=== PATIENT | female | born 1995 | race Caucasian/White ===

== ENCOUNTER 2018-04-02 18:15 | Outpatient (CLI) | payer OTHER, SELFPAY ==
[2018-04-02 18:47] VITALS: BMI 37.4
[2018-04-02 19:23] LABS: ROM Internal Control Test YES-OK TO RESULT pt. (Internal QC); ROM Patient Test Negative (Negative)
--- NOTE | 2018-04-03 07:49 | OB.TRI.NOTE ---
History of Present Illness Date of Service: 04/02/18 Was patient seen by the physician?: No Reason For Visit: R/O LABOR Date of Service: 04/02/18 Final CHAU: 05/18/18 Final CHAU Source: US <20 weeks Gestational age: 33 Weeks and 4 Days History of Present Illness: Patient presented to triage reporting possible SROM and decreased movement. Patient reports no vaginal bleeding or cramping/contractions. Allergies No Known Allergies Allergy (Verified 04/02/18 18:53) Laboratory Studies: Laboratory Tests 04/02/18 Range/Units 18:30 Vag Amniotic Fld Detect Negative (Negative) Review of Systems Unable to obtain accurate/complete ROS d/t: See nursing note for ROS Physical Exam Vitals: See nursing note for vitals and PE - patient was normotensive and afebrile NST - FHR Rate Baby A Baseline: 120 Variability:: Moderate Accelerations:: 15 x 15 Decelerations:: None NST Reactive:: Yes, Appropriate for gestational age FHR Category:: Category I Uterine Activity:: Uterine irritability noted on tocometer - no ctx noted
== END 2018-04-02 19:45 | disposition home or self-care (01) ==
LOC: WPOUT 18:45 → WP 18:46
PROVIDERS: Visit Provider Advanced Practice Midwife
DX: O36.8130 Decreased fetal movements, third trimester, not applicable or unspecified (principal); Z3A.33 33 weeks gestation of pregnancy
CPT/HCPCS: 59025; 59050; 84112; 99218; G0378

== ENCOUNTER 2018-05-13 07:10 | Inpatient (IN) | payer OTHER, SELFPAY ==
[2018-05-13 07:34] VITALS: BMI 38.3
[2018-05-13] MEDS: Lactated Ringers 1,000 ML 50 ML IV (07:45)
[2018-05-13] MEDS: Oxytocin 30 units/NS 500 ml 30 UNITS/500 ML IV.SOLN IV (08:47)
[2018-05-13 08:48] LABS: Hematocrit 38.3 % (37-47); Hemoglobin 13.1 g/dl (12.0-15.0); Mean Corp Hgb Conc 34.2 g/gl (32-36); Mean Corpuscular Hgb 30.1 pg (27.0-32.0); Mean Platelet Vol. 11.3 fl (6.2-12.0); Platelet Count 186 K/mm3 (150-450); RBC Distribution Width CV 13.2 % (11.6-14.6); RBC Distribution Width SD 40.8 fl (35.1-43.9); Red Blood Count 4.35 M/mm3 (4.2-5.4); White Blood Count 8.9 K/mm3 (4.4-11.0)
[2018-05-13 08:53] LABS: Scan Indicated on CBC? Y/N NO
[2018-05-13] MEDS: 0.9% Saline Lock 10 ML Syringe IV (12:11)
[2018-05-13] MEDS: Oxytocin 30 units/NS 500 ml 30 UNITS/500 ML IV.SOLN 334 UNITS IV (12:30)
--- NOTE | 2018-05-13 12:47 | PCM.HP.OB ---
History Date of Admission: 05/13/18 Final CHAU: 05/18/18 Final CHAU Source: US <20 weeks Gestational age: 39 Weeks and 2 Days History of this : This is a 22 year-old, 2 para 1 who presents at 39-2/7 weeks with EDC of 05/18/2018 by last menstrual period confirmed by first trimester ultrasound presents for induction of labor. She denies any vaginal bleeding or leaking of fluid. She has had a regular contractions. Her has been uncomplicated to date. Previous was one full-term spontaneous vaginal delivery of a 7 pound 9 ounce without complications.. Allergies PEANUTS Allergy (Uncoded 05/13/18 07:54) Anaphylaxis Home Medications: Home Medications Vits96/Iron Fum/Folic [ Tablet] 1 each PO DAILY 04/02/18 Cholecalciferol (VIT D3) [Vitamin D] 1,000 unit PO DAILY 05/13/18 Epinephrine [Epipen] 0.3 mg IM PRN PRN 05/13/18 Smoking Status: Former smoker Alcohol: None Number of Fetus(es): 1 Heart Tracing: Normal baseline, moderate variability spontaneous accelerations and no recurrent decelerations. Category 1 upon admission TOCO Analysis: No regular contractions History Past Pregnancies: Past Pregnancies Delivery Date Name GA/Weeks Outcome Route Weight Gender Labor Length Anesthesia Delivery Location Provider FOB Review of Systems Constitutional: Denies: Anorexia, Chills, Fever Cardiovascular: Denies: Chest Pain Respiratory: Denies: Cough Gastrointestinal: Denies: Abdominal Pain Physical Exam General: Alert, Cooperative, No apparent distress Cardiovascular: Regular rate Lungs: Normal air movement Abdomen: Soft, Non-Distended, Gravid, Appropriate for Gestational Age Extremities:: Other - 1+ edema [employer]: Normal external genitalia Estimated gestational size: Appropriate for gestational size Presentation: Cephalic Cervix Dilation (cm): 3 - AROM with return of moderate amount of clear fluid Station: -2 Effacement (%): 60 Assessment/Plan All Active Problems Decreased movement affecting management of in third trimester (Acute) False labor before 37 completed weeks of gestation (Acute) Vaginal discharge during in third trimester (Acute) 22-year-old 2 para 1 female at 39 2/7 weeks for elective induction of labor. Risk benefits and alternatives to elective induction been discussed with the patient, her questions were answered to her satisfaction she desires to proceed. We will proceed with Pitocin and artificial rupture membranes induction. Estimated weight is less than 4500 g clinically and pelvis is clinically adequate to expect vaginal delivery.
--- NOTE | 2018-05-13 12:50 | PCM.OB.VAG ---
Vaginal Delivery Maternal Presentation: Elective Induction Method of Induction: Pitocin, Amniotomy Amniotic Membrane Rupture Type: Artificial Amniotic Fluid Description: Clear Final CHAU: 05/18/18 Final CHAU Source: US <20 weeks Gestational age: 39 Weeks and 2 Days Date of Procedure: 05/13/18 Pre-Operative Diagnosis: labor Post-Operative Diagnosis: same Surgery/ Procedure Performed: Spontaneous Vaginal Delivery Type of Anesthesia: None Description of Procedure: A vigorous female was delivered SHANAE over an intact perineum. A tight nuchal cord x1 was reduced. The remainder the was delivered with maternal pushing and gentle traction only in less than 15 seconds. The Pitocin infusion was initiated for active management of the third stage. The cord was clamped and cut after approximately 30 seconds as the infant was not crying vigorously at that time. The infant was attended to by the waiting nursing staff. The placenta was delivered spontaneously and intact. The cervix and vagina were intact. Sponge and needle counts were correct. A vaginal sweep was completed by me. Presentation: SHANAE Placental Delivery Description: Spontaneous Placenta Disposition: [facility] Cord Vessel Description: 3 Vessels Nuchal Cord Compression: Without compression Cord Entanglement: Around neck x 1, tight Drain: - - none Estimated Blood Loss: 200 Infant A gender: Female (1 minute): 8 (5 minute): 8 Episiotomy Description: None Laceration: None Medications given after delivery: IV Pitocin Complications: None
[2018-05-13] MEDS: Acetaminophen 325 MG Tablet PO (12:59)
[2018-05-13] MEDS: Oxytocin 30 units/NS 500 ml 30 UNITS/500 ML IV.SOLN 167 UNITS IV (13:01)
[2018-05-13] MEDS: Naproxen 250 MG Tablet PO (16:16)
[2018-05-13 16:17] VITALS: BP 133/79; PULSE 76; RESP 16; TEMP 36.7; O2SAT 98
--- NOTE | 2018-05-13 18:22 | DCINST_ITS ---
Discharge Diet: No Restrictions Discharge Activity: Return to Normal Activity, May not drive while taking narcotic pain medications., May Shower May resume sexual activity in: 4-6 weeks Additional Activity Instructions:: Nothing in the vagina for 4-6 weeks. You may return to work/school in 6 weeks. Call your doctor if your incision/area has: Continuous Slow Oozing, Sudden Increased Bleeding, Increased Pain/ Swelling, Increased Redness, Foul Smelling Discharge Additional Instructions: If you experience any of the following, contact your healthcare provider. * Bleeding that soaks a pad every hour for 2 hours * Fever 100.4 or higher * Unrelieved incision or abdominal pain * Swelling, redness, discharge or bleeding from your incision or episiotomy site * Your incision begins to separate * Problems urinating (including inability to urinate or burning while urinating). * Visual changes * Severe headache * Flu-like symptoms * Pain or redness in one of both of your breasts * Pain, warmth, tenderness or swelling in your legs, especially the calf area * Frequent nausea and vomiting * Symptoms of depression or anxiety If you experience any of the following, call 911 or go to the nearest Emergency Room. * Chest pain * Problems breathing * Seizure activity * Partial or complete paralysis of a body part, slurred speech, weakness or drooping of the face, or a sudden inability to walk or hold your balance Allergies/Adverse Reactions: Allergies PEANUTS Allergy (Uncoded 05/13/18 07:54) Anaphylaxis Medications to take at Discharge Vits96/Iron Fum/Folic [ Tablet] 1 each PO DAILY 04/02/18 Cholecalciferol (VIT D3) [Vitamin D3] 1,000 unit PO DAILY 05/13/18 Epinephrine [Epipen] 0.3 mg IM PRN PRN 05/13/18 Ibuprofen [Motrin] 800 mg PO TID PRN PRN #60 tablet 05/13/18 The following prescriptions were given: Ibuprofen [Motrin] 800 mg PO TID PRN PRN #60 tablet PRN Reason: Pain Please Follow Up With: Mica Concepcion MD - [phone] When: Call to make an appointment with your providers office in 1-2 and 6 weeks or as needed. Primary Care Physician: Irvin Edwards MD [Primary Care Provider] - Test Results: Test results from this visit will be discussed in further detail at your follow- up appointment, if applicable.
[2018-05-13 21:05] VITALS: BP 124/79; PULSE 74; RESP 18; TEMP 36.4
[2018-05-14] VITALS: BP 120/58; PULSE 63; RESP 16; TEMP 37; O2SAT 97
[2018-05-14 04:00] VITALS: BP 112/68; PULSE 73; RESP 18; TEMP 37.1; O2SAT 96
[2018-05-14] MEDS: Naproxen 250 MG Tablet PO (07:38)
[2018-05-14] MEDS: Senna/Docusate Sodium 1 Tablet PO (07:41)
--- NOTE | 2018-05-14 07:45 | PCM.PN.OB ---
Subjective: pain well controlled, average lochia, no other c/o. is going well - Physical Exam General: Alert, Cooperative, No apparent distress Vital Signs Temp Pulse Resp BP Pulse Ox 98.8 F 73 18 112/68 96 05/14/18 04:00 05/14/18 04:00 05/14/18 04:00 05/14/18 04:00 05/14/18 04:00 Oxygen Flow Rate (L/min) 96 Oxygen Delivery Method Room Air Weight: 98.2 kg Body Mass Index (BMI) 38.3 Intake and Output for Last 24 Hours 05/12/18 05/13/18 05/14/18 23:59 23:59 23:59 Intake Total 1400.5 / 1400.5 Output Total 750 / 750 Balance 650.5 / 650.5 Laboratory Tests Past 24 Hrs 05/13/18 05/13/18 07:45 07:45 WBC 8.9 RBC 4.35 Hgb 13.1 Hct 38.3 MCV 88.0 MCH 30.1 MCHC 34.2 RDW 13.2 RDW Differential 40.8 Plt Count 186 MPV 11.3 Blood Type B POSITIVE Antibody Screen NEGATIVE Medical Necessity - Tobacco Use Smoking Status: Former smoker Assessment/Plan All Active Problems Decreased movement affecting management of in third trimester (Acute) False labor before 37 completed weeks of gestation (Acute) Vaginal discharge during in third trimester (Acute) PPD#1 doing well infant possible d/c home today
[2018-05-14 08:00] VITALS: BP 127/76; PULSE 73; RESP 16; TEMP 36.5
[2018-05-14 14:00] VITALS: BP 117/53; PULSE 79; RESP 20; TEMP 36.5
== END 2018-05-14 16:10 | disposition home or self-care (01) | DRG 807 ==
PROVIDERS: Admitting Provider Obstetrics & Gynecology; Family Provider Family Medicine; PCP Family Medicine; Referring Provider Obstetrics & Gynecology; Visit Provider Obstetrics & Gynecology
DX: O75.89 Other specified complications of labor and delivery (principal); Z37.0 Single live birth; O69.1XX0 Labor and delivery complicated by cord around neck, with compression, not applicable or unspecified; Z3A.39 39 weeks gestation of pregnancy; Z87.891 Personal history of nicotine dependence
CPT/HCPCS: 59025; 59050; 85027; 86850; 86900; 99218; J7120; A4216; G0378

== ENCOUNTER 2025-04-14 18:40 | Outpatient (CLI) | payer OTHER, SELFPAY ==
--- OUTSIDE RECORDS SUMMARY | 2025-04-14 18:47 | XMS RPT_ITS | CCD ---
Author Organization [facility] Care Team Providers Care Academic Hospitalist Name Role Phone Furness, Shazia T Unavailable Unavailable Furness, Shazia T Unavailable Unavailable Thomae, Horacio R Unavailable Unavailable Furness, Shazia T Unavailable Unavailable Furness, Shazia T Unavailable Unavailable Furness, Shazia T Unavailable Unavailable Thomae, Horacio R Unavailable Unavailable Furness, Shazia T Unavailable Unavailable Newbill, Nabil Harleyel Unavailable Unavailable Newbill, Nabil Fletcher Unavailable Unavailable Furness, Shazia T Unavailable Unavailable Newbill, Nabil Harleyel Unavailable Unavailable Furness, Shazia T Unavailable Unavailable Newbill, Nabil Harleyel Unavailable Unavailable Furness, Shazia T Unavailable Unavailable Furness, Shazia T Unavailable Unavailable Furness, Shazia T Unavailable Unavailable Furness, Shazia T Unavailable Unavailable Furness, Shazia T Primary Care Provider Unavail able Furness Shazia GIL Primary Care Provider Shazia Edwards MD Primary Care Provider Tianna Mota Referring Unavailable PlottsTianna Attending Unavailable PlottsTianna Admitting Unavailable Furness, Shazia Primary Care Unavailable FURNESS, SHAZIA T Primary Care Unavailable GIANA ALCALA Attending Unavailable PLOTTSTIANNA Referring Unavailable PLOTTSTIANNA Attending Unavailable FURNESS, SHAZIA T Primary Care Unavailable GIANA ALCALA Referring Unavailable FURNESS, SHAZIA T Primary Care Unavailable GIANA ALCALA Referring Unavailable FURNESS, SHAZIA T Primary Care Unavailable KATHLEEN PATEL Referring Unavail able FURNESS, SHAZIA T Primary Care Unavailable FURNESS, SHAZIA T Primary Care Unavailable PLOTTSTIANNA Referring Unavailable FURNESS, SHAZIA T Primary Care Unavailable PLOTTSTIANNA Attending Unavailable FURNESS, SHAZIA T Primary Care Unavailable TAWANDA LA Attending Unavailable FURNESS, SHAZIA T Primary Care Unavailable FURNESS, SHAZIA T Primary Care Unavailable PLOTTS, TIANNA Attending Unavailable FURNESS, SHAZIA T Primary Care Unavailable PLOTTS, TIANNA Referring Unavailable NEYHART CARO, KATHLEEN Referring Unavail able FURNESS, SHAZIA T Primary Care Unavailable NEYHART CARO, KATHLEEN Referring Unavail able FURNESS, SHAZIA T Primary Care Unavailable PLOTTS, TIANNA Attending Unavailable FURNESS, SHAZIA T Primary Care Unavailable PLOTTS, TIANNA Attending Unavailable FURNESS, SHAZIA T Primary Care Unavailable FURNESS, SHAZIA T Primary Care Unavailable PLOTTS, TIANNA Referring Unavailable FURNESS, SHAZIA T Primary Care Unavailable PLOTTS, TIANNA Referring Unavailable HAURY, KAILEE Attending Unavailable FURNESS, SHAZIA T Primary Care Unavailable FURNESS, SHAZIA T Primary Care Unavailable HAURY, KAILEE Referring Unavailable FURNESS, SHAZIA T Primary Care Unavailable PLOTTS, TIANNA Attending Unavailable FURNESS, SHAZIA T Primary Care Unavailable HAURY, KAILEE Referring Unavailable SUJATA, GIANA Attending Unavailable FURNESS, SHAZIA T Primary Care Unavailable HAURY, KAILEE Referring Unavailable SUJATA, GIANA Attending Unavailable FURNESS, SHAZIA T Primary Care Unavailable PLOTTS, TIANNA Referring Unavailable FURNESS, SHAZIA T Primary Care Unavailable HAURY, KAILEE Attending Unavailable FURNESS, SHAZIA T Primary Care Unavailable PLOTTS, TIANNA Referring Unavailable NEYHART RAZAIDRE Attending Unavail able FURNESS, SHAZIA T Primary Care Unavailable NEYHART CARO, KATHLEEN Referring Unavail able FURNESS, SHAZIA T Primary Care Unavailable Allergies Allergy Classification Reported Allergen(s) Allergy Type Date of Onset Reaction(s) Facility (20 sources) peanut; Translations: [Peanuts] Propensity to adverse reactions to food (disorder) 0 Anaphylaxis [facility] Repository (1 source) No Known Allergies; Translations: [No Known Allergies] Propensity to adverse reactions to drug (disorder) [facility] Repository (1 source) peanut allergenic extract Drug Allergy 2 [facility] Repository Medications Current Medications Medication Drug Class(es) Dates Sig (Normalized) Sig (Original) amoxicillin 500 mg oral capsule (4 sources) Penicillin-class Antibacterial Start: 12-02-2024 take 1 tablet by mouth three times daily amoxicillin (AMOXIL) 500 mg capsule take 1 tablet (500 mg total) by mouth 3 (three) times a day for 7 days 12/02/2024 Active aspirin 81 mg delayed release oral tablet (19 sources) Platelet Aggregation Inhibitor, Nonsteroidal Anti-inflammatory Drug Start: 09-23-2024 take 1 tablet by mouth once daily aspirin, enteric coated (ECOTRIN LOW STRENGTH) 81 mg EC tablet Indications: 9 weeks gestation of (HCC) Take 1 tablet by mouth once daily. 90 tablet 3 09/23/2024 Active Start: 04-22-2024 End: 07-01-2024 take 1 tablet by mouth once daily aspirin, enteric coated (ECOTRIN LOW STRENGTH) 81 mg EC tablet Indications: with uncertain dates in first trimester Take 1 tablet by mouth once daily. 90 tablet 3 04/22/2024 07/01/2024 Discontinued (Discontinued by Patient) doxycycline hyclate 100 mg oral tablet (1 source) Tetracycline-class Drug Start: 05-06-2024 End: 05-06-2024 take 2 tablets by mouth once doxycycline (VIBRA-TABS) 100 mg tablet Take 2 tablets by mouth one time only for 1 dose. 2 tablet 05/06/2024 05/06/2024 Active [id number] 0.3 ml EPINEPHrine 1 mg/ml auto-injector (20 sources) alpha-Adrenergic Agonist, beta-Adrenergic Agonist, Catecholamine Start: 05-13-2018 EPINEPHrine (EPIPEN) 0.3 mg/0.3 mL auto-injector NEEDED PRN For Allergies 05/13/2018 Active Comment on above: NEEDED PRN For Al lergies 273 day ethinyl estradiol 0.308035 mg/hr / segesterone acetate 0.93599 mg/hr vaginal system (5 sources) Estrogen Start: 05-27-2023 End: 04-22-2024 segesterone ac-ethin estradiol (ANNOVERA) 0.15-0.013 mg/[address] ring vaginally for 3 week then remove for 1 week and replace within 4-7 days. 1 Each 05/27/2023 04/22/2024 Discontinued Start: 06-18-2021 End: 06-09-2022 segesterone ac-ethin estradi ol (ANNOVERA) 0.15-0.013 mg/[address] ring vaginally for 3 week then remove for 1 week and replace within 4-7 days. 1 Each 0 06/09/2022 Active Comment on above: Place ring vaginally for 3 week then remove for 1 week and replace within 4-7 days. miSOPROStol 0.2 mg oral tablet (1 source) Prostaglandin E1 Analog Start: 04-29-20 End: 04-29-20 miSOPROStol (CYTOTEC) 200 mcg tablet Use 4 tablets vaginally one time only for 1 dose. 4 tablet 04/29/2024 04/29/2024 Active pantoprazole 20 mg delayed release oral tablet (1 source) Proton Pump Inhibitor Start: 01-07-20 take 1 tablet by mouth once daily pantoprazole DR (PROTONIX) 20 mg tablet Take 1 tablet by mouth once daily. 30 tablet 1 01/06/2025 Active 25-IRON [id number] ORAL (19 sources) 25-IRON [id number] ORAL Take by mouth. Active promethazine hydrochloride 12.5 mg rectal suppository (6 sources) Phenothiazine Start: 12-06-19 take 12.5 mg rectal route every six hours as needed promethazine (PHENERGAN) 12.5 mg suppository 1 suppository by RECTAL route every 6 hours as needed. 12 each 12/05/2024 Active Completed/Discontinued Medications Medication Drug Class(es) Dates Sig (Normalized) Sig (Original) famotidine 20 mg oral tablet (7 sources) Histamine-2 Receptor Antagonist End: 01-06-2025 take 1 tablet by mouth twice daily famotidine (PEPCID) 20 mg tablet Take 20 mg by mouth two times a day. 01/06/2025 Discontinued (Course of therapy completed) 2 ml ketorolac tromethamine 30 mg/ml injection (2 sources) Nonsteroidal Anti-inflammatory Drug, Cyclooxygenase Inhibitor Start: 05-06-2024 End: 05-06-2024 keTORolac 60 mg injection (Toradol) Start: 05-06-2024 End: 05-06-2024 60 mg, INTRAMUSCULAR, ONCE, 1 dose, On Thu05/06/24 at 1500, Ketorolac (Toradol) is indicated for the short-term (up to 5 days) management of moderately severe acute pain. Continuation of ketorolac (Toradol) beyond 5 days increases the risk of developing serious adverse events. Please verify the duration of therapy for ketorolac (Toradol). Problems Active Problems Problem Classification Problem Date Documented Da te Episodic/Chronic Contraceptive and procreative management (1 source) Contraception status; Translations: [Encounter for surveillance of vaginal ring hormonal contraceptive device] 06-29-2023 Episodic Diabetes mellitus without complication (1 source) Other abnormal glucose; Translations: [Elevated glucose] Onset: 02-06-2025 Episodic Hemorrhage during ; abruptio placenta; placenta previa (20 sources) Vaginal bleeding complicating early ; Translations: [Hemorrhage in early , unspecified] Onset: 04-22-2024 Resolved: 09-23-2024 04-22-2024 Episodic Immunizations and screening for infectious disease (3 sources) Patient encounter status; Translations: [Encounter for screening for human papillomavirus (HPV)] 07-01-2024 Episodic Other complications of (20 sources) Maternal obesity complicating , childbirth and the puerperium, antepartum; Translations: [Obesity complicating , first trimester] Onset: 08-11-2014 Resolved: 05-22-2016 04-22-2024 Chronic Other complications of (2 sources) Obesity complicating , second trimester; Translations: [Obesity affecting in second trimester, unspecified obesity type (HCC)] Onset: 10-17-2024 Chronic Other complications of (18 sources) High risk ; Translations: [Supervision of high risk , unspecified, first trimester] Onset: 04-22-2024 04-22-2024 Episodic Other complications of (1 source) Heartburn; Translations: [Other specified related conditions, second trimester] 01-06-2025 Episodic Other complications of (1 source) Supervision of high risk , unspecified, third trimester; Translations: [Supervision of high risk in third trimester (HCC)] Onset: 03-20-2025 Episodic Other complications of (1 source) Supervision of high risk , unspecified, second trimester; Translations: [Supervision of high risk in second trimester (HCC)] Onset: 03-03-2025 Episodic Other complications of (1 source) Other specified related conditions, second trimester; Translations: [Heartburn during in second trimester (HCC)] Onset: 01-06-2025 Episodic Other female genital disorders (1 source) Other specified noninflammatory disorders of vagina; Translations: [Vaginal discharge] Onset: 03-20-2025 Episodic Other gastrointestinal disorders (13 sources) Irritable bowel syndrome; Translations: [Mixed irritable bowel syndrome] 09-23-2024 Chronic Other gastrointestinal disorders (1 source) Heartburn; Translations: [Heartburn during in second trimester (HCC)] Onset: 01-06-2025 Episodic Other screening for suspected conditions (not mental disorders or infectious disease) (2 sources) Cancer cervix screening status; Translations: [Encounter for screening for malignant neoplasm of cervix] Onset: 02-03-2025 07-01-2024 Episodic Residual codes; unclassified (1 source) First trimester ; Translations: [Less than 8 weeks gestation of ] 04-22-2024 Episodic Residual codes; unclassified (4 sources) Gestation period, 9 weeks; Translations: [9 weeks gestation of ] 09-23-2024 Episodic Residual codes; unclassified (2 sources) Gestation period, 13 weeks; Translations: [13 weeks gestation of ] 10-17-2024 Episodic Residual codes; unclassified (1 source) Gestation period, 16 weeks; Translations: [16 weeks gestation of ] 11-11-2024 Episodic Residual codes; unclassified (1 source) Gestation period, 20 weeks; Translations: [20 weeks gestation of ] 12-09-2024 Episodic Residual codes; unclassified (3 sources) Gestation period, 24 weeks; Translations: [24 weeks gestation of ] 01-06-2025 Episodic Residual codes; unclassified (1 source) 35 weeks gestation of ; Translations: [35 weeks gestation of (HCC)] Onset: 03-20-2025 Episodic Residual codes; unclassified (1 source) 32 weeks gestation of ; Translations: [32 weeks gestation of (HCC)] Onset: 03-03-2025 Episodic Residual codes; unclassified (1 source) 30 weeks gestation of ; Translations: [30 weeks gestation of ([facility])] Onset: 02-17-2025 Episodic Residual codes; unclassified (1 source) 24 weeks gestation of ; Translations: [24 weeks gestation of ([facility])] Onset: 02-03-2025 Episodic Residual codes; unclassified (1 source) 28 weeks gestation of ; Translations: [28 weeks gestation of ([facility])] Onset: 02-03-2025 Episodic Unclassified (20 sources) [facility] - [facility]ON Onset: 04-23-2024 04-23-2024 Unclassified (11 sources) Education - [place] Onset: 09-23-2024 09-23-2024 Unclassified (1 source) Other obesity affecting in second trimester ([facility]); Translations: [Other obesity affecting in second trimester ([facility])] Onset: 10-17-2024 Past or Other Problems Problem Classification Problem Date Documented Da te Episodic/Chronic Calculus of urinary tract (19 sources) History of calculus of kidney; Translations: [Personal history of urinary calculi] Resolved: 06-23-2018 06-23-2018 Episodic Early or threatened labor (19 sources) False labor; Translations: [False labor, unspecified] Onset: 02-26-2015 Resolved: 05-22-2016 05-22-2016 Episodic Other complications of ; puerperium affecting management of mother (19 sources) Labor and delivery complication by meconium in amniotic fluid; Translations: [Labor and delivery complicated by meconium in amniotic fluid] Onset: 04-05-2015 Resolved: 05-22-2016 05-22-2016 Episodic Other complications of (20 sources) Diseases of the digestive system complicating , first trimester; Translations: [Other current conditions classifiable elsewhere of mother, antepartum condition or complication] Onset: 04-22-2024 Resolved: 01-06-2025 04-22-2024 Episodic Other complications of (19 sources) Reduced movement; Translations: [Decreased movements, unspecified trimester, not applicable or unspecified] Onset: 03-01-2015 Resolved: 05-22-2016 05-22-2016 Episodic Other complications of (1 source) Incomplete and partial hydatidiform mole; Translations: [Partial hydatidiform mole] Onset: 05-20-2024 Episodic Other and delivery including normal (20 sources) with uncertain dates; Translations: [Encounter for supervision of normal , unspecified, first trimester] Onset: 08-11-2014 Resolved: 01-06-2025 04-22-2024 Episodic Prolonged (20 sources) Post-term ; Translations: [Post-term ] Onset: 04-02-2015 Resolved: 05-22-2016 05-22-2016 Episodic Residual codes; unclassified (19 sources) Gestation period, 35 weeks; Translations: [35 weeks gestation of ] Onset: 02-26-2015 Resolved: 03-08-2015 03-08-2015 Episodic Residual codes; unclassified (19 sources) Gestation period, 40 weeks; Translations: [40 weeks gestation of ] Onset: 04-02-2015 Resolved: 05-22-2016 05-22-2016 Episodic Residual codes; unclassified (1 source) 9 weeks gestation of ; Translations: [9 weeks gestation of (HCC)] Onset: 12-09-2024 Episodic Residual codes; unclassified (1 source) 16 weeks gestation of ; Translations: [16 weeks gestation of (HCC)] Onset: 11-11-2024 Episodic Residual codes; unclassified (1 source) 13 weeks gestation of ; Translations: [13 weeks gestation of (HCC)] Onset: 10-17-2024 Episodic Spontaneous (4 sources) Miscarriage; Translations: [Complete or unspecified spontaneous without complication] Onset: 05-02-2024 04-29-2024 Episodic Unclassified (19 sources) NEGATIVE MEDICAL HISTORY Resolved: 11-14-2014 11-14-2014 Results Test Name Value Interpretation Reference Range Facil ity BACTERIAL VAGINOSIS NAATon 1 05-20-2024 Lactobacillus crispatus+gasseri+je nsenii + Gardnerella vaginalis + Atopobium vaginae rRNA ITZEL+probe Ql (Vag fld) Detected Abnormal Not detected [facility] Comment on above: Order Comment: Speci men Type: SWABOrdering Facility: [facility] Address: [address] [place] [address] Performed By: #### C VTV, BVAMP ####[facility] LABCLIA [id number] [place] [address] [place] MILADIS/TRICHOMONAS NAATon 1 05-20-2024 C. glabrata RNA ITZEL+probe Ql (Vag fld) Not detected Normal Not detected [facility] Comment on above: Order Comment: Speci men Type: SWABOrdering Facility: [facility] Address: [address] [place] [address] Performed By: #### C VTV, BVAMP ####[facility] LABCLIA [id number] [address] [place] Miladis sp DNA ITZEL+probe Ql (Vag fld) Not detected Normal Not detected [facility] Comment on above: Order Comment: Speci men Type: SWABOrdering Facility: [facility] Address: [address] [place] [address] Result Comment: The Miladis species group target includes C. albicans, C. tropicalis, C. parapsilosis, and C. dubliniensis. Performed By: #### C VTV, BVAMP ####[facility] LABCLIA [id number] [address] [place] T. vaginalis DNA ITZEL+probe Ql (Unsp spec) Not detected Normal Not detected [facility] Comment on above: Order Comment: Speci men Type: SWABOrdering Facility: [facility] Address: [address] [place] [address] Performed By: #### C VTV, BVAMP ####[facility] LABCLIA [id number] [address] [place] Ender 02-15-2025 CNPN Telephone (OBGYWM) DORY PRADHAN ([id number]) 1995 F Date Time Provider Department 02/15/25 TIANNA MOTA OBFABIOWHaylee During your visit today, we recorded the following information about you: Giana Alexandre RN 02/15/2025 11:48 AM Signed 30w2d Patient called with c/o bilateral calf and ankle swelling. She is not having pain in her calves, but she does have pain that goes up to her hips. She noticed red, splotchy, and in a cluster formation spots on her legs last night. They are not raised. States that are below the skin. Patient stated on phone that it was hard to describe. Denies s/s of DVT - no lumps, edema, warmth or redness. Does not think that it is contact dermatitis or an allergic reaction to anything. Denies any other abnormal symptoms. Does patient need seen here or would you prefer PCP or Urgent Care? She has an appointment in our office on Thursday. PRAVEEN Sharma Courtney, APRN.CNM 02/15/2025 12:02 PM Signed She can keep her already scheduled appointment with our office this week. If she develops and calf pain/tenderness, redness, warmth etc. She can be seen today at or ED. PHYLLIS Loyd Lindsey, RN 02/15/2025 12:08 PM Signed Patient notified and voiced understanding of information and instructions below. Rhina Connors RN Allergies As of Date: 02/15/2025 Noted Allergy Reaction PEANUTS 06/01/2019 10 - Anaphylaxis Date Reviewed: 02/03/2025 Reviewed by: Giana Alcala MD - Fully Assessed Prescriptions as of 02/15/2025 - pantoprazole DR (PROTONIX) 20 mg tablet Take 1 tablet by mouth once daily. - promethazine (PHENERGAN) 12.5 mg suppository 1 suppository by RECTAL route every 6 hours as needed. - aspirin, enteric coated (ECOTRIN LOW STRENGTH) 81 mg EC tablet Take 1 tablet by mouth once daily. - 25-IRON [id number] ORAL Take by mouth. - EPINEPHrine (EPIPEN) 0.3 mg/0.3 mL auto-injector NEEDED PRN For Allergies Problem List As Of Date 02/15/2025 Noted Resolved NEGATIVE MEDICAL HISTORY [V999.96] 11/14/2014 Routine gynecological examination [Z01.419] 07/26/2013 08/11/2014 Encounter for supervision of other normal pregn*08/11/2014 06/23/2018 History of kidney stones [Z87.442] 06/23/2018 Obesity complicating , childbirth, or *08/11/2014 05/22/2016 False labor [O47.9] 02/26/2015 05/22/2016 35 weeks gestation of [Z3A.35] 02/26/2015 03/08/2015 Decreased movement [O36.8190] 03/01/2015 05/22/2016 Post-dates [O48.0] 04/02/2015 05/22/2016 40 weeks gestation of [Z3A.40] 04/02/2015 05/22/2016 Vaginal delivery [O80] 04/05/2015 05/22/2016 Post term , 41 weeks [O48.0, Z3A.41] 04/05/2015 05/22/2016 Meconium stained amniotic fluid, delivered, cur*04/05/2015 05/22/2016 with uncertain dates in first trimest*04/22/2024 01/06/2025 Obesity affecting in second trimester*04/22/2024 Constipation during in first trimeste*04/22/2024 01/06/2025 Vaginal bleeding affecting early (HCC*04/22/2024 09/23/2024 Supervision of high risk in second tr*09/23/2024 IBS (irritable bowel syndrome) [K58.9] Low-lying placenta (HCC) [O44.40] 12/12/2024 02/06/2025 Elevated glucose [R73.09] 02/06/2025 Encounter Status:Closed by TIANNA MOTA on 02/15/25 Normal [facility] GLUCOSE GESTATIONAL, 1 HOURo n 02-10-2025 Glucose 1 Hr post Unsp challenge [Mass/Vol] 142 mg/dL Normal 74-179 [facility] Comment on above: Order Comment: Speci men Type: BLOOD SPECIMEN Ordering Facility: [facility] Address: [address] [place] [address] [place] [address] Result Comment: [facility] Congress of Obstetricians and Gynecologists (Koko/Brenda) guidelines state gestational diabetes mellitus is present when 2 or more of the plasma glucose concentrations meet or exceed the following levels: fastin mg/dl, 1 hr: 180 mg/dl, 2 hr: 155 mg/dl, and 3 hr: 140 mg/dl. Performed By: #### G TGST1 #### [facility] CLIA [id number] [address] [place] [address] [place] GLUCOSE GESTATIONAL, 2 HOURo n 02-10-2025 Glucose 2 Hr post Unsp challenge [Mass/Vol] 151 mg/dL Normal 74-154 [facility] Comment on above: Order Comment: Speci men Type: BLOOD SPECIMENOrdering Facility: [facility] Address: [address] [place] [address] Result Comment: [facility] Congress of Obstetricians and Gynecologists (Koko/Brenda) guidelines state gestational diabetes mellitus is present when 2 or more of the plasma glucose concentrations meet or exceed the following levels: fastin mg/dl, 1 hr: 180 mg/dl, 2 hr: 155 mg/dl, and 3 hr: 140 mg/dl. Performed By: #### G TGST2 ####[facility] [id number] [place] [address] [place] GLUCOSE GESTATIONAL, 3 HOURo n 02-10-2025 Glucose 3 Hr post Unsp challenge [Mass/Vol] 153 mg/dL High 74-139 [facility] Comment on above: Order Comment: Speci men Type: BLOOD SPECIMENOrdering Facility: [facility] Address: [address] [place] [address] Result Comment: [facility] Congress of Obstetricians and Gynecologists (Koko/Brenda) guidelines state gestational diabetes mellitus is present when 2 or more of the plasma glucose concentrations meet or exceed the following levels: fastin mg/dl, 1 hr: 180 mg/dl, 2 hr: 155 mg/dl, and 3 hr: 140 mg/dl. Performed By: #### G TGST3 ####[facility] [id number] [place] [address] [place] GLUCOSE GESTATIONAL, FASTING on 02-10-2025 Glucose post fast [Mass/Vol] 79 mg/dL Normal 74-94 [facility] Comment on above: Order Comment: Speci men Type: BLOOD SPECIMEN Ordering Facility: [facility] Address: [address] [place] [address] Result Comment: [facility] Congress of Obstetricians and Gynecologists (Koko/Brenda) guidelines state gestational diabetes mellitus is present when 2 or more of the plasma glucose concentrations meet or exceed the following levels: fastin mg/dl, 1 hr: 180 mg/dl, 2 hr: 155 mg/dl, and 3 hr: 140 mg/dl. Performed By: #### G TGSTF #### [facility] CLIA [id number] [address] [place] [address] [place] CBC W Auto Differential pane l (Bld)on 02-03-2025 Basophils (Bld) [#/Vol] 10*3/uL Normal <0.11 [facility] Comment on above: Order Comment: Speci men Type: BLOOD SPECIMEN Ordering Facility: [facility] Address: [address] [place] [address] Performed By: #### G TGST1 #### [id number] [address] [place] [address] [place] Basophils/100 WBC (Bld) 0.2 % Normal [facility] Comment on above: Order Comment: Speci men Type: BLOOD SPECIMEN Ordering Facility: [facility] Address: [address] [place] [address] Performed By: #### G TGST1 #### [facility] [id number] [address] [place] [address] [place] Differential cell count method Nom (Bld) Auto Normal [facility] Comment on above: Order Comment: Speci men Type: BLOOD SPECIMEN Ordering Facility: [facility] Address: [address] [place] [address] Performed By: #### G [email or web address] #### [id number] [address] [place] [address] [place] Eosinophils (Bld) [#/Vol] 0.04 10*3/uL Normal <0.46 [facility] Comment on above: Order Comment: Speci men Type: BLOOD SPECIMEN Ordering Facility: [facility] Address: [address] [place] [address] Performed By: #### G [email or web address] #### [facility] CLIA [id number] [address] [place] [address] [place] Eosinophils/100 WBC (Bld) 0.4 % Normal [facility] Comment on above: Order Comment: Speci men Type: BLOOD SPECIMEN Ordering Facility: [facility] Address: [address] [place] [address] Performed By: #### G [email or web address] #### [facility] CLIA [id number] [address] [place] [address] [place] Erythrocyte distribution width (RBC) [Ratio] 13.3 % Normal 11.5-15.0 [facility] Comment on above: Order Comment: Speci men Type: BLOOD SPECIMEN Ordering Facility: [facility] Address: [address] [place] [address] Performed By: #### G [email or web address] #### [facility] CLIA [id number] [address] [place] [address] [place] Hematocrit (Bld) [Volume fraction] 33.1 % Low 36.0-46.0 [facility] Comment on above: Order Comment: Speci men Type: BLOOD SPECIMEN Ordering Facility: [facility] Address: [address] [place] [address] Performed By: #### G [email or web address] #### [facility] [id number] [address] [place] [address] [place] Hemoglobin (Bld) [Mass/Vol] 11.2 g/dL Low 11.5-15.5 [facility] Comment on above: Order Comment: Speci men Type: BLOOD SPECIMEN Ordering Facility: [facility] Address: [address] [place] [address] Performed By: #### G [email or web address] #### [facility] CLIA [id number] [address] [place] [address] [place] Immature granulocytes (Bld) [#/Vol] 0.05 10*3/uL Normal <0.10 [facility] Comment on above: Order Comment: Speci men Type: BLOOD SPECIMEN Ordering Facility: [facility] Address: [address] [place] [address] Performed By: #### G [email or web address] #### [facility] CLIA [id number] [address] [place] [address] [place] Immature granulocytes/100 WBC (Bld) 0.5 % Normal [facility] Comment on above: Order Comment: Speci men Type: BLOOD SPECIMEN Ordering Facility: [facility] Address: [address] [place] [address] Performed By: #### G [email or web address] #### [facility] CLIA [id number] [address] [place] [address] [place] Lymphocytes (Bld) [#/Vol] 1.63 10*3/uL Normal 1.00-4.00 [facility] Comment on above: Order Comment: Speci men Type: BLOOD SPECIMEN Ordering Facility: [facility] Address: [address] [place] [address] Performed By: #### G [email or web address] #### [facility] CLIA [id number] [address] [place] [address] [place] Lymphocytes/100 WBC (Bld) 16.8 % Normal [facility] Comment on above: Order Comment: Speci men Type: BLOOD SPECIMEN Ordering Facility: [facility] Address: [address] [place] [address] Performed By: #### G [email or web address] #### [facility] CLIA [id number] [address] [place] [address] [place] MCH (RBC) [Entitic mass] 30.0 pg Normal 26.0-34.0 [facility] Comment on above: Order Comment: Speci men Type: BLOOD SPECIMEN Ordering Facility: [facility] Address: [address] [place] [address] Performed By: #### G [email or web address] #### [facility] CLIA [id number] [address] [place] [address] [place] MCHC (RBC) [Mass/Vol] 33.8 g/dL Normal 30.5-36.0 [facility] Comment on above: Order Comment: Speci men Type: BLOOD SPECIMEN Ordering Facility: [facility] Address: [address] [place] [address] Performed By: #### G [email or web address] #### [facility] CLIA [id number] [address] [place] [address] [place] MCV (RBC) [Entitic vol] 88.7 fL Normal 80.0-100.0 [facility] Comment on above: Order Comment: Speci men Type: BLOOD SPECIMEN Ordering Facility: [facility] Address: [address] [place] [address] Performed By: #### G [email or web address] #### [facility] CLIA [id number] [address] [place] [address] [place] Monocytes (Bld) [#/Vol] 0.42 10*3/uL Normal <0.87 [facility] Comment on above: Order Comment: Speci men Type: BLOOD SPECIMEN Ordering Facility: [facility] Address: [address] [place] [address] Performed By: #### G [email or web address] #### [facility] CLIA [id number] [address] [place] [address] [place] Monocytes/100 WBC (Bld) 4.3 % Normal [facility] Comment on above: Order Comment: Speci men Type: BLOOD SPECIMEN Ordering Facility: [facility] Address: [address] [place] [address] Performed By: #### G [email or web address] #### [facility] CLIA [id number] [address] [place] [address] [place] Neutrophils (Bld) [#/Vol] 7.57 10*3/uL High 1.45-7.50 [facility] Comment on above: Order Comment: Speci men Type: BLOOD SPECIMEN Ordering Facility: [facility] Address: [address] [place] [address] Performed By: #### G [email or web address] #### [facility] CLIA [id number] [address] [place] [address] [place] Neutrophils/100 WBC (Bld) 77.8 % Normal [facility] Comment on above: Order Comment: Speci men Type: BLOOD SPECIMEN Ordering Facility: [facility] Address: [address] [place] [address] Performed By: #### G [email or web address] #### [facility] CLIA [id number] [address] [place] [address] [place] Nucleated RBC (Bld) [#/Vol] 10*3/uL Normal <0.01 [facility] Comment on above: Order Comment: Speci men Type: BLOOD SPECIMEN Ordering Facility: [facility] Address: [address] [place] [address] Performed By: #### G [email or web address] #### [facility] CLIA [id number] [address] [place] [address] [place] Nucleated RBC/100 WBC (Bld) [Ratio] 0.0 /100 WBC Normal [facility] Comment on above: Order Comment: Speci men Type: BLOOD SPECIMEN Ordering Facility: [facility] Address: [address] [place] [address] Performed By: #### G [email or web address] #### [facility] CLIA [id number] [address] [place] [address] [place] Platelet mean volume (Bld) [Entitic vol] 9.3 fL Normal 9.0-12.7 [facility] Comment on above: Order Comment: Speci men Type: BLOOD SPECIMEN Ordering Facility: [facility] Address: [address] [place] [address] Performed By: #### G [email or web address] #### [facility] CLIA [id number] [address] [place] [address] [place] Platelets (Bld) [#/Vol] 229 10*3/uL Normal 150-400 [facility] Comment on above: Order Comment: Speci men Type: BLOOD SPECIMEN Ordering Facility: [facility] Address: [address] [place] [address] Performed By: #### G [email or web address] #### [facility] CLIA [id number] [address] [place] [address] [place] RBC (Bld) [#/Vol] 3.73 10*6/uL Low 3.90-5.20 [facility] Comment on above: Order Comment: Speci men Type: BLOOD SPECIMEN Ordering Facility: [facility] Address: [address] [place] [address] Performed By: #### G [email or web address] #### [facility] CLIA [id number] [address] [place] [address] [place] WBC (Bld) [#/Vol] 9.73 10*3/uL Normal 3.70-11.00 [facility] Comment on above: Order Comment: Speci men Type: BLOOD SPECIMEN Ordering Facility: [facility] Address: [address] [place] [address] Performed By: #### G [email or web address] #### [facility] CLIA [id number] [address] [place] [address] [place] GESTATIONAL GLUCOSE SCREEN, 1-HOUR, 50 GRAM, NON-FASTINGon 02-03-2025 Glucose [Mass/Vol] 171 mg/dL High 74-134 [facility] Comment on above: Order Comment: Speci men Type: BLOOD SPECIMENOrdering Facility: [facility] Address: [address] [place] [address] Result Comment: [facility] Congress of Obstetricians and Gynecologists (Koko/Brenda) guidelines state a gestational diabetes mellitus positive screen is made, in women not previously diagnosed with overt diabetes, when the 1 hr plasma glucose level is equal to or above 140 mg/dL. The [facility] [employer] [place] recommends a 135 mg/dL cutoff. Performed By: #### G LTGST ####[facility] [id number] [place] [address] [place] Reagin and Treponema pallidu m IgG and IgM [Interp]on 02-03-2025 T. pallidum IgG+IgM IA Ql (S) Non-Reactive Normal Nonreactive [facility] Comment on above: Order Comment: Klarissa marcus Type: BLOOD SPECIMEN Ordering Facility: [facility] Address: [address] [place] [address] Performed By: #### G [email or web address] #### [facility] CLIA [id number] [address] [place] [address] [place] Reagin+T pallidum IgG+IgM Se rPl-Impon 02-03-2025 Reagin and Treponema pallidum IgG and IgM [Interp] Cannot exclude recent Treponemal infection if specimen collected within 7-10 days after appearance of suspect lesions or 2-3 weeks after an exposure. Clinical correlation is required. Normal [facility] Comment on above: Order Comment: Klarissa marcus Type: BLOOD SPECIMEN Ordering Facility: [facility] Address: [address] [place] [address] Performed By: #### G [email or web address] #### [facility] CLIA [id number] [address] [place] [address] [place] CNPNon 12-19-2024 CNPN Telephone (OBGYW) DORY PRADHAN ([id number]) 1995 F Date Time Provider Department 12/19/24 RADHA LEVINE During your visit today, we recorded the following information about you: Giana Alexandre RN 12/19/2024 4:24 PM Signed 22w0d Patient states that she's been having cramping pain since this morning. Pain rate of 6/10. Pain is causing her to have nausea. Eating and drinking okay. Having regular BM. Denies vaginal bleeding or spotting. Low lying placenta. Advised to try taking Tylenol 1,000 MG and a warm bath. Recommended patient go to hospital for severe pain or if she develops bleeding. Next OB visit 01/06/25. PRAVEEN Sharma Jessica, APRN.CNM 12/19/2024 4:53 PM Signed Thank you. Would recommend [facility] due to gestational age if needing to go in. Thank you, PHYLLIS Franks Jennifer, RN 12/19/2024 5:00 PM Signed Patient notified. Giana Alexandre RN Allergies As of Date: 12/19/2024 Noted Allergy Reaction PEANUTS 06/01/2019 10 - Anaphylaxis Date Reviewed: 12/09/2024 Reviewed by: Kailee Rahman APRN.THERAPEUTIC RECREATION LEADER - Fully Assessed Prescriptions as of 12/19/2024 - amoxicillin (AMOXIL) 500 mg capsule take 1 tablet (500 mg total) by mouth 3 (three) times a day for 7 days - promethazine (PHENERGAN) 12.5 mg suppository 1 suppository by RECTAL route every 6 hours as needed. - famotidine (PEPCID) 20 mg tablet Take 20 mg by mouth two times a day. - aspirin, enteric coated (ECOTRIN LOW STRENGTH) 81 mg EC tablet Take 1 tablet by mouth once daily. - 25-IRON [id number] ORAL Take by mouth. - EPINEPHrine (EPIPEN) 0.3 mg/0.3 mL auto-injector NEEDED PRN For Allergies Problem List As Of Date 12/19/2024 Noted Resolved NEGATIVE MEDICAL HISTORY [V999.96] 11/14/2014 Routine gynecological examination [Z01.419] 07/26/2013 08/11/2014 Encounter for supervision of other normal pregn*08/11/2014 06/23/2018 History of kidney stones [Z87.442] 06/23/2018 Obesity complicating , childbirth, or *08/11/2014 05/22/2016 False labor [O47.9] 02/26/2015 05/22/2016 35 weeks gestation of [Z3A.35] 02/26/2015 03/08/2015 Decreased movement [O36.8190] 03/01/2015 05/22/2016 Post-dates [O48.0] 04/02/2015 05/22/2016 40 weeks gestation of [Z3A.40] 04/02/2015 05/22/2016 Vaginal delivery [O80] 04/05/2015 05/22/2016 Post term , 41 weeks [O48.0, Z3A.41] 04/05/2015 05/22/2016 Meconium stained amniotic fluid, delivered, cur*04/05/2015 05/22/2016 with uncertain dates in first trimest*04/22/2024 Obesity affecting in second trimester*04/22/2024 Constipation during in first trimeste*04/22/2024 Vaginal bleeding affecting early (HCC*04/22/2024 09/23/2024 Supervision of high risk in second tr*09/23/2024 IBS (irritable bowel syndrome) [K58.9] Low-lying placenta (HCC) [O44.40] 12/12/2024 Encounter Status:Closed by GIANA ALEXANDRE on 12/19/24 [facility] ([id number]) 1995 F Date Time Provider Department 12/12/24 TIANNA MOTA During your visit today, we recorded the following information about you: Tianna Mota APRN.CNM 12/12/2024 4:44 PM Signed Attempted to call patient to notify and high school guidance counselor on low lying placenta. No answer and unable to leave message. Will have engineer station mainline provider attempt tomorrow. PHYLLIS Loyd Jennifer, RN 12/12/2024 4:57 PM Signed Patient called back. Spoke with CP. She will call patient right back in a few minutes. PRAVEEN Sharma Courtney, APRN.CNM 12/12/2024 5:07 PM Signed Spoke with patient and counseled on low lying placenta. Recommended pelvic rest until follow up ultrasound at 28 weeks gestation. Questions answered.. Tianna Mota APRN.CNM Allergies As of Date: 12/12/2024 Noted Allergy Reaction PEANUTS 06/01/2019 10 - Anaphylaxis Date Reviewed: 12/09/2024 Reviewed by: Kailee Rahman APRN.THERAPEUTIC RECREATION LEADER - Fully Assessed Reason for Visit: Results [95] Prescriptions as of 12/12/2024 - amoxicillin (AMOXIL) 500 mg capsule take 1 tablet (500 mg total) by mouth 3 (three) times a day for 7 days - promethazine (PHENERGAN) 12.5 mg suppository 1 suppository by RECTAL route every 6 hours as needed. - famotidine (PEPCID) 20 mg tablet Take 20 mg by mouth two times a day. - aspirin, enteric coated (ECOTRIN LOW STRENGTH) 81 mg EC tablet Take 1 tablet by mouth once daily. - 25-IRON [id number] ORAL Take by mouth. - EPINEPHrine (EPIPEN) 0.3 mg/0.3 mL auto-injector NEEDED PRN For Allergies Problem List As Of Date 12/12/2024 Noted Resolved NEGATIVE MEDICAL HISTORY [V999.96] 11/14/2014 Routine gynecological examination [Z01.419] 07/26/2013 08/11/2014 Encounter for supervision of other normal pregn*08/11/2014 06/23/2018 History of kidney stones [Z87.442] 06/23/2018 Obesity complicating , childbirth, or *08/11/2014 05/22/2016 False labor [O47.9] 02/26/2015 05/22/2016 35 weeks gestation of [Z3A.35] 02/26/2015 03/08/2015 Decreased movement [O36.8190] 03/01/2015 05/22/2016 Post-dates [O48.0] 04/02/2015 05/22/2016 40 weeks gestation of [Z3A.40] 04/02/2015 05/22/2016 Vaginal delivery [O80] 04/05/2015 05/22/2016 Post term , 41 weeks [O48.0, Z3A.41] 04/05/2015 05/22/2016 Meconium stained amniotic fluid, delivered, cur*04/05/2015 05/22/2016 with uncertain dates in first trimest*04/22/2024 Obesity affecting in second trimester*04/22/2024 Constipation during in first trimeste*04/22/2024 Vaginal bleeding affecting early (HCC*04/22/2024 09/23/2024 Supervision of high risk in second tr*09/23/2024 IBS (irritable bowel syndrome) [K58.9] Low-lying placenta (HCC) [O44.40] 12/12/2024 Encounter Status:Closed by TIANNA MOTA on 12/12/24 [facility] Examination level ultrasound on 12-12-2024 Indication Detailed anatomic survey. Maternal obesity, BMI >30 Impression REMOTE READ The patient is referred for a detailed anatomic survey. - Single, live, intrauterine . - biometry is consistent with the established gestational age. - No malformations were visualized on a complete detailed anatomic survey. - The amniotic fluid volume is normal amount. - The placenta is posterior, low lying, 0.8 cm from the internal os. - The Transvaginal cervical length measures 40.6 mm with no evidence of funneling or other dynamic changes. - Not all structural malformations can be detected by ultrasound examination. Recommendations - A follow-up TVS exam at 28 weeks is recommended to rule out persistent low-lying placenta or vasa previa. Maternal Assessment Height 160 cm Height (ft) 5 ft Height (in) 3 in Physical Exam Initial weight (lb) 185 lb Initial BMI 32.78 kg/m Method Transabdominal and transvaginal ultrasound examination. View: Adequate visualization Mcgill . Number of fetuses: 1 Dating LMP on: 07/18/2024 GA by LMP 20 w + 4 d CHAU by LMP: 04/24/2025 GA by prior assessment 20 w + 4 d CHAU by prior assessment: 04/24/2025 Ultrasound examination on: 12/09/2024 GA by U/S based upon: AC, BPD, Femur, HC GA by U/S 20 w + 5 d CHAU by U/S: 04/23/2025 Assigned: based on stated CHAU, selected on 10/17/2024 Assigned GA 20 w + 4 d Assigned CHAU: 04/24/2025 General Evaluation Cardiac activity present. FHR 162 bpm. movements: present. Presentation: cephalic Placenta: Placental site: posterior, low lying. Placental rpwi-vf-samncujq os distance 8 mm Umbilical cord: Cord vessels: 3 vessel cord. Insertion site: normal insertion Amniotic fluid: Amount of AF: normal amount. MVP 5.1 cm Growth Overview Exam date GA BPD (mm) HC (mm) AC (mm) FL (mm) HL (mm) EFW (g) 12/09/2024 20w 4d 50.2 74% 179.1 43% 153.2 42% 33.6 63% 33.1 72% 356 39% Biometry Standard BPD 50.2 mm 21w 1d 74% Hadlock OFD 62.0 mm 20w 0d 41% Nicolaides HC 179.1 mm 20w 2d 43% Sara Cerebellum tr 21.2 mm 20w 1d 52% Hill Nuchal fold 5.1 mm AC 153.2 mm 20w 4d 42% Hadlock Femur 33.6 mm 20w 5d 63% Sara Humerus 33.1 mm 21w 1d 72% Sara EFW 356 g 20w 3d 39% Hadlock EFW (lb) 0 lb EFW (oz) 13 oz EFW by: Hadlock (HC-AC-FL) Extended Technician'S Helper 5.9 mm CM 4.7 mm 36% Nicolaides Nasal bone 4.5 mm Extremities / Bony Struc FL / HC 0.19 52% Hadlock Other Structures FHR 162 bpm Anatomy Cranium: normal Lateral ventricles: normal Choroid plexus: normal Midline falx: normal Cavum septi pellucidi: normal Cerebellum: normal Cisterna magna: normal Head / Neck Vermis: normal Neck: normal Nuchal fold: normal Lips: normal Profile: normal Nose: normal Face Maxilla: normal Mandible: normal Orbits: normal Lens: normal 4-chamber view: normal RVOT view: normal LVOT view: normal 3-vessel view: normal 7-xxkgbz-egfklij view: normal Heart / Thorax Situs: situs solitus (normal) Aortic arch view: normal SVC: normal IVC: normal Cardiac axis: normal Rt lung: normal Lt lung: normal Diaphragm: normal Cord insertion: normal Stomach: normal Kidneys: normal Bladder: normal Genitals: normal Abdomen Abdom. wall: normal Cervical spine: normal Thoracic spine: normal Lumbar spine: normal Sacral spine: normal Arms: normal Legs: normal Rt upper arm: normal Rt forearm: normal Rt hand: normal Rt fingers: normal Lt upper arm: normal Lt forearm: normal Lt hand: normal Lt fingers: normal Rt upper leg: normal Rt lower leg: normal Rt foot: normal Lt upper leg: normal Lt lower leg: normal Lt foot: normal Gender: Unspecified sex: normal Wants to know sex: no Maternal Structures Uterus / Cervix Uterus: Visualized Cervix: Visualized Cervix details: normal Approach: Transvaginal Cervical length 40.6 mm Funneling: Funneling absent Ovaries / Tubes / Adnexa Rt ovary: Visualized Lt ovary: Visualized Performed By: Rachel Miranda RDMS Read By: Cristina Alegre M.D. MATERNAL MEDICINE [facility] Examination level ultrasound on 12-09-2024 Radiology Study observation (narrative) [facility] 12-05-2024 [facility] Telephone (OBGYWM) DORY PRADHAN ([id number]) 1995 F Date Time Provider Department 12/05/24 TIANNA MOTA During your visit today, we recorded the following information about you: Giana Alexandre RN 12/05/2024 9:19 AM Signed 20w0d Patient has been taking Amoxicillin 500 mg for upper respiratory infection and sinus infections for the last 3 days. Since starting the antibiotic she has been vomiting 3-5 times a day and having diarrhea. Asking if she can have antiemetic prescribed and sent to [facility] in [place]. Encouraged to push fluids and include electrolytes. Aware to contact office if not able to keep any fluids down in 24 hours. At the end of call patient mentioned that she has had decreased FM. She has felt the baby move 3-4 times within the last several days. States she's unsure if it's because she has been ill with vomiting and diarrhea. Has not felt any movement yet today, but just woke up. Advised that consistent movement begins at 28 weeks. Patient will let us know about today's movement when we call back. PRAVEEN Sharma Courtney, APRN.CNM 12/05/2024 12:34 PM Signed Rx for Phenergan suppositories sent. Yes, agree with movement not being regular at this early gestational age. If concerned, can come in for FHT. Tianna Mota APRN.Rhina Sheikh RN 12/05/2024 12:41 PM Signed Patient notified and voiced understanding. Rhina Connors RN Allergies As of Date: 12/05/2024 Noted Allergy Reaction PEANUTS 06/01/2019 10 - Anaphylaxis Date Reviewed: 11/11/2024 Reviewed by: Rao Hernández MA - Fully Assessed Reason for Visit: OB Vomiting [Other] Order(s):promethazine (PHENERGAN) 12.5 mg suppository1 suppository by RECTAL route every 6 hours as needed.Disp: 12 eachRfl: 0 Prescriptions as of 12/05/2024 - promethazine (PHENERGAN) 12.5 mg suppository 1 suppository by RECTAL route every 6 hours as needed. - famotidine (PEPCID) 20 mg tablet Take 20 mg by mouth two times a day. - aspirin, enteric coated (ECOTRIN LOW STRENGTH) 81 mg EC tablet Take 1 tablet by mouth once daily. - 25-IRON [id number] ORAL Take by mouth. - EPINEPHrine (EPIPEN) 0.3 mg/0.3 mL auto-injector NEEDED PRN For Allergies Problem List As Of Date 12/05/2024 Noted Resolved NEGATIVE MEDICAL HISTORY [V999.96] 11/14/2014 Routine gynecological examination [Z01.419] 07/26/2013 08/11/2014 Encounter for supervision of other normal pregn*08/11/2014 06/23/2018 History of kidney stones [Z87.442] 06/23/2018 Obesity complicating , childbirth, or *08/11/2014 05/22/2016 False labor [O47.9] 02/26/2015 05/22/2016 35 weeks gestation of [Z3A.35] 02/26/2015 03/08/2015 Decreased movement [O36.8190] 03/01/2015 05/22/2016 Post-dates [O48.0] 04/02/2015 05/22/2016 40 weeks gestation of [Z3A.40] 04/02/2015 05/22/2016 Vaginal delivery [O80] 04/05/2015 05/22/2016 Post term , 41 weeks [O48.0, Z3A.41] 04/05/2015 05/22/2016 Meconium stained amniotic fluid, delivered, cur*04/05/2015 05/22/2016 with uncertain dates in first trimest*04/22/2024 Obesity affecting in first trimester *04/22/2024 Constipation during in first trimeste*04/22/2024 Vaginal bleeding affecting early (HCC*04/22/2024 09/23/2024 Encounter for supervision of low-risk *09/23/2024 IBS (irritable bowel syndrome) [K58.9] Prescriptions ordered this encounter Disp Refills Start End PROMETHAZINE 12.5 MG RECTAL SUPPOSIT* 12 e* 0 12/05/2024 Route: [place] Si suppository by RECTAL route every 6 hours as needed. Encounter Status:Closed by TIANNA MOTA on 12/05/24 [facility] Examination level ultrasound on 10-17-2024 Indication First trimester anatomic survey Maternal obesity, BMI >30 Impression The patient is referred for a first trimester anatomy scan including nuchal translucency measurement as clinically indicated. - Single, live, intrauterine . - [place] rump length measurement is consistent with the established gestational age. - A qualitative screen of the nuchal translucency and other anatomic structures was unremarkable on first trimester anatomic assessment. - Not all structural malformations can be detected by ultrasound examination. Maternal Structures: Right Ovary: Size 28 mm x 23 mm x 14 mm Recommendations - A standard anatomic survey at 16 weeks can be offered and a detailed exam at 20 weeks is recommended for increased risk. Maternal Assessment Height 160 cm Height (ft) 5 ft Height (in) 3 in Physical Exam Initial weight (lb) 185 lb Initial BMI 32.78 kg/m Maternal assessment other: 4 Para 2 REMOTE READ Method Transabdominal ultrasound examination Mcgill . Number of fetuses: 1 Dating LMP on: 07/18/2024 GA by LMP 13 w + 0 d CHAU by LMP: 04/24/2025 GA by prior assessment 13 w + 0 d CHAU by prior assessment: 04/24/2025 Ultrasound examination on: 10/17/2024 GA by U/S based upon: CRL GA by U/S 12 w + 6 d CHAU by U/S: 04/25/2025 Assigned: based on stated CHAU, selected on 10/17/2024 Assigned GA 13 w + 0 d Assigned CHAU: 04/24/2025 General Evaluation Cardiac activity present Placenta: posterior Cord vessels: 3 vessel cord Amniotic fluid: normal amount Biometry Standard FHR 161 bpm CRL 65.8 mm 12w 6d 36% Hadlock NT 1.60 mm First Trimester Anatomy Calvarium: normal Falx cerebri: normal Choroid plexus: normal Profile: normal Nasal bone: normal Retronasal triangle: normal Maxilla: normal Mandible: normal Nuchal translucency: Unremarkable Situs: normal Cardiac position: normal Cardiac axis: normal 4-chamber view: visualized 4-chamber view with color: visualized 0-cboius-zdlxtac view: visualized Abdominal cord insertion: normal Stomach: normal Kidneys: normal Bladder: normal Color doppler of perivesical umbilical arteries: normal Vertebral alignment: normal Arms: normal Hands: normal Legs: normal Feet: normal Maternal Structures Uterus / Cervix Uterus: Visualized Uterus length 145 mm Uterus width 99 mm Uterus height 66 mm Uterus Vol 496.7 cm Ovaries / Tubes / Adnexa Rt ovary: Visualized Rt ovary D1 28 mm Rt ovary D2 23 mm Rt ovary D3 14 mm Rt ovary Vol 4.9 cm Lt ovary: Not visualized Performed By: Rhina Andrea, RAIN, RVT Read By: Bella Mak M.D. MATERNAL MEDICINE [facility] Radiology Study observation (narrative) [facility] Bacteria Ur Culton Bacteria identified Cx Nom (U) ORGANISM ID: 1 10,000 -<50,000 CFU/ml Normal urogenital daniel Normal [facility] Comment on above: Performed By: #### 6 30-4 ####[facility] LABCLIA [id number] [place] [address] [place] C. trachomatis+N. gonorrhoea e DNA ITZEL+probe Ql (Unsp spec)on 09-23-2024 C. trachomatis rRNA ITZEL+probe Ql (Unsp spec) Not detected Normal Not detected [facility] Comment on above: Order Comment: Speci men Type: SWABOrdering Facility: [facility] Address: [address] [place] [address] Performed By: #### T RVAMP, 28674-5 ####[facility] LABCLIA [id number] [address] [place] N. gonorrhoeae rRNA ITZEL+probe Ql (Unsp spec) Not detected Normal Not detected [facility] Comment on above: Order Comment: Speci men Type: SWABOrdering Facility: [facility] Address: [address] [place] [address] Performed By: #### T RVAMP, 64400-4 ####[facility] LABCLIA [id number] [place] [address] [place] CBC W Auto Differential pane l (Bld)on 09-23-2024 Basophils (Bld) [#/Vol] 0.03 10*3/uL Normal <0.11 [facility] Comment on above: Order Comment: Speci men Type: BLOOD SPECIMENOrdering Facility: [facility] Address: [address] [place] [address] Performed By: #### 5 7021-8 ####[facility] [id number] [place] [address] [place] Basophils/100 WBC (Bld) 0.3 % Normal [facility] Comment on above: Order Comment: Speci men Type: BLOOD SPECIMENOrdering Facility: [facility] Address: [address] [place] [address] Performed By: #### 5 7021-8 ####[facility] HARLANSEAN [id number] [place] [address] [place] Differential cell count method Nom (Bld) Auto Normal [facility] Comment on above: Order Comment: Speci men Type: BLOOD SPECIMENOrdering Facility: [facility] Address: [address] [place] [address] Performed By: #### 5 7021-8 ####[facility] [id number] [place] [address] [place] Eosinophils (Bld) [#/Vol] 0.05 10*3/uL Normal <0.46 [facility] Comment on above: Order Comment: Speci men Type: BLOOD SPECIMENOrdering Facility: [facility] Address: [address] [place] [address] Performed By: #### 5 7021-8 ####[facility] [id number] [place] [address] [place] Eosinophils/100 WBC (Bld) 0.5 % Normal [facility] Comment on above: Order Comment: Speci men Type: BLOOD SPECIMENOrdering Facility: [facility] Address: [address] [place] [address] Performed By: #### 5 7021-8 ####[facility] [id number] [place] [address] [place] Erythrocyte distribution width (RBC) [Ratio] 12.7 % Normal 11.5-15.0 [facility] Comment on above: Order Comment: Speci men Type: BLOOD SPECIMENOrdering Facility: [facility] Address: [address] [place] [address] Performed By: #### 5 7021-8 ####[facility]ITALWNCLIA [id number] [place] [address] [place] Hematocrit (Bld) [Volume fraction] 37.7 % Normal 36.0-46.0 [facility] Comment on above: Order Comment: Speci men Type: BLOOD SPECIMENOrdering Facility: [facility] Address: [address] [place] [address] Performed By: #### 5 7021-8 ####[facility]IT[facility] [id number] [place] [address] [place] Hemoglobin (Bld) [Mass/Vol] 12.9 g/dL Normal 11.5-15.5 [facility] Comment on above: Order Comment: Speci men Type: BLOOD SPECIMENOrdering Facility: [facility] Address: [address] [place] [address] Performed By: #### 5 7021-8 ####[facility] [id number] [place] [address] [place] Immature granulocytes (Bld) [#/Vol] 0.03 10*3/uL Normal <0.10 [facility] Comment on above: Order Comment: Speci men Type: BLOOD SPECIMENOrdering Facility: [facility] Address: [address] [place] [address] Performed By: #### 5 7021-8 ####[facility] [id number] [place] [address] [place] Immature granulocytes/100 WBC (Bld) 0.3 % Normal [facility] Comment on above: Order Comment: Speci men Type: BLOOD SPECIMENOrdering Facility: [facility] Address: [address] [place] [address] Performed By: #### 5 7021-8 ####[facility] [id number] [place] [address] [place] Lymphocytes (Bld) [#/Vol] 2.13 10*3/uL Normal 1.00-4.00 [facility] Comment on above: Order Comment: Speci men Type: BLOOD SPECIMENOrdering Facility: [facility] Address: [address] [place] [address] Performed By: #### 5 7021-8 ####[facility] [id number] [place] [address] [place] Lymphocytes/100 WBC (Bld) 22.0 % Normal [facility] Comment on above: Order Comment: Speci men Type: BLOOD SPECIMENOrdering Facility: [facility] Address: [address] [place] [address] Performed By: #### 5 7021-8 ####[facility] [id number] [place] [address] [place] MCH (RBC) [Entitic mass] 30.9 pg Normal 26.0-34.0 [facility] Comment on above: Order Comment: Speci men Type: BLOOD SPECIMENOrdering Facility: [facility] Address: [address] [place] [address] Performed By: #### 5 7021-8 ####[facility] [id number] [place] [address] [place] MCHC (RBC) [Mass/Vol] 34.2 g/dL Normal 30.5-36.0 [facility] Comment on above: Order Comment: Speci men Type: BLOOD SPECIMENOrdering Facility: [facility] Address: [address] [place] [address] Performed By: #### 5 7021-8 ####[facility] [id number] [place] [address] [place] MCV (RBC) [Entitic vol] 90.4 fL Normal 80.0-100.0 [facility] Comment on above: Order Comment: Speci men Type: BLOOD SPECIMENOrdering Facility: [facility] Address: [address] [place] [address] Performed By: #### 5 7021-8 ####[facility] HARLANMARILYNA [id number] [place] [address] [place] Monocytes (Bld) [#/Vol] 0.47 10*3/uL Normal <0.87 [facility] Comment on above: Order Comment: Speci men Type: BLOOD SPECIMENOrdering Facility: [facility] Address: [address] [place] [address] Performed By: #### 5 7021-8 ####[facility] [id number] [place] [address] [place] Monocytes/100 WBC (Bld) 4.9 % Normal [facility] Comment on above: Order Comment: Speci men Type: BLOOD SPECIMENOrdering Facility: [facility] Address: [address] [place] [address] Performed By: #### 5 7021-8 ####[facility]ITALNCA [id number] [place] [address] [place] Neutrophils (Bld) [#/Vol] 6.95 10*3/uL Normal 1.45-7.50 [facility] Comment on above: Order Comment: Speci men Type: BLOOD SPECIMENOrdering Facility: [facility] Address: [address] [place] [address] Performed By: #### 5 7021-8 ####[facility]ALL[facility] [id number] [place] [address] [place] Neutrophils/100 WBC (Bld) 72.0 % Normal [facility] Comment on above: Order Comment: Speci men Type: BLOOD SPECIMENOrdering Facility: [facility] Address: [address] [place] [address] Performed By: #### 5 7021-8 ####[facility] HARLANWMARALLIA [id number] [place] [address] [place] Nucleated RBC (Bld) [#/Vol] 10*3/uL Normal <0.01 [facility] Comment on above: Order Comment: Speci men Type: BLOOD SPECIMENOrdering Facility: [facility] Address: [address] [place] [address] Performed By: #### 5 7021-8 ####[facility]ALL[facility] [id number] [place] [address] [place] Nucleated RBC/100 WBC (Bld) [Ratio] 0.0 /100 WBC Normal [facility] Comment on above: Order Comment: Speci men Type: BLOOD SPECIMENOrdering Facility: [facility] Address: [address] [place] [address] Performed By: #### 5 7021-8 ####[facility] [id number] [place] [address] [place] Platelet mean volume (Bld) [Entitic vol] 9.3 fL Normal 9.0-12.7 [facility] Comment on above: Order Comment: Speci men Type: BLOOD SPECIMENOrdering Facility: [facility] Address: [address] [place] [address] Performed By: #### 5 7021-8 ####[facility] [id number] [place] [address] [place] Platelets (Bld) [#/Vol] 281 10*3/uL Normal 150-400 [facility] Comment on above: Order Comment: Speci men Type: BLOOD SPECIMENOrdering Facility: [facility] Address: [address] [place] [address] Performed By: #### 5 7021-8 ####[facility]NCLI [id number] [place] [address] [place] RBC (Bld) [#/Vol] 4.17 10*6/uL Normal 3.90-5.20 [facility] Comment on above: Order Comment: Speci men Type: BLOOD SPECIMENOrdering Facility: [facility] Address: [address] [place] [address] Performed By: #### 5 7021-8 ####[facility] [id number] [place] [address] [place] WBC (Bld) [#/Vol] 9.66 10*3/uL Normal 3.70-11.00 [facility] Comment on above: Order Comment: Speci men Type: BLOOD SPECIMENOrdering Facility: [facility] Address: [address] [place] [address] Performed By: #### 5 7021-8 ####[facility] [id number] [place] [address] [place] HBV surface Ag Ser Qlon 05-0 HBV surface Ag Ql (S) Negative Normal Negative [facility] Comment on above: Order Comment: Speci men Type: BLOOD SPECIMEN Ordering Facility: [facility] Address: [address] [place] [address] Performed By: #### G TGST1 #### [facility] CLIA [id number] [address] [place] [address] [place] HCV Ab Ser Qlon 09-23-2024 HCV Ab Ql (S) Negative Normal Negative [facility] Comment on above: Order Comment: Speci men Type: BLOOD SPECIMENOrdering Facility: [facility] Address: [address] [place] [address] Result Comment: The result suggests no evidence of infection with Hepatitis C virus. Should recent infection be suspected, repeat testing may be considered 4-6 weeks after this draw. Performed By: #### 1 6128-1 ####[facility] LABCLIA [id number] [address] OF [facility] HIV 1+2 Ab IA Qlon HIV 1 and 2 Ab IA.rapid Nom (S/P/Bld) Normal [facility] Comment on above: Order Comment: Speci men Type: BLOOD SPECIMEN Ordering Facility: [facility] Address: [address] [place] [address] Result Comment: Test not indicated. Performed By: #### G TGST1 #### [facility] CLIA [id number] [address] [place] [address] [place] HIV 1+2 Ab+HIV1 p24 Ag IA Ql Non-Reactive Normal Nonreactive [facility] Comment on above: Order Comment: Speci men Type: BLOOD SPECIMEN Ordering Facility: [facility] Address: [address] [place] [address] Performed By: #### G TGST1 #### [facility]ITALIA [id number] [address] [place] [address] [place] [facility] HIV immunoassay testing algorithm interpretation (S/P/Bld) [Interp] Normal [facility] Comment on above: Order Comment: Speci men Type: BLOOD SPECIMEN Ordering Facility: [facility] Address: [address] [place] [address] Result Comment: No e vidence of HIV-1 or HIV-2 infection. Should recent infection be suspected, repeat testing may be considered 2-3 weeks after this draw. [place] Rev. Code 3701.243(E): This information has been disclosed to you from confidential records protected from disclosure by state law. You shall make no further disclosure of this information without the specific, written, and informed release of the individual to whom it pertains or as otherwise permitted by state law. A general authorization for the release of medical or other information is not sufficient for the purpose of the release of HIV test results or diagnoses. Performed By: #### G TGST1 #### [facility] CLIA [id number] [address] [place] [address] [place] HbA1c (Bld)on 09-23-2024 Average glucose Estimated from glycated hemoglobin (Bld) [Mass/Vol] 85 mg/dL Normal [facility] Comment on above: Order Comment: Speci men Type: BLOOD SPECIMENOrdering Facility: [facility] Address: [address] [place] [address] Result Comment: eAG: (Estimated average glucose) is a calculated value from HgbA1c and is motor vehicle representative of the average blood glucose level in the last 2-3 month period. Performed By: #### 5 5454-3 ####[facility] LABCLIA [id number] [address] STATES OF [facility] HbA1c (Bld) [Mass fraction] 4.6 % Normal 4.3-5.6 [facility] Comment on above: Order Comment: Specnathalie marcus Type: BLOOD SPECIMENOrdering Facility: [facility] Address: [address] [place] [address] Result Comment: [place] Diabetes Association guidelines indicate that patients with HgbA1c in the range 5.7-6.4% are at increased risk for development of diabetes, and intervention by lifestyle modification may be beneficial. HgbA1c greater or equal to 6.5% is considered diagnostic of diabetes. Performed By: #### 5 5454-3 ####[facility] LABCLIA [id number] [address] [place] POC [employer] PROFESSOR ULTRASOUNDon 09-24-19 25 Indication Viability; confirm cardiac activity, Uncertain dates Impression Single intrauterine gestational sac, cardiac activity is visualized Recommendations Follow up for 1st Trimester Anatomy with Nuchal Translucency as clinically indicated if desired. Method Transvaginal ultrasound examination Mcgill . Number of embryos: 1 Dating LMP on: 07/18/2024 GA by LMP 9 w + 4 d CHAU by LMP: 04/24/2025 GA by prior assessment 29 w + 6 d CHAU by prior assessment: 12/03/2024 Ultrasound examination on: 09/23/2024 GA by U/S based upon: CRL GA by U/S 9 w + 0 d CHAU by U/S: 04/28/2025 Assigned: based on the LMP, selected on 09/23/2024 Assigned GA 9 w + 4 d Assigned CHAU: 04/24/2025 Biometry Standard CRL 23.7 mm 9w 0d 7% Hadlock Assessment Gestational sac: visualized Location: intrauterine Yolk sac: visualized Embryo: visualized CRL 23.7 mm 9w 0d 7% Hadlock Performed By: Tianna Mota CNM Read By: Tianna Mota CNM MATERNAL MEDICINE [facility] Radiology Study observation (narrative) [facility] RUBELLA IGG ANTIBODYon 09-23 RUBELLA IGG AB, QUAL Positive Normal Positive [facility] Comment on above: Order Comment: Speci men Type: BLOOD SPECIMENOrdering Facility: [facility] Address: [address] [place] [address] Result Comment: The result suggests recent or past exposure to Rubella virus or history of Rubella vaccination. Positive result may also be seen due to presence of passively-transferred antibodies. Please correlate with patient's history. Performed By: #### R UBIGG ####[facility] LABCLIA [id number] [place] [address] [place] Reagin and Treponema pallidu m IgG and IgM [Interp]on 09-23-2024 T. pallidum IgG+IgM IA Ql (S) Non-Reactive Normal Nonreactive [facility] Comment on above: Order Comment: Klarissa marcus Type: BLOOD SPECIMEN Ordering Facility: [facility] Address: [address] [place] [address] Performed By: #### G TGST1 #### [facility] CLIA [id number] [address] [place] [address] [place] Reagin+T pallidum IgG+IgM Se rPl-Impon 09-23-2024 Reagin and Treponema pallidum IgG and IgM [Interp] Cannot exclude recent Treponemal infection if specimen collected within 7-10 days after appearance of suspect lesions or 2-3 weeks after an exposure. Clinical correlation is required. Normal [facility] Comment on above: Order Comment: Speci men Type: BLOOD SPECIMEN Ordering Facility: [facility] Address: [address] [place] [address] Performed By: #### G TGST1 #### [facility] CLIA [id number] [address] [place] [address] [place] TRICHOMONAS VAGINALIS NAATon 09-23-2024 T. vaginalis DNA ITZEL+probe Ql (Unsp spec) Not detected Normal Not detected [facility] Comment on above: Order Comment: Speci men Type: SWABOrdering Facility: [facility] Address: [address] [place] [address] Performed By: #### T RVAMP, 79757-4 ####[facility] LABCLIA [id number] [address] OF [facility] TYPE + SCREEN PRENATALon ABO B Normal [facility] Comment on above: Order Comment: Speci men Type: BLOOD SPECIMENOrdering Facility: [facility] Address: [address] [place] [address] Performed By: #### T SPN ####[facility] B[facility] BANKIA [id number] [place] [address] [place] Rh Nom (Bld) Positive Normal [facility] Comment on above: Order Comment: Speci men Type: BLOOD SPECIMENOrdering Facility: [facility] Address: [address] [place] [address] Performed By: #### T SPN ####[facility] BLOOD BANKCLIA [id number] [place] [address] [place] TYPE AND SCREEN EXPIRATION 09/26/2024 23:59 Normal [facility] Comment on above: Order Comment: Speci men Type: BLOOD SPECIMENOrdering Facility: [facility] Address: [address] [place] [address] Performed By: #### T SPN ####[facility] BLOOD BANKCLIA [id number] [place] [address] [place] CNOVon 07-01-2024 CNOV Office Visit (OBGYWM ) DORY PRADHAN ([id number]) 1995 F Date Time Provider Department 07/01/24 10:45 AM TIANNA MOTA OBGYWHaylee During your visit today, we recorded the following information about you: Blood pressure Weight Height Last Period 126/72 85.7 kg 1.6 m 06/13/24 Tianna Mota APRN.CNM 07/01/2024 11:27 AM Signed Dory is a 28 year old who presents for an annual gynecologic exam without complaints. Miscarriage with IPAS 04/2024 Still get period: Yes has only had one since miscarriage Bleeding amount bothersome: No Bleeding between periods: No Period symptoms: Breast tenderness; Cramps Time with current partner: 17 years Number of lifetime partners: 1 control frequency: Sometimes HPV vaccine: Unsure; HPV:N/A Last pap smear: 06/18/2021 Normal History of abnormal pap: No, all prior PAP smears have been normal Bothersome pelvic pain: No Last mammogram: never OB History Gravida3 Para2 Term2 Preterm0 AB1 Living2 SAB1 IAB0 Ectopic0 Multiple0 Live Births2 Comment: G3 IPAS in office for 8 week size SAB Vascular Tech History LMP: 06/13/2024 (Exact Date), Having periods Age at Menarche: 10 Age at First : Age at Menopause: Vascular Tech History Comments: Sexual Activity: Yes; Male Contraception: None Menstrual Tracking History Flowsheet Row Office Visit from 07/01/2024 in OB/Gynecology Period Cycle (Days) 28 Period Duration (Days) 4 Menstrual Flow Moderate PAST MEDICAL HISTORY Diagnosis Date History of kidney stones IBS (irritable bowel syndrome) PAST SURGICAL HISTORY Procedure Laterality Date PAST SURGICAL HISTORY OF [place] teeth FAMILY HISTORY Problem Relation Age of Onset Diabetes Mother Lipids Father Cancer Father 59 small cell carcinoma No Known Problems Sister No Known Problems Sister Liver Disease Sister benign liver tumor (OCP related) Systemic Lupus Erythematosus Maternal Grandmother other (adrenal cancer) Maternal Grandfather Blood Clots Paternal Grandmother Heart Paternal Grandmother Stroke Paternal Grandfather Gout Paternal Grandfather No Known Problems Daughter No Known Problems Son No Family History No Family History female/colon/prostate CA SOCIAL HISTORY Social History Tobacco Use Smoking status: Every Day Current packs/day: 0.00 Types: Cigarettes Start date: 08/16/2016 Last attempt to quit: 09/19/2017 Years since quittin.7 Smokeless tobacco: Never Vaping Use Vaping status: Former Quit date: 02/15/2024 Substances: Nicotine Devices: Disposable Substance Use Topics Alcohol use: Yes Comment: socially Drug use: No REVIEW OF SYSTEMS Abdomen: No abdominal pain, nausea, vomiting, diarrhea, or constipation. No bloating, early satiety, indigestion, or increased flatulence. Bladder: No dysuria, gross hematuria, urinary frequency, urinary urgency, or incontinence. Breast: No breast lumps, nipple d/c, overlying skin changes, redness or skin retraction. Allergies and current medication updated:Yes SENSITIVE EXAM: The sensitive examination was discussed with the Patient or Patient's Authorized Revenue Analyst. As applicable, any other physician, advance practice provider, medical student, or other health professional student that will be observing or involved in the sensitive examination for educational or training purposes was discussed with the Patient or Authorized Revenue Analyst. The Patient or Authorized Revenue Analyst has agreed to proceed with the sensitive examination. (Sensitive examination includes inspection and/or palpation of the breasts, pelvis, prostate and anorectal regions). EXAM: BP 126/72 Ht 5' 3 (1.60m) Wt 189 lb (85.7kg) LMP 06/13/2024 BMI 33.49 kg/(m2). GENERAL: pleasant, female in no apparent distress HEENT: Normocephalic and atraumatic NECK: Supple and full range of motion DERMATOLOGY: Normal and without lesions BREAST: soft, non-tender, symmetric, no dominant mass, normal nipple-areolar complex, no lymphadenopathy, and no nipple discharge CHEST: Normal inspiratory effort ABDOMEN: soft, non-tender, and no masses PELVIC: external genitalia normal, normal Bartholin's glands, urethra, Whittemore's glands, no vulvar lesions, no cervical lesions, good vaginal support, physiologic discharge present, normal appearing perineal body and perianal region BIMANUAL: uterus normal size, shape and consistency, no adnexal masses, non-tender, and no cervical motion tenderness RECTOVAGINAL: deferred. NEURO: alert and oriented x3,exam grossly non-focal EXTREMITIES: normal ASSESSMENT/PLAN: 1) Health maintenance: Pap done with HPV. Nutrition, exercise and routine health maintenance exams reviewed. 2) Contraception: none. 3) STD screening: Declined STD check. 4) Desires - tracking cycles, recommended starting vitamin daily Follow (more content not included)... [facility] HIGH RISK HUMAN PAPILLOMA CROW (HPV), PCR FOR DETECTION AND GENOTYPINGon 07-01-2024 HPV 16 Ag Ql (Unsp spec) Not detected Normal Not detected [facility] Comment on above: Order Comment: Speci men Type: FLUID SPECIMENOrdering Facility: [facility] Address: [address] [place] [address] Performed By: #### H PVHRT ####[facility] LABCLIA [id number] [address] [place] HPV 18 Ag Ql (Unsp spec) Not detected Normal Not detected [facility] Comment on above: Order Comment: Speci men Type: FLUID SPECIMENOrdering Facility: [facility] Address: [address] [place] [address] Performed By: #### H PVHRT ####[facility] LABCLIA [id number] [address] [place] HPV 31+33+35+39+45+51+52 +56+58+59+66+68 DNA ITZEL+probe Ql (Cvx) Not detected Normal Not detected [facility] Comment on above: Order Comment: Speci men Type: FLUID SPECIMENOrdering Facility: [facility] Address: [address] [place] [address] Result Comment: High Risk HPV Other Type includes HPV types 31, 33, 35, 39, 45, 51, 52, 56, 58, 59, 66 and 68. Performed By: #### H PVHRT ####[facility] LABCLIA [id number] [place] [address] [place] PAP TESTon 07-01-2024 ADEQUACY [facility] Comment on above: Order Comment: Speci men Type: FLUID SPECIMENOrdering Facility: [facility] Address: [address] [place] [address] Result Comment: Sati sfactory for interpretation. Transformation zone present Performed By: #### L [id number] ####[facility] LABCLIA [id number] [place] [address] [place] CASE REPORT [facility] Comment on above: Order Comment: Speci men Type: FLUID SPECIMENOrdering Facility: [facility] Address: [address] [place] [address] Result Comment: Gyne cologic Cytology Report Case: [id number] Authorizing Provider: Tianna Mota APRN.CNHaylee Collected: 07/01/2024 11:06 AM Ordering Location: OB/Gynecology Received: 07/01/2024 12:02 PM First Screen: Gmitro, Scooby, CT, ASCP Specimen: Pap Test, ThinPrep, Cervix Performed By: #### L [id number] ####[facility] LABCLIA [id number] [place] [address] [place] CLINICAL HISTORY, CYTOLOGY, SALES INTERN Routine Exam [facility] Comment on above: Order Comment: Speci men Type: FLUID SPECIMENOrdering Facility: [facility] Address: [address] [place] [address] Performed By: #### L [id number] ####[facility] LABCLIA [id number] [place] [address] [place] FINAL PERFORMING LAB Normal [facility] Comment on above: Order Comment: Speci men Type: FLUID SPECIMENOrdering Facility: [facility] Address: [address] [place] [address] Result Comment: Tech nical component, videogame tester screening performed at [facility], [address] [place] [address] CLIA# [id number] Diagnostic interpretation performed at [facility], [address] [place] [address] CLIA# [id number] Globe Changer: Chris Bell M.D. Performed By: #### L [id number] ####[facility] LABCLIA [id number] [place] [address] [place] INTERPRETATION, CYTOLOGY, SALES INTERN [facility] Comment on above: Order Comment: Speci men Type: FLUID SPECIMENOrdering Facility: [facility] Address: [address] [place] [address] Result Comment: Nega tive for intraepithelial lesion or malignancy. at 0711 EST Performed By: #### L [id number] ####[facility] LABCLIA [id number] [place] [address] [place] LMP 06/13/2024 [facility] Comment on above: Order Comment: Speci men Type: FLUID SPECIMENOrdering Facility: [facility] Address: [address] [place] [address] Performed By: #### L [id number] ####[facility] LABCLIA [id number] [place] [address] [place] PAP DISCLAIMER COMMENT The Pap Smear is a screening test for cervical cancer. False negative results occur with all screening tests, emphasizing the need for rescreening at recommended intervals, and clinical correlation. [facility] Comment on above: Order Comment: Speci men Type: FLUID SPECIMENOrdering Facility: [facility] Address: [address] [place] [address] Performed By: #### L [id number] ####[facility] LABCLIA [id number] [place] [address] [place] PAP POSITION CLERK COMMENT This specimen has be en analyzed by the ThinPrep Imaging System, an automated imaging and review system, which assists the laboratory in evaluating cells on ThinPrep Pap tests. Following automated imaging, selected allen from every slide are reviewed by a videogame tester. [facility] Comment on above: Order Comment: Speci men Type: FLUID SPECIMENOrdering Facility: [facility] Address: [address] [place] [address] Performed By: #### L [id number] ####[facility] LABCLIA [id number] [facility] [id number] [id number] [place] B-HCG SerPl-aCncon 5 HCG.beta subunit Qn 19.1 m[IU]/mL High <5.0 [facility] Comment on above: Order Comment: Speci men Type: BLOOD SPECIMEN Ordering Facility: [facility] Address: [address] [place] [address] Result Comment: DANE TITATIVE HCG NORMAL RANGES Weeks of Gestation (Weeks Since LMP) 3 Weeks (5.8-71.2 mIU/mL) 4 Weeks (9.5-750 mIU/mL) 5 Weeks (217-7138 mIU/mL) 6 Weeks (158-10011 mIU/mL) 7 Weeks (3697-879153 mIU/mL) 8 Weeks (94864-441290 mIU/mL) 9 Weeks (84709-239704 mIU/mL) 10 Weeks (82684-470500 mIU/mL) 12 Weeks (56377-996934 mIU/mL) Referenced to 4th IS of [facility] Performed By: #### G [id number] #### [facility] [id number] [address] [place] [address] [place] B-HCG SerPl-aCncon 5 HCG.beta subunit Qn 52.9 m[IU]/mL High <5.0 [facility] Comment on above: Order Comment: Speci men Type: BLOOD SPECIMEN Ordering Facility: [facility] Address: [address] [place] [address] Result Comment: DANE TITATIVE HCG NORMAL RANGES Weeks of Gestation (Weeks Since LMP) 3 Weeks (5.8-71.2 mIU/mL) 4 Weeks (9.5-750 mIU/mL) 5 Weeks (217-7138 mIU/mL) 6 Weeks (158-29752 mIU/mL) 7 Weeks (3697-264123 mIU/mL) 8 Weeks (67312-735132 mIU/mL) 9 Weeks (45230-917086 mIU/mL) 10 Weeks (44628-647666 mIU/mL) 12 Weeks (56733-723815 mIU/mL) Referenced to 4th IS of [facility] Performed By: #### G [id number] #### [facility] [id number] [address] [place], [place] [id number] [place] B-HCG SerPl-aCncon 5 HCG.beta subunit Qn 142.6 m[IU]/mL High <5.0 [facility] Comment on above: Order Comment: Speci men Type: BLOOD SPECIMENOrdering Facility: [facility] Address: [address] [place] [address] Result Comment: DANE TITATIVE HCG NORMAL RANGES Weeks of Gestation (Weeks Since LMP) 3 Weeks (5.8-71.2 mIU/mL) 4 Weeks (9.5-750 mIU/mL) 5 Weeks (217-7138 mIU/mL) 6 Weeks (158-13257 mIU/mL) 7 Weeks (3697-559448 mIU/mL) 8 Weeks (54516-785157 mIU/mL) 9 Weeks (04330-147024 mIU/mL) 10 Weeks (53072-249538 mIU/mL) 12 Weeks (13908-430303 mIU/mL) Referenced to 4th IS of [facility] Performed By: #### 2 1198-7 ####[facility] LABCLIA [id number] [facility] [id number] [address] [place] B-HCG SerPl-aCncon 4 HCG.beta subunit Qn 606.3 m[IU]/mL High <5.0 [facility] Comment on above: Order Comment: Speci men Type: BLOOD SPECIMENOrdering Facility: [facility] Address: [address] [place] [address] Result Comment: DANE TITATIVE HCG NORMAL RANGES Weeks of Gestation (Weeks Since LMP) 3 Weeks (5.8-71.2 mIU/mL) 4 Weeks (9.5-750 mIU/mL) 5 Weeks (217-7138 mIU/mL) 6 Weeks (158-37694 mIU/mL) 7 Weeks (3697-374145 mIU/mL) 8 Weeks (06819-701995 mIU/mL) 9 Weeks (57376-819864 mIU/mL) 10 Weeks (19829-056808 mIU/mL) 12 Weeks (86599-484133 mIU/mL) Referenced to 4th IS of [facility] Performed By: #### 2 1198-7 ####[facility] LABIA [id number] [address] CNPAlison 05-13-2024 CNPN Telephone (OBGYWM) DORY PRADHAN ([id number]) 1995 F Date Time Provider Department 05/13/24 KATHLEEN PATEL During your visit today, we recorded the following information about you: Rhina Connors RN 05/13/2024 10:37 AM Signed ----- Message from Kathleen Caro MD sent at 05/13/2024 10:21 AM EST ----- Please see how patient is feeling s/p IPAS procedure. 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 Due to this we will need to closely follow her HCG levels down to zero. We will be checking her HCG levels weekly. I would recommend drawing them the same time every week (maybe a Thursday). Once they are zero then we will recheck level again one month. It is crucial she does not get during this time. Would recommend BC if desired. If she has further questions she can schedule with myself or another physician to discuss- virtual or in office would be fine. Lab orders placed. Rhina Connors RN 05/13/2024 10:40 AM Signed Patient notified and voiced understanding of below results and instructions. Patient states she is feeling good, denies any pain. Bleeding is currently that of a light period. Patient states she does not work Fridays so she will get HCG level draw today and then weekly on Fridays until down to zero. Patient states she has Annovera ring and will just insert it for control. Declines wanting appointment at this time to discuss. Rhina Connors RN Allergies As of Date: 05/13/2024 Noted Allergy Reaction PEANUTS 06/01/2019 10 - Anaphylaxis Date Reviewed: 05/06/2024 Reviewed by: Domenica Mata MA - Fully Assessed Reason for Visit: Results [95] Prescriptions as of 05/13/2024 - aspirin, enteric coated (ECOTRIN LOW STRENGTH) 81 mg EC tablet Take 1 tablet by mouth once daily. - 25-IRON [id number] ORAL Take by mouth. - EPINEPHrine (EPIPEN) 0.3 mg/0.3 mL auto-injector NEEDED PRN For Allergies Problem List As Of Date 05/13/2024 Noted Resolved NEGATIVE MEDICAL HISTORY [V999.96] 11/14/2014 Routine gynecological examination [Z01.419] 07/26/2013 08/11/2014 Encounter for supervision of other normal pregn*08/11/2014 06/23/2018 History of kidney stones [Z87.442] 06/23/2018 Obesity complicating , childbirth, or *08/11/2014 05/22/2016 False labor [O47.9] 02/26/2015 05/22/2016 35 weeks gestation of [Z3A.35] 02/26/2015 03/08/2015 Decreased movement [O36.8190] 03/01/2015 05/22/2016 Post-dates [O48.0] 04/02/2015 05/22/2016 40 weeks gestation of [Z3A.40] 04/02/2015 05/22/2016 Vaginal delivery [O80] 04/05/2015 05/22/2016 Post term , 41 weeks [O48.0, Z3A.41] 04/05/2015 05/22/2016 Meconium stained amniotic fluid, delivered, cur*04/05/2015 05/22/2016 with uncertain dates in first trimest*04/22/2024 Encounter for supervision of high risk pregnanc*04/22/2024 Obesity affecting in first trimester *04/22/2024 Constipation during in first trimeste*04/22/2024 Vaginal bleeding affecting early [O20*04/22/2024 Encounter Status:Closed by RHINA CONNORS on 05/13/24 [facility] CNOVon 05-06-2024 CNOV Office Visit (OBGYWM ) DORY PRADHAN ([id number]) 1995 F Date Time Provider Department 05/06/24 2:20 PM KATHLEEN PATEL OBGYWM During your visit today, we recorded the following information about you: Pulse Respiration Blood pressure Weight 96/minute 18/minute 136/88 87.5 kg Kathleen Patel MD 05/06/2024 4:25 PM Signed Director Clinical Data offered: Patient declines. Dory Pradhan is a 28 year old female who presents for follow up miscarriage. Pt reports used cytotec 1 week ago. Pt reports still bleeding - very light at this point. Pt reports no fevers and no pain. Pt reports changing pads 2x day. Pt offers no other concerns. Pt reports thinks she passed tissue but bleeding persisted after tissue passed. OB History T2 L2 SAB0 IAB0 Ectopic0 Multiple0 Live Births2 Vascular Tech History LMP: 02/15/2024 (Approximate), Age at Menarche: Age at First : Age at Menopause: Vascular Tech History Comments: Sexual Activity: Yes; Male; ring Contraception: No contraception data on record PAST MEDICAL HISTORY Diagnosis Date History of kidney stones IBS (irritable bowel syndrome) PAST SURGICAL HISTORY Procedure Laterality Date PAST SURGICAL HISTORY OF [place] teeth FAMILY HISTORY Problem Relation Age of Onset Diabetes Mother Lipids Father Cancer Father 59 small cell carcinoma No Known Problems Sister No Known Problems Sister Liver Disease Sister benign liver tumor (OCP related) Systemic Lupus Erythematosus Maternal Grandmother other (adrenal cancer) Maternal Grandfather Blood Clots Paternal Grandmother Heart Paternal Grandmother Stroke Paternal Grandfather Gout Paternal Grandfather No Known Problems Daughter No Known Problems Son No Family History No Family History female/colon/prostate CA Social History Tobacco Use Smoking status: Former Current packs/day: 0.00 Types: Cigarettes Start date: 08/16/2016 Quit date: 09/19/2017 Years since quittin.6 Smokeless tobacco: Never Vaping Use Vaping status: Former Quit date: 02/15/2024 Substances: Nicotine Devices: Disposable Substance Use Topics Alcohol use: Not Currently Comment: socially Drug use: No Current Outpatient Medications Medication Sig aspirin, enteric coated (ECOTRIN LOW STRENGTH) 81 mg EC tablet Take 1 tablet by mouth once daily. (Patient not taking: Reported on 05/06/2024) 25-IRON [id number] ORAL Take by mouth. EPINEPHrine (EPIPEN) 0.3 mg/0.3 mL auto-injector NEEDED PRN For Allergies No current facility-administered medications for this visit. Allergies As of Date: 05/06/2024 Allergen Noted Reaction PEANUTS 06/01/2019 Anaphylaxis Fully Assessed 05/06/2024 REVIEW OF SYSTEMS Abdomen: no pain Expanded ROS: GENERAL: Negative for fever Allergies and current medication updated:Yes SENSITIVE EXAM: The sensitive examination was discussed with the Patient or Patient's Authorized Revenue Analyst. As applicable, any other physician, advance practice provider, medical student, or other health professional student that will be observing or involved in the sensitive examination for educational or training purposes was discussed with the Patient or Authorized Revenue Analyst. The Patient or Authorized Revenue Analyst has agreed to proceed with the sensitive examination. (Sensitive examination includes inspection and/or palpation of the breasts, pelvis, prostate and anorectal regions). EXAM: BP 130/80 Wt 193 lb (87.5kg) LMP 02/15/2024 GENERAL: pleasant, female in no apparent distress HEENT: Normocephalic, atraumatic, mucus membranes moist, and no lesions NECK: Supple, full range of motion, and no adenopathy DERMATOLOGY: Normal, without lesions, non-icteric, and non-hirsute PELVIC: external genitalia normal, normal Bartholin's glands, urethra, Whittemore's glands, no vulvar lesions, no cervical lesions, physiologic discharge present, normal appearing perineal body and perianal region, small amt dark red blood in vault. No tissue NEURO: alert and oriented x3,exam grossly non-focal EXTREMITIES: normal Limited TVUS: EM- Thickened 2.58cm with likely Retained POC. 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 Pt willing to do today IPAS in office. Pt declining repeat cytotec. Medical Decision Making: Problems: Low: Acute, uncomplicated illness or injury Risk: Moderate: Decision on minor surgery w/ risk factors Medical Decision Making Level: 3 - Low MD Jeff Mckeon Tara, RN 05/06/2024 4:25 PM Signed Pre Procedure Assessment: Dory Pradhan is a 28 year old here for an RAMBO proc (more content not included)... [facility] SURGICAL PATHOLOGYon 024 CASE REPORT [facility] Comment on above: Order Comment: Speci men Type: TISSUE SPECIMENOrdering Facility: [facility] Address: [address] [place] [address] Result Comment: Surg ica Pathology Report Case: [id number] Authorizing Provider: Kathleen Patel, Collected: 05/06/2024 03:34 PM Ordering Location: OB/Gynecology Received: 05/06/2024 04:42 PM Pathologist: Susan Nielsen MD Specimen: Products of Conception Performed By: #### S ####[facility] LABCLIA [id number] [place] [address] [place] CLINICAL HISTORY missed ab Normal [facility] Comment on above: Order Comment: Speci men Type: TISSUE SPECIMENOrdering Facility: [facility] Address: [address] [place] [address] Performed By: #### S ####[facility] LABCLIA [id number] [place] [address] [place] DIAGNOSIS COMMENT Drs. Alcala and Yasmeen Caro are informed of this result by epic email on 05/12/2024 [facility] Comment on above: Order Comment: Speci men Type: TISSUE SPECIMENOrdering Facility: [facility] Address: [address] [place] [address] Performed By: #### S ####[facility] LABCLIA [id number] [place] [address] [place] FINAL DIAGNOSIS [facility] Comment on above: Order Comment: Speci men Type: TISSUE SPECIMENOrdering Facility: [facility] Address: [address] [place] [address] Result Comment: Orestes scott contents, vacuum aspiration: - Partial hydatidiform mole [facility] 05/12/2024 Performed By: #### S ####[facility] LABCLIA [id number] [address] [place] FINAL PERFORMING LAB Normal [facility] Comment on above: Order Comment: Speci men Type: TISSUE SPECIMENOrdering Facility: [facility] Address: [address] [place] [address] Result Comment: Diag nostic interpretation performed at [facility], [address] [place] [address] CLIA# [id number] Globe Changer: Chris Bell M.D. Performed By: #### S ####[facility] LABCLIA [id number] [place] [address] [place] GROSS DESCRIPTION Normal [facility] Comment on above: Order Comment: Speci men Type: TISSUE SPECIMENOrdering Facility: [facility] Address: [address] [place] [address] Result Comment: A. P roducts of Conception Received in formalin, labeled products of conception are multiple fragments of soft, balderas-pink tissue and hemorrhagic material aggregating to 9.0 x 4.5 x 0.7 cm. Chorionic villi are identified. fragments and vesicles are not present. Revenue Analyst sections are submitted in cassettes A1-A3. AKA May 09, 2024 12:52 PM Gross examination performed at [facility], [address] [place] [address] Performed By: #### S ####[facility] [id number] [address] [place] MICROSCOPIC DESCRIPTION [facility] Comment on above: Order Comment: Speci men Type: TISSUE SPECIMENOrdering Facility: [facility] Address: [address] [place] [address] Result Comment: Gest ational age: 11 weeks and 4 days by LMP Chorionic plate: Present 1. Large cisterns: Present 2. Large syncytiotrophoblast inclusions: Present 3. Multipolar complex syncytiotrophoblast proliferation: Present 4. Enlarged villi: Present 5. Lace-like extravillous trophoblast proliferation: Present 6. Irregular contours: Present 7. Multiple small ST inclusions: Present 8. Dimorphic population: Absent 9. NRBC>80% after 10weeks: Present 10. Angiomatoid vessels: Absent 1-3 Major criteria; 4-10 minor criteria. Favor PHM if 2 major and 2 or more minor, or 1 major and 3 or more minor. Performed By: #### S ####[facility] [id number] [place] [address] [place] B-HCG [facility] 4 [place] [address].0 m[IU]/mL High <5.0 [facility] Comment on above: Order Comment: Speci men Type: BLOOD SPECIMENOrdering Facility: [facility] Address: [address] [place] [address] Result Comment: DANE TITATIVE HCG NORMAL RANGES Weeks of Gestation (Weeks Since LMP) 3 Weeks (5.8-71.2 mIU/mL) 4 Weeks (9.5-750 mIU/mL) 5 Weeks (217-7138 mIU/mL) 6 Weeks (158-87899 mIU/mL) 7 Weeks (3697-541472 mIU/mL) 8 Weeks (54830-630954 mIU/mL) 9 Weeks (08588-562242 mIU/mL) 10 Weeks (55041-280688 mIU/mL) 12 Weeks (95690-533057 mIU/mL) Referenced to 4th IS of [facility] Performed By: #### 2 1198-7 ####[facility] LABIA [id number] [place] [address] [place] B-HCG SerPl-aCncon 4 [place] [address].0 m[IU]/mL High <5.0 [facility] Comment on above: Order Comment: Speci men Type: BLOOD SPECIMENOrdering Facility: [facility] Address: [address] [place] [address] Result Comment: DANE TITATIVE HCG NORMAL RANGES Weeks of Gestation (Weeks Since LMP) 3 Weeks (5.8-71.2 mIU/mL) 4 Weeks (9.5-750 mIU/mL) 5 Weeks (217-7138 mIU/mL) 6 Weeks (158-80275 mIU/mL) 7 Weeks (3697-537802 mIU/mL) 8 Weeks (40265-920671 mIU/mL) 9 Weeks (12012-457375 mIU/mL) 10 Weeks (18105-828281 mIU/mL) 12 Weeks (83206-913325 mIU/mL) Referenced to 4th IS of [facility] Performed By: #### 2 1198-7 ####[facility] [id number] [place] [address] [place] Ender 04-29-2024 KAYKAYN Telephone (OBGYWM) DORY PRADHAN ([id number]) 1995 F Date Time Provider Department 04/29/24 GIANA ALCALA During your visit today, we recorded the following information about you: Giana Alexandre RN 04/29/2024 12:10 PM Signed Patient called with her decision. She would like J to send in Cytotec to [facility] in [facility]. PRAVEEN Sharma Jennifer, MD 04/29/2024 12:19 PM Signed Ok prescription sent Giana Alexandre RN 04/29/2024 12:36 PM Signed Thank you. Is patient to f/u in the office or have HCG levels? PRAVEEN Sharma Jennifer, MD 04/29/2024 12:46 PM Signed Yes. I reviewed that with her. I'll add the order Giana Alexandre RN 04/29/2024 12:59 PM Signed Thank you. PRAVEEN Sharma Jennifer, RN 04/29/2024 3:01 PM Signed Spoke with patient. She had questions about the Cytotec. All questions answered. Aware JG placed order to check HCG level. Patient to have drawn on Mon, Wed, Fri next week. Encouraged to call with questions or concerns. Aware of heavy bleeding precautions. Giana Alexandre RN Allergies As of Date: 04/29/2024 Noted Allergy Reaction PEANUTS 06/01/2019 10 - Anaphylaxis Date Reviewed: 04/29/2024 Reviewed by: Giana Alcala MD - Fully Assessed Reason for Visit: Patient Update [1234] Primary Visit Diagnosis:SAB (spontaneous ) [O03.9] Order(s):miSOPROStol (CYTOTEC) 200 mcg tabletUse 4 tablets vaginally one time only for 1 dose.Disp: 4 tabletRfl: 0 HCG QUANTITATIVE [SQHCGQT] Order #: [id number] STANDING Prescriptions as of 04/29/2024 - miSOPROStol (CYTOTEC) 200 mcg tablet Use 4 tablets vaginally one time only for 1 dose. - aspirin, enteric coated (ECOTRIN LOW STRENGTH) 81 mg EC tablet Take 1 tablet by mouth once daily. - 25-IRON UNA-ZHDJK-EME ORAL Take by mouth. - EPINEPHrine (EPIPEN) 0.3 mg/0.3 mL auto-injector NEEDED PRN For Allergies Problem List As Of Date 04/29/2024 Noted Resolved NEGATIVE MEDICAL HISTORY [V999.96] 11/14/2014 Routine gynecological examination [Z01.419] 07/26/2013 08/11/2014 Encounter for supervision of other normal pregn*08/11/2014 06/23/2018 History of kidney stones [Z87.442] 06/23/2018 Obesity complicating , childbirth, or *08/11/2014 05/22/2016 False labor [O47.9] 02/26/2015 05/22/2016 35 weeks gestation of [Z3A.35] 02/26/2015 03/08/2015 Decreased movement [O36.8190] 03/01/2015 05/22/2016 Post-dates [O48.0] 04/02/2015 05/22/2016 40 weeks gestation of [Z3A.40] 04/02/2015 05/22/2016 Vaginal delivery [O80] 04/05/2015 05/22/2016 Post term , 41 weeks [O48.0, Z3A.41] 04/05/2015 05/22/2016 Meconium stained amniotic fluid, delivered, cur*04/05/2015 05/22/2016 with uncertain dates in first trimest*04/22/2024 Encounter for supervision of high risk pregnanc*04/22/2024 Obesity affecting in first trimester *04/22/2024 Constipation during in first trimeste*04/22/2024 Vaginal bleeding affecting early [O20*04/22/2024 Prescriptions ordered this encounter Disp Refills Start End MISOPROSTOL 200 MCG TABLET 4 ta* 0 04/29/2024 04/29/2024 Route: VAGINAL Sig: Use 4 tablets vaginally one time only for 1 dose. Encounter Status:Closed by GIANA ALCALA on 04/29/24 Normal [facility] Examination level ultrasound on 04-29-2024 Indication Vaginal bleeding affecting early Impression Normal appearing anteverted uterus measuring 98 mm x 65 mm x 57 mm. The central endometrial complex contains a gestational sac with a yolk sac and pole measuring 15.1 mm. No cardiac activity is identified. Normal appearing left ovary. Right ovary contains a 23 x 21 x 15 mm corpus luteum cyst. No adnexal masses identified. There is no free fluid visualized in the peritoneal cavity. Recommendations Findings are consistent with missed . Follow up as clinically indicated. Method Transabdominal and transvaginal ultrasound examination. View: Adequate visualization Mcgill . Number of embryos: 1 Dating LMP on: 02/15/2024 GA by LMP 10 w + 4 d CHAU by LMP: 11/21/2024 GA by prior assessment 8 w + 6 d CHAU by prior assessment: 12/03/2024 Ultrasound examination on: 04/29/2024 GA by U/S based upon: CRL GA by U/S 7 w + 6 d CHAU by U/S: 12/10/2024 Assigned: based on stated CHAU, selected on 04/29/2024 Assigned GA 8 w + 6 d Assigned CHAU: 12/03/2024 Assessment Gestational sac: visualized Location: intrauterine Yolk sac: visualized YS 2.6 mm <1% Grisolia Embryo: visualized CRL 15.1 mm 7w 6d <1% Hadlock Cardiac activity: absent Uterus Uterus: Visualized Uterus position: anteverted Description of uterine malformations: none Myometrium: normal Cervix details: normal Uterus length 98 mm Uterus width 65 mm Uterus height 57 mm Uterus Vol 192.4 cm Cul de Sac Visualized. no free fluid visualized Right Ovary Rt ovary: Visualized Rt ovary D1 26 mm Rt ovary D2 25 mm Rt ovary D3 31 mm Rt ovary Vol 10.3 cm Rt ovarian corpus luteum: hemorrhagic Rt ovarian corpus luteum D1 22.7 mm Rt ovarian corpus luteum D2 20.8 mm Rt ovarian corpus luteum D3 15.0 mm Left Ovary Lt ovary: Visualized Lt ovary morphology: premenopausal normal follicular Lt ovary D1 30 mm Lt ovary D2 18 mm Lt ovary D3 15 mm Lt ovary Vol 4.1 cm Performed By: Dory Epstein RDMS Read By: Maliha Chin M.D. MATERNAL MEDICINE [facility] Radiology Study observation (narrative) [facility] Bacteria Ur Culton 4 Bacteria identified Cx Nom (U) ORGANISM ID: 1 10,000 -<50,000 CFU/ml Normal urogenital daniel Normal [facility] Comment on above: Performed By: #### 6 30-4 ####[facility] LABIA [id number] [place] [address] [place] C. trachomatis+N. gonorrhoea e DNA ITZEL+probe Ql (Unsp spec)on 04-22-2024 C. trachomatis rRNA ITZEL+probe Ql (Unsp spec) Not detected Normal Not detected [facility] Comment on above: Order Comment: Speci men Type: SWABOrdering Facility: [facility] Address: [address] [place] [address] Performed By: #### 3 6902-5 ####[facility] [id number] [place] [address] [place] N. gonorrhoeae rRNA ITZEL+probe Ql (Unsp spec) Not detected Normal Not detected [facility] Comment on above: Order Comment: Speci men Type: SWABOrdering Facility: [facility] Address: [address] [place] [address] Performed By: #### 3 6902-5 ####[facility] [id number] [place] [address] [place] CBC W Auto Differential pane l (Bld)on 04-22-2024 Basophils (Bld) [#/Vol] 0.03 10*3/uL Normal <0.11 [facility] Comment on above: Order Comment: Speci men Type: BLOOD SPECIMEN Ordering Facility: [facility] Address: [address] [place] [address] Performed By: #### G TGST1 #### [facility] [id number] [address] [place] [address] [place] Basophils/100 WBC (Bld) 0.3 % Normal [facility] Comment on above: Order Comment: Speci men Type: BLOOD SPECIMEN Ordering Facility: [facility] Address: [address] [place] [address] Performed By: #### G TGST1 #### [facility] CLIA [id number] [address] [place] [address] [place] Differential cell count method Nom (Bld) Auto Normal [facility] Comment on above: Order Comment: Speci men Type: BLOOD SPECIMEN Ordering Facility: [facility] Address: [address] [place] [address] Performed By: #### G TGST1 #### [facility] CLIA [id number] [address] [place] [address] [place] Eosinophils (Bld) [#/Vol] 0.04 10*3/uL Normal <0.46 [facility] Comment on above: Order Comment: Speci men Type: BLOOD SPECIMEN Ordering Facility: [facility] Address: [address] [place] [address] Performed By: #### G TGST1 #### [facility] CLIA [id number] [address] [place] [address] [place] Eosinophils/100 WBC (Bld) 0.4 % Normal [facility] Comment on above: Order Comment: Speci men Type: BLOOD SPECIMEN Ordering Facility: [facility] Address: [address] [place] [address] Performed By: #### G [id number] #### [facility] CLIA [id number] [address] [place] [address] [place] Erythrocyte distribution width (RBC) [Ratio] 13.2 % Normal 11.5-15.0 [facility] Comment on above: Order Comment: Speci men Type: BLOOD SPECIMEN Ordering Facility: [facility] Address: [address] [place] [address] Performed By: #### G [id number] #### [facility] CLIA [id number] [address] [place] [address] [place] Hematocrit (Bld) [Volume fraction] 39.9 % Normal 36.0-46.0 [facility] Comment on above: Order Comment: Speci men Type: BLOOD SPECIMEN Ordering Facility: [facility] Address: [address] [place] [address] Performed By: #### G [id number] #### [facility] CLIA [id number] [address] [place] [address] [place] Hemoglobin (Bld) [Mass/Vol] 13.6 g/dL Normal 11.5-15.5 [facility] Comment on above: Order Comment: Speci men Type: BLOOD SPECIMEN Ordering Facility: [facility] Address: [address] [place] [address] Performed By: #### G TGST1 #### [facility] [id number] [address] [place] [address] [place] Immature granulocytes (Bld) [#/Vol] 0.03 10*3/uL Normal <0.10 [facility] Comment on above: Order Comment: Speci men Type: BLOOD SPECIMEN Ordering Facility: [facility] Address: [address] [place] [address] Performed By: #### G [email or web address] #### [facility] [id number] [address] [place] [address] [place] Immature granulocytes/100 WBC (Bld) 0.3 % Normal [facility] Comment on above: Order Comment: Speci men Type: BLOOD SPECIMEN Ordering Facility: [facility] Address: [address] [place] [address] Performed By: #### G [id number] #### [facility] CLIA [id number] [address] [place] [address] [place] Lymphocytes (Bld) [#/Vol] 2.15 10*3/uL Normal 1.00-4.00 [facility] Comment on above: Order Comment: Speci men Type: BLOOD SPECIMEN Ordering Facility: [facility] Address: [address] [place] [address] Performed By: #### G [id number] #### [facility] CLIA [id number] [address] [place] [address] [place] Lymphocytes/100 WBC (Bld) 23.1 % Normal [facility] Comment on above: Order Comment: Speci men Type: BLOOD SPECIMEN Ordering Facility: [facility] Address: [address] [place] [address] Performed By: #### G [id number] #### [facility] CLIA [id number] [address] [place] [address] [place] MCH (RBC) [Entitic mass] 30.8 pg Normal 26.0-34.0 [facility] Comment on above: Order Comment: Speci men Type: BLOOD SPECIMEN Ordering Facility: [facility] Address: [address] [place] [address] Performed By: #### G [email or web address] #### [facility] [id number] [address] [place] [address] [place] MCHC (RBC) [Mass/Vol] 34.1 g/dL Normal 30.5-36.0 [facility] Comment on above: Order Comment: Speci men Type: BLOOD SPECIMEN Ordering Facility: [facility] Address: [address] [place] [address] Performed By: #### G [email or web address] #### [facility] [id number] [address] [place] [address] [place] MCV (RBC) [Entitic vol] 90.5 fL Normal 80.0-100.0 [facility] Comment on above: Order Comment: Speci men Type: BLOOD SPECIMEN Ordering Facility: [facility] Address: [address] [place] [address] Performed By: #### G [email or web address] #### [facility] CLIA [id number] [address] [place] [address] [place] Monocytes (Bld) [#/Vol] 0.42 10*3/uL Normal <0.87 [facility] Comment on above: Order Comment: Speci men Type: BLOOD SPECIMEN Ordering Facility: [facility] Address: [address] [place] [address] Performed By: #### G TGST1 #### [facility] CLIA [id number] [address] [place] [address] [place] Monocytes/100 WBC (Bld) 4.5 % Normal [facility] Comment on above: Order Comment: Speci men Type: BLOOD SPECIMEN Ordering Facility: [facility] Address: [address] [place] [address] Performed By: #### G TGST1 #### [facility] CLIA [id number] [address] [place] [address] [place] Neutrophils (Bld) [#/Vol] 6.63 10*3/uL Normal 1.45-7.50 [facility] Comment on above: Order Comment: Speci men Type: BLOOD SPECIMEN Ordering Facility: [facility] Address: [address] [place] [address] Performed By: #### G [email or web address] #### [facility] CLIA [id number] [address] [place] [address] [place] Neutrophils/100 WBC (Bld) 71.4 % Normal [facility] Comment on above: Order Comment: Speci men Type: BLOOD SPECIMEN Ordering Facility: [facility] Address: [address] [place] [address] Performed By: #### G [email or web address] #### [facility] CLIA [id number] [address] [place] [address] [place] Nucleated RBC (Bld) [#/Vol] 10*3/uL Normal <0.01 [facility] Comment on above: Order Comment: Speci men Type: BLOOD SPECIMEN Ordering Facility: [facility] Address: [address] [place] [address] Performed By: #### G TGST1 #### [facility] CLIA [id number] [address] [place] [address] [place] Nucleated RBC/100 WBC (Bld) [Ratio] 0.0 /100 WBC Normal [facility] Comment on above: Order Comment: Speci men Type: BLOOD SPECIMEN Ordering Facility: [facility] Address: [address] [place] [address] Performed By: #### G [email or web address] #### [facility] CLIA [id number] [address] [place] [address] [place] Platelet mean volume (Bld) [Entitic vol] 9.3 fL Normal 9.0-12.7 [facility] Comment on above: Order Comment: Speci men Type: BLOOD SPECIMEN Ordering Facility: [facility] Address: [address] [place] [address] Performed By: #### G [email or web address] #### [facility] CLIA [id number] [address] [place] [address] [place] Platelets (Bld) [#/Vol] 298 10*3/uL Normal 150-400 [facility] Comment on above: Order Comment: Speci men Type: BLOOD SPECIMEN Ordering Facility: [facility] Address: [address] [place] [address] Performed By: #### G [email or web address] #### [facility] CLIA [id number] [address] [place] [address] [place] RBC (Bld) [#/Vol] 4.41 10*6/uL Normal 3.90-5.20 [facility] Comment on above: Order Comment: Speci men Type: BLOOD SPECIMEN Ordering Facility: [facility] Address: [address] [place] [address] Performed By: #### G [email or web address] #### [facility] CLIA [id number] [address] [place] [address] [place] WBC (Bld) [#/Vol] 9.30 10*3/uL Normal 3.70-11.00 [facility] Comment on above: Order Comment: Speci men Type: BLOOD SPECIMEN Ordering Facility: [facility] Address: [address] [place] [address] Performed By: #### G TGST1 #### [facility] CLIA [id number] [address] [place] [address] [place] HBV surface Ag Ser Qlon 12 HBV surface Ag Ql (S) Negative Normal Negative [facility] Comment on above: Order Comment: Speci men Type: BLOOD SPECIMENOrdering Facility: [facility] Address: [address] [place] [address] Performed By: #### 7 3752-8, 5195-3, 44345-7 ####[facility] LABCLIA [id number] [place] [address] [place] HCV Ab Ser Qlon 04-22-2024 HCV Ab Ql (S) Negative Normal Negative [facility] Comment on above: Order Comment: Speci men Type: BLOOD SPECIMENOrdering Facility: [facility] Address: [address] [place] [address] Result Comment: The result suggests no evidence of active infection with Hepatitis C virus. Should recent infection be suspected, repeat testing may be considered 4-6 weeks after this draw. Performed By: #### 1 6128-1 ####[facility] LABCLIA [id number] [place] [address] [place] HIV 1+2 Ab IA Qlon 4 HIV 1 and 2 Ab IA.rapid Nom (S/P/Bld) Normal [facility] Comment on above: Order Comment: Speci men Type: BLOOD SPECIMENOrdering Facility: [facility] Address: [address] [place] [address] Result Comment: Test not indicated. Performed By: #### 7 3752-8, 5195-3, 80930-2 ####[facility] LABCLIA [id number] [place] [address] [place] HIV 1+2 Ab+HIV1 p24 Ag IA Ql Non-Reactive Normal Nonreactive [facility] Comment on above: Order Comment: Speci men Type: BLOOD SPECIMENOrdering Facility: [facility] Address: [address] [place] [address] Performed By: #### 7 3752-8, 5195-3, 44108-1 ####[facility] LABCLIA [id number] [place] [address] [place] HIV immunoassay testing algorithm interpretation (S/P/Bld) [Interp] Normal [facility] Comment on above: Order Comment: Speci men Type: BLOOD SPECIMENOrdering Facility: [facility] Address: [address] [place] [address] Result Comment: No e vidence of HIV-1 or HIV-2 infection. Should recent infection be suspected, repeat testing may be considered 2-3 weeks after this draw. [place] Rev. Code 3701.243(E): This information has been disclosed to you from confidential records protected from disclosure by state law. ???You shall make no further disclosure of this information without the specific, written, and informed release of the individual to whom it pertains or as otherwise permitted by state law. A general authorization for the release of medical or other information is not sufficient for the purpose of the release of HIV test results or diagnoses. Performed By: #### 7 3752-8, 5195-3, 40162-6 ####[facility] LABCLIA [id number] [place] [id number] [place] HbA1c (Bld)on 04-22-2024 Average glucose Estimated from glycated hemoglobin (Bld) [Mass/Vol] 88 mg/dL Normal [facility] Comment on above: Order Comment: Speci men Type: BLOOD SPECIMENOrdering Facility: [facility] Address: [address] [place] [address] Result Comment: eAG: (Estimated average glucose) is a calculated value from HgbA1c and is motor vehicle representative of the average blood glucose level in the last 2-3 month period. Performed By: #### 5 5454-3 ####[facility] LABCLIA [id number] [place] [address] [place] HbA1c (Bld) [Mass fraction] 4.7 % Normal 4.3-5.6 [facility] Comment on above: Order Comment: Speci men Type: BLOOD SPECIMENOrdering Facility: [facility] Address: [address] [place] [address] Result Comment: [place] Diabetes Association guidelines indicate that patients with HgbA1c in the range 5.7-6.4% are at increased risk for development of diabetes, and intervention by lifestyle modification may be beneficial. HgbA1c greater or equal to 6.5% is considered diagnostic of diabetes. Performed By: #### 5 5454-3 ####[facility] LABCLIA [id number] [place] [address] [place] [employer] PROF[employer]OR ULTRASOUNDon 04-22-20 24 Indication Viability; confirm cardiac activity Impression Single intrauterine gestational sac, CRL indicates discrepancy from clinical dates, CHAU 12/03/24 based on today's ultrasound, cardiac activity is visualized Recommendations Follow up for NT scan if desired Method Transabdominal ultrasound examination, Transvaginal ultrasound examination. View: Adequate visualization Mcgill . Number of embryos: 1 Dating LMP on: 02/15/2024 GA by LMP 9 w + 4 d CHAU by LMP: 11/21/2024 Ultrasound examination on: 04/22/2024 GA by U/S based upon: CRL GA by U/S 7 w + 6 d CHAU by U/S: 12/03/2024 Assigned: based on the LMP, selected on 04/22/2024 Assigned GA 9 w + 4 d Assigned CHAU: 11/21/2024 Biometry Standard FHR 151 bpm CRL 14.7 mm 7w 6d <1% Hadlock Assessment Gestational sac: visualized Location: intrauterine Yolk sac: visualized Embryo: visualized CRL 14.7 mm 7w 6d <1% Hadlock Cardiac activity: present FHR 151 bpm General Evaluation Cardiac activity present. FHR 151 bpm Performed By: Kailee Rahman NP Read By: Kailee Rahman NP MATERNAL MEDICINE [facility] Radiology Study observation (narrative) [facility] RUBELLA IGG ANTIBODYon 04-22 RUBELLA IGG AB, QUAL Positive Normal Positive [facility] Comment on above: Order Comment: Klarissa marcus Type: BLOOD SPECIMENOrdering Facility: [facility] Address: [address] [place] [address] Result Comment: The result suggests recent or past exposure to Rubella virus or history of Rubella vaccination. Positive result may also be seen due to presence of passively-transferred antibodies. Please correlate with patient's history. Performed By: #### R UBIGG ####[facility] LABCLIA [id number] [place] [address] [place] Reagin and Treponema pallidu m IgG and IgM [Interp]on 04-22-2024 T. pallidum IgG+IgM IA Ql (S) Non-Reactive Normal Nonreactive [facility] Comment on above: Order Comment: Klarissa marcus Type: BLOOD SPECIMENOrdering Facility: [facility] Address: [address] [place] [address] Performed By: #### 7 3752-8, 5195-3, 06598-8 ####[facility] LABCLIA [id number] [place] [address] [place] Reagin+T pallidum IgG+IgM Se rPl-Impon 04-22-2024 Reagin and Treponema pallidum IgG and IgM [Interp] Cannot exclude recent Treponemal infection if specimen collected within 7-10 days after appearance of suspect lesions or 2-3 weeks after an exposure. Clinical correlation is required. Normal [facility] Comment on above: Order Comment: Ranjithi angeline Type: BLOOD SPECIMENOrdering Facility: [facility] Address: [address] [place] [address] Performed By: #### 7 3752-8, 5195-3, 69581-0 ####[facility] LABCLIA [id number] [place] [address] [place] TYPE + SCREEN PRENATALon ABO B Normal [facility] Comment on above: Order Comment: Speci men Type: BLOOD SPECIMENOrdering Facility: [facility] Address: [address] [place] [address] Performed By: #### T SPN ####[facility]CL[facility] [id number] [address] [place] Rh Nom (Bld) Positive Normal [facility] Comment on above: Order Comment: Speci men Type: BLOOD SPECIMENOrdering Facility: [facility] Address: [address] [place] [address] Performed By: #### T SPN ####[facility]CL[facility] [id number] [address] [place] TYPE AND SCREEN EXPIRATION 04/25/2024 23:59 Normal [facility] Comment on above: Order Comment: Speci men Type: BLOOD SPECIMENOrdering Facility: [facility] Address: [address] [place] [address] Performed By: #### T SPN ####[facility]ANKCLIA [id number] [place] [address] [place] Consenton 01-15-2022 Consent [id number] [id number]#1.00 CD:127 Normal [facility] Registrationon 01-15-2022 Registration [id number] [id number]#1.00 CD:127 Normal [facility] C Urineon 01-10-2017 C Urine Final Report: >100,0 00 cfu/ml Escherichia coliORGANISM: ECSUSCEPTIBILITY RESULTSAntibiotic KALIE Dilutn KALIE InterpORGANISM: ECAmox/Cla : <=8/4 SAmp : <=8 SAmp/Sul : <=8/4 SCefaz : <=8 SCefo : <=2 SCipro : <=1 SGent : <=4 SLevo : <=2 SMero : <=1 SNitro : <=32 SPip/Blair : <=16 STetra : <=4 STobra : <=4 SSXT : <=2/38 S Normal [facility] Comment on above: Performed By: #### 2 [id number] ####[facility] [id number] [place] [address] Auto Diffon 11-26-2016 Basophils Auto #/vol (Bld) 0.0 E3/mcL Normal 0.0-0.2 [facility] Comment on above: Order Comment: Order Added by Discern Expert. Performed By: #### 2 [id number] ####[facility]ELO [address] [place] [address] Basophils/100 WBC Auto (Bld) 0.3 % Normal 0.0-2.0 [facility] Comment on above: Order Comment: Order Added by Discern Expert. Performed By: #### 2 [id number] ####CANELO Castro[address] [place] [address] Eos Absolute 0.1 E3/mcL Normal 0.0-0.7 [facility] Comment on above: Order Comment: Order Added by Discern Expert. Performed By: #### 2 [id number] ####CANELO [address] [place] [address] Eosinophils/100 leukocytes 0.8 % Normal 0.0-11.0 [facility] Comment on above: Order Comment: Order Added by Discern Expert. Performed By: #### 2 [id number] ####CANELO [address] [place] [address] Lymphocytes 2.7 E3/mcL Normal 1.2-3.4 [facility] Comment on above: Order Comment: Order Added by Discern Expert. Performed By: #### 2 [id number] ####CANELO [address] [place] [address] Lymphocytes/100 leukocytes 31.9 % Normal 20.0-55.0 [facility] Comment on above: Order Comment: Order Added by Discern Expert. Performed By: #### 2 [id number] ####CANELO CastroFhtQhbg3622 [place] [address] Boundary Absolute 0.4 E3/mcL Normal 0.0-0.7 [facility] Comment on above: Order Comment: Order Added by Discern Expert. Performed By: #### 2 [id number] ####CANELO CastroGrlLwoe9637 [place] [address] Monocytes/100 leukocytes 4.7 % Normal 0.0-10.0 [facility] Comment on above: Order Comment: Order Added by Discern Expert. Performed By: #### 2 [id number] ####CANELO CastroGozGxse5878 [place] [address] Neutro Absolute 5.3 E3/mcL Normal 1.4-6.5 [facility] Comment on above: Order Comment: Order Added by Discern Expert. Performed By: #### 2 [id number] ####CANELO CastroWnwQtun9096 [place] [address] Neutro Auto 62.3 % Normal 37.0-75.0 [facility] Comment on above: Order Comment: Order Added by Discern Expert. Performed By: #### 2 [id number] ####CANELO Peopleso1025 [place] [address] CBC w/ Auto Diffon 7 Erythrocyte distribution width Auto Ratio (RBC) 12.6 % Normal 11.5-14.5 [facility] Comment on above: Performed By: #### 2 [id number] ####CANELO CastroRnzSzfb9788 [place] [address] Erythrocytes (RBC) 4.68 E6/mcL Normal 3.90-5.40 [facility] Comment on above: Performed By: #### 2 [id number] ####CANELO YwwRoon4027 [place] [address] Hematocrit (HCT) 41.4 % Normal 36.0-48.0 [facility] Comment on above: Performed By: #### 2 [id number] ####CANELO CastroRmlZfrl9945 [place] [address] Hemoglobin mass conc (Bld) 13.9 g/dL Normal 12.0-16.0 [facility] Comment on above: Performed By: #### 2 [id number] ####CANELO CastroVsuWswm1418 [place] [address] MCH 29.6 pg Normal 27.0-31.0 [facility] Comment on above: Performed By: #### 2 [id number] ####CANELO CastroRqsLkxx1698 [place] [address] MCHC mass conc (RBC) 33.5 g/dL Normal 33.0-37.0 [facility] Comment on above: Performed By: #### 2 [id number] ####CANELO Peopleso1025 [place] [address] MCV 88.5 fL Normal 78.0-100.0 [facility] Comment on above: Performed By: #### 2 [id number] ####CANELO Peopleso1025 [place] [address] Platelet mean volume (PMV) 8.6 fL Normal 7.4-11.0 [facility] Comment on above: Performed By: #### 2 [id number] ####CANELO Peopleso[address]25 [place] [address] Platelets 299 E3/mcL Normal 130-400 [facility] Comment on above: Performed By: #### 2 [id number] ####CANELO Peopleso1025 [place] [address] WBC (Leukocytes) 8.5 E3/mcL Normal 3.6-11.0 [facility] Comment on above: Performed By: #### 2 [id number] ####CANELO [address]opleso[address]25 [place] [address] CMPon 11-26-2016 Alanine aminotransferase (ALT) 15 Int._Unit/L Normal 10-40 [facility] Comment on above: Performed By: #### 2 [id number] ####CANELO CastroFtyNjfx8247 [place] [address] Albumin 3.9 g/dL Normal 3.2-5.0 [facility] Comment on above: Performed By: #### 2 [id number] ####CANELO CastroJmzQtcg8626 [place] [address] Albumin/Globulin Ratio 1.0 {ratio} Low 1.1-1.9 [facility] Comment on above: Performed By: #### 2 [id number] ####CANELO CastroQnbWwrm2912 [place] [address] Alk Phos 87 Int._Unit/L Normal 42-121 [facility] Comment on above: Performed By: #### 2 [id number] ####CANELO CeyCypv8559 [place] [address] Aspartate aminotransferase (AST) 16 Int._Unit/L Normal 10-42 [facility] Comment on above: Performed By: #### 2 [id number] ####CANELO FpoZrxv2065 [place] [address] Bili Total 0.5 mg/dL Normal 0.2-1.0 [facility] Comment on above: Performed By: #### 2 [id number] ####CANELO YbeUyxa9744 [place] [address] BUN/Creatinine Ratio 10.0 ratio Normal 5.4-30.0 [facility] Comment on above: Performed By: #### 2 [id number] ####CANELO NtkRcwf9616 [place] [address] Creatinine 0.8 mg/dL Normal 0.6-1.3 [facility] Comment on above: Performed By: #### 2 [id number] ####CANELO NydEefz4009 [place] [address] Globulin 3.9 g/dL Normal 2.0-4.0 [facility] Comment on above: Performed By: #### 2 [id number] ####CANELO SwpSlvy6041 [place] [address] Protein 7.8 g/dL Normal 6.4-8.3 [facility] Comment on above: Performed By: #### 2 [id number] ####CANELO PiqHsni3689 [place] [address] Urea nitrogen 8 mg/dL Normal 7-18 [facility] Comment on above: Performed By: #### 2 193494 ####CANELO GiyTics2205 [place] [address] Calcium 9.7 mg/dL Normal 8.4-10.2 [facility] Comment on above: Performed By: #### 2 [id number] ####CANELO RgvQzkz5353 [place] [address] Chloride 106 mmol/L Normal 98-107 [facility] Comment on above: Performed By: #### 2 607495 ####CANELO CastroAmnWkcc0661 [place] [address] CO2 24.5 mmol/L Normal 24.0-30.0 [facility] Comment on above: Performed By: #### 2 [id number] ####CANELO Orta1025 [place] [address] Glucose mass conc 85 mg/dL Normal 70-99 [facility] Comment on above: Performed By: #### 2 518100 ####CANELO Orta[address] [place] [address] Potassium molar conc 4.2 mmol/L Normal 3.5-5.1 [facility] Comment on above: Performed By: #### 2 [id number] ####CANELO Orta[address] [place] [address] Sodium 138 mmol/L Normal 136-145 [facility] Comment on above: Performed By: #### 2 [id number] ####CANELO Orta[address] [place] [address] Lipase Levelon 11-26-2016 Lipase Lvl 22 U/L Normal 8-57 [facility] Comment on above: Performed By: #### 2 [id number] ####CANELO CastroKruZerw1526 [place] [address] TSHon 11-26-2016 Thyroid stimulating hormone (TSH) 0.99 mIU/m Normal 0.30-5.60 [facility] Comment on above: Performed By: #### 2 [id number] ####CANELO CastroSdaFtrv3729 [place] [address] eGFRon 11-26-2016 eGFR (non-black) mL/min/{1.73_m2} Normal [facility] Comment on above: Order Comment: Order added by Discern Expert. Performed By: #### 1 [id number] ####CANELO CastroNoyCjve2684 [place] [address] Vital Signs Date Time Vital Sign Value Performing Clinician Facility 01-06-2025 10:06-0400 Body mass index (BMI) [Ratio] 36.18 kg/m2 Tianna Mota APRN.CNM Work Phone: [facility] 01-06-2025 10:06-0400 Body weight 91.17 kg Tianna Plotts CLINICAL SERVICES SPECIALIST.CNM Work Phone: [facility] 01-06-2025 10:06-0400 Diastolic blood pressure 72 mm[Hg] Tianna Plotts CLINICAL SERVICES SPECIALIST.CNM Work Phone: [facility] 01-06-2025 10:06-0400 Systolic blood pressure 118 mm[Hg] Tianna Plotts CLINICAL SERVICES SPECIALIST.CNM Work Phone: [facility] 12-09-2024 15:30-0400 Body mass index (BMI) [Ratio] 35.64 kg/m2 Kailee Haury CLINICAL SERVICES SPECIALIST.THERAPEUTIC RECREATION LEADER Work Phone: [facility] 12-09-2024 15:30-0400 Body weight 89.81 kg Kailee Haury CLINICAL SERVICES SPECIALIST.THERAPEUTIC RECREATION LEADER Work Phone: [facility] 12-09-2024 15:30-0400 Diastolic blood pressure 66 mm[Hg] Kailee Haury CLINICAL SERVICES SPECIALIST.THERAPEUTIC RECREATION LEADER Work Phone: [facility] 12-09-2024 15:30-0400 Systolic blood pressure 120 mm[Hg] Kailee Haury CLINICAL SERVICES SPECIALIST.THERAPEUTIC RECREATION LEADER Work Phone: [facility] 11-11-2024 11:07-0400 Body mass index (BMI) [Ratio] 35.28 kg/m2 Tianna Plotts CLINICAL SERVICES SPECIALIST.CNM Work Phone: [facility] 11-11-2024 11:07-0400 Body weight 88.91 kg Tianna Plotts CLINICAL SERVICES SPECIALIST.CNM Work Phone: [facility] 11-11-2024 11:07-0400 Diastolic blood pressure 78 mm[Hg] Tianna Plotts CLINICAL SERVICES SPECIALIST.CNM Work Phone: [facility] 11-11-2024 11:07-0400 Systolic blood pressure 110 mm[Hg] Tianna Plotts CLINICAL SERVICES SPECIALIST.CNM Work Phone: [facility] 10-17-2024 16:07-0400 Body mass index (BMI) [Ratio] 35.64 kg/m2 Giana Alcala MD Work Phone: [facility] 10-17-2024 16:07-0400 Body weight 89.81 kg Giana Alcala MD Work Phone: [facility] 10-17-2024 16:07-0400 Diastolic blood pressure 60 mm[Hg] Giana Alcala MD Work Phone: [facility] 10-17-2024 16:07-0400 Systolic blood pressure 104 mm[Hg] Giana Alcala MD Work Phone: [facility] 09-23-2024 13:07-0400 Body height 158.8 cm Tianna Plotts CLINICAL SERVICES SPECIALIST.CNM Work Phone: [facility] 09-23-2024 13:07-0400 Body mass index (BMI) [Ratio] 35.46 kg/m2 Tianna Plotts CLINICAL SERVICES SPECIALIST.CNM Work Phone: [facility] 09-23-2024 13:07-0400 Body weight 89.36 kg Tianna Plotts CLINICAL SERVICES SPECIALIST.CNM Work Phone: [facility] 09-23-2024 13:07-0400 Diastolic blood pressure 74 mm[Hg] Tianna Plotts CLINICAL SERVICES SPECIALIST.CNM Work Phone: [facility] 09-23-2024 13:07-0400 Systolic blood pressure 122 mm[Hg] Tianna Plotts CLINICAL SERVICES SPECIALIST.CNM Work Phone: [facility] 07-01-2024 10:35-0500 Body height 160 cm Tianna Plotts CLINICAL SERVICES SPECIALIST.CNM Work Phone: [facility] 07-01-2024 10:35-0500 Body mass index (BMI) [Ratio] 33.48 kg/m2 Tianna Plotts CLINICAL SERVICES SPECIALIST.CNM Work Phone: [facility] 07-01-2024 10:35-0500 Body weight 85.73 kg Tianna Plotts CLINICAL SERVICES SPECIALIST.CNM Work Phone: [facility] 07-01-2024 10:35-0500 Diastolic blood pressure 72 mm[Hg] Tianna Plotts CLINICAL SERVICES SPECIALIST.CNM Work Phone: [facility] 07-01-2024 10:35-0500 Systolic blood pressure 126 mm[Hg] Tianna Mota CLINICAL SERVICES SPECIALIST.CNM Work Phone: [facility] 05-06-2024 14:56-0500 Diastolic blood pressure 88 mm[Hg] Kathleen Caro MD Work Phone: [facility] Comment on above: prior to IPAS 05-06-2024 14:56-0500 Heart rate 96 /min Kathleen Caro MD Work Phone: [facility] 05-06-2024 14:56-0500 Respiratory rate 18 /min Kathleen Caro MD Work Phone: [facility] 05-06-2024 14:56-0500 SaO2% (BldA) [Mass fraction] 100 % Kathleen Caro MD Work Phone: [facility] 05-06-2024 14:56-0500 Systolic blood pressure 136 mm[Hg] Kathleen Adam Caro MD Work Phone: [facility] Comment on above: prior to IPAS 05-06-2024 14:13-0500 Body mass index (BMI) [Ratio] 34.19 kg/m2 Kathleen Caro MD Work Phone: [facility] 05-06-2024 14:13-0500 Body weight 87.54 kg Kathleen Caro MD Work Phone: [facility] 04-29-2024 10:52-0500 Body mass index (BMI) [Ratio] 35.07 kg/m2 Giana Alcala MD Work Phone: [facility] 04-29-2024 10:52-0500 Body weight 89.81 kg Giana Alcala MD Work Phone: [facility] 04-29-2024 10:52-0500 Diastolic blood pressure 62 mm[Hg] Giana Alcala MD Work Phone: [facility] 04-29-2024 10:52-0500 Systolic blood pressure 110 mm[Hg] Giana Alcala MD Work Phone: [facility] 04-22-2024 09:21-0500 Body height 160 cm Kailee Haury CLINICAL SERVICES SPECIALIST.THERAPEUTIC RECREATION LEADER Work Phone: [facility] 04-22-2024 09:21-0500 Body mass index (BMI) [Ratio] 35.07 kg/m2 Kailee Haury CLINICAL SERVICES SPECIALIST.THERAPEUTIC RECREATION LEADER Work Phone: [facility] 04-22-2024 09:21-0500 Body weight 89.81 kg Kailee Haury CLINICAL SERVICES SPECIALIST.THERAPEUTIC RECREATION LEADER Work Phone: [facility] 04-22-2024 09:21-0500 Diastolic blood pressure 68 mm[Hg] Kailee Haury CLINICAL SERVICES SPECIALIST.THERAPEUTIC RECREATION LEADER Work Phone: [facility] 04-22-2024 09:21-0500 Systolic blood pressure 120 mm[Hg] Kailee Haury CLINICAL SERVICES SPECIALIST.THERAPEUTIC RECREATION LEADER Work Phone: [facility] 06-29-2023 08:05-0500 Body height 160 cm Tianna Plotts CLINICAL SERVICES SPECIALIST.CNM Work Phone: [facility] 06-29-2023 08:05-0500 Body weight 90.63 kg Tianna Plotts CLINICAL SERVICES SPECIALIST.CNM Work Phone: [facility] 06-29-2023 08:05-0500 Diastolic blood pressure 70 mm[Hg] Tianna Plotts CLINICAL SERVICES SPECIALIST.CNM Work Phone: [facility] 06-29-2023 08:05-0500 Systolic blood pressure 116 mm[Hg] Tianna Plotts CLINICAL SERVICES SPECIALIST.CNM Work Phone: [facility] 06-23-2022 08:18-0500 Body height 160 cm Tianna Plotts CLINICAL SERVICES SPECIALIST.CNM Work Phone: [facility] 06-23-2022 08:18-0500 Body weight 92.08 kg Tianna Plotts CLINICAL SERVICES SPECIALIST.CNM Work Phone: [facility] 06-23-2022 08:18-0500 Diastolic blood pressure 76 mm[Hg] Tianna Mota CLINICAL SERVICES SPECIALIST.CNM Work Phone: [facility] 06-23-2022 08:18-0500 Systolic blood pressure 114 mm[Hg] Tianna Mota CLINICAL SERVICES SPECIALIST.CNM Work Phone: [facility] Encounters Encounter Date Encounter Type Care Provider Facility Start: 04-24-2025 ambulatory Tianna Mota Facilit y:[facility] Start: 03-20-2025 End: 03-20-2025 ambulatory TIANNA MOTA Facility:[facility] Start: 03-03-2025 End: 03-03-2025 ambulatory TAWANDA LA Facility:[facility] Start: 02-17-2025 End: 02-17-2025 ambulatory TIANNA MOTA Facility:[facility] Start: 02-10-2025 End: 02-10-2025 ambulatory TIANNA MTOA Facility:[facility] Start: 02-03-2025 End: 02-03-2025 ambulatory SHAZIA EDWARDS Facility:[facility] Start: 01-06-2025 End: 01-06-2025 Patient encounter procedure Tianna Mota APRN.CNHaylee Work Phone: OB/Gynecology Comment on above: Supervision of high risk in second trimester (HCC) (Primary Dx); 24 weeks gestation of (HCC); Obesity affecting in second trimester, unspecified obesity type (HCC); Low-lying placenta (HCC); Screening for diabetes mellitus; Heartburn during in second trimester (HCC) Start: 01-06-2025 End: 01-06-2025 ambulatory SHAZIA T FURNESS Facility:[facility] Start: 12-19-2024 End: 12-19-2024 Telephone encounter Radha Levine APRN.CNM Work Phone: OB/Gynecology Start: 12-12-2024 End: 12-12-2024 Telephone encounter Tianna Mota APRN.CNHaylee Work Phone: OB/Gynecology Comment on above: Results Start: 12-09-2024 End: 12-09-2024 ambulatory KAILEERICK RAJANDARWIN Facility:[facility] Start: 12-09-2024 End: 12-09-2024 Patient encounter procedure Kailee Rajandarwin CLINICAL SERVICES SPECIALIST.THERAPEUTIC RECREATION LEADER Work Phone: OB/Gynecology Comment on above: Supervision of high risk in second trimester (HCC) (Primary Dx); 20 weeks gestation of (HCC); Obesity affecting in second trimester, unspecified obesity type (HCC); Irritable bowel syndrome with both constipation and diarrhea Obesity affecting pr egnancy in second trimester, unspecified obesity type (HCC) (Primary Dx); 9 weeks gestation of ([facility]); Supervision of high risk in second trimester ([facility]) Start: 12-09-2024 End: 12-09-2024 ambulatory [facility] Facility:[facility] Start: 12-05-2024 End: 12-05-2024 Telephone encounter Tianna Mota APRN.CNM Work Phone: OB/Gynecology Comment on above: OB Vomiting Start: 11-11-2024 End: 11-11-2024 Patient encounter procedure Tianna Mota APRN.CNM Work Phone: OB/Gynecology Comment on above: Encounter for superv ision of low-risk in second trimester (HCC) (Primary Dx); 16 weeks gestation of (HCC); Other obesity affecting in second trimester (HCC) Start: 11-11-2024 End: 11-11-2024 [facility] Facility:[facility] Start: 10-18-2024 End: 12-18-2024 Follow-up encounter Mica Concepcion MD Work Phone: OB/Gynecology Start: 10-17-2024 End: 10-17-2024 Patient encounter procedure Whi Tech 1 Senior Client Advisor [facility] Comment on above: Encounter for antena jed screening for malformation using ultrasound (HCC) (Primary Dx); 13 weeks gestation of (HCC) Encounter for superv ision of low-risk in second trimester (HCC) (Primary Dx); Other obesity affecting in second trimester (HCC); 13 weeks gestation of (HCC) Start: 10-17-2024 End: 10-17-2024 ambulatory SHAZIA REYESDENG Facility:[facility] Start: 09-23-2024 End: 09-23-2024 Patient encounter procedure Tianna Mota APRN.CNM Work Phone: OB/Gynecology Comment on above: 9 weeks gestation of (HCC) (Primary Dx); with uncertain dates in first trimester (HCC); Obesity affecting in first trimester, unspecified obesity type (HCC); Encounter for supervision of low-risk in first trimester (HCC); Irritable bowel syndrome with both constipation and diarrhea Start: 09-23-2024 End: 09-23-2024 ambulatory SHAZIA REYESDENG Facility:[facility] Start: 07-01-2024 End: 07-01-2024 ambulatory TIANNA MOTA Facility:[facility] Start: 07-01-2024 End: 07-01-2024 Patient encounter procedure Tianna Mota APRN.CNM Work Phone: OB/Gynecology Comment on above: Encounter for gyneco logical examination (general) (routine) without abnormal findings (Primary Dx); Screening for cervical cancer; Encounter for screening for human papillomavirus (HPV) Start: 07-01-2024 End: 07-01-2024 Patient encounter status Tianna Mota APRN.CNM Work Phone: [facility] Start: 06-03-2024 End: 06-03-2024 ambulatory KATHLEEN CARO Facility:[facility] Start: 05-27-2024 End: 05-27-2024 ambulatory KATHLEEN CARO Facility:[facility] Start: 05-20-2024 End: 05-20-2024 ambulatory KATHLEENBRENDA CARO Facility:[facility] Start: 05-13-2024 End: 05-13-2024 Telephone encounter Kathleen Caro MD Work Phone: OB/Gynecology Comment on above: Results Start: 05-13-2024 End: 05-13-2024 ambulatory KATHLEENBRENDA CARO Facility:[facility] Start: 05-06-2024 End: 05-06-2024 ambulatory KATHLEEN CARO Facility:[facility] Start: 05-06-2024 End: 05-06-2024 Patient encounter procedure Kathleen Caro MD Work Phone: OB/Gynecology Comment on above: Incomplete spontaneo us without complication (Primary Dx) Start: 05-04-2024 End: 05-04-2024 [facility] Start: 05-02-2024 End: 05-02-2024 ambulatory GIANA SUJATA Facility:[facility] Start: 04-29-2024 End: 04-29-2024 Telephone encounter Giana Alcala MD Work Phone: OB/Gynecology Comment on above: Patient Update Start: 04-29-2024 End: 04-29-2024 Office outpatient visit 25 minutes Giana Alcala MD Work Phone: OB/Gynecology Comment on above: SAB (spontaneous abo rtion) (Primary Dx) Start: 04-29-2024 End: 04-29-2024 ambulatory GIANA SUJATA Facility:[facility] Start: 04-29-2024 End: 04-29-2024 Patient encounter procedure Us Tech 1 Wstr Mob OB/Gynecology Comment on above: Vaginal bleeding aff ecting early Start: 04-26-2024 End: 04-27-2024 ambulatory Kailee Rahman APRN.THERAPEUTIC RECREATION LEADER Work Phone: OB/Gynecology Comment on above: Vaginal bleeding Start: 04-22-2024 End: 04-22-2024 ambulatory SHAZIA EDWARDS Facility:[facility] Start: 04-22-2024 End: 04-22-2024 Patient encounter procedure Kailee Rahman APRN.THERAPEUTIC RECREATION LEADER Work Phone: OB/Gynecology Comment on above: Encounter for superv ision of high risk in first trimester, antepartum (Primary Dx); Less than 8 weeks gestation of ; with uncertain dates in first trimester; Obesity affecting in first trimester, unspecified obesity type; Constipation during in first trimester; Vaginal bleeding affecting early Start: 06-29-2023 End: 06-29-2023 Patient encounter procedure Tianna Mota APRN.CNM Work Phone: OB/Gynecology Comment on above: Encounter for gyneco logical examination (general) (routine) without abnormal findings (Primary Dx); Encounter for surveillance of vaginal ring hormonal contraceptive device Start: 06-29-2023 End: 06-29-2023 Patient encounter status Tianna Ryanjacqui AMAYAN.CNM Work Phone: [facility] Start: 06-23-2022 End: 06-23-2022 Patient encounter procedure Tianna Mota APRN.CNM Work Phone: OB/Gynecology Comment on above: Encounter for gyneco logical examination (general) (routine) without abnormal findings (Primary Dx) Start: 06-23-2022 End: 06-23-2022 Patient encounter status Tianna Mota APRN.CNM Work Phone: OB/Gynecology Start: 06-09-2022 Refill Mica trejo MD Work Phone: OB/Gynecology Comment on above: Refill Request Start: 09-23-2017 End: 09-24-2017 Ambulatory Shazia T Grace Facility:[facility] Start: 02-19-2017 End: 02-20-2017 [facility] Start: 01-29-2017 End: 01-29-2017 Ambulatory Horacio Diaz Facility:Horacio Diaz DO Start: 01-08-2017 End: 01-09-2017 [facility] Start: 01-08-2017 End: 01-09-2017 Ambulatory Nabil Pal Facility:[facility] Start: 11-26-2016 End: 11-27-2016 [facility] Start: 11-26-2016 End: 11-27-2016 [facility] Start: 07-26-2013 End: 08-11-2014 Patient encounter status Kailee Josiah SANFORDTHERAPEUTIC RECREATION LEADER Work Phone: [facility] Procedures Date Procedure Procedure Detail Performing Clinician Start: 12-09-2024 Us preg uterus after 1st trimest 05/18 gestation Tianna Mota APRN.CNM Work Phone: Start: 10-17-2024 Us preg uterus after 1st trimest / gestation Tianna Mota APRN.CNM Work Phone: Start: 09-23-2024 Antibody screen SHAZIA EDWARDS Comment on above: Order Comment: Speci men Type: BLOOD SPECIMENOrdering Facility: [facility] Address: [address] [place] [address] Performed By: #### T SPN ####CC MAIN BLOOD BANKCLIA [id number] [address] [place] Start: 09-23-2024 Us uterus l imited 1/> fetuses Tianna Mota APRN.CNHaylee Work Phone: Start: 04-29-2024 Us preg uterus after 1st trimest / gestation Kailee Rahman APRN.THERAPEUTIC RECREATION LEADER Work Phone: Start: 04-22-2024 Antibody screen SHAZIA EDWARDS Comment on above: Order Comment: Speci men Type: BLOOD SPECIMENOrdering Facility: [facility] Address: [address] [place] [address] Performed By: #### T SPN ####CC MAIN BLOOD BANKCLIA [id number] [place] [address] [place] Start: 04-22-2024 Us uterus l imited 1/> fetuses Kailee Rahman APRN.THERAPEUTIC RECREATION LEADER Work Phone: Start: 04-22-2024 Adult depression scr eening assessment Us Mob Plan of Treatment Date Care Activity Detail Author Start: 07-01-2029 Screening for malign ant neoplasm of cervix Cervical Cancer Screening [facility] Start: 07-07-2025 End: 07-07-2025 Patient encounter procedure 07/07/2025 10:45 AM EST Office Visit OB/Gynecology [address] [place] [address] Tianna Mota APRN.CNM [address] [place] [address] Annual OB/Gynecology Comment on above: Annual Start: 04-22-2025 Anxiety Screening Anxiety Screening [facility] Start: 04-22-2025 Depression Screening Depression Scre ening [facility] Start: 02-27-2025 RSV Vaccine (1 - Ris k 1-dose series) RSV Vaccine (1 - Risk 1-dose series) [facility] Start: 02-03-2025 End: 02-03-2025 Patient encounter procedure OB/Gynecology Comment on above: Growth/OB/Glucose Te st Start: 02-03-2025 End: 02-03-2025 ambulatory 02/03/2025 10:15 AM EDT Results Only [facility] [address] [place] [address] Glucose Test [facility] Comment on above: Glucose Test Start: 01-16-2025 Influenza vaccination C [facility] Start: 01-06-2025 End: 04-07-2025 ANEMIA REFLEX PANEL ANEMIA REFLEX PANEL Lab Routine 24 weeks gestation of (HCC) Supervision of high risk in second trimester (HCC) Obesity affecting in second trimester, unspecified obesity type (HCC) Low-lying placenta (HCC) Screening for diabetes mellitus Expected: 01/06/2025, Expires: 04/07/2025 [facility] Comment on above: Expected: 01/06/2025 , Expires: 04/07/2025 Start: 01-06-2025 End: 01-06-2026 GESTATIONAL GLUCOSE SCREEN, 1-HOUR, 50 GRAM, NON-FASTING GESTATIONAL GLUCOSE SCREEN, 1-HOUR, 50 GRAM, NON-FASTING Lab Routine 24 weeks gestation of (HCC) Supervision of high risk in second trimester (HCC) Obesity affecting in second trimester, unspecified obesity type (HCC) Low-lying placenta (HCC) Screening for diabetes mellitus Expected: 01/06/2025, Expires: 01/06/2026 [facility] Work Phone: Comment on above: Expected: 01/06/2025 , Expires: 01/06/2026 Start: 01-06-2025 End: 01-06-2026 OBSTETRIC ULTRASOUND WHI [facility] Comment on above: Expected: 01/06/2025 , Expires: 01/06/2026 Start: 01-06-2025 End: 01-06-2026 SYPHILIS TREPONEMAL W/REFLEX SYPHILIS TREPONEMAL W/REFLEX Lab Routine 24 weeks gestation of ([facility]) Supervision of high risk in second trimester ([facility]) Obesity affecting in second trimester, unspecified obesity type ([facility]) Low-lying placenta ([facility]) Screening for diabetes mellitus Expected: 01/06/2025, Expires: 01/06/2026 [facility] Comment on above: Expected: 01/06/2025 , Expires: 01/06/2026 Start: 01-06-2025 End: 01-06-2025 Patient encounter procedure 01/06/2025 10:15 AM EDT Routine Office Visit OB/Gynecology [address] [place] [address] Tianna Mota APRN.CNM [address] [place] [address] OB OB/Gynecology Comment on above: OB Start: 12-09-2024 End: 12-09-2024 Patient encounter procedure [facility] Comment on above: Anatomy Anatomy/OB Start: 11-11-2024 End: 11-11-2024 Patient encounter procedure 11/11/2024 11:15 AM EDT Routine Office Visit OB/Gynecology [address] [place] [address] Tianna Mota APRN.CNM [address] [place] [address] OB OB/Gynecology Comment on above: OB Start: 10-21-2024 End: 10-21-2024 Patient encounter procedure 10/21/2024 2:30 PM EDT Routine Office Visit OB/Gynecology [address] [place] [address] Tianna Mota APRN.CNM [address] [place] [address] 2 missed periods and + at home test OB/Gynecology Comment on above: 2 missed periods and + at home test Start: 10-17-2024 End: 10-17-2024 Patient encounter procedure [facility]aternal [facility] Comment on above: 12 weeks gestation o f ([facility]) [Z3A.09] Start: 09-23-2024 End: 12-23-2024 ANEMIA REFLEX PANEL [facility] Work Phone: Comment on above: Expected: 09/23/2024 , Expires: 12/23/2024 Start: 09-23-2024 End: 12-23-2024 Hemoglobin A1c in Blood [facility] Comment on above: Expected: 09/23/2024 , Expires: 12/23/2024 Start: 09-23-2024 End: 12-23-2024 Hepatitis B virus surface Ag [Presence] in Serum [facility] Comment on above: Expected: 09/23/2024 , Expires: 12/23/2024 Start: 09-23-2024 End: 12-23-2024 Hepatitis C virus Ab [Presence] in Serum [facility] Comment on above: Expected: 09/23/2024 , Expires: 12/23/2024 Start: 09-23-2024 End: 12-23-2024 HIV 1+2 Ab [Presence] in Serum or Plasma by Immunoassay [facility] Comment on above: Expected: 09/23/2024 , Expires: 12/23/2024 Start: 09-23-2024 End: 09-23-2025 OBSTETRIC ULTRASOUND WHI OBSTETRIC ULTRASOUND WHI Anc Imaging Routine 9 weeks gestation of ([facility]) Expected: 09/23/2024, Expires: 09/23/2025 [facility] Comment on above: Expected: 09/23/2024 , Expires: 09/23/2025 Start: 09-23-2024 End: 12-23-2024 RUBELLA IGG ANTIBODY [facility] Comment on above: Expected: 09/23/2024 , Expires: 12/23/2024 Start: 09-23-2024 End: 12-23-2024 SYPHILIS TREPONEMAL W/REFLEX [facility] Comment on above: Expected: 09/23/2024 , Expires: 12/23/2024 Start: 07-22-2024 End: 07-22-2024 Patient encounter procedure 07/22/2024 9:40 AM EST Routine Office Visit OB/Gynecology [address] [place] [address] Kathleen Patel MD [address] [place] [address] OB Routine OB/Gynecology Comment on above: OB Routine Start: 07-22-2024 End: 07-22-2024 Patient encounter procedure 07/22/2024 8:30 AM EST Routine Office Visit Maternal Medicine [address] [place] [address] Anatomy Scan [facility] Comment on above: Anatomy Scan Start: 07-01-2024 End: 07-01-2024 Patient encounter procedure 07/01/2024 10:45 AM EST Office Visit OB/Gynecology [address] [place] [address] Tianna Mota APRN.CN [address] [place] [address] ANNUAL OB/Gynecology Comment on above: ANNUAL Start: 06-18-2024 PAP TESTING PAP TESTING [facility] Start: 06-18-2024 Screening for malign ant neoplasm of cervix [facility] Start: 05-27-2024 End: 05-27-2024 Patient encounter procedure [facility] Comment on above: Nuchal OB Routine Start: 04-29-2024 End: 04-29-2024 Patient encounter procedure 04/29/2024 10:00 AM EST Routine Office Visit OB/Gynecology [address] [place] [address] Early OB bleeding OB/Gynecology Comment on above: Early OB bleeding Start: 04-27-2024 End: 04-27-2025 OBSTETRIC ULTRASOUND WHI OBSTETRIC ULTRASOUND [facility] Anc Imaging Routine Vaginal bleeding affecting early Expected: 04/27/2024, Expires: 04/27/2025 [facility] Work Phone: Comment on above: Expected: 04/27/2024 , Expires: 04/27/2025 Start: 04-22-2024 End: 07-22-2024 ANEMIA REFLEX PANEL [facility] Work Phone: Comment on above: Expected: 04/22/2024 , Expires: 07/22/2024 Start: 04-22-2024 End: 07-22-2024 Hemoglobin A1c in Blood [facility] Comment on above: Expected: 04/22/2024 , Expires: 07/22/2024 Start: 04-22-2024 End: 07-22-2024 Hepatitis B virus surface Ag [Presence] in Serum [facility] Comment on above: Expected: 04/22/2024 , Expires: 07/22/2024 Start: 04-22-2024 End: 07-22-2024 Hepatitis C virus Ab [Presence] in Serum [facility] Comment on above: Expected: 04/22/2024 , Expires: 07/22/2024 Start: 04-22-2024 End: 07-22-2024 HIV 1+2 Ab [Presence] in Serum or Plasma by Immunoassay [facility] Comment on above: Expected: 04/22/2024 , Expires: 07/22/2024 Start: 04-22-2024 End: 04-22-2025 NUCHAL TRANSLUCENCY WHI [facility] Comment on above: Expected: 04/22/2024 , Expires: 04/22/2025 Start: 04-22-2024 End: 04-22-2025 OBSTETRIC ULTRASOUND [facility] OBSTETRIC ULTRASOUND [facility] Anc Imaging Routine with uncertain dates in first trimester Expected: 04/22/2024, Expires: 04/22/2025 [facility] Comment on above: Expected: 04/22/2024 , Expires: 04/22/2025 Start: 04-22-2024 End: 07-22-2024 RUBELLA IGG ANTIBODY [facility] Comment on above: Expected: 04/22/2024 , Expires: 07/22/2024 Start: 04-22-2024 End: 07-22-2024 SYPHILIS TREPONEMAL W/REFLEX [facility] Comment on above: Expected: 04/22/2024 , Expires: 07/22/2024 Start: 04-22-2024 End: 07-22-2024 TYPE + SCREEN [facility] Comment on above: Expected: 04/22/2024 , Expires: 07/22/2024 Start: 01-17-2024 Covid-19 Vaccine ( season) Covid-19 Vaccine ( season) [facility] Start: 01-17-2024 Influenza vaccination Influenza Vacc ine (#1) [facility] Start: 05-18-2023 Depression Assessment Depression Ass essment [facility] Start: 01-16-2023 Influenza vaccination Influenza Vacc ine (#1) [facility] Start: 05-18-2022 DEPRESSION ASSESSMENT DEPRESSION ASS ESSMENT [facility] Start: 01-16-2022 Influenza vaccination INFLUENZA (#1) [facility] Start: 2020 HPV Vaccine (1 - 3-d ose SCDM series) HPV Vaccine (1 - 3-dose SCDM series) [facility] Start: 2012 Hepatitis B Vaccine (1 of 3 - 19+ 3-dose series) Hepatitis B Vaccine (1 of 3 - 19+ 3-dose series) [facility] Start: 2012 Pneumococcal vaccination Pneumococcal Vaccine (1 of 2 - PCV) [facility] Start: 2012 Urine microalbumin profile [facility] Start: 09-08-2011 Anxiety Screening Anxiety Screening [facility] Start: 09-08-2011 Depression Screening Depression Scre ening [facility] Start: 03-09-1994 COVID-19 VACCINE (#1) COVID-19 VACCI NE (#1) [facility] Start: 1993 HEPATITIS B (1 of 3 - 3-dose series) HEPATITIS B (1 of 3 - 3-dose series) [facility] Start: 1993 Hepatitis B Vaccine (1 of 3 - 3-dose series) Hepatitis B Vaccine (1 of 3 - 3-dose series) [facility] Bacteria identified in Urine by Culture URINE CULTURE Microbiology Routine with uncertain dates in first trimester 04/22/2024 10:27 AM EST [facility] Bacteria identified in Urine by Culture BACTERIAL CULTURE, URINE Microbiology Routine 9 weeks gestation of (HCC) 09/23/2024 1:45 PM EDT [facility] Chlamydia trachomatis+Neisseria gonorrhoeae DNA [Presence] in Unspecified specimen by ITZEL with probe detection GONORRHEA/CHLAMYDIA NAAT Lab Routine with uncertain dates in first trimester 04/22/2024 10:27 AM [facility] Chlamydia trachomatis+Neisseria gonorrhoeae DNA [Presence] in Unspecified specimen by ITZEL with probe detection GONORRHEA/CHLAMYDIA NAAT Lab Routine 9 weeks gestation of ([facility]) 09/23/2024 1:45 PM EDT [facility] End: 04-29-2025 Choriogonadotropin.beta subunit [Units/volume] in Serum or Plasma HCG QUANTITATIVE Lab Routine SAB (spontaneous ) 3x per week for 10 Occurrences starting 04/29/2024 until 04/29/2025 [facility] Work Phone: Comment on above: 3x per week for 10 O ccurrences starting 04/29/2024 until 04/29/2025 PAP TEST PAP TEST Lab Blanka velazquez Encounter for gynecological examination (general) (routine) without abnormal findings Screening for cervical cancer Encounter for screening for human papillomavirus (HPV) 07/01/2024 11:06 AM [facility] Work Phone: SURGICAL PATHOLOGY SURGICAL PATH OLOGY Lab Routine Incomplete spontaneous without complication 05/06/2024 3:34 PM EST [facility] TRICHOMONAS VAGINALI S NAAT TRICHOMONAS VAGINALIS NAAT Lab Routine 9 weeks gestation of ([facility]) 09/23/2024 1:45 PM EDT [facility] TYPE + SCREEN TYPE + SC REEN Blood Bank Routine 9 weeks gestation of ([facility]) 09/23/2024 2:09 PM EDT [facility] WHI (OFFICE IPAS) WHI (OFFICE IP ) Procedures Routine Incomplete spontaneous without complication Ordered: 05/06/2024 [facility] Work Phone: Comment on above: Ordered: 05/06/2024 [facility] Immunizations Immunization Date Immunization Notes Care Provider Grover reddy 04-07-2015 measles, mumps and rubella virus vaccine Mica Concepcion MD Work Phone: [facility] Payers Date Payer Category Payer Self-pay 2023 Private Health Insurance M[employer] PPO [id number] 2023 Unknown [id number] 2016 Unknown Unknown [id number] Social History Date Type Detail Facility Start: 11-02-2017 End: 09-22-2024 Tobacco smoking status NHIS Ex-smoker [facility] Work Phone: Start: 08-16-2016 End: 09-19-2017 History of tobacco use Current smoker [facility] Work Phone: Start: 08-16-2016 End: 09-19-2017 History of tobacco use Cigarette Smoker [facility] Work Phone: Start: 11-02-2017 End: 09-22-2024 Tobacco use and exposure Smokeless tobacco non-user [facility] Work Phone: Start: 06-18-2021 End: 07-01-2024 Alcohol intake Current drinker of alcohol (finding) [facility] Start: 06-05-2020 History SDOH Social Connections Phone 5 [facility] Start: 06-05-2020 History SDOH Social Connections [facility] Start: 06-05-2020 History SDOH Social Connections Membership 2 [facility] Start: 06-05-2020 History SDOH Social Connections Living 3 [facility] Start: 06-05-2020 History SDOH Physical Activity MPS 12 [facility] Start: 06-05-2020 Education 13 [facility] Start: 06-01-2019 Alcohol Comment socially [facility] Start: 1995 Sex Assigned At Not on file [facility] Start: 1995 Sex Assigned At Female [facility] Start: 06-05-2020 End: 06-29-2023 History of Social function [facility] Start: 06-05-2020 End: 06-29-2023 Social connection and isolation panel [facility] Do you belong to any clubs or organizations such as roman catholic groups, unions, fraternal or athletic groups, or school groups? No [facility] Are you now , , , , never or living with a partner? [facility] Do you feel stress - tense, restless, nervous, or anxious, or unable to sleep at night because your mind is troubled all the time - these days [OSQ] To some extent [facility] Start: 04-18-2012 National Score (1-100), lower number is lower risk 64 [facility] Start: 06-23-2022 Gender identity Identifies as female gender (finding) [facility] Start: 06-23-2022 Sexual orientation Heterosexual (finding) [facility] Start: 04-22-2024 End: 12-09-2024 Alcoholic beverage intake Ex-drinker (finding) [facility] Start: 03-12-2024 [facility] Start: 08-16-2016 Tobacco smoking status NCIS Smokes tobacco daily [facility] Goals Date Patient Goal Desired Activity /State Personal health goal Personal health goal Functional Status Date Assessment Result Facility 04-07-2015 Are you deaf, or do you have serious difficulty hearing No 04/07/2015 2:19 PM Margaret CrowleyRn)(Hist), RN No [facility] 04-07-2015 Are you blind, or do you have serious difficulty seeing, even when wearing glasses No 04/07/2015 2:19 PM aMrgaret CrowleyRn)(Hist), RN [facility] 04-07-2015 Do you have serious difficulty walking or climbing stairs No 04/07/2015 2:19 PM Margaret CrowleyRn)(Hist), RN No [facility] 04-07-2015 Do you have difficul ty dressing or bathing No 04/07/2015 2:19 PM Margaret CrowleyRn)(Hist), RN No [facility] 04-07-2015 Because of a physica l, mental, or emotional condition, do you have difficulty doing errands alone such as visiting a physician's office or shopping No 04/07/2015 2:19 PM Margaret Crowley (Rn)(Hist), RN No [facility] Mental Status Date Assessment Result Facility 04-07-2015 Because of a physica l, mental, or emotional condition, do you have serious difficulty concentrating, remembering, or making decisions No 04/07/2015 2:19 PM Margaret Crowley (Rn)(Hist), RN No [facility] Clinical Notes 04-05-2015 to 01-06-2025 Quick Notes - Tianna Mota APRN.CNM - 01/06/2025 10:39 AM EDTPrenatal Quick Notes - Tianna Mota APRN.CNM - 01/06/2025 10:39 AM EDTPatient InstructionsPatient Instructions Note Date & Type Note Facility 01-06-2025 Progress note Formatting of t his note might be different from the original. S: Dory Pradhan is a 29 year old female who presents at 24 weeks gestation for a routine visit. Positive [id number]/8/2025, by Last Menstrual Period for a routine visit. Denies headache, visual changes, chest pain, shortness of breath, vaginal bleeding, leakage of fluid, or dysuria. Feeling well, no complaints. O: See flow sheet Gen: No apparent distress Abd: Gravid, nontender ASSESSMENT/PLAN: 1. Supervision of high risk in second trimester 2. 24 weeks gestation of (HCC) - ICD9: V22.2, ICD10: Z3A.24 3. Obesity affecting in second trimester, unspecified obesity type 4. Low-lying placenta 5. Screening for diabetes mellitus 6. Heartburn during in second trimester - Continues to have acid reflux- D/C Pepcid PO - Rx Protonix 20 mg Po daily sent - Continue vitamin and ASA - Repeat OB US to check placental position - RTO 4 weeks for SARAI with GCT screening Tianna Mota APRN.CNM [facility] 01-06-2025 Miscellaneous Notes Formattin g of this note might be different from the original. S: Dory Pradhan is a 29 year old female who presents at 24 weeks gestation for a routine visit. Positive [id number]/8/2025, by Last Menstrual Period for a routine visit. Denies headache, visual changes, chest pain, shortness of breath, vaginal bleeding, leakage of fluid, or dysuria. Feeling well, no complaints. O: See flow sheet Gen: No apparent distress Abd: Gravid, nontender ASSESSMENT/PLAN: 1. Supervision of high risk in second trimester 2. 24 weeks gestation of (HCC) - ICD9: V22.2, ICD10: Z3A.24 3. Obesity affecting in second trimester, unspecified obesity type 4. Low-lying placenta 5. Screening for diabetes mellitus 6. Heartburn during in second trimester - Continues to have acid reflux- D/C Pepcid PO - Rx Protonix 20 mg Po daily sent - Continue vitamin and ASA - Repeat OB US to check placental position - RTO 4 weeks for SARAI with GCT screening Tianna Mota APRN.CNM documented in this encounter [facility] 01-06-2025 Instructions Poppy Man MA - 01/06/2025 10:03 AM EDT SEQUENTIAL SCREENINGS The [facility] offers sequential screenings for women who are interested in screenings for chromosomal abnormalities and certain defects during a . The sequential screen combines ultrasound and blood tests to determine the risk of chromosomal abnormalities, including Down's Syndrome (Trisomy 21) and Trisomy 18, as well as open neural tube defects including spina bifida. Ultrasound examination is performed between 11 weeks and 13 weeks gestational age. Blood tests are drawn after the ultrasound and again later in the between 15 and 21 weeks gestational age. Please let your physician know if you are interested in this testing. It will require an appointment with our critical systems technician. This is not an ultrasound performed by a physician in our office during a routine visit. SIGNS AND SYMPTOMS OF LABOR 1. Contractions every 10 minutes or more often 2. Clear, pink, or brownish fluid (water) leaking from vagina 3. Feeling that baby is pushing down, pressure 4. Low, dull backache 5. Cramps that feel like a period 6. Cramps with or without diarrhea If you notice any of the above symptoms, contact our office at [phone] and ask to speak with a nurse. After hours, you can call doctors registry at [phone] OR call [facility] at [phone] and ask to have the doctor engineer station mainline paged. If you consider this an emergency, dial or go to your nearest emergency department. NEED HELP? Are you dealing with a violent or abusive relationship? Are you a victim of rape or sexual assult? Call [facility] ([place]) 24 hour Crisis Hotline: 372.810.7415 or 859-596-8189. MANUAL Your Guide to a Healthy manual is now on-line. Visit [email or web address] [email or web address] to download your free copy documented in this encounter [facility] 12-19-2024 Telephone encount er Note Patient notified. Giana Alexandre RN [facility] 12-19-2024 Miscellaneous Notes Formattin g of this note might be different from the original. Patient notified. Giana Alexandre RN Thank you. Would recommend [facility] due to gestational age if needing to go in. Thank you, Radha Levine APRN.CNM 22w0d Patient states that she's been having cramping pain since this morning. Pain rate of 6/10. Pain is causing her to have nausea. Eating and drinking okay. Having regular BM. Denies vaginal bleeding or spotting. Low lying placenta. Advised to try taking Tylenol 1,000 MG and a warm bath. Recommended patient go to hospital for severe pain or if she develops bleeding. Next OB visit 01/06/25. Giana Alexandre RN documented in this encounter [facility] 12-19-2024 Telephone encount er Note Thank you. Would recommend [facility] due to gestational age if needing to go in. Thank you, Radha Levine APRN.CNM [facility] Work Phone: 12-19-2024 Telephone encount er Note 22w0d Patient states that she's been having cramping pain since this morning. Pain rate of 6/10. Pain is causing her to have nausea. Eating and drinking okay. Having regular BM. Denies vaginal bleeding or spotting. Low lying placenta. Advised to try taking Tylenol 1,000 MG and a warm bath. Recommended patient go to hospital for severe pain or if she develops bleeding. Next OB visit 01/06/25. Giana Alexandre RN [facility] 12-12-2024 Telephone encount er Note Spoke with patient and counseled on low lying placenta. Recommended pelvic rest until follow up ultrasound at 28 weeks gestation. Questions answered.. Tianna Mota APRN.CNM [facility] 12-12-2024 Miscellaneous Notes Formattin g of this note might be different from the original. Spoke with patient and counseled on low lying placenta. Recommended pelvic rest until follow up ultrasound at 28 weeks gestation. Questions answered.. Tianna Mota APRN.CNM Patient called back. Spoke with CP. She will call patient right back in a few minutes. Giana Alexandre RN Attempted to call patient to notify and high school guidance counselor on low lying placenta. No answer and unable to leave message. Will have engineer station mainline provider attempt tomorrow. Tianna Mota APRN.CNM documented in this encounter [facility] 12-12-2024 Telephone encount er Note Patient called back. Spoke with CP. She will call patient right back in a few minutes. Giana Alexandre RN [facility] 12-12-2024 Telephone encount er Note Attempted to call patient to notify and high school guidance counselor on low lying placenta. No answer and unable to leave message. Will have engineer station mainline provider attempt tomorrow. Tianna Mota APRN.CNM [facility] 12-09-2024 Progress note Formatting of t his note might be different from the original. EH - S: Dory is a 29 year old female who presents at 20w4d for a routine visit. Feeling movement. Denies headache, visual changes, chest pain, shortness of breath, vaginal bleeding, leakage of fluid, or dysuria. Getting over upper respiratory infection/sinus infection. O: See flow sheet Gen: No apparent distress Abd: Gravid, nontender ASSESSMENT/PLAN: 1. Supervision of high risk in second trimester ([facility]) - ICD9: V23.9, ICD10: O09.92 (primary diagnosis) - Continue PNV and LDA - Recent URI/sinusitis symptoms improving. Nausea controlled. Continue good hydration. 2. 20 weeks gestation of ([facility]) - ICD9: V22.2, ICD10: Z3A.20 - Anatomy today, report pending 3. Obesity affecting in second trimester, unspecified obesity type ([facility]) - ICD9: 649.13, ICD10: O99.212 -Pre BMI 33 4. Irritable bowel syndrome with both constipation and diarrhea - ICD9: 564.1, ICD10: K58.2 - Controlled PTL precautions reviewed. RTO in 4 weeks or sooner as needed. Kailee Rahman APRN.THERAPEUTIC RECREATION LEADER [facility] 12-09-2024 Miscellaneous Notes Formattin g of this note might be different from the original. EH - S: Dory is a 29 year old female who presents at 20w4d for a routine visit. Feeling movement. Denies headache, visual changes, chest pain, shortness of breath, vaginal bleeding, leakage of fluid, or dysuria. Getting over upper respiratory infection/sinus infection. O: See flow sheet Gen: No apparent distress Abd: Gravid, nontender ASSESSMENT/PLAN: 1. Supervision of high risk in second trimester ([facility]) - ICD9: V23.9, ICD10: O09.92 (primary diagnosis) - Continue PNV and LDA - Recent URI/sinusitis symptoms improving. Nausea controlled. Continue good hydration. 2. 20 weeks gestation of ([facility]) - ICD9: V22.2, ICD10: Z3A.20 - Anatomy today, report pending 3. Obesity affecting in second trimester, unspecified obesity type ([facility]) - ICD9: 649.13, ICD10: O99.212 -Pre BMI 33 4. Irritable bowel syndrome with both constipation and diarrhea - ICD9: 564.1, ICD10: K58.2 - Controlled PTL precautions reviewed. RTO in 4 weeks or sooner as needed. Kailee Rahman APRN.THERAPEUTIC RECREATION LEADER documented in this encounter [facility] 12-09-2024 Instructions Dia Bejarano MA - 12/09/2024 3:28 PM EDT SEQUENTIAL SCREENINGS The [facility] offers sequential screenings for women who are interested in screenings for chromosomal abnormalities and certain defects during a . The sequential screen combines ultrasound and blood tests to determine the risk of chromosomal abnormalities, including Down's Syndrome (Trisomy 21) and Trisomy 18, as well as open neural tube defects including spina bifida. Ultrasound examination is performed between 11 weeks and 13 weeks gestational age. Blood tests are drawn after the ultrasound and again later in the between 15 and 21 weeks gestational age. Please let your physician know if you are interested in this testing. It will require an appointment with our critical systems technician. This is not an ultrasound performed by a physician in our office during a routine visit. SIGNS AND SYMPTOMS OF LABOR 1. Contractions every 10 minutes or more often 2. Clear, pink, or brownish fluid (water) leaking from vagina 3. Feeling that baby is pushing down, pressure 4. Low, dull backache 5. Cramps that feel like a period 6. Cramps with or without diarrhea If you notice any of the above symptoms, contact our office at [phone] and ask to speak with a nurse. After hours, you can call doctors registry at [phone] OR call [facility] at [phone] and ask to have the doctor engineer station mainline paged. If you consider this an emergency, dial 5-0-6 or go to your nearest emergency department. NEED HELP? Are you dealing with a violent or abusive relationship? Are you a victim of rape or sexual assult? Call [facility] ([place]) 24 hour Crisis Hotline: 436.763.6277 or 947-885-3828. MANUAL Your Guide to a Healthy manual is now on-line. Visit [email or web address] to download your free copy documented in this encounter [facility] 12-05-2024 Telephone encount er Note Patient notified and voiced understanding. Rhina Connors RN [facility] 07-21-2025 Miscellaneous Notes Formattin g of this note might be different from the original. Patient notified and voiced understanding. Rhina Connors RN Rx for Phenergan suppositories sent. Yes, agree with movement not being regular at this early gestational age. If concerned, can come in for FHT. Tianna Mota APRN.CNM 20w0d Patient has been taking Amoxicillin 500 mg for upper respiratory infection and sinus infections for the last 3 days. Since starting the antibiotic she has been vomiting 3-5 times a day and having diarrhea. Asking if she can have antiemetic prescribed and sent to [facility] in [place]. Encouraged to push fluids and include electrolytes. Aware to contact office if not able to keep any fluids down in 24 hours. At the end of call patient mentioned that she has had decreased FM. She has felt the baby move 3-4 times within the last several days. States she's unsure if it's because she has been ill with vomiting and diarrhea. Has not felt any movement yet today, but just woke up. Advised that consistent movement begins at 28 weeks. Patient will let us know about today's movement when we call back. Giana Alexandre, PRAVEEN documented in this encounter [facility] 12-05-2024 Telephone encount er Note Rx for Phenergan suppositories sent. Yes, agree with movement not being regular at this early gestational age. If concerned, can come in for FHT. Tianna Mota APRN.CNM [facility] 12-05-2024 Telephone encount er Note 20w0d Patient has been taking Amoxicillin 500 mg for upper respiratory infection and sinus infections for the last 3 days. Since starting the antibiotic she has been vomiting 3-5 times a day and having diarrhea. Asking if she can have antiemetic prescribed and sent to [facility] in [place]. Encouraged to push fluids and include electrolytes. Aware to contact office if not able to keep any fluids down in 24 hours. At the end of call patient mentioned that she has had decreased FM. She has felt the baby move 3-4 times within the last several days. States she's unsure if it's because she has been ill with vomiting and diarrhea. Has not felt any movement yet today, but just woke up. Advised that consistent movement begins at 28 weeks. Patient will let us know about today's movement when we call back. Giana Alexandre RN [facility] 11-11-2024 Progress note Formatting of t his note might be different from the original. S: Dory Pradhan is a 29 year old female who presents at 16 weeks gestation for a routine visit. Positive movements. Denies headache, visual changes, chest pain, shortness of breath, vaginal bleeding, leakage of fluid, or dysuria. Feeling well, no complaints. O: See flow sheet Gen: No apparent distress Abd: Gravid, nontender ASSESSMENT/PLAN: 1. Encounter for supervision of low-risk in [facility] 2. 16 weeks gestation of 3. Other obesity affecting in second trimester - Continue vitamin daily - Continue ASA at bedtime - RTO 4 weeks for anatomy US and SARAI - Gender is a surprise! Tianna Mota APRN.CNM [facility] 11-11-2024 Miscellaneous Notes Formattin g of this note might be different from the original. S: Dory Pradhan is a 29 year old female who presents at 16 weeks gestation for a routine visit. Positive movements. Denies headache, visual changes, chest pain, shortness of breath, vaginal bleeding, leakage of fluid, or dysuria. Feeling well, no complaints. O: See flow sheet Gen: No apparent distress Abd: Gravid, nontender ASSESSMENT/PLAN: 1. Encounter for supervision of low-risk in [facility] 2. 16 weeks gestation of 3. Other obesity affecting in second trimester - Continue vitamin daily - Continue ASA at bedtime - RTO 4 weeks for anatomy US and SARAI - Gender is a surprise! Tianna Mota APRN.CNM documented in this encounter [facility] 11-11-2024 Instructions Rao Hernández MA - 11/11/2024 11:05 AM EDT SEQUENTIAL SCREENINGS The [facility] offers sequential screenings for women who are interested in screenings for chromosomal abnormalities and certain defects during a . The sequential screen combines ultrasound and blood tests to determine the risk of chromosomal abnormalities, including Down's Syndrome (Trisomy 21) and Trisomy 18, as well as open neural tube defects including spina bifida. Ultrasound examination is performed between 11 weeks and 13 weeks gestational age. Blood tests are drawn after the ultrasound and again later in the between 15 and 21 weeks gestational age. Please let your physician know if you are interested in this testing. It will require an appointment with our critical systems technician. This is not an ultrasound performed by a physician in our office during a routine visit. SIGNS AND SYMPTOMS OF LABOR 1. Contractions every 10 minutes or more often 2. Clear, pink, or brownish fluid (water) leaking from vagina 3. Feeling that baby is pushing down, pressure 4. Low, dull backache 5. Cramps that feel like a period 6. Cramps with or without diarrhea If you notice any of the above symptoms, contact our office at [phone] and ask to speak with a nurse. After hours, you can call doctors registry at [phone] OR call [facility] at [phone] and ask to have the doctor engineer station mainline paged. If you consider this an emergency, dial 3--9 or go to your nearest emergency department. NEED HELP? Are you dealing with a violent or abusive relationship? Are you a victim of rape or sexual assult? Call [facility] ([place]) 24 hour Crisis Hotline: 178.737.1667 or 165-588-8776. MANUAL Your Guide to a Healthy manual is now on-line. Visit [email or web address] to download your free copy documented in this encounter [facility] 10-18-2024 Progress note Formatting of t his note might be different from the original. Anatomy ultrasound reviewed. No abnormalities identified. Follow up as clinically indicated. Schedule [address] copy in ob chart. Mica Concepcion MD [facility] 10-18-2024 Miscellaneous Notes Formattin g of this note might be different from the original. Anatomy ultrasound reviewed. No abnormalities identified. Follow up as clinically indicated. Schedule [address] copy in ob chart. Mica Concepcion MD documented in this encounter [facility] 10-17-2024 Progress note Formatting of t his note might be different from the original. S: Dory Pradhan is a 29 year old female who presents at 04/24/2025, by Last Menstrual Period for a routine visit. Denies headache, visual changes, chest pain, shortness of breath, vaginal bleeding, leakage of fluid, or dysuria. Feeling well, no complaints. O: See flow sheet Gen: No apparent distress Heartburn present. Has been taking only Tums. Encouraged to start pepcid at night. NT today Declined NIPT ASSESSMENT/PLAN: 1. Encounter for supervision of low-risk in second trimester ([facility]) - ICD9: V22.1, ICD10: Z34.92 (primary diagnosis) 2. Other obesity affecting in second trimester ([facility]) - ICD9: 649.13, 278.00, ICD10: O99.212, E66.89 Pre BMI 33 3. 13 weeks gestation of ([facility]) - ICD9: V22.2, ICD10: Z3A.13 NT completed today declined NIPT Giana Alcala MD [facility] Work Phone: 10-17-2024 Miscellaneous Notes Formattin g of this note might be different from the original. S: Dory Pradhan is a 29 year old female who presents at 04/24/2025, by Last Menstrual Period for a routine visit. Denies headache, visual changes, chest pain, shortness of breath, vaginal bleeding, leakage of fluid, or dysuria. Feeling well, no complaints. O: See flow sheet Gen: No apparent distress Heartburn present. Has been taking only Tums. Encouraged to start pepcid at night. NT today Declined NIPT ASSESSMENT/PLAN: 1. Encounter for supervision of low-risk in second trimester ([facility]) - ICD9: V22.1, ICD10: Z34.92 (primary diagnosis) 2. Other obesity affecting in second trimester ([facility]) - ICD9: 649.13, 278.00, ICD10: O99.212, E66.89 Pre BMI 33 3. 13 weeks gestation of ([facility]) - ICD9: V22.2, ICD10: Z3A.13 NT completed today declined NIPT Giana Alcala MD documented in this encounter [facility] 10-17-2024 Instructions Domenica Mata MA - 10/17/2024 3:20 PM EDT SEQUENTIAL SCREENINGS The [facility] offers sequential screenings for women who are interested in screenings for chromosomal abnormalities and certain defects during a . The sequential screen combines ultrasound and blood tests to determine the risk of chromosomal abnormalities, including Down's Syndrome (Trisomy 21) and Trisomy 18, as well as open neural tube defects including spina bifida. Ultrasound examination is performed between 11 weeks and 13 weeks gestational age. Blood tests are drawn after the ultrasound and again later in the between 15 and 21 weeks gestational age. Please let your physician know if you are interested in this testing. It will require an appointment with our critical systems technician. This is not an ultrasound performed by a physician in our office during a routine visit. SIGNS AND SYMPTOMS OF LABOR 1. Contractions every 10 minutes or more often 2. Clear, pink, or brownish fluid (water) leaking from vagina 3. Feeling that baby is pushing down, pressure 4. Low, dull backache 5. Cramps that feel like a period 6. Cramps with or without diarrhea If you notice any of the above symptoms, contact our office at [phone] and ask to speak with a nurse. After hours, you can call doctors registry at [phone] OR call [facility] at [phone] and ask to have the doctor engineer station mainline paged. If you consider this an emergency, dial or go to your nearest emergency department. NEED HELP? Are you dealing with a violent or abusive relationship? Are you a victim of rape or sexual assult? Call [facility] ([place]) 24 hour Crisis Hotline: 559.589.9444 or 953-872-0032. MANUAL Your Guide to a Healthy manual is now on-line. Visit [email or web address] to download your free copy documented in this encounter [facility] 09-23-2024 Progress note Formatting of t his note might be different from the original. here for NOB. See progress note. Tianna Mota APRN.CNM [facility] 09-23-2024 Miscellaneous Notes Formattin g of this note might be different from the original. here for NOB. See progress note. Tianna Mota APRN.CNM documented in this encounter [facility] 09-23-2024 Note HNO ID: [id number] Author: DOMENICA MATA MA Service: ? Author Type: Banquet Set Up Person Type: Progress Notes Filed: 09/23/2024 17:30 Note Text: OB point of care ultrasound was performed. See imaging tab for details. Domenica Mata MA [facility] 09-23-2024 History of Presen t illness Narrative OB point of care ultrasound was performed. See imaging tab for details. Domenica Mata MA INITIAL OB ASSESSMENT HPI: Dory is a 29 year old White Female here to establish Obstetrical Care. Patient's last menstrual period was 07/18/2024. from OB Dating Form. was planned Complaints: No OB History Gravida4 Para2 Term2 Preterm0 AB1 Living2 SAB1 IAB0 Ectopic0 Multiple0 Live Births2 Comment: G3 IPAS in office for 8 week size SAB Previous history: Prior : No History of 4th degree laceration: History question Answer Diagnosis Date Comment Perineal Laceration, 3rd or 4th degree No History of perineal laceration 04/22/2024 History of shoulder dystocia: Shoulder Dystocia No History of Hypertensive disorders including pre-eclampsia or gestational hypertension: Gestational Hypertension No Preeclampsia No History of gestational diabetes: Diabetes in No Patient's Risk Screening for delivery: Have you had a prior mcgill between 20w and 36w6d? No How many pregnancies have you had before? 2 Did you have a previous baby with a GBS Infection? No Please select all that apply for any prior : N/A MEDICAL/PSYCHOSOCIAL HISTORY: History question Answer Diagnosis Date Comment Severe bleeding with delivery No History of hemorrhage 04/22/2024 History question Answer Diagnosis Date Comment Thyroid Disease No Thyroid disease 11/02/2017 Gestational Hypertension No Preeclampsia No Diabetes in No ABO/RH(D) Date Value Ref Range Status 11/02/2017 B POSITIVE Final BMI 35.46 kg/(m^2) Last Pap: 07/12/2024 History of abnormal pap: Abnormal Pap No Prior treatment for cervical dysplasia: none. Last HPV: 07/12/2024 History of STDs: N/A Partner History of STDs: None Did you have a partner with Herpes? No Tobacco use: Yes E-Cigarette/Vaping Use: No Caffeine use: Yes Drug use: No Alcohol use: No Multivitamin with Folic acid: Yes Would refuse blood transfusion if medically necessary: No Social Needs: How often does this describe you? I don't have enough money to pay my bills: Never Within the past 12 months, have you worried that your food would run out before you had money to buy more? Never In the past 12 months, has lack of reliable transportation kept you from going to medical appointments or work, or from getting things needed for daily living? Never In the past 12 months, have you had any concerns about having a place to live, or about the condition or quality of your housing? 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 No Do you have a history of abuse or trauma that may impact your experience? No Are you currently employed? Yes Depression/Anxiety Screening: denies symptoms of depression. OB Depression and Anxiety Screening- This Encounter Over the past 2 weeks have you felt down, depressed, or hopeless? Negative Over the past two weeks, have you felt little interest or pleasure in doing things? Negative Feeling nervous, anxious or on edge 0-Not at all Not being able to stop or control worrying 0-Not al all Anxiety Pre-Screening Total (If >/= 3 additional questions will be reviewed) 0 Genetic Screening: Partner present: No Patient verbalized knowledge of partner family health history: Yes Do you or your partner have any personal or family history of defects not previously discussed: No Do you have history of a complicated by anomaly, genetic condition, or demise: No Preeclampsia Risk Screening: Screening for prevention of preeclampsia: High risk factors: None Moderate risk ractors: Obesity (body mass index greater than 30) OB Risk Screening: Completed, no positive findings documented. 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 EPINEPHrine (EPIPEN) 0.3 mg/0.3 mL auto-injector NEEDED PRN For Allergies No current facility-administered medications for this visit. Allergies As of Date: 09/23/2024 Allergen Noted Reaction PEANUTS 06/01/2019 Anaphylaxis Fully Assessed 09/22/2024 Does patient have penicillin allergy: No REVIEW OF SYSTEMS: GENERAL: Negative for: Fever or Chills and Positive for: Fatigue HEENT: Negative for: Headache, Impaired Vision, Ringing in Ears, Nosebleeds NECK: Negative for: Swelling, Pain, Stiffness RESPIRATORY: Negative for: Cough, Shortness of breath, Wheezing GASTROINTESTINAL: Negative for: Heartburn, Constipation, Diarrhea, Blood in stool, Vomiting MUSCULOSKELETAL: Negative for: Muscle or joint pain, stiffness, Joint swelling NEUROLOGIC/PSYCHIATRIC: Negative for: Weakness, Paralysis, Numbness, Tingling, Tremor, Anxiety, Depression, Memory loss SKIN: Negative for: Rash, Itching GENITOURINARY: Negative for: vaginal itching, vaginal discharge, hematuria or dysuria SENSITIVE EXAM: The sensitive examination was discussed with the Patient or Patient's Authorized Revenue Analyst. As applicable, any other physician, advance practice provider, medical student, or other health professional student that will be observing or involved in the sensitive examination for educational or training purposes was discussed with the Patient or Authorized Revenue Analyst. The Patient or Authorized Revenue Analyst has agreed to proceed with the sensitive examination. (Sensitive examination includes inspection and/or palpation of the breasts, pelvis, prostate and anorectal regions). PHYSICAL EXAM: BP 122/74 Ht 5' 2.5 (1.59m) Wt 197 lb (89.4kg) LMP 07/18/2024 BMI 35.44 kg/(m^2). GENERAL: pleasant in no apparent distress DERMATOLOGY: Normal, without lesions, non-icteric, and non-hirsute NECK: Supple, full range of motion, no adenopathy, and thyroid normal CHEST: Normal inspiratory effort BREAST: soft, non-tender, symmetric, no dominant mass, normal nipple-areolar complex, no lymphadenopathy, and no nipple discharge ABDOMEN: soft, non-tender, and no masses NEURO: alert and oriented x3,exam grossly non-focal PELVIS: External genitalia normal without lesions. Perineal body intact. No vaginal or cervical lesions. Clinical Pelvimetry: Pelvimetry clinically assessed as adequate Limited OB ultrasound exam: single intrauterine , positive cardiac activity, and crown-rump length 9.2 weeks SBIRT Dory Martinman was given the 4P's screening tool. Dory answered No to all the questions, the result is determined to be negative. ASSESSMENT: 29 year old at 9w4d wks gestational age PLAN: 1) Patient oriented to practice. Patient given new OB orientation folder. Discussed gestational weight gain guidelines. Discussed routine OB labs including STD/HIV. Discussed how to access Your guide to a health and the [employer]. Reviewed midwifery and classroom aide services that are available. 2) Screening: Hemoglobin A1C: ordered Baby Aspirin: The patient has been counseled about the potential benefits of low dose aspirin in and our recommendation that this be offered to all patients, regardless of whether they meet the high risk criteria specified above. She Accepts Aneuploidy Screening: Discussed aneuploidy screening, nuchal translucency/first trimester early anatomy ultrasound and NIPT. The risks/benefits and limitations of NIPT/aneuploidy screening were reviewed including the potential for false negative and false positive results. The availability of genetic counseling was reviewed. Information on aneuploidy screening was provided. The patient declines screening Myriad Carrier Screening: Discussed myriad carrier screening. We discussed the availability of professional-society guided carrier screening and reviewed the conditions screened and limitations of screening. The availability of genetic counseling was reviewed. Information on carrier screening was provided. The patient Declines 3) Patient offered option of Virtual Visits. Patient prefers in person visits. Follow up in 4 weeks or sooner prn. Tianna Mota APRN.CNM documented in this encounter [facility] 09-22-2024 Note HNO ID: [id number] Author: TIANNA MOTA APRN.CNM Service: ? 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 Patient's last menstrual period was 07/18/2024. from OB Dating Form. was planned Complaints: No OB History Gravida4 Para2 Term2 Preterm0 AB1 Living2 SAB1 IAB0 Ectopic0 Multiple0 Live Births2 Comment: G3 IPAS in office for 8 week size SAB Previous history: Prior : No History of 4th degree laceration: History question Answer Diagnosis Date Comment Perineal Laceration, 3rd or 4th degree No History of perineal laceration 04/22/2024 History of shoulder dystocia: Shoulder Dystocia No History of Hypertensive disorders including pre-eclampsia or gestational hypertension: Gestational Hypertension No Preeclampsia No History of gestational diabetes: Diabetes in No Patient's Risk Screening for delivery: Have you had a prior mcgill between 20w and 36w6d? No How many pregnancies have you had before? 2 Did you have a previous baby with a GBS Infection? No Please select all that apply for any prior : N/A MEDICAL/PSYCHOSOCIAL HISTORY: History question Answer Diagnosis Date Comment Severe bleeding with delivery No History of hemorrhage 04/22/2024 History question Answer Diagnosis Date Comment Thyroid Disease No Thyroid disease 11/02/2017 Gestational Hypertension No Preeclampsia No Diabetes in No ABO/RH(D) Date Value Ref Range Status 11/02/2017 B POSITIVE Final BMI 35.46 kg/(m2) Last Pap: 07/12/2024 History of abnormal pap: Abnormal Pap No Prior treatment for cervical dysplasia: none. Last HPV: 07/12/2024 History of STDs: N/A Partner History of STDs: None Did you have a partner with Herpes? No Tobacco use: Yes E-Cigarette/Vaping Use: No Caffeine use: Yes Drug use: No Alcohol use: No Multivitamin with Folic acid: Yes Would refuse blood transfusion if medically necessary: No Social Needs: How often does this describe you? I don't have enough money to pay my bills: Never Within the past 12 months, have you worried that your food would run out before you had money to buy more? Never In the past 12 months, has lack of reliable transportation kept you from going to medical appointments or work, or from getting things needed for daily living? Never In the past 12 months, have you had any concerns about having a place to live, or about the condition or quality of your housing? 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 No Do you have a history of abuse or trauma that may impact your experience? No Are you currently employed? Yes Depression/Anxiety Screening: denies symptoms of depression. OB Depression and Anxiety Screening- This Encounter Over the past 2 weeks have you felt down, depressed, or hopeless? Negative Over the past two weeks, have you felt little interest or pleasure in doing things?? Negative Feeling nervous, anxious or on edge 0-Not at all Not being able to stop or control worrying 0-Not al all Anxiety Pre-Screening Total (If >/= 3 additional questions will be reviewed) 0 Genetic Screening: Partner present: No Patient verbalized knowledge of partner family health history: Yes Do you or your partner have any personal or family history of defects not previously discussed: No Do you have history of a complicated by anomaly, genetic condition, or demise: No Preeclampsia Risk Screening: Screening for prevention of preeclampsia: High risk factors: None Moderate risk ractors: Obesity (body mass index greater than 30) OB Risk Screening: Completed, no positive findings documented. 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 EPINEPHrine (EPIPEN) 0.3 mg/0.3 mL auto-injector NEEDED PRN For Allergies No current facility-administered medications for this visit. Allergies As of Date: 09/23/2024 Allergen Noted Reaction PEANUTS 06/01/2019 Anaphylaxis Fully Assessed 09/22/2024 Does patient have penicillin allergy: No REVIEW OF SYSTEMS: GENERAL: Negative for: Fever or Chills and Positive for: Fatigue HEENT: Negative for: Headache, Impaired Vision, Ringing in Ears, Nosebleeds NECK: Negative for: Swelling, Pain, Stiffne (more content not included)... [facility] 09-22-2024 Instructions Domenica Mata MA - 09/22/2024 9:28 AM EDT Please select the following link to access the [facility] Your Guide to a Healthy . [email or web address] Please select the following link to access the [facility] Your Guide to a Healthy . [email or web address] documented in this encounter [facility] 07-01-2024 Note HNO ID: [id number] Author: TIANNA MOTA APRN.CNM Service: ? 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 Miscarriage with IPAS 04/2024 Still get period: Yes has only had one since miscarriage Bleeding amount bothersome: No Bleeding between periods: No Period symptoms: Breast tenderness; Cramps Time with current partner: 17 years Number of lifetime partners: 1 control frequency: Sometimes HPV vaccine: Unsure; HPV:N/A Last pap smear: 06/18/2021 Normal History of abnormal pap: No, all prior PAP smears have been normal Bothersome pelvic pain: No Last mammogram: never OB History Gravida3 Para2 Term2 Preterm0 AB1 Living2 SAB1 IAB0 Ectopic0 Multiple0 Live Births2 Comment: G3 IPAS in office for 8 week size SAB Vascular Tech History LMP: 06/13/2024 (Exact Date), Having periods Age at Menarche: 10 Age at First : Age at Menopause: Vascular Tech History Comments: Sexual Activity: Yes; Male Contraception: None Menstrual Tracking History Flowsheet Row Office Visit from 07/01/2024 in OB/Gynecology Period Cycle (Days) 28 Period Duration (Days) 4 Menstrual Flow Moderate PAST MEDICAL HISTORY Diagnosis Date History of kidney stones IBS (irritable bowel syndrome) PAST SURGICAL HISTORY Procedure Laterality Date PAST SURGICAL HISTORY OF [place] teeth FAMILY HISTORY Problem Relation Age of Onset Diabetes Mother Lipids Father Cancer Father 59 small cell carcinoma No Known Problems Sister No Known Problems Sister Liver Disease Sister benign liver tumor (OCP related) Systemic Lupus Erythematosus Maternal Grandmother other (adrenal cancer) Maternal Grandfather Blood Clots Paternal Grandmother Heart Paternal Grandmother Stroke Paternal Grandfather Gout Paternal Grandfather No Known Problems Daughter No Known Problems Son No Family History No Family History female/colon/prostate CA SOCIAL HISTORY Social History Tobacco Use Smoking status: Every Day Current packs/day: 0.00 Types: Cigarettes Start date: 08/16/2016 Last attempt to quit: 09/19/2017 Years since quittin.7 Smokeless tobacco: Never Vaping Use Vaping status: Former Quit date: 02/15/2024 Substances: Nicotine Devices: Disposable Substance Use Topics Alcohol use: Yes Comment: socially Drug use: No REVIEW OF SYSTEMS Abdomen: No abdominal pain, nausea, vomiting, diarrhea, or constipation. No bloating, early satiety, indigestion, or increased flatulence. Bladder: No dysuria, gross hematuria, urinary frequency, urinary urgency, or incontinence. Breast: No breast lumps, nipple d/c, overlying skin changes, redness or skin retraction. Allergies and current medication updated:Yes SENSITIVE EXAM: The sensitive examination was discussed with the Patient or Patient's Authorized Revenue Analyst. As applicable, any other physician, advance practice provider, medical student, or other health professional student that will be observing or involved in the sensitive examination for educational or training purposes was discussed with the Patient or Authorized Revenue Analyst. The Patient or Authorized Revenue Analyst has agreed to proceed with the sensitive examination. (Sensitive examination includes inspection and/or palpation of the breasts, pelvis, prostate and anorectal regions). EXAM: BP 126/72 Ht 5' 3 (1.60m) Wt 189 lb (85.7kg) LMP 06/13/2024 BMI 33.49 kg/(m2). GENERAL: pleasant, female in no apparent distress HEENT: Normocephalic and atraumatic NECK: Supple and full range of motion DERMATOLOGY: Normal and without lesions BREAST: soft, non-tender, symmetric, no dominant mass, normal nipple-areolar complex, no lymphadenopathy, and no nipple discharge CHEST: Normal inspiratory effort ABDOMEN: soft, non-tender, and no masses PELVIC: external genitalia normal, normal Bartholin's glands, urethra, Whittemore's glands, no vulvar lesions, no cervical lesions, good vaginal support, physiologic discharge present, normal appearing perineal body and perianal region BIMANUAL: uterus normal size, shape and consistency, no adnexal masses, non-tender, and no cervical motion tenderness RECTOVAGINAL: deferred. NEURO: alert and oriented x3,exam grossly non-focal EXTREMITIES: normal ASSESSMENT/PLAN: 1) Health maintenance: Pap done with HPV. Nutrition, exercise and routine health maintenance exams reviewed. 2) Contraception: none. 3) STD screening: Declined STD check. 4) Desires - tracking cycles, recommended starting vitamin daily Follow up as needed Tianna Mota APRN.[facility] 07-01-2024 History of Presen t illness Narrative Dory is a 28 year old who presents for an annual gynecologic exam without complaints. Miscarriage with IPAS 04/2024 Still get period: Yes has only had one since miscarriage Bleeding amount bothersome: No Bleeding between periods: No Period symptoms: Breast tenderness; Cramps Time with current partner: 17 years Number of lifetime partners: 1 control frequency: Sometimes HPV vaccine: Unsure; HPV:N/A Last pap smear: 06/18/2021 Normal History of abnormal pap: No, all prior PAP smears have been normal Bothersome pelvic pain: No Last mammogram: never OB History Gravida3 Para2 Term2 Preterm0 AB1 Living2 SAB1 IAB0 Ectopic0 Multiple0 Live Births2 Comment: Annette IPAS in office for 8 week size SAB Vascular Tech History LMP: 06/13/2024 (Exact Date), Having periods Age at Menarche: 10 Age at First : Age at Menopause: Vascular Tech History Comments: Sexual Activity: Yes; Male Contraception: None Menstrual Tracking History Flowsheet Row Office Visit from 07/01/2024 in OB/Gynecology Period Cycle (Days) 28 Period Duration (Days) 4 Menstrual Flow Moderate PAST MEDICAL HISTORY Diagnosis Date History of kidney stones IBS (irritable bowel syndrome) PAST SURGICAL HISTORY Procedure Laterality Date PAST SURGICAL HISTORY OF [place] teeth FAMILY HISTORY Problem Relation Age of Onset Diabetes Mother Lipids Father Cancer Father 59 small cell carcinoma No Known Problems Sister No Known Problems Sister Liver Disease Sister benign liver tumor (OCP related) Systemic Lupus Erythematosus Maternal Grandmother other (adrenal cancer) Maternal Grandfather Blood Clots Paternal Grandmother Heart Paternal Grandmother Stroke Paternal Grandfather Gout Paternal Grandfather No Known Problems Daughter No Known Problems Son No Family History No Family History female/colon/prostate CA SOCIAL HISTORY Social History Tobacco Use Smoking status: Every Day Current packs/day: 0.00 Types: Cigarettes Start date: 08/16/2016 Last attempt to quit: 09/19/2017 Years since quittin.7 Smokeless tobacco: Never Vaping Use Vaping status: Former Quit date: 02/15/2024 Substances: Nicotine Devices: Disposable Substance Use Topics Alcohol use: Yes Comment: socially Drug use: No REVIEW OF SYSTEMS Abdomen: No abdominal pain, nausea, vomiting, diarrhea, or constipation. No bloating, early satiety, indigestion, or increased flatulence. Bladder: No dysuria, gross hematuria, urinary frequency, urinary urgency, or incontinence. Breast: No breast lumps, nipple d/c, overlying skin changes, redness or skin retraction. Allergies and current medication updated:Yes SENSITIVE EXAM: The sensitive examination was discussed with the Patient or Patient's Authorized Revenue Analyst. As applicable, any other physician, advance practice provider, medical student, or other health professional student that will be observing or involved in the sensitive examination for educational or training purposes was discussed with the Patient or Authorized Revenue Analyst. The Patient or Authorized Revenue Analyst has agreed to proceed with the sensitive examination. (Sensitive examination includes inspection and/or palpation of the breasts, pelvis, prostate and anorectal regions). EXAM: BP 126/72 Ht 5' 3 (1.60m) Wt 189 lb (85.7kg) LMP 06/13/2024 BMI 33.49 kg/(m^2). GENERAL: pleasant, female in no apparent distress HEENT: Normocephalic and atraumatic NECK: Supple and full range of motion DERMATOLOGY: Normal and without lesions BREAST: soft, non-tender, symmetric, no dominant mass, normal nipple-areolar complex, no lymphadenopathy, and no nipple discharge CHEST: Normal inspiratory effort ABDOMEN: soft, non-tender, and no masses PELVIC: external genitalia normal, normal Bartholin's glands, urethra, Whittemore's glands, no vulvar lesions, no cervical lesions, good vaginal support, physiologic discharge present, normal appearing perineal body and perianal region BIMANUAL: uterus normal size, shape and consistency, no adnexal masses, non-tender, and no cervical motion tenderness RECTOVAGINAL: deferred. NEURO: alert and oriented x3,exam grossly non-focal EXTREMITIES: normal ASSESSMENT/PLAN: 1) Health maintenance: Pap done with HPV. Nutrition, exercise and routine health maintenance exams reviewed. 2) Contraception: none. 3) STD screening: Declined STD check. 4) Desires - tracking cycles, recommended starting vitamin daily Follow up as needed Tianna Mota APRN.CNM documented in this encounter [facility] 05-13-2024 Telephone encount er Note Patient notified and voiced understanding of below results and instructions. Patient states she is feeling good, denies any pain. Bleeding is currently that of a light period. Patient states she does not work Fridays so she will get HCG level draw today and then weekly on Fridays until down to zero. Patient states she has Annovera ring and will just insert it for control. Declines wanting appointment at this time to discuss. Rhina Connors RN [facility] 05-13-2024 Telephone encount er Note ----- Message from Kathleen Caro MD sent at 05/13/2024 10:21 AM EST ----- Please see how patient is feeling s/p IPAS procedure. 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 Due to this we will need to closely follow her HCG levels down to zero. We will be checking her HCG levels weekly. I would recommend drawing them the same time every week (maybe a Thursday). Once they are zero then we will recheck level again one month. It is crucial she does not get during this time. Would recommend BC if desired. If she has further questions she can schedule with myself or another physician to discuss- virtual or in office would be fine. Lab orders placed. [facility] 05-13-2024 Miscellaneous Notes Formattin g of this note might be different from the original. Patient notified and voiced understanding of below results and instructions. Patient states she is feeling good, denies any pain. Bleeding is currently that of a light period. Patient states she does not work Fridays so she will get HCG level draw today and then weekly on Fridays until down to zero. Patient states she has Annovera ring and will just insert it for control. Declines wanting appointment at this time to discuss. Rhina Connors RN ----- Message from Kathleenevert Caro MD sent at 05/13/2024 10:21 AM EST ----- Please see how patient is feeling s/p IPAS procedure. 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 Due to this we will need to closely follow her HCG levels down to zero. We will be checking her HCG levels weekly. I would recommend drawing them the same time every week (maybe a Thursday). Once they are zero then we will recheck level again one month. It is crucial she does not get during this time. Would recommend BC if desired. If she has further questions she can schedule with myself or another physician to discuss- virtual or in office would be fine. Lab orders placed. documented in this encounter [facility] 05-06-2024 Note HNO ID: [id number] Author: KATHLEEN PATEL MD Service: ? Author Type: Physician Type: Progress Notes Filed: 05/06/2024 16:25 Note Text: UNIVERSAL PROTOCOL / SAFETY CHECKLIST PRE OP DX: Incomplete Procedure to be Performed: ipas- manual evacuation of uterus Sign In: A Moment of CARE was completed. Personnel directly involved with the procedure wore the appropriate PPE (Personal Protective Equipment). Patient/Surrogate Stated/Verified: PATIENT VERIFIED(optional for EMERGENT procedures): Patient name, Date of , Relevant allergies, and The intended procedure Time Out Communication: Intended patient and procedure match the source documents. Consent documented and matches the intended procedure. Sign Out: SIGN OUT (optional for EMERGENT procedures): All specimen containers correctly labeled. Kathleen Ken MD Procedure note: Speculum was placed in the vagina. After prepping the cervix with betadine paracervical block was performed using 10cc of 1% lidocaine with 1:100,000 epi. Using sterile technique, the Manual Vacuum Aspiration device with size 7 cannula was inserted into the uterus and contents were evacuated. Post-procedure vital signs were obtained and stable Patient tolerated procedure well. PLAN: Patient was advised to observe for signs and symptoms of infection including but not limited to fever, malodorous vaginal discharge and/or pain. Bleeding expectations were reviewed. Follow up: prn- will call with pathology results Kathleen Ken MD [facility] 05-06-2024 History of Presen t illness Narrative UNIVERSAL PROTOCOL / SAFETY CHECKLIST PRE OP DX: Incomplete Procedure to be Performed: ipas- manual evacuation of uterus Sign In: A Moment of CARE was completed. Personnel directly involved with the procedure wore the appropriate PPE (Personal Protective Equipment). Patient/Surrogate Stated/Verified: PATIENT VERIFIED(optional for EMERGENT procedures): Patient name, Date of , Relevant allergies, and The intended procedure Time Out Communication: Intended patient and procedure match the source documents. Consent documented and matches the intended procedure. Sign Out: SIGN OUT (optional for EMERGENT procedures): All specimen containers correctly labeled. Kathleen Ken MD Procedure note: Speculum was placed in the vagina. After prepping the cervix with betadine paracervical block was performed using 10cc of 1% lidocaine with 1:100,000 epi. Using sterile technique, the Manual Vacuum Aspiration device with size 7 cannula was inserted into the uterus and contents were evacuated. Post-procedure vital signs were obtained and stable Patient tolerated procedure well. PLAN: Patient was advised to observe for signs and symptoms of infection including but not limited to fever, malodorous vaginal discharge and/or pain. Bleeding expectations were reviewed. Follow up: prn- will call with pathology results Kathleen Ken MD Pre Procedure Assessment: Dory Pradhan is a 28 year old here for an RAMBO procedure. Patient's last menstrual period was Patient's last menstrual period was 02/15/2024 (approximate). (approximate). Reason for procedure: Incomplete /Retained products Anxiolytic Checklist Has ride home? Yes Current use of prescribed or non-prescribed opioids or benzos: No Medications: Patient self-administered and Provided by office:Toradol 60 mg IM Blood Type: B Hemoglobin: Hemoglobin Date Value Ref Range Status 04/22/2024 13.6 11.5 - 15.5 g/dL Final Rhophylac Administered:No Procedure start time: 3:02pm Procedure end time: 3:09pm Post Procedure Assessment: Time of first post-procedure assessment: 3:10 Vitals: BP 134/82 HR 91 SpO2 98 RR 18 Bleeding:Light Pain ratin/10 Time of second post-procedure assessment: 3:30 Vitals: BP 118/80 HR 87 SpO2 99 RR 18 Bleeding:Light Pain Ratin Franchesca Metzger RN Director Clinical Data offered: Patient declines. Dory Pradhan is a 28 year old female who presents for follow up miscarriage. Pt reports used cytotec 1 week ago. Pt reports still bleeding - very light at this point. Pt reports no fevers and no pain. Pt reports changing pads 2x day. Pt offers no other concerns. Pt reports thinks she passed tissue but bleeding persisted after tissue passed. OB History T2 L2 SAB0 IAB0 Ectopic0 Multiple0 Live Births2 Vascular Tech History LMP: 02/15/2024 (Approximate), Age at Menarche: Age at First : Age at Menopause: Vascular Tech History Comments: Sexual Activity: Yes; Male; ring Contraception: No contraception data on record PAST MEDICAL HISTORY Diagnosis Date History of kidney stones IBS (irritable bowel syndrome) PAST SURGICAL HISTORY Procedure Laterality Date PAST SURGICAL HISTORY OF [place] teeth FAMILY HISTORY Problem Relation Age of Onset Diabetes Mother Lipids Father Cancer Father 59 small cell carcinoma No Known Problems Sister No Known Problems Sister Liver Disease Sister benign liver tumor (OCP related) Systemic Lupus Erythematosus Maternal Grandmother other (adrenal cancer) Maternal Grandfather Blood Clots Paternal Grandmother Heart Paternal Grandmother Stroke Paternal Grandfather Gout Paternal Grandfather No Known Problems Daughter No Known Problems Son No Family History No Family History female/colon/prostate CA Social History Tobacco Use Smoking status: Former Current packs/day: 0.00 Types: Cigarettes Start date: 08/16/2016 Quit date: 09/19/2017 Years since quittin.6 Smokeless tobacco: Never Vaping Use Vaping status: Former Quit date: 02/15/2024 Substances: Nicotine Devices: Disposable Substance Use Topics Alcohol use: Not Currently Comment: socially Drug use: No Current Outpatient Medications Medication Sig aspirin, enteric coated (ECOTRIN LOW STRENGTH) 81 mg EC tablet Take 1 tablet by mouth once daily. (Patient not taking: Reported on 05/06/2024) 25-IRON [id number] ORAL Take by mouth. EPINEPHrine (EPIPEN) 0.3 mg/0.3 mL auto-injector NEEDED PRN For Allergies No current facility-administered medications for this visit. Allergies As of Date: 05/06/2024 Allergen Noted Reaction PEANUTS 06/01/2019 Anaphylaxis Fully Assessed 05/06/2024 REVIEW OF SYSTEMS Abdomen: no pain Expanded ROS: GENERAL: Negative for fever Allergies and current medication updated:Yes SENSITIVE EXAM: The sensitive examination was discussed with the Patient or Patient's Authorized Revenue Analyst. As applicable, any other physician, advance practice provider, medical student, or other health professional student that will be observing or involved in the sensitive examination for educational or training purposes was discussed with the Patient or Authorized Revenue Analyst. The Patient or Authorized Revenue Analyst has agreed to proceed with the sensitive examination. (Sensitive examination includes inspection and/or palpation of the breasts, pelvis, prostate and anorectal regions). EXAM: BP 130/80 Wt 193 lb (87.5kg) LMP 02/15/2024 GENERAL: pleasant, female in no apparent distress HEENT: Normocephalic, atraumatic, mucus membranes moist, and no lesions NECK: Supple, full range of motion, and no adenopathy DERMATOLOGY: Normal, without lesions, non-icteric, and non-hirsute PELVIC: external genitalia normal, normal Bartholin's glands, urethra, Whittemore's glands, no vulvar lesions, no cervical lesions, physiologic discharge present, normal appearing perineal body and perianal region, small amt dark red blood in vault. No tissue NEURO: alert and oriented x3,exam grossly non-focal EXTREMITIES: normal Limited TVUS: EM- Thickened 2.58cm with likely Retained POC. ASSESSMENT AND PLAN: Assessment & Plan Incomplete spontaneous without complication Orders: keTORolac 60 mg injection (Toradol) SURGICAL PATHOLOGY [facility] (OFFICE IPAS) Discussed options with patient- expectant vs repeat cytotec vs ipas vs Suction d&c in OR. Pt willing to do today IPAS in office. Pt declining repeat cytotec. Medical Decision Making: Problems: Low: Acute, uncomplicated illness or injury Risk: Moderate: Decision on minor surgery w/ risk factors Medical Decision Making Level: 3 - Low Kathleen Ken MD documented in this encounter [facility] 05-06-2024 Note HNO ID: [id number] Author: FRANCHESCA METZGER RN Service: ? Author Type: Registered Nurse Type: Progress Notes Filed: 05/06/2024 16:25 Note Text: Pre Procedure Assessment: Dory Pradhan is a 28 year old here for an RAMBO procedure. Patient's last menstrual period was Patient's last menstrual period was 02/15/2024 (approximate). (approximate). Reason for procedure: Incomplete /Retained products Anxiolytic Checklist Has ride home? Yes Current use of prescribed or non-prescribed opioids or benzos: No Medications: Patient self-administered and Provided by office:Toradol 60 mg IM Blood Type: B Hemoglobin: Hemoglobin Date Value Ref Range Status 04/22/2024 13.6 11.5 - 15.5 g/dL Final Rhophylac Administered:No Procedure start time: 3:02pm Procedure end time: 3:09pm Post Procedure Assessment: Time of first post-procedure assessment: 3:10 Vitals: BP 134/82 HR 91 SpO2 98 RR 18 Bleeding:Light Pain ratin/10 Time of second post-procedure assessment: 3:30 Vitals: BP 118/80 HR 87 SpO2 99 RR 18 Bleeding:Light Pain Ratin/10 Franchesca Metzger RN [facility] 05-06-2024 Instructions Gladis Platt RN - 05/06/2024 2:41 PM EST Information and Instructions: After a Manual Uterine Aspiration (IPAS) Procedure Bleeding Most people have some bleeding after an aspiration procedure. The amount differs for each everyone, ranging from no bleeding to moderate period-like bleeding and lasting for a few days to 2-6 weeks. It is normal to have blood clots when you stand up or use the bathroom during the first few days. It is ok to be as active as you feel ready to be. You may notice more bleeding and cramping during activity. Please call if you are completely soaking through a pad every hour for 2 hours, or passing multiple large clots or larger and larger clots. Cramping Most women have some cramping after the procedure. The amount of discomfort varies, as everyone experiences pain in a different way. Some women find that a heating pad or hot water bottle on the stomach or back helps. If you don t have a heating pad, put some rice into a sock and heat it in the microwave, but beware, it s hot! You may also take ibuprofen (Motrin/ Advil) or naproxen (Aleve). If you can t take either of those medications you may use acetaminophen (Tylenol). Please call if you have severe pain or cramps that are not relieved by the pain medication. Fever Please call if your temperature is 100.4 degrees or higher for more than 2 hours. Fever can be a sign of infection, so call your doctor if you are feeling sick. You may have received a medication called misoprostol, which can cause a fever on the day of your procedure that goes away on it's own and is not concerning. symptoms You may have symptoms such as nausea, breast tenderness, or fatigue that last for a few days after the procedure. You may also notice some nipple discharge or breast swelling. If this occurs, wear a supportive bra and avoid stimulation. You may also use a cold compress. Your test may remain positive for up to 4 weeks. Please call if you have symptoms that last longer than 7 - 10 days. control For most people, it is physically possible (though unlikely) to become in the next 2 - 4 weeks, so it is important to start a control method if you are not planning a right away. Please discuss this with your provider if you have not already chosen a method. If you would like to become soon after this procedure, please discuss this with your doctor. Follow up Most women do not need a follow up appointment. Your doctor may recommend one, or you may choose to schedule one if you have any concerns, problems, or questions. Please do not put anything in your vagina for 1 week (no vaginal intercourse, toys, tampons, or douching). Do not swim or use hot tubs for 1 week. Baths by yourself (do not share water for 2 weeks) and showers are OK. Important Phone Numbers: [facility] Appointments in Pyrotechnician ( Early Assessment Clinics) Martina Sinclair [facility] at [phone] [facility] at [phone] [facility] at [phone] After 4:30 PM or on weekends, you may reach the on-call Pyrotechnician by calling the clinic where you were seen. This will automatically transfer you to a contracted answering service, who will then page the appropriate provider. Most calls are returned within 15-20 minutes depending on other direct patient care. When to call the doctor: If your temperature is 100.4 degrees or higher for more than 2 hours. If you have heavy bleeding and soak through more than 2 pads in an hour for 2 hours in a row. If you have severe pain or cramps that are not relieved by the pain medication. LOSS RESOURCES Physical recovery from loss from a spontaneous miscarriage, ectopic , D&C, or a D&E may take several weeks. However, emotional recovery can take longer, and is individualized to each person. Many people have different feelings and experiences with loss or termination. Grief is a normal part of the healing process. Taking time to heal both physically and emotionally after a loss is important. Above all, don t blame yourself. Counseling is available to help you cope with your loss. A loss support group might also be a valuable resource to you and your partner. ONLINE RESOURCES Unspoken Grief: an online miscarriage support resource for miscarriage, stillbirth and loss unspokengrief.org A Heartbreaking Choice: support for diagnosis or termination for medical reasons. http://www.[address]/ [facility]: ending a for a abnormality http://www.healthtalkonline.or g/Pregnancy_children/Ending_a_ pregnancy_for_fetal_abnormalit y Ending a Wanted : support for patients and families ending a after or maternal medical diagnosis https://endingawantedpregnancy .SeeJay Patrick Trevizo: one person's story about loss and collected resources. http://www.iJoule.SeeJay Julianna's Gift: headquarters in [place] but with online support group https://www.NewsummitbioyoliIntelliFlo.org/in syuh-wxfe-ujiamgr-groups.html LOCAL RESOURCES Love Lives On, [employer] https://my.[facility].org /locations/[facility]/ guest-services/support HaydeeNegra(Families Experiencing Early Loss) [facility] https://consultqd.[facility].org/vnksiyjzc-wbtunqmvb-ki vxdihdssj-uzjfubj-vigwgwvw-gri eving-families/ [facility] - counseling services [phone] or toll free at [phone] [facility] Support Groups (not specific to loss) https://my.[facility].org /patients/information/bereavem ent/support-groups [facility] Bereavement Sylvester Counselors with experience with families facing the loss of a baby before . This service may be covered by your insurance. If not, [facility] will not turn anyone away because of inability to pay. or [phone] Jacob Fleming, local counselor, not associated with [facility] [phone] Some of our families have recommended Jacob Fleming as he specializes in helping families who have had or are facing a loss. This may be covered by your insurance, if not, a sliding scale payment plan is available. BOOKS Our Heartbreaking Choices: Forty-Six Women Share Their Stories of Interrupting a Much-Wanted , By Yary Martinez Sorrow: Loss-Guidance and Support for You and Your Family, By Rachel Jesus and Theresa Sullivan Unspeakable Losses: Healing from Miscarriage, , and other Loss, By Dedra Corley Empty Cradle, Broken Heart: Surviving the of your Baby, By Trini Miranda Empty Arms: Coping with Miscarriage, Stillbirth, and , By Alba Matamoros I Love You Still: A Memorial Baby Book, By Cher Weiner Understanding Your Grief: Ten Essential Touchstones for Finding Hope and Healing Your Heart, By Cuate Bright BOOKS FOR CHILDREN We Were Gonna Have a Baby, But We had an David Instead, By Nehal Thompson My Sibling Still, By Jennifer Ferreira The Goodzenaidae Book, By Jose Enrique Josue Something Happened, By Monse Charles No New Baby, By Mary Nunn The Invisible String, By Berlin Murdock Our Baby , by Maura Blas (two books, one for surgical termination and one for induction of labor) documented in this encounter [facility] 05-06-2024 Note HNO ID: [id number] Author: KATHLEEN PATEL MD Service: ? Author Type: Physician Type: Progress Notes Filed: 05/06/2024 16:25 Note Text: Director Clinical Data offered: Patient declines. Dory Pradhan is a 28 year old female who presents for follow up miscarriage. Pt reports used cytotec 1 week ago. Pt reports still bleeding - very light at this point. Pt reports no fevers and no pain. Pt reports changing pads 2x day. Pt offers no other concerns. Pt reports thinks she passed tissue but bleeding persisted after tissue passed. OB History T2 L2 SAB0 IAB0 Ectopic0 Multiple0 Live Births2 Vascular Tech History LMP: 02/15/2024 (Approximate), Age at Menarche: Age at First : Age at Menopause: Vascular Tech History Comments: Sexual Activity: Yes; Male; ring Contraception: No contraception data on record PAST MEDICAL HISTORY Diagnosis Date History of kidney stones IBS (irritable bowel syndrome) PAST SURGICAL HISTORY Procedure Laterality Date PAST SURGICAL HISTORY OF [place] teeth FAMILY HISTORY Problem Relation Age of Onset Diabetes Mother Lipids Father Cancer Father 59 small cell carcinoma No Known Problems Sister No Known Problems Sister Liver Disease Sister benign liver tumor (OCP related) Systemic Lupus Erythematosus Maternal Grandmother other (adrenal cancer) Maternal Grandfather Blood Clots Paternal Grandmother Heart Paternal Grandmother Stroke Paternal Grandfather Gout Paternal Grandfather No Known Problems Daughter No Known Problems Son No Family History No Family History female/colon/prostate CA Social History Tobacco Use Smoking status: Former Current packs/day: 0.00 Types: Cigarettes Start date: 08/16/2016 Quit date: 09/19/2017 Years since quittin.6 Smokeless tobacco: Never Vaping Use Vaping status: Former Quit date: 02/15/2024 Substances: Nicotine Devices: Disposable Substance Use Topics Alcohol use: Not Currently Comment: socially Drug use: No Current Outpatient Medications Medication Sig aspirin, enteric coated (ECOTRIN LOW STRENGTH) 81 mg EC tablet Take 1 tablet by mouth once daily. (Patient not taking: Reported on 05/06/2024) 25-IRON [id number] ORAL Take by mouth. EPINEPHrine (EPIPEN) 0.3 mg/0.3 mL auto-injector NEEDED PRN For Allergies No current facility-administered medications for this visit. Allergies As of Date: 05/06/2024 Allergen Noted Reaction PEANUTS 06/01/2019 Anaphylaxis Fully Assessed 05/06/2024 REVIEW OF SYSTEMS Abdomen: no pain Expanded ROS: GENERAL: Negative for fever Allergies and current medication updated:Yes SENSITIVE EXAM: The sensitive examination was discussed with the Patient or Patient's Authorized Revenue Analyst. As applicable, any other physician, advance practice provider, medical student, or other health professional student that will be observing or involved in the sensitive examination for educational or training purposes was discussed with the Patient or Authorized Revenue Analyst. The Patient or Authorized Revenue Analyst has agreed to proceed with the sensitive examination. (Sensitive examination includes inspection and/or palpation of the breasts, pelvis, prostate and anorectal regions). EXAM: BP 130/80 Wt 193 lb (87.5kg) LMP 02/15/2024 GENERAL: pleasant, female in no apparent distress HEENT: Normocephalic, atraumatic, mucus membranes moist, and no lesions NECK: Supple, full range of motion, and no adenopathy DERMATOLOGY: Normal, without lesions, non-icteric, and non-hirsute PELVIC: external genitalia normal, normal Bartholin's glands, urethra, Whittemore's glands, no vulvar lesions, no cervical lesions, physiologic discharge present, normal appearing perineal body and perianal region, small amt dark red blood in vault. No tissue NEURO: alert and oriented x3,exam grossly non-focal EXTREMITIES: normal Limited TVUS: EM- Thickened 2.58cm with likely Retained POC. 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 Pt willing to do today IPAS in office. Pt declining repeat cytotec. Medical Decision Making: Problems: Low: Acute, uncomplicated illness or injury Risk: Moderate: Decision on minor surgery w/ risk factors Medical Decision Making Level: 3 - Low Kathleen Ken MD [facility] 04-29-2024 Telephone encount er Note Spoke with patient. She had questions about the Cytotec. All questions answered. Aware JG placed order to check HCG level. Patient to have drawn on Mon, Wed, Fri next week. Encouraged to call with questions or concerns. Aware of heavy bleeding precautions. Giana Alexandre RN [facility] 04-29-2024 Miscellaneous Notes Formattin g of this note might be different from the original. Spoke with patient. She had questions about the Cytotec. All questions answered. Aware JG placed order to check HCG level. Patient to have drawn on Mon, Wed, Fri next week. Encouraged to call with questions or concerns. Aware of heavy bleeding precautions. Giana Alexandre RN Thank you. Giana Alexandre RN Yes. I reviewed that with her. I'll add the order Thank you. Is patient to f/u in the office or have HCG levels? Giana Alexandre RN Ok prescription sent Patient called with her decision. She would like JG to send in Cytotec to [facility] in [facility]. Giana Alexandre RN documented in this encounter [facility] 04-29-2024 Telephone encount er Note Thank you. Giana Alexandre RN [facility] 04-29-2024 Telephone encount er Note Yes. I reviewed that with her. I'll add the order [facility] 04-29-2024 Telephone encount er Note Thank you. Is patient to f/u in the office or have HCG levels? Giana Alexandre RN [facility] 04-29-2024 Telephone encount er Note Ok prescription sent [facility] 04-29-2024 Telephone encount er Note Patient called with her decision. She would like J to send in Cytotec to [facility] in [facility]. Giana Alexandre RN [facility] 04-29-2024 Note HNO ID: [id number] Author: GIANA ALCALA MD Service: ? Author Type: Physician Type: Progress Notes Filed: 04/29/2024 11:59 Note Text: Dory Pradhan is a 28 year old female who presents for problem visit SAB for 1 day . HPI: F/u US today with no FHR. Collapsing sac 8+5 on US expected to be 8+6. Has been bleeding most of this . 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 Options reviewed with patient and mom. Await spontaneous passage of POC, Cytotec, I-pass or DANDC. Does not have to decide at this moment. Reviewed bleeding precautions and when to go the ED OB History T2 L2 SAB0 IAB0 Ectopic0 Multiple0 Live Births2 Vascular Tech History LMP: 02/15/2024 (Approximate), Age at Menarche: Age at First : Age at Menopause: Vascular Tech History Comments: Sexual Activity: Yes; Male; ring Contraception: No contraception data on record PAST MEDICAL HISTORY Diagnosis Date History of kidney stones IBS (irritable bowel syndrome) PAST SURGICAL HISTORY Procedure Laterality Date PAST SURGICAL HISTORY OF [place] teeth FAMILY HISTORY Problem Relation Age of Onset Diabetes Mother Lipids Father Cancer Father 59 small cell carcinoma No Known Problems Sister No Known Problems Sister Liver Disease Sister benign liver tumor (OCP related) Systemic Lupus Erythematosus Maternal Grandmother other (adrenal cancer) Maternal Grandfather Blood Clots Paternal Grandmother Heart Paternal Grandmother Stroke Paternal Grandfather Gout Paternal Grandfather No Known Problems Daughter No Known Problems Son No Family History No Family History female/colon/prostate CA Social History Tobacco Use Smoking status: Former Current packs/day: 0.00 Types: Cigarettes Start date: 08/16/2016 Quit date: 09/19/2017 Years since quittin.6 Smokeless tobacco: Never Vaping Use Vaping status: Former Quit date: 02/15/2024 Substances: Nicotine Devices: Disposable Substance Use Topics Alcohol use: Not Currently Comment: socially Drug use: No Current Outpatient Medications Medication Sig 25-IRON [id number] ORAL Take by mouth. aspirin, enteric coated (ECOTRIN LOW STRENGTH) 81 mg EC tablet Take 1 tablet by mouth once daily. EPINEPHrine (EPIPEN) 0.3 mg/0.3 mL auto-injector NEEDED PRN For Allergies No current facility-administered medications for this visit. Allergies As of Date: 04/29/2024 Allergen Noted Reaction PEANUTS 06/01/2019 Anaphylaxis Fully Assessed 04/29/2024 REVIEW OF SYSTEMS Abdomen: No bloating, early satiety, indigestion, or increased flatulence. No abdominal pain, nausea, vomiting, diarrhea, or constipation. Bladder: No dysuria, gross hematuria, urinary frequency, urinary urgency, or incontinence. Breast: No breast lumps, nipple d/c, overlying skin changes, redness or skin retraction. Expanded ROS: N/A Allergies and current medication updated:Yes SENSITIVE EXAM: Sensitive exam not performed. EXAM: BP 110/62 Wt 198 lb (89.8kg) LMP 02/15/2024 GENERAL: upset, female in no apparent distress HEENT: Normocephalic, atraumatic, mucus membranes moist, and no lesions NECK: full range of motion DERMATOLOGY: Normal, without lesions, non-icteric, and non-hirsute BREAST: deferred CHEST: Normal inspiratory effort ABDOMEN: Deferred PELVIC: deferred BIMANUAL: deferred NEURO: alert and oriented x3,exam grossly non-focal EXTREMITIES: normal ASSESSMENT AND PLAN: Assessment AND Plan SAB (spontaneous ) Options reviewed. Patient has not decided. Discussed HCGs if spontaneous passage. Reviewed bleeding precautions Giana Alcala MD [facility] 04-29-2024 History of Presen t illness Narrative Dory Pradhan is a 28 year old female who presents for problem visit SAB for 1 day . HPI: F/u US today with no FHR. Collapsing sac 8+5 on US expected to be 8+6. Has been bleeding most of this . 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 Options reviewed with patient and mom. Await spontaneous passage of POC, Cytotec, I-pass or D&C. Does not have to decide at this moment. Reviewed bleeding precautions and when to go the ED OB History T2 L2 SAB0 IAB0 Ectopic0 Multiple0 Live Births2 Vascular Tech History LMP: 02/15/2024 (Approximate), Age at Menarche: Age at First : Age at Menopause: Vascular Tech History Comments: Sexual Activity: Yes; Male; ring Contraception: No contraception data on record PAST MEDICAL HISTORY Diagnosis Date History of kidney stones IBS (irritable bowel syndrome) PAST SURGICAL HISTORY Procedure Laterality Date PAST SURGICAL HISTORY OF [place] teeth FAMILY HISTORY Problem Relation Age of Onset Diabetes Mother Lipids Father Cancer Father 59 small cell carcinoma No Known Problems Sister No Known Problems Sister Liver Disease Sister benign liver tumor (OCP related) Systemic Lupus Erythematosus Maternal Grandmother other (adrenal cancer) Maternal Grandfather Blood Clots Paternal Grandmother Heart Paternal Grandmother Stroke Paternal Grandfather Gout Paternal Grandfather No Known Problems Daughter No Known Problems Son No Family History No Family History female/colon/prostate CA Social History Tobacco Use Smoking status: Former Current packs/day: 0.00 Types: Cigarettes Start date: 08/16/2016 Quit date: 09/19/2017 Years since quittin.6 Smokeless tobacco: Never Vaping Use Vaping status: Former Quit date: 02/15/2024 Substances: Nicotine Devices: Disposable Substance Use Topics Alcohol use: Not Currently Comment: socially Drug use: No Current Outpatient Medications Medication Sig 25-IRON [id number] ORAL Take by mouth. aspirin, enteric coated (ECOTRIN LOW STRENGTH) 81 mg EC tablet Take 1 tablet by mouth once daily. EPINEPHrine (EPIPEN) 0.3 mg/0.3 mL auto-injector NEEDED PRN For Allergies No current facility-administered medications for this visit. Allergies As of Date: 04/29/2024 Allergen Noted Reaction PEANUTS 06/01/2019 Anaphylaxis Fully Assessed 04/29/2024 REVIEW OF SYSTEMS Abdomen: No bloating, early satiety, indigestion, or increased flatulence. No abdominal pain, nausea, vomiting, diarrhea, or constipation. Bladder: No dysuria, gross hematuria, urinary frequency, urinary urgency, or incontinence. Breast: No breast lumps, nipple d/c, overlying skin changes, redness or skin retraction. Expanded ROS: N/A Allergies and current medication updated:Yes SENSITIVE EXAM: Sensitive exam not performed. EXAM: BP 110/62 Wt 198 lb (89.8kg) LMP 02/15/2024 GENERAL: upset, female in no apparent distress HEENT: Normocephalic, atraumatic, mucus membranes moist, and no lesions NECK: full range of motion DERMATOLOGY: Normal, without lesions, non-icteric, and non-hirsute BREAST: deferred CHEST: Normal inspiratory effort ABDOMEN: Deferred PELVIC: deferred BIMANUAL: deferred NEURO: alert and oriented x3,exam grossly non-focal EXTREMITIES: normal ASSESSMENT AND PLAN: Assessment & Plan SAB (spontaneous ) Options reviewed. Patient has not decided. Discussed HCGs if spontaneous passage. Reviewed bleeding precautions Giana Alcala MD documented in this encounter [facility] 04-29-2024 Note HNO ID: [id number] Author: MALIHA CHIN MD Service: ? Author Type: Physician Type: Progress Notes Filed: 04/29/2024 11:10 Note Text: Dory Pradhan is a 28 year old female who presented for deburrer ultrasound today. Encounter Diagnosis ICD-10-CM 1. Vaginal bleeding affecting early O20.9 Please see report under imaging tab. Maliha Chin MD April 29, 2024 11:05 AM [facility] 04-29-2024 History of Presen t illness Narrative Dory Pradhan is a 28 year old female who presented for deburrer ultrasound today. Encounter Diagnosis ICD-10-CM 1. Vaginal bleeding affecting early O20.9 Please see report under imaging tab. Maliha Chin MD April 29, 2024 11:05 AM documented in this encounter [facility] 04-27-2024 Miscellaneous Notes Formattin g of this note might be different from the original. Patient called, notified of below and voiced understanding. Ultrasound scheduled for Thursday. Rhina Connors RN Addended by: KAILEE RAHMAN on: 04/27/2024 12:11 PM Modules accepted: Orders Recommend pelvic rest at this time. Order signed. Kailee Rahman APRN.CNP Addended by: RHINA CONNORS on: 04/27/2024 12:04 PM Modules accepted: Orders We have openings downstairs, tomorrow and Roberto. Please place order. Rhina Connors RN Do we have any ultrasound availability this week to see if she has a subchorionic hematoma? Kailee Rahman APRN.CNP Patient 8w4d, seen in office on 04/22 for New OB. Rhina Connors RN documented in this encounter [facility] 04-27-2024 Telephone encount er Note Patient called, notified of below and voiced understanding. Ultrasound scheduled for Thursday. Rhina Connors RN [facility] 04-27-2024 Note Addended by: KAILEE RAHMAN on: 04/27/2024 12:11 PM Modules accepted: Orders [facility] 04-27-2024 Telephone encount er Note Recommend pelvic rest at this time. Order signed. Kailee Rahman APRN.CNP [facility] 04-27-2024 Note Addended by: RHINA CONNORS on: 04/27/2024 12:04 PM Modules accepted: Orders [facility] 04-27-2024 Telephone encount er Note We have openings downstairs, tomorrow and Thursday. Please place order. Rhina Connors RN [facility] 04-27-2024 Telephone encount er Note Do we have any ultrasound availability this week to see if she has a subchorionic hematoma? Kailee Rahman APRN.CNP [facility] 04-27-2024 Telephone encount er Note Patient 8w4d, seen in office on 04/22 for New OB. Rhina Connors RN [facility] 04-22-2024 Instructions Dia Bejarano MA - 04/22/2024 9:15 AM EST Please select the following link to access the [facility] Your Guide to a Healthy . [email or web address] documented in this encounter [facility] 04-07-2024 Note HNO ID: [id number] Author: KAILEE RAHMAN APRN.THERAPEUTIC RECREATION LEADER Service: ? Author Type: Nurse Practitioner Type: Progress Notes Filed: 04/22/2024 09:53 Note Text: Director Clinical Data offered: Patient declines. INITIAL OB ASSESSMENT HPI: Dory is a 28 year old White Female here to establish Obstetrical Care. Patient's last menstrual period was 02/15/2024 (approximate). from OB Dating Form. was unplanned but accepted # 1 - Date: 04/05/15, Sex: Male, Weight: 3.398 kg (7 lb 7.9 oz), GA: 41w1d, Type: Vaginal, Spontaneous, Apgar1: 6, Apgar5: 9, Living: Living, Comments: None # 2 - Date: 05/13/18, Sex: Female, Weight: 3.317 kg (7 lb 5 oz), GA: 39w2d, Type: Vaginal, Spontaneous, Apgar1: 8, Apgar5: 8, Living: Living, Comments: pitocin induction, AROM, EBL 200cc # 3 - Date: None, Sex: None, Weight: None, GA: None, Type: None, Apgar1: None, Apgar5: None, Living: None, Comments: None Complaints: No OB History T2 L2 SAB0 IAB0 Ectopic0 Multiple0 Live Births2 Previous history: Prior : never History of 4th degree laceration: No History of shoulder dystocia: No History of Hypertensive disorders including pre-eclampsia or gestational hypertension: No History of gestational diabetes: No Patient's Risk Screening for delivery: Have you had a prior mcgill between 20w and 36w6d? No How many pregnancies have you had before? 2 Did you have a previous baby with a GBS Infection? No Please select all that apply for any prior : N/A MEDICAL/PSYCHOSOCIAL HISTORY: History of hemorrhage or bleeding concerns: No Thyroid Disease: No History of chronic hypertension: No History of pre-existing diabetes: No ABO/RH(D) Date Value Ref Range Status 11/02/2017 B POSITIVE Final No weight on file for this encounter. Last Pap: 06/25/2021 History of abnormal pap: No Prior treatment for cervical dysplasia: none. Last HPV: History of STDs: None Partner History of STDs: None Did you have a partner with Herpes? No Tobacco use: No E-Cigarette/Vaping Use: No Caffeine use: Yes Drinks 2-3cups of coffee a day Drug use: No Alcohol use: No Multivitamin with Folic acid: Yes Would refuse blood transfusion if medically necessary: No Social Needs: How often does this describe you? I don't have enough money to pay my bills: Sometimes -Discussed possible qualification for Medicaid as secondary insurance Within the past 12 months, have you worried that your food would run out before you had money to buy more? Never In the past 12 months, has lack of reliable transportation kept you from going to medical appointments or work, or from getting things needed for daily living? Never In the past 12 months, have you had any concerns about having a place to live, or about the condition or quality of your housing? 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 Not interested Social History: Do you have any history of depression, anxiety, PTSD, or other mood problems? No Do you have a history of abuse or trauma that may impact your experience? No Are you currently employed? Yes Depression/Anxiety Screening: denies symptoms of depression. OB Depression and Anxiety Screening- This Encounter (since 04/06/2024) Over the past 2 weeks have you felt down, depressed, or hopeless? Negative Over the past two weeks, have you felt little interest or pleasure in doing things?? Negative Feeling nervous, anxious or on edge 0-Not at all Not being able to stop or control worrying 0-Not al all Anxiety Pre-Screening Total (If >/= 3 additional questions will be reviewed) 0 Genetic Screening: Partner present: No Patient verbalized knowledge of partner family health history: Yes Do you or your partner have any personal or family history of defects not previously discussed: No Do you have history of a complicated by anomaly, genetic condition, or demise: No Preeclampsia Risk Screening: Screening for prevention of preeclampsia: High risk factors: None Moderate risk ractors: Obesity (body mass index greater than 30) OB Risk Screening: Completed, no positive findings documented. 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 EPINEPHrine (EPIPEN) 0.3 mg/0.3 mL auto-injector NEEDED PRN For Allergies No current facility-administered medications for this visit. Allergies As of Date: 04/22/2024 Allergen Noted Reaction PEANUTS 06/01/2019 Anaphylaxis Fully Assess (more content not included)... [facility] 04[facility]07[facility] History of Presen t illness Narrative Director Clinical Data offered: Patient declines. INITIAL OB ASSESSMENT HPI: Dory is a 28 year old White Female here to establish Obstetrical Care. Patient's last menstrual period was 02/15/2024 (approximate). from OB Dating Form. was unplanned but accepted # 1 - Date: 04/05/15, Sex: Male, Weight: 3.398 kg (7 lb 7.9 oz), GA: 41w1d, Type: Vaginal, Spontaneous, Apgar1: 6, Apgar5: 9, Living: Living, Comments: None # 2 - Date: 05/13/18, Sex: Female, Weight: 3.317 kg (7 lb 5 oz), GA: 39w2d, Type: Vaginal, Spontaneous, Apgar1: 8, Apgar5: 8, Living: Living, Comments: pitocin induction, AROM, EBL 200cc # 3 - Date: None, Sex: None, Weight: None, GA: None, Type: None, Apgar1: None, Apgar5: None, Living: None, Comments: None Complaints: No OB History T2 L2 SAB0 IAB0 Ectopic0 Multiple0 Live Births2 Previous history: Prior : never History of 4th degree laceration: No History of shoulder dystocia: No History of Hypertensive disorders including pre-eclampsia or gestational hypertension: No History of gestational diabetes: No Patient's Risk Screening for delivery: Have you had a prior mcgill between 20w and 36w6d? No How many pregnancies have you had before? 2 Did you have a previous baby with a GBS Infection? No Please select all that apply for any prior : N/A MEDICAL/PSYCHOSOCIAL HISTORY: History of hemorrhage or bleeding concerns: No Thyroid Disease: No History of chronic hypertension: No History of pre-existing diabetes: No ABO/RH(D) Date Value Ref Range Status 11/02/2017 B POSITIVE Final No weight on file for this encounter. Last Pap: 06/25/2021 History of abnormal pap: No Prior treatment for cervical dysplasia: none. Last HPV: History of STDs: None Partner History of STDs: None Did you have a partner with Herpes? No Tobacco use: No E-Cigarette/Vaping Use: No Caffeine use: Yes Drinks 2-3cups of coffee a day Drug use: No Alcohol use: No Multivitamin with Folic acid: Yes Would refuse blood transfusion if medically necessary: No Social Needs: How often does this describe you? I don't have enough money to pay my bills: Sometimes -Discussed possible qualification for Medicaid as secondary insurance Within the past 12 months, have you worried that your food would run out before you had money to buy more? Never In the past 12 months, has lack of reliable transportation kept you from going to medical appointments or work, or from getting things needed for daily living? Never In the past 12 months, have you had any concerns about having a place to live, or about the condition or quality of your housing? 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 Not interested Social History: Do you have any history of depression, anxiety, PTSD, or other mood problems? No Do you have a history of abuse or trauma that may impact your experience? No Are you currently employed? Yes Depression/Anxiety Screening: denies symptoms of depression. OB Depression and Anxiety Screening- This Encounter (since 04/06/2024) Over the past 2 weeks have you felt down, depressed, or hopeless? Negative Over the past two weeks, have you felt little interest or pleasure in doing things? Negative Feeling nervous, anxious or on edge 0-Not at all Not being able to stop or control worrying 0-Not al all Anxiety Pre-Screening Total (If >/= 3 additional questions will be reviewed) 0 Genetic Screening: Partner present: No Patient verbalized knowledge of partner family health history: Yes Do you or your partner have any personal or family history of defects not previously discussed: No Do you have history of a complicated by anomaly, genetic condition, or demise: No Preeclampsia Risk Screening: Screening for prevention of preeclampsia: High risk factors: None Moderate risk ractors: Obesity (body mass index greater than 30) OB Risk Screening: Completed, no positive findings documented. 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 EPINEPHrine (EPIPEN) 0.3 mg/0.3 mL auto-injector NEEDED PRN For Allergies No current facility-administered medications for this visit. Allergies As of Date: 04/22/2024 Allergen Noted Reaction PEANUTS 06/01/2019 Anaphylaxis Fully Assessed 06/29/2023 Does patient have penicillin allergy: No REVIEW OF SYSTEMS: GENERAL: Negative for: Fever or Chills HEENT: Negative for: Headache, Impaired Vision, Ringing in Ears, Nosebleeds NECK: Negative for: Swelling, Pain, Stiffness RESPIRATORY: Negative for: Cough, Shortness of breath, Wheezing GASTROINTESTINAL: Negative for: Heartburn, Diarrhea, Blood in stool, Vomiting + constipation MUSCULOSKELETAL: Negative for: Muscle or joint pain, stiffness, Joint swelling NEUROLOGIC/PSYCHIATRIC: Negative for: Weakness, Paralysis, Numbness, Tingling, Tremor, Anxiety, Depression, Memory loss SKIN: Negative for: Rash, Itching GENITOURINARY: Negative for: vaginal itching, vaginal discharge, hematuria or dysuria SENSITIVE EXAM: The sensitive examination was discussed with the Patient or Patient's Authorized Revenue Analyst. As applicable, any other physician, advance practice provider, medical student, or other health professional student that will be observing or involved in the sensitive examination for educational or training purposes was discussed with the Patient or Authorized Revenue Analyst. The Patient or Authorized Revenue Analyst has agreed to proceed with the sensitive examination. (Sensitive examination includes inspection and/or palpation of the breasts, pelvis, prostate and anorectal regions). PHYSICAL EXAM: BP 120/68 Ht 5' 3 (1.60m) Wt 198 lb (89.8kg) LMP 02/15/2024 BMI 35.08 kg/(m^2). GENERAL: pleasant in no apparent distress DERMATOLOGY: Normal, without lesions, non-icteric, and non-hirsute NECK: Supple, full range of motion, no adenopathy, and thyroid normal CHEST: Normal inspiratory effort BREAST: soft, non-tender, symmetric, no dominant mass, normal nipple-areolar complex, no lymphadenopathy, and no nipple discharge ABDOMEN: soft, non-tender, and no masses NEURO: alert and oriented x3,exam grossly non-focal PELVIS: External genitalia normal without lesions. Perineal body intact. No vaginal or cervical lesions. Cervix closed. Uterus <8 week size. No adnexal masses or tenderness. Clinical Pelvimetry: Pelvimetry clinically assessed as adequate Limited OB ultrasound exam: single intrauterine and positive cardiac activity ASSESSMENT: 28 year old at 7w3d wks gestational age PLAN: 1) Patient oriented to practice. Patient given new OB orientation folder. Discussed nutrition, folic acid supplementation, dietary guidelines, exercise, smoking, alcohol, caffeine, and drug use. Discussed gestational weight gain guidelines. Discussed routine OB labs including STD/HIV. Discussed how to access Your guide to a health and the [employer]. Discussed hemoglobin electrophoresis. Patient: Declines Reviewed midwifery and classroom aide services that are available. 2) Screening: Hemoglobin A1C: ordered Baby Aspirin: The patient has been counseled about the potential benefits of low dose aspirin in and our recommendation that this be offered to all patients, regardless of whether they meet the high risk criteria specified above. She Accepts Aneuploidy Screening: Discussed aneuploidy screening, nuchal translucency/first trimester early anatomy ultrasound and NIPT. The risks/benefits and limitations of NIPT/aneuploidy screening were reviewed including the potential for false negative and false positive results. The availability of genetic counseling was reviewed. Information on aneuploidy screening was provided. The patient chooses to proceed with First trimester early anatomy ultrasound (12-13w6d) [facility] Carrier Screening: Discussed myriad carrier screening. We discussed the availability of professional-society guided carrier screening and reviewed the conditions screened and limitations of screening. The availability of genetic counseling was reviewed. Information on carrier screening was provided. The patient Declines 3) Patient offered option of Virtual Visits. Patient unsure. May consider in future. ACTIVE PROBLEM LIST Encounter for Supervision of High Risk in First Trimester, Antepartum - 04/22/2024 Comment: Care Checklist Vaccines: [] Flu vaccine [] declined [] RSV vaccine 32 0/7 - 36 6/ (Jan - Jun) [] declined [] COVID vaccine [] declined [] TDaP 27-36 [] declined First trimester: [x] Dating US [] 1st tri labs [x] Pap smear UTD [] Carrier screening [x] declined [] NIPT screening [x] declined [x] First trimester anatomy scan [] declined [x] universal ASA ordered (start 12w-16w) [] declined [] M Power Consult [] not indicated [] declined Second trimester: [] Anatomy scan [] Mode of Delivery - [] Feeding - [] Pump ordered [] Diabetes screen [] CBC, RPR [] Behavioral Health Screening Third trimester (28-30 weeks): [] Consent [] Contraception [] Metal Furniture Gl[place]ier [] TeamBirth handout Third trimester (36-40 weeks): [] GBS [] Presentation - [] Scheduled [] yes - Hibiclens, pre-op instructions, CBC, T&S ordered [] no [] H&P [] Preferences worksheet [] Scanned in With Uncertain Dates in First Trimester - 04/22/2024 Comment: April 22, 2024 POCUS not consistent with LMP. Confirm dating with NT. Kailee Rahman, CLINICAL SERVICES SPECIALIST.THERAPEUTIC RECREATION LEADER Obesity Affecting in First Trimester - 04/22/2024 Comment: April 22, 2024 Pre BMI 35. - Plan for 32 week growth q 4 weeks. - Weekly NSTs at 36 weeks. Constipation During in First Trimester - 04/22/2024 Comment: April 22, 2024 Discussed increased hydration, Colace, and other safe medications to take for constipation during . Kailee Rahman APRN.CNP Vaginal Bleeding Affecting Early - 04/22/2024 Comment: April 22, 2024 Had light bleeding about 4 days ago that resolved. Bleeding precautions reviewed. Kailee Rahman APRN.CNP Follow up in 4 weeks or sooner prn. Plan for NT scan between 12w0d and 13w6d gestation. Kaiele Rahman APRN.THERAPEUTIC RECREATION LEADER documented in this encounter [facility] 06-29-2023 History of Presen t illness Narrative Dory is a 27 year old who presents for an annual gynecologic exam without complaints. Menses: None, drug induced Contraception: Annovera HPV vaccine: No Last Pap: 06/25/2021 normal HPV: N/A History of abnormal pap: No Last mammogram: never Sexually active: Yes History of STDS: None Pain with intercourse: No Postcoital bleeding: No Hot flashes: No Night sweats: No Vaginal dryness: No OB History T2 L2 SAB0 IAB0 Ectopic0 Multiple0 Live Births2 Vascular Tech History LMP: 05/12/2020, Drug Induced Amenorrhea Age at Menarche: Age at First : Age at Menopause: Vascular Tech History Comments: Sexual Activity: Yes; Male; ring Contraception: Inserts PAST MEDICAL HISTORY Diagnosis Date History of kidney stones IBS (irritable bowel syndrome) PAST SURGICAL HISTORY Procedure Laterality Date NONE FAMILY HISTORY Problem Relation Age of Onset Diabetes Mother Lipids Father Cancer Father 59 No Known Problems Sister No Known Problems Sister GI Sister benign liver tumor (OCP related) No Known Problems Son No Family History No Family History female/colon/prostate CA SOCIAL HISTORY Social History Tobacco Use Smoking status: Former Types: Cigarettes Start date: 08/2016 Quit date: 09/19/2017 Years since quittin.7 Smokeless tobacco: Never Vaping Use Vaping Use: current everyday user Substances: Nicotine Devices: Disposable Substance Use Topics Alcohol use: Yes Comment: socially Drug use: No REVIEW OF SYSTEMS Abdomen: No abdominal pain, nausea, vomiting, diarrhea, or constipation. No bloating, early satiety, indigestion, or increased flatulence. Bladder: No dysuria, gross hematuria, urinary frequency, urinary urgency, or incontinence. Breast: No breast lumps, nipple d/c, overlying skin changes, redness or skin retraction. Allergies and current medication updated:Yes EXAM: BP 116/70 Ht 5' 3 (1.60m) Wt 199 lb 12.8 oz (90.6kg) LMP 05/12/2020 BMI 35.40 kg/(m^2). GENERAL: pleasant, female in no apparent distress HEENT: Normocephalic and atraumatic NECK: Supple and full range of motion DERMATOLOGY: Normal and without lesions BREAST: soft, non-tender, symmetric, no dominant mass, normal nipple-areolar complex, no lymphadenopathy, and no nipple discharge CHEST: Normal inspiratory effort ABDOMEN: soft, non-tender, and no masses PELVIC: external genitalia normal, normal Bartholin's glands, urethra, Whittemore's glands, no vulvar lesions, no cervical lesions, good vaginal support, physiologic discharge present, normal appearing perineal body and perianal region BIMANUAL: uterus normal size, shape and consistency, no adnexal masses, and non-tender RECTOVAGINAL: deferred. NEURO: alert and oriented x3,exam grossly non-focal EXTREMITIES: normal ASSESSMENT/PLAN: 1) Health maintenance: Pap/HPV up to date. Nutrition, exercise and routine health maintenance exams reviewed. 2) Contraception: Annovera. Contraceptive options reviewed and information provided. 3) STD screening: Declined STD check. 4) Follow up one year or sooner as needed Tianna Mota APRN.CNM documented in this encounter [facility] 06-23-2022 History of Presen t illness Narrative Director Clinical Data offered: Patient declinesPilar Connors is a 26 year old who presents for an annual gynecologic exam without complaints. Menses: Annovera- occasional break through bleeding Contraception: Annovera HPV vaccine: No Last Pap: 06/25/2021 normal HPV: negative History of abnormal pap: No Last mammogram: never Sexually active: Yes- hx of only 1 partner- History of STDS: None History of fibroids: No History of ovarian cyst: No History of endometriosis: No Pain with intercourse: No Postcoital bleeding: No OB History T2 L2 SAB0 IAB0 Ectopic0 Multiple0 Live Births2 Vascular Tech History LMP: 05/12/2020, Drug Induced Amenorrhea Age at Menarche: Age at First : Age at Menopause: Vascular Tech History Comments: Sexual Activity: Yes; Male; ring Contraception: Inserts PAST MEDICAL HISTORY Diagnosis Date History of kidney stones IBS (irritable bowel syndrome) PAST SURGICAL HISTORY Procedure Laterality Date NONE FAMILY HISTORY Problem Relation Age of Onset Diabetes Mother Lipids Father Cancer Father 59 No Known Problems Sister No Known Problems Sister GI Sister benign liver tumor (OCP related) No Known Problems Son No Family History No Family History female/colon/prostate CA SOCIAL HISTORY Social History Tobacco Use Smoking status: Former Types: Cigarettes Start date: 08/2016 Quit date: 09/19/2017 Years since quittin.7 Smokeless tobacco: Never Vaping Use Vaping Use: Never used Substance Use Topics Alcohol use: Yes Comment: socially Drug use: No REVIEW OF SYSTEMS Abdomen: No abdominal pain, nausea, vomiting, diarrhea, or constipation. No bloating, early satiety, indigestion, or increased flatulence. Bladder: No dysuria, gross hematuria, urinary frequency, urinary urgency, or incontinence. Breast: No breast lumps, nipple d/c, overlying skin changes, redness or skin retraction. Allergies and current medication updated:Yes EXAM: BP 114/76 Ht 5' 3 (1.60m) Wt 203 lb (92.1kg) LMP 05/12/2020 BMI 35.97 kg/(m^2). GENERAL: pleasant, female in no apparent distress HEENT: Normocephalic and atraumatic NECK: Supple and full range of motion DERMATOLOGY: Normal and without lesions BREAST: soft, non-tender, symmetric, no dominant mass, normal nipple-areolar complex, no lymphadenopathy, and no nipple discharge CHEST: Normal inspiratory effort ABDOMEN: soft, non-tender, and no masses PELVIC: external genitalia normal, normal Bartholin's glands, urethra, Whittemore's glands, no vulvar lesions, no cervical lesions, good vaginal support, physiologic discharge present, normal appearing perineal body and perianal region BIMANUAL: uterus normal size, shape and consistency, no adnexal masses, non-tender, and no cervical motion tenderness RECTOVAGINAL: deferred. NEURO: alert and oriented x3,exam grossly non-focal EXTREMITIES: normal ASSESSMENT/PLAN: 1) Health maintenance: Pap/HPV up to date. Nutrition, exercise and routine health maintenance exams reviewed. HPV vaccine: discussed, not interested 2) Contraception: Annovera. Contraceptive options reviewed and information provided. 3) STD screening: Declined STD check. 4) Follow up one year or sooner as needed Tianna Mota APRN.CNM documented in this encounter [facility] 06-09-2022 Miscellaneous Notes Formattin g of this note is different from the original. Patient scheduled for annual on 06/23/22, but needs refill prior to then. Requested Prescriptions Pending Prescriptions Disp Refills segesterone ac-ethin estradiol (ANNOVERA) 0.15-0.013 mg/24 hour vaginal ring 1 Each 0 Sig: Place ring vaginally for 3 week then remove for 1 week and replace within 4-7 days. RX INSTRUCTIONS: Patient aware RX will be sent to pharmacy. No need to notify patient. Gladis Platt RN documented in this encounter [facility] 04-05-2015 History of Past i llness Narrative Problem Noted Date Resolved Date Vaginal delivery 04/05/2015 05/22/2016 Post term , 41 weeks 04/05/2015 Meconium stained amniotic fl uid, delivered, current hospitalization 04/05/2015 05/22/2016 Post-dates 04/02/2015 05/22/2016 40 weeks gestation of 04/02/2015 05/22/2016 Decreased movement 03/01/2015 017 False labor 02/26/2015 05/22/2016 35 weeks gestation of 02/26/2015 03/08/2015 Encounter for supervision of other normal , first trimester 08/11/2014 06/23/2018 Overview: November 02, 2017 First , 7lg 9 oz, first degree lac, no complications. Delivery record reviewed. Mica Concepcion MD Obesity complicating pregnan cy, childbirth, or puerperium, antepartum 08/11/2014 05/22/2016 Routine gynecological examination 07/26/2013 08/11/2014 NEGATIVE MEDICAL HISTORY 015 History of kidney stones 019 documented as of this encounter (statuses as of 06/09/2022) [facility] History of Past illness Narrative* Problem Noted Date Resolved Date Vaginal delivery 04/05/2015 05/22/2016 Post term , 41 weeks 04/05/2015 Meconium stained amniotic fl uid, delivered, current hospitalization 04/05/2015 05/22/2016 Post-dates 04/02/2015 05/22/2016 40 weeks gestation of 04/02/2015 05/22/2016 Decreased movement 03/01/2015 017 False labor 02/26/2015 05/22/2016 35 weeks gestation of 02/26/2015 03/08/2015 Encounter for supervision of other normal , first trimester 08/11/2014 06/23/2018 Overview: November 02, 2017 First , 7lg 9 oz, first degree lac, no complications. Delivery record reviewed. Mica Concepcion MD Obesity complicating pregnan cy, childbirth, or puerperium, antepartum 08/11/2014 05/22/2016 Routine gynecological examination 07/26/2013 08/11/2014 NEGATIVE MEDICAL HISTORY 015 History of kidney stones 019 documented as of this encounter (statuses as of 06/23/2022) [facility] History of Past illness Narrative* Problem Noted Date Diagnosed Date Resolved Date Vaginal delivery 04/05/2015 05/22/2016 Post term , 41 weeks 04/05/2015 05/22/2016 Meconium stained amniotic fl uid, delivered, current hospitalization 04/05/2015 05/22/2016 Post-dates 04/02/2015 017 40 weeks gestation of 04/02/2015 05/22/2016 Decreased movement 03/01/201509/2016 False labor 02/26/2015 05/22/2016 35 weeks gestation of 02/26/2015 03/08/2015 Encounter for supervision of other normal , first trimester 08/11/2014 06/23/2018 Overview: November 02, 2017 First , 7lg 9 oz, first degree lac, no complications. Delivery record reviewed. Mica Concepcion MD Obesity complicating pregnan cy, childbirth, or puerperium, antepartum 08/11/2014 05/22/2016 Routine gynecological examination 07/26/2013 08/11/2014 NEGATIVE MEDICAL HISTORY History of kidney stones 10/2018 documented as of this encounter (statuses as of 06/29/2023) [facility] Diagnosis Encounter for gynecological examination (general) (routine) without abnormal findings- Primary [facility] Diagnosis Encounter for gynecological examination (general) (routine) without abnormal findings- Primary Encounter for surveillance of vaginal ring hormonal contraceptive device [facility] Diagnosis Encounter for supervision of high risk in first trimester, antepartum- Primary Less than 8 weeks gestation of state, incidental with uncertain dates in first trimester Obesity affecting in first trimester, unspecified obesity type Constipation during in first trimester Vaginal bleeding affecting early [facility] Diagnosis Vaginal bleeding affecting early - Primary [facility] Diagnosis Vaginal bleeding affecting early [facility] Diagnosis SAB (spontaneous )- Primary Unspecified spontaneous without mention of complication documented [place] this encounter [place] ClinicEvaluation note* Diagnosis SAB (spontaneous )- Primary Unspecified spontaneous without mention of complication [facility] Diagnosis Incomplete spontaneous without complication- Primary Incomplete spontaneous without mention of complication [facility] Diagnosis Encounter for gynecological examination (general) (routine) without abnormal findings- Primary Screening for cervical cancer Screening for malignant neoplasm of the cervix Encounter for screening for human papillomavirus (HPV) Special screening examination for human papillomavirus (HPV) [facility]* Diagnosis 9 weeks gestation of (HCC)- Primary state, incidental with uncertain dates in first trimester (HCC) Obesity affecting in first trimester, unspecified obesity type (HCC) Encounter for supervision of low-risk in first trimester (HCC) Irritable bowel syndrome with both constipation and diarrhea [facility] Diagnosis Encounter for screening for malformation using ultrasound (HCC)- Primary 13 weeks gestation of (HCC) state, incidental documented in this encounter [facility] note* Diagnosis Encounter for supervision of low-risk in second trimester (HCC)- Primary Other obesity affecting in second trimester (HCC) 13 weeks gestation of (HCC) state, incidental documented in this encounter [facility] note* Diagnosis Encounter for supervision of low-risk in second trimester (HCC)- Primary 16 weeks gestation of (HCC) state, incidental Other obesity affecting in second trimester (HCC) documented in this encounter [facility] note* Diagnosis Supervision of high risk in second trimester (HCC)- Primary Unspecified high-risk 20 weeks gestation of (HCC) state, incidental Obesity affecting in second trimester, unspecified obesity type (HCC) Irritable bowel syndrome with both constipation and diarrhea documented in this encounter [facility] note* Diagnosis Obesity affecting in second trimester, unspecified obesity type (HCC)- Primary 9 weeks gestation of (HCC) state, incidental Supervision of high risk in second trimester (HCC) Unspecified high-risk documented in this encounter [facility] note* Diagnosis Low-lying placenta (HCC)- Primary Hemorrhage from placenta previa, unspecified as to episode of care documented in this encounter [facility] note* Diagnosis Supervision of high risk in second trimester (HCC)- Primary Unspecified high-risk 24 weeks gestation of ([facility]) state, incidental Obesity affecting in second trimester, unspecified obesity type (HCC) Low-lying placenta (HCC) Hemorrhage from placenta previa, unspecified as to episode of care Screening for diabetes mellitus Heartburn during in second trimester ([facility]) documented in this encounter [facility] for referral (narrative)* Diagnostic Procedure Only (Routine) - Authorized Specialty Diagnoses / Procedures Referred By Brianna delgado Referred To Contact [facility] Diagnoses Encounter for supervision of high risk in first trimester, antepartum Less than 8 weeks gestation of with uncertain dates in first trimester Procedures NUCHAL TRANSLUCENCY WHI US NUCHAL TRANSLUCENCY 1ST GESTATION Kailee Rahman APRN.THERAPEUTIC RECREATION LEADER [address] [place] [address] [address] Referral ID Status Reason Start Date Expiration Date Visits Requested Visits Authorized [id number] Authorized Auto-Generat ed Referral 04/22/2024 04/22/2025 1 1 * Diagnostic Procedure Only (Routine) - Authorized Specialty Diagnoses / Procedures Referred By Contac t Referred To Contact [facility] Diagnoses with uncertain dates in first trimester Procedures NUCHAL TRANSLUCENCY WHI US NUCHAL TRANSLUCENCY 1ST GESTATION Kailee Rahman APRN.CNP [address] [place] [address] [address] Referral ID Status Reason Start Date Expiration Date Visits Requested Visits Authorized [id number] Authorized Auto-Generat ed Referral 04/22/2024 04/22/2025 1 1 * Diagnostic Procedure Only (Routine) - Authorized Specialty Diagnoses / Procedures Referred By Contac t Referred To Contact [facility] Diagnoses with uncertain dates in first trimester Procedures OBSTETRIC ULTRASOUND WHI US PREG UTERUS AFTER 1ST TRIMEST GESTATION Kailee Rahman APRN.CNP [address] [place] [address] [address] Referral ID Status Reason Start Date Expiration Date Visits Requested Visits Authorized [id number] Authorized Auto-Generat ed Referral 04/22/2024 04/22/2025 1 1 [facility] for referral (narrative)* Diagnostic Procedure Only (Routine) - Authorized Specialty Diagnoses / Procedures Referred By Contac t Referred To Contact [facility] Diagnoses Vaginal bleeding affecting early Procedures OBSTETRIC ULTRASOUND WHI US PREG UTERUS AFTER 1ST TRIMEST GESTATION Kailee Rahman APRN.CNP [address] [place] [address] [address] [place] [address] Referral ID Status Reason Start Date Expiration Date Visits Requested Visits Authorized [id number] Authorized Auto-Generat ed Referral 04/27/2025 1 1 [facility] for visit Narrative* Diagnostic Procedure Only (Routine) - Closed Specialty Diagnoses / Procedures Referred By Contchristiane t Referred To Contact [facility] Diagnoses Vaginal bleeding affecting early Procedures OBSTETRIC ULTRASOUND WHI US PREG UTERUS AFTER 1ST TRIMEST GESTATION Kailee Rahman APRN.CNP [address] [place] [address] [address] Referral ID Status Reason Start Date Expiration Date V isits Requested Visits Authorized [id number] Closed Auto-Generate d Referral 04/27/2024 04/27/2025 1 1 [facility] Summary Purpose Family History No Family History Records FoundNo Family History Records FoundNo Family History Records FoundNo Family History Records Found Advance Directives No Advanced Directives Records FoundNo Advanced Directives Records FoundNo Advanced Directives Records FoundNo Advanced Directives Records Found Additional Source Comments INFORMATION SOURCE (unrecogn ized section and content) DATE CREATED AUTHOR 11/04/2017 [facility] DATE CREATED AUTHOR AUTHOR'S ORGANIZ ATION 01/16/2022 [facility] DATE CREATED AUTHOR AUTHOR'S ORGANIZ ATION 03/19/2025 [facility] DATE CREATED AUTHOR AUTHOR'S ORGANIZ ATION 03/25/2025 [facility] Source Comments (unrecognize d section and content) In the event this informatio n is protected by the Federal Confidentiality of Alcohol and Drug Abuse Patient Records regulations: The Federal rules restrict any use of the information to criminally investigate or prosecute any alcohol or drug abuse patient.[facility] the event this information is protected by the Federal Confidentiality of Alcohol and Drug Abuse Patient Records regulations: The Federal rules restrict any use of the information to criminally investigate or prosecute any alcohol or drug abuse patient.[facility] the event this information is protected by the Federal Confidentiality of Alcohol and Drug Abuse Patient Records regulations: The Federal rules restrict any use of the information to criminally investigate or prosecute any alcohol or drug abuse patient.[facility] the event this information is protected by the Federal Confidentiality of Alcohol and Drug Abuse Patient Records regulations: The Federal rules restrict any use of the information to criminally investigate or prosecute any alcohol or drug abuse patient.[facility] the event this information is protected by the Federal Confidentiality of Alcohol and Drug Abuse Patient Records regulations: The Federal rules restrict any use of the information to criminally investigate or prosecute any alcohol or drug abuse patient.[facility] the event this information is protected by the Federal Confidentiality of Alcohol and Drug Abuse Patient Records regulations: The Federal rules restrict any use of the information to criminally investigate or prosecute any alcohol or drug abuse patient.[facility] the event this information is protected by the Federal Confidentiality of Alcohol and Drug Abuse Patient Records regulations: The Federal rules restrict any use of the information to criminally investigate or prosecute any alcohol or drug abuse patient.[facility] the event this information is protected by the Federal Confidentiality of Alcohol and Drug Abuse Patient Records regulations: The Federal rules restrict any use of the information to criminally investigate or prosecute any alcohol or drug abuse patient.[facility] the event this information is protected by the Federal Confidentiality of Alcohol and Drug Abuse Patient Records regulations: The Federal rules restrict any use of the information to criminally investigate or prosecute any alcohol or drug abuse patient.[facility] the event this information is protected by the Federal Confidentiality of Alcohol and Drug Abuse Patient Records regulations: The Federal rules restrict any use of the information to criminally investigate or prosecute any alcohol or drug abuse patient.[facility] the event this information is protected by the Federal Confidentiality of Alcohol and Drug Abuse Patient Records regulations: The Federal rules restrict any use of the information to criminally investigate or prosecute any alcohol or drug abuse patient.[facility] the event this information is protected by the Federal Confidentiality of Alcohol and Drug Abuse Patient Records regulations: The Federal rules restrict any use of the information to criminally investigate or prosecute any alcohol or drug abuse patient.[facility] the event this information is protected by the Federal Confidentiality of Alcohol and Drug Abuse Patient Records regulations: The Federal rules restrict any use of the information to criminally investigate or prosecute any alcohol or drug abuse patient.[facility] the event this information is protected by the Federal Confidentiality of Alcohol and Drug Abuse Patient Records regulations: The Federal rules restrict any use of the information to criminally investigate or prosecute any alcohol or drug abuse patient.[facility] the event this information is protected by the Federal Confidentiality of Alcohol and Drug Abuse Patient Records regulations: The Federal rules restrict any use of the information to criminally investigate or prosecute any alcohol or drug abuse patient.[facility] the event this information is protected by the Federal Confidentiality of Alcohol and Drug Abuse Patient Records regulations: The Federal rules restrict any use of the information to criminally investigate or prosecute any alcohol or drug abuse patient.[facility] the event this information is protected by the Federal Confidentiality of Alcohol and Drug Abuse Patient Records regulations: The Federal rules restrict any use of the information to criminally investigate or prosecute any alcohol or drug abuse patient.[facility] the event this information is protected by the Federal Confidentiality of Alcohol and Drug Abuse Patient Records regulations: The Federal rules restrict any use of the information to criminally investigate or prosecute any alcohol or drug abuse patient.[facility] the event this information is protected by the Federal Confidentiality of Alcohol and Drug Abuse Patient Records regulations: The Federal rules restrict any use of the information to criminally investigate or prosecute any alcohol or drug abuse patient.[facility] the event this information is protected by the Federal Confidentiality of Alcohol and Drug Abuse Patient Records regulations: The Federal rules restrict any use of the information to criminally investigate or prosecute any alcohol or drug abuse patient.[facility] the event this information is protected by the Federal Confidentiality of Alcohol and Drug Abuse Patient Records regulations: The Federal rules restrict any use of the information to criminally investigate or prosecute any alcohol or drug abuse patient.[facility] the event this information is protected by the Federal Confidentiality of Alcohol and Drug Abuse Patient Records regulations: The Federal rules restrict any use of the information to criminally investigate or prosecute any alcohol or drug abuse patient.[facility] Reason for Visit (unrecogniz ed section and content) Reason Onset Date Comments Refill Request 06/09/2022 Reason Comments Yearly Exam Reason Comments Initial OB Visit Reason Comments Patient Update Reason Comments Follow Up Reason Comments Results Reason Comments Initial OB Visit Reason Comments US Specialty Diagnoses / Procedures Referred By Contchristiane t Referred To Contact [facility] Diagnoses 9 weeks gestation of (HCC) Procedures OBSTETRIC ULTRASOUND WHI US PREG UTERUS AFTER 1ST TRIMEST GESTATION Tianna Mota APRN.[address] [address] Phone: tel: fax: [facility] [address] [place] [address] Referral ID Status Reason Start Date Expiration Date V isits Requested Visits Authorized [id number] Closed Auto-Generate d Referral 09/23/2024 09/23/2025 1 1 Reason Onset Date Comments Care 10/17/2024 Reason Onset Date Comments Care 11/11/2024 Reason Comments OB Vomiting Reason Onset Date Comments Care 12/09/2024 Referral ID Status Reason Start Date Expiration Date V isits Requested Visits Authorized [id number] Closed Auto-Generate d Referral 09/23/2024 09/23/2025 1 1 Reason Onset Date Comments Care 01/06/2025 Care Teams (unrecognized sec tion and content) Academic Hospitalist Relationship Specialty Start Date End Date Shazia Edwards PCP - General Family Medicine 07/22/12 Academic Hospitalist Relationship Specialty Start Date End Date Shazia Edwards MD PCP - General Family Medicine 07/22/12 Academic Hospitalist Relationship Specialty Start Date End Date Shazia Edwards MD PCP - General Family Medicine 07/22/12 Academic Hospitalist Relationship Specialty Start Date End Date Shazia Edwards MD PCP - General Family Medicine 07/22/12 Academic Hospitalist Relationship Specialty Start Date End Date Shazia Edwards MD PCP - General Family Medicine 07/22/12 Academic Hospitalist Relationship Specialty Start Date End Date Shazia Edwards MD PCP - General Family Medicine 07/22/12 Academic Hospitalist Relationship Specialty Start Date End Date Shazia Edwards MD PCP - General Family Medicine 07/22/12 Academic Hospitalist Relationship Specialty Start Date End Date Shazia Edwards MD PCP - General Family Medicine 07/22/12 Academic Hospitalist Relationship Specialty Start Date End Date Shazia Edwards MD PCP - General Family Medicine 07/22/12 Academic Hospitalist Relationship Specialty Start Date End Date Shazia Edwards MD PCP - General Family Medicine 07/22/12 Academic Hospitalist Relationship Specialty Start Date End Date Shazia Edwards MD PCP - General Family Medicine 07/22/12 Academic Hospitalist Relationship Specialty Start Date End Date Shazia Edwards MD PCP - General Family Medicine 07/22/12 Academic Hospitalist Relationship Specialty Start Date End Date Shazia Edwards MD PCP - General Family Medicine 07/22/12 Academic Hospitalist Relationship Specialty Start Date End Date Shazia Edwards MD PCP - General Family Medicine 07/22/12 Academic Hospitalist Relationship Specialty Start Date End Date Shazia Edwards MD PCP - General Family Medicine 07/22/12 Academic Hospitalist Relationship Specialty Start Date End Date Shazia Edwards MD PCP - General Family Medicine 07/22/12 Academic Hospitalist Relationship Specialty Start Date End Date Shazia Edwards MD PCP - General Family Medicine 07/22/12 Academic Hospitalist Relationship Specialty Start Date End Date Shazia Edwards MD PCP - General Family Medicine 07/22/12 FOR RECORDS PERTAINING TO PATIENTS WHO ARE OR HAVE BEEN ENROLLED IN A CHEMICAL DEPENDENCY/SUBSTANCEABUSE PROGRAM, SOME INFORMATION MAY BE OMITTED. This clinical summary was aggregated from multiple sources. Caution should be exercised in using it in the provision of clinical care. This summary normalizes information from multiple sources, and as a consequence, information in this document may materially change the coding, format and clinical context of patient data. In addition, data may be omitted in some cases. CLINICAL DECISIONS SHOULD BE BASED ON THE PRIMARY CLINICAL RECORDS. [facility] [employer] [facility]. provides no warranty or guarantee of the accuracy or completeness of information in this document.
[2025-04-14 18:57] VITALS: BMI 38.1
[2025-04-14 19:10] VITALS: BP 119/83; PULSE 95; RESP 16; TEMP 36.8
--- NOTE | 2025-04-17 07:11 | OB.TRI.HP_ITS ---
HPI - General General Date of Admission: 04/14/25 Date of Service: 04/14/25 Chief Complaint: contractions HPI Narrative DORY MARTELL, is a 29 F who presents contractions and loss of mucous plg. No cervical change from office. Cat I tracing. Induction scheduled. Maternal Data Information Final CHAU: 04/24/25 Gestational age: 38+5 PFSH PFSH Home Medications ?Medication ?Instructions ?Recorded ?Last Taken ?Type vits 96-ferrous fumarate 1 ea PO DAILY PREGNA NCY 04/02/18 04/13/25 History 27 mg iron-folic acid 800 mcg tablet epinephrine 0.3 mg/0.3 mL 0.3 mg IM PRN PRN Allergies 05/13/18 Unknown History injection, auto-injector (EpiPen) aspirin 81 mg tablet,delayed 81 mg PO DAILY 04/14/25 1 06/13/24 History release (Adult Low Dose Aspirin) pantoprazole 20 mg tablet,delayed 20 mg PO DAILY 04/1404/13/25 History release (Protonix) Allergy/AdvReac Type Severity Reaction Status Date / Time peanut (peanuts) Allergy Anaphylaxis Verified 04/14/25 19:18 Social History Smoking Status: Former smoker History Elective abortions Hx Para 1 Spontaneous abortions Hx # Term Pregnancies Ectopic pregnancies Hx # Pregnancies Multiple births # of living children NST FHR Rate Baby A Baseline: 130 Variability:: Moderate Accelerations:: 15 x 15 Decelerations:: None NST Reactive:: Yes FHR Category:: Category I Assessment & Plan (1) False labor after 37 completed weeks of gestation: (2) 38 weeks gestation of : PLAN: Plan Labor precautions
== END 2025-04-14 21:25 | disposition home or self-care (01) ==
LOC: WPOUT 18:44 → WP 18:45
PROVIDERS: PCP Family Medicine; Referring Provider Obstetrics & Gynecology; Visit Provider Obstetrics & Gynecology
DX: O47.1 False labor at or after 37 completed weeks of gestation (principal); Z87.891 Personal history of nicotine dependence; Z3A.38 38 weeks gestation of pregnancy
CPT/HCPCS: 59025; 59050; 99221; G0378

== ENCOUNTER 2025-04-18 16:55 | Outpatient (CLI) | payer OTHER, SELFPAY ==
[2025-04-18 17:05] VITALS: BMI 38.6
[2025-04-18 17:11] VITALS: RESP 18; TEMP 36.4
[2025-04-18 17:14] VITALS: BP 125/83; PULSE 81
[2025-04-18 17:42] LABS: ROM Internal Control Test YES-OK TO RESULT pt. (Internal QC); ROM Patient Test Negative (Negative)
[2025-04-18 17:43] LABS: Record Kit Lot#, ROM+ K3607
--- NOTE | 2025-04-29 12:45 | OB.TRI.HP_ITS ---
HPI - General General Date of Service: 04/18/25 HPI Narrative DORY MARTELL, is a 29 F who presents at 39w1d for decreased movement, irregular contractions and SROM ] Maternal Data Information CHAU Calculator Estimated Delivery Date Method Current WG Current Estimate 04/24/25 Manual 40w 5d PFSH PFSH Medical History (Updated 04/29/25 @ 12:48 by Radha Levine CNM) Care and examination of lactating mother (spontaneous vaginal delivery) Multiparity Obesity affecting Kidney stone IBS (irritable bowel syndrome) Family history of hearing loss at age younger than 7 years Home Medications ?Medication ?Instructions ?Recorded ?Last Taken ?Type vits 96-ferrous fumarate 1 ea PO DAILY PREGNA NCY 04/02/18 04/17/25 20:00 History 27 mg iron-folic acid 800 mcg 1 ea tablet epinephrine 0.3 mg/0.3 mL 0.3 mg IM PRN PRN Allergies 05/13/18 Unknown History injection, auto-injector (EpiPen) pantoprazole 20 mg tablet,delayed 20 mg PO DAILY reflu x 04/14/25 04/17/25 20:00 History release (Protonix) 20 mg naproxen 500 mg tablet 500 mg PO Q8H PRN PRN Pain S core 04/20/25 Unknown Rx 1-10 #0 tabs Allergy/AdvReac Type Severity Reaction Status Date / Time peanut (peanuts) Allergy Anaphylaxis Verified 04/19/25 07:32 Surgical History (Updated 04/19/25 @ 07:40 by Therese Chandler) History of gynecologic surgery Social History Smoking Status: Former smoker History Elective abortions Hx Para 2 Spontaneous abortions Hx # Term Pregnancies Ectopic pregnancies Hx # Pregnancies Multiple births # of living children NST FHR Rate Baby A Baseline: 145 Variability:: Moderate Accelerations:: 15 x 15 Decelerations:: None NST Reactive:: Yes Uterine Activity:: Irregular Assessment & Plan (1) 39 weeks gestation of : (2) Decreased movement: PLAN: Plan 1) Reactive NST 2) D/C home
== END 2025-04-18 18:50 | disposition home or self-care (01) ==
LOC: WPOUT 17:01 → WP 17:02
PROVIDERS: PCP Family Medicine; Referring Provider Advanced Practice Midwife; Visit Provider Advanced Practice Midwife
DX: O36.8130 Decreased fetal movements, third trimester, not applicable or unspecified (principal); Z3A.39 39 weeks gestation of pregnancy; Z87.891 Personal history of nicotine dependence
CPT/HCPCS: 59025; 59050; 84112

== ENCOUNTER 2025-04-19 07:16 | Inpatient (IN) | payer OTHER, SELFPAY ==
[2025-04-19] VITALS (33 sets, daily range): BP systolic 119–136; BP diastolic 62–90; PULSE 53–80; RESP 14–22; TEMP 36.3–37.1; O2SAT 97–100; BMI 38.6
--- OUTSIDE RECORDS SUMMARY | 2025-04-19 07:17 | XMS RPT_ITS | CCD ---
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 2 tablet 05/06/2024 05/06/2024 Active [id number] 0.3 ml EPINEPHrine 1 mg/ml auto-injector (20 sources) alpha-Adrenergic Agonist, beta-Adrenergic Agonist, Catecholamine Start: 05-13-2018 EPINEPHrine (EPIPEN) 0.3 mg/0.3 mL auto-injector NEEDED PRN For Allergies 05/13/2018 Active Comment on above: NEEDED PRN For Al lergies 273 day ethinyl estradiol 0.574956 mg/hr / segesterone acetate 0.77740 mg/hr vaginal system (5 sources) Estrogen Start: [...] daily. 30 tablet 1 01/06/2025 Active 25-IRON BQV-[id number]-VLF ORAL (19 sources) 25-IRON IPL-BHAOR-RUO ORAL Take by mouth. Active promethazine hydrochloride [...] of ; Translations: [30 weeks gestation of ([facility])] Onset: 02-17-2025 Episodic Residual codes; unclassified (1 source) 24 weeks gestation of ; Translations: [24 weeks gestation of ([facility])] Onset: 02-03-2025 Episodic Residual codes; unclassified (1 source) 28 weeks gestation of ; Translations: [28 weeks gestation of ([facility])] Onset: 02-03-2025 Episodic Unclassified (20 sources) [facility] Education - COMMON Onset: 04-23-2024 04-23-2024 Unclassified (11 sources) Education - [place] Onset: 09-23-2024 09-23-2024 Unclassified (1 source) Other obesity affecting in second trimester ([facility]); Translations: [Other obesity affecting in second trimester ([facility])] Onset: 10-17-2024 Past or Other Problems Problem [...] + Gardnerella vaginalis + Atopobium vaginae rRNA ITEZL+probe Ql (Vag fld) Detected Abnormal Not detected [facility] Comment on above: Order Comment: Speci men Type: SWABOrdering Facility: [facility] Address: [address] [place] [address] Performed By: #### C VTV, BVAMP ####[facility] LABCLIA [id number] [place] [address] [place] MILADIS/TRICHOMONAS NAATon 1 05-20-2024 C. glabrata RNA ITZEL+probe Ql (Vag fld) Not detected Normal Not detected [facility] Comment on above: Order Comment: Speci men Type: SWABOrdering Facility: [facility] Address: [address] [place] [address] Performed By: #### C VTV, BVAMP ####[facility] LABCLIA [id number] [address] [place] Miladis sp DNA ITZEL+probe Ql (Vag fld) Not detected Normal Not detected [facility] Comment on above: Order Comment: Speci men Type: SWABOrdering Facility: [facility] Address: [address] [place] [address] Result Comment: The Miladis species group target includes C. albicans, C. tropicalis, C. parapsilosis, and C. dubliniensis. Performed By: #### C VTV, BVAMP ####[facility] LABCLIA [id number] [address] [place] T. vaginalis DNA ITZEL+probe Ql (Unsp spec) Not detected Normal Not detected [facility] Comment on above: Order Comment: Speci men Type: SWABOrdering Facility: [facility] Address: [address] [place] [address] Performed By: #### C VTV, BVAMP ####[facility] LABCLIA [id number] [address] [place] Ender 02-15-2025 CNPN Telephone (OBGYWM) DORY PRADHAN ([id number]) 1995 F Date Time Provider Department 02/15/25 [...] tablet by mouth once daily. - 25-IRON [id number]-[id number]-KOY ORAL Take by mouth. - EPINEPHrine (EPIPEN) [...] Status:Closed by TIANNA MOTA on 02/15/25 Normal [facility] GLUCOSE GESTATIONAL, 1 HOURo n 02-10-2025 Glucose 1 Hr post Unsp challenge [Mass/Vol] 142 mg/dL Normal 74-179 [facility] Comment on above: Order Comment: Speci men Type: BLOOD SPECIMEN [facility] Address: [address] [place] [address] [place] [address] Result Comment: [facility] Congress of Obstetricians and Gynecologists (Koko/Brenda) guidelines state gestational diabetes mellitus is present when 2 or more of the plasma glucose concentrations meet or exceed the following levels: fastin mg/dl, 1 hr: 180 mg/dl, 2 hr: 155 mg/dl, and 3 hr: 140 mg/dl. Performed By: #### G TGST1 #### [facility] CLIA [id number] [address] [place] [address] [place] GLUCOSE GESTATIONAL, 2 HOURo n 02-10-2025 Glucose 2 Hr post Unsp challenge [Mass/Vol] 151 mg/dL Normal 74-154 [facility] Comment on above: Order Comment: Speci men Type: BLOOD SPECIMENOrdering Facility: [facility] Address: [address] [place] [address] Result Comment: [facility] Congress of Obstetricians and Gynecologists (Koko/Brenda) guidelines state gestational diabetes mellitus is present when 2 or more of the plasma glucose concentrations meet or exceed the following levels: fastin mg/dl, 1 hr: 180 mg/dl, 2 hr: 155 mg/dl, and 3 hr: 140 mg/dl. Performed By: #### G TGST2 ####[facility] [id number] [place] [address] [place] GLUCOSE GESTATIONAL, 3 HOURo n 02-10-2025 Glucose 3 Hr post Unsp challenge [Mass/Vol] 153 mg/dL High 74-139 [facility] Comment on above: Order Comment: Speci men Type: BLOOD SPECIMENOrdering Facility: [facility] Address: [address] [place] [address] Result Comment: [facility] Congress of Obstetricians and Gynecologists (Koko/Brenda) guidelines state gestational diabetes mellitus is present when 2 or more of the plasma glucose concentrations meet or exceed the following levels: fastin mg/dl, 1 hr: 180 mg/dl, 2 hr: 155 mg/dl, and 3 hr: 140 mg/dl. Performed By: #### G TGST3 ####[facility] [id number] [place] [address] [place] GLUCOSE GESTATIONAL, FASTING on 02-10-2025 Glucose post fast [Mass/Vol] 79 mg/dL Normal 74-94 [facility] Comment on above: Order Comment: Speci men Type: BLOOD SPECIMEN [facility] Address: [address] [place] [address] Result Comment: [facility] Congress of Obstetricians and Gynecologists (Koko/Brenda) guidelines state gestational diabetes mellitus is present when 2 or more of the plasma glucose concentrations meet or exceed the following levels: fastin mg/dl, 1 hr: 180 mg/dl, 2 hr: 155 mg/dl, and 3 hr: 140 mg/dl. Performed By: #### G TGSTF #### [facility] CLIA [id number] [address] [place] [address] [place] CBC W Auto Differential pane l (Bld)on 02-03-2025 Basophils (Bld) [#/Vol] 10*3/uL Normal <0.11 [facility] Comment on above: Order Comment: Speci men Type: BLOOD SPECIMEN [facility] Address: [address] [place] [address] Performed By: #### G TGST1 #### [facility] [id number] [address] [place] [address] [place] Basophils/100 WBC (Bld) 0.2 % Normal [facility] Comment on above: Order Comment: Speci men Type: BLOOD SPECIMEN [facility] Address: [address] [place] [address] Performed By: #### G TGST1 #### [facility] [id number] [address] [place] [address] [place] Differential cell count method Nom (Bld) Auto Normal [facility] Comment on above: Order Comment: Speci men Type: BLOOD SPECIMEN [facility] Address: [address] [place] [address] Performed By: #### G TGST1 #### [facility] [id number] [address] [place] [address] [place] Eosinophils (Bld) [#/Vol] 0.04 10*3/uL Normal <0.46 [facility] Comment on above: Order Comment: Speci men Type: BLOOD SPECIMEN [facility] Address: [address] [place] [address] Performed By: #### G TGST1 #### [facility] CLIA [id number] [address] [place] [address] [place] Eosinophils/100 WBC (Bld) 0.4 % Normal [facility] Comment on above: Order Comment: Speci men Type: BLOOD SPECIMEN [facility] Address: [address] [place] [address] Performed By: #### G TGST1 #### [facility] CLIA [id number] [address] [place] [address] [place] Erythrocyte distribution width (RBC) [Ratio] 13.3 % Normal 11.5-15.0 [facility] Comment on above: Order Comment: Speci men Type: BLOOD SPECIMEN [facility] Address: [address] [place] [address] Performed By: #### G TGST1 #### [facility] CLIA [id number] [address] [place] [address] [place] Hematocrit (Bld) [Volume fraction] 33.1 % Low 36.0-46.0 [facility] Comment on above: Order Comment: Speci men Type: BLOOD SPECIMEN [facility] Address: [address] [place] [address] Performed By: #### G TGST1 #### [facility] [id number] [address] [place] [address] [place] Hemoglobin (Bld) [Mass/Vol] 11.2 g/dL Low 11.5-15.5 [facility] Comment on above: Order Comment: Speci men Type: BLOOD SPECIMEN [facility] Address: [address] [place] [address] Performed By: #### G TGST1 #### [facility] CLIA [id number] [address] [place] [address] [place] Immature granulocytes (Bld) [#/Vol] 0.05 10*3/uL Normal <0.10 [facility] Comment on above: Order Comment: Speci men Type: BLOOD SPECIMEN [facility] Address: [address] [place] [address] Performed By: #### G TGST1 #### [facility] CLIA [id number] [address] [place] [address] [place] Immature granulocytes/100 WBC (Bld) 0.5 % Normal [facility] Comment on above: Order Comment: Speci men Type: BLOOD SPECIMEN [facility] Address: [address] [place] [address] Performed By: #### G TGST1 #### [facility] CLIA [id number] [address] [place] [address] [place] Lymphocytes (Bld) [#/Vol] 1.63 10*3/uL Normal 1.00-4.00 [facility] Comment on above: Order Comment: Speci men Type: BLOOD SPECIMEN [facility] Address: [address] [place] [address] Performed By: #### G TGST1 #### [facility] CLIA [id number] [address] [place] [address] [place] Lymphocytes/100 WBC (Bld) 16.8 % Normal [facility] Comment on above: Order Comment: Speci men Type: BLOOD SPECIMEN [facility] Address: [address] [place] [address] Performed By: #### G TGST1 #### [facility] CLIA [id number] [address] [place] [address] [place] MCH (RBC) [Entitic mass] 30.0 pg Normal 26.0-34.0 [facility] Comment on above: Order Comment: Speci men Type: BLOOD SPECIMEN [facility] Address: [address] [place] [address] Performed By: #### G TGST1 #### [facility] CLIA [id number] [address] [place] [address] [place] MCHC (RBC) [Mass/Vol] 33.8 g/dL Normal 30.5-36.0 [facility] Comment on above: Order Comment: Speci men Type: BLOOD SPECIMEN [facility] Address: [address] [place] [address] Performed By: #### G TGST1 #### [facility] CLIA [id number] [address] [place] [address] [place] MCV (RBC) [Entitic vol] 88.7 fL Normal 80.0-100.0 [facility] Comment on above: Order Comment: Speci men Type: BLOOD SPECIMEN [facility] Address: [address] [place] [address] Performed By: #### G TGST1 #### [facility] CLIA [id number] [address] [place] [address] [place] Monocytes (Bld) [#/Vol] 0.42 10*3/uL Normal <0.87 [facility] Comment on above: Order Comment: Speci men Type: BLOOD SPECIMEN [facility] Address: [address] [place] [address] Performed By: #### G TGST1 #### [facility] CLIA [id number] [address] [place] [address] [place] Monocytes/100 WBC (Bld) 4.3 % Normal [facility] Comment on above: Order Comment: Speci men Type: BLOOD SPECIMEN [facility] Address: [address] [place] [address] Performed By: #### G TGST1 #### [facility] CLIA [id number] [address] [place] [address] [place] Neutrophils (Bld) [#/Vol] 7.57 10*3/uL High 1.45-7.50 [facility] Comment on above: Order Comment: Speci men Type: BLOOD SPECIMEN [facility] Address: [address] [place] [address] Performed By: #### G TGST1 #### [facility] CLIA [id number] [address] [place] [address] [place] Neutrophils/100 WBC (Bld) 77.8 % Normal [facility] Comment on above: Order Comment: Speci men Type: BLOOD SPECIMEN [facility] Address: [address] [place] [address] Performed By: #### G TGST1 #### [facility] CLIA [id number] [address] [place] [address] [place] Nucleated RBC (Bld) [#/Vol] 10*3/uL Normal <0.01 [facility] Comment on above: Order Comment: Speci men Type: BLOOD SPECIMEN [facility] Address: [address] [place] [address] Performed By: #### G TGST1 #### [facility] CLIA [id number] [address] [place] [address] [place] Nucleated RBC/100 WBC (Bld) [Ratio] 0.0 /100 WBC Normal [facility] Comment on above: Order Comment: Speci men Type: BLOOD SPECIMEN [facility] Address: [address] [place] [address] Performed By: #### G TGST1 #### [facility] CLIA [id number] [address] [place] [address] [place] Platelet mean volume (Bld) [Entitic vol] 9.3 fL Normal 9.0-12.7 [facility] Comment on above: Order Comment: Speci men Type: BLOOD SPECIMEN [facility] Address: [address] [place] [address] Performed By: #### G TGST1 #### [facility] CLIA [id number] [address] [place] [address] [place] Platelets (Bld) [#/Vol] 229 10*3/uL Normal 150-400 [facility] Comment on above: Order Comment: Speci men Type: BLOOD SPECIMEN [facility] Address: [address] [place] [address] Performed By: #### G TGST1 #### [facility] CLIA [id number] [address] [place] [address] [place] RBC (Bld) [#/Vol] 3.73 10*6/uL Low 3.90-5.20 [facility] Comment on above: Order Comment: Speci men Type: BLOOD SPECIMEN [facility] Address: [address] [place] [address] Performed By: #### G TGST1 #### [facility] CLIA [id number] [address] [place] [address] [place] WBC (Bld) [#/Vol] 9.73 10*3/uL Normal 3.70-11.00 [facility] Comment on above: Order Comment: Speci men Type: BLOOD SPECIMEN [facility] Address: [address] [place] [address] Performed By: #### G TGST1 #### [facility] CLIA [id number] [address] [place] [address] [place] GESTATIONAL GLUCOSE SCREEN, 1-HOUR, 50 GRAM, NON-FASTINGon 02-03-2025 Glucose [Mass/Vol] 171 mg/dL High 74-134 [facility] Comment on above: Order Comment: Speci men Type: BLOOD SPECIMENOrdering Facility: [facility] Address: [address] [place] [address] Result Comment: [facility] Congress of Obstetricians and Gynecologists (Koko/Brenda) guidelines state a gestational diabetes mellitus positive screen is made, in women not previously diagnosed with overt diabetes, when the 1 hr plasma glucose level is equal to or above 140 mg/dL. [facility] Administrative Resources Associate and [facility] recommends a 135 mg/dL cutoff. Performed By: #### G LTGST ####[facility] [id number] [place] [address] [place] Reagin and Treponema pallidu m IgG and IgM [Interp]on 02-03-2025 T. pallidum IgG+IgM IA Ql (S) Non-Reactive Normal Nonreactive [facility] Comment on above: Order Comment: Klarissa marcus Type: BLOOD SPECIMEN [facility] Address: [address] [place] [address] Performed By: #### G TGST1 #### [facility] CLIA [id number] [address] [place] [address] [place] Reagin+T pallidum IgG+IgM Se rPl-Impon 02-03-2025 Reagin and Treponema pallidum IgG and IgM [Interp] Cannot exclude recent Treponemal infection if specimen collected within 7-10 days after appearance of suspect lesions or 2-3 weeks after an exposure. Clinical correlation is required. Normal [facility] Comment on above: Order Comment: Klarissa marcus Type: BLOOD SPECIMEN [facility] Address: [address] [place] [address] Performed By: #### G TGST1 #### [facility] CLIA [id number] [address] [place] [address] [place] CNPNon 12-19-2024 CNPN Telephone (OBGYW) DORY PRADHAN ([id number]) 1995 F Date Time Provider Department 12/19/24 [...] 4:53 PM Signed Thank you. Would recommend [facility] due to gestational age if needing to go in. Thank you, PHYLLIS Franks Jennifer, RN 12/19/2024 5:00 PM Signed Patient notified. Giana Alexandre RN Allergies As of Date: 12/19/2024 Noted Allergy Reaction PEANUTS 06/01/2019 10 - Anaphylaxis Date Reviewed: 12/09/2024 Reviewed by: Kailee Rahman APRN.SALES SUPPORT ADMINISTRATOR - Fully Assessed Prescriptions as of 12/19/2024 [...] tablet by mouth once daily. - 25-IRON THS-FSFIQ-CUF ORAL Take by mouth. - EPINEPHrine (EPIPEN) [...] Encounter Status:Closed by GIANA ALEXANDRE on 12/19/24 [facility] ([id number]) 1995 F Date Time Provider Department 12/12/24 TIANNA MOTA During your visit today, we recorded the following information about you: Tianna Mota APRN.CNM 12/12/2024 4:44 PM Signed Attempted to call patient to notify and personal counselor on low lying placenta. No answer and unable to leave message. Will have supervisor education provider attempt tomorrow. PHYLLIS Loyd Jennifer, RN [...] Date Reviewed: 12/09/2024 Reviewed by: Kailee Rahman APRN.SALES SUPPORT ADMINISTRATOR - Fully Assessed Reason for Visit: Results [...] tablet by mouth once daily. - 25-IRON ZZZ-IZKHX-ACF ORAL Take by mouth. - EPINEPHrine (EPIPEN) [...] Status:Closed by TIANNA MOTA on 12/12/24 Normal [facility] Examination level ultrasound on 12-12-2024 Indication [...] Placenta: Placental site: posterior, low lying. Placental rfar-ah-kfywtmlk os distance 8 mm Umbilical cord: Cord [...] 13 oz EFW by: [place] (HC-AC-FL) Extended Underwater Hunter 5.9 mm CM 4.7 mm 36% Nicolaides [...] normal LVOT view: normal 3-vessel view: normal 1-zlhiec-jlnxlfg view: normal Heart / Thorax Situs: situs [...] Read By: Cristina Alegre M.D. MATERNAL MEDICINE [facility] Examination level ultrasound on 12-09-2024 Radiology Study observation (narrative) [facility] 12-05-2024 [facility] Telephone (OBGYWM) DORY PRADHAN ([id number]) 1995 F Date Time Provider Department 12/05/24 [...] can have antiemetic prescribed and sent to [facility] in [place]. Encouraged to push fluids and include electrolytes. [...] tablet by mouth once daily. - 25-IRON [id number]-HFD ORAL Take by mouth. - EPINEPHrine (EPIPEN) [...] RECTAL SUPPOSIT* 12 e* 0 12/05/2024 Route: MT Si suppository by RECTAL route every 6 hours as needed. Encounter Status:Closed by TIANNA MOTA on 12/05/24 Normal [facility] Examination level ultrasound on 10-17-2024 Indication First trimester anatomic survey Maternal obesity, BMI >30 Impression The patient is referred for a first trimester anatomy scan including nuchal translucency measurement as clinically indicated. - Single, live, intrauterine . - Galisteo rump length measurement is consistent with the [...] view: visualized 4-chamber view with color: visualized 2-jlkqvb-angshfq view: visualized Abdominal cord insertion: normal Stomach: [...] Read By: Bella Mak M.D. MATERNAL MEDICINE [facility] Radiology Study observation (narrative) [facility] Bacteria Ur Culton Bacteria identified Cx Nom (U) ORGANISM ID: 1 10,000 -<50,000 CFU/ml Normal urogenital daniel Normal [facility] Comment on above: Performed By: #### 6 30-4 ####[facility] LABCLIA [id number] [place] [address] [place] C. trachomatis+N. gonorrhoea e DNA ITZEL+probe Ql (Unsp spec)on 09-23-2024 C. trachomatis rRNA ITZEL+probe Ql (Unsp spec) Not detected Normal Not detected [facility] Comment on above: Order Comment: Speci men Type: SWABOrdering Facility: [facility] Address: [address] [place] [address] Performed By: #### T RVAMP, 02360-8 ####[facility] LABCLIA [id number] [address] [place] N. gonorrhoeae rRNA ITZEL+probe Ql (Unsp spec) Not detected Normal Not detected [facility] Comment on above: Order Comment: Speci men Type: SWABOrdering Facility: [facility] Address: [address] [place] [address] Performed By: #### T RVAMP, 96380-5 ####[facility] LABCLIA [id number] [place] [address] [place] CBC W Auto Differential pane l (Bld)on 09-23-2024 Basophils (Bld) [#/Vol] 0.03 10*3/uL Normal <0.11 [facility] Comment on above: Order Comment: Speci men Type: BLOOD SPECIMENOrdering Facility: [facility] Address: [address] [place] [address] Performed By: #### 5 7021-8 ####[facility] [id number] [place] [address] [place] Basophils/100 WBC (Bld) 0.3 % Normal [facility] Comment on above: Order Comment: Speci men Type: BLOOD SPECIMENOrdering Facility: [facility] Address: [address] [place] [address] Performed By: #### 5 7021-8 ####[facility] [id number] [place] [address] [place] Differential cell count method Nom (Bld) Auto Normal [facility] Comment on above: Order Comment: Speci men Type: BLOOD SPECIMENOrdering Facility: [facility] Address: [address] [place] [address] Performed By: #### 5 7021-8 ####[facility] [id number] [place] [address] [place] Eosinophils (Bld) [#/Vol] 0.05 10*3/uL Normal <0.46 [facility] Comment on above: Order Comment: Speci men Type: BLOOD SPECIMENOrdering Facility: [facility] Address: [address] [place] [address] Performed By: #### 5 7021-8 ####[facility] [id number] [place] [address] [place] Eosinophils/100 WBC (Bld) 0.5 % Normal [facility] Comment on above: Order Comment: Speci men Type: BLOOD SPECIMENOrdering Facility: [facility] Address: [address] [place] [address] Performed By: #### 5 7021-8 ####[facility] [id number] [place] [address] [place] Erythrocyte distribution width (RBC) [Ratio] 12.7 % Normal 11.5-15.0 [facility] Comment on above: Order Comment: Speci men Type: BLOOD SPECIMENOrdering Facility: [facility] Address: [address] [place] [address] Performed By: #### 5 7021-8 ####[facility]ENTERWNCLIA [id number] [place] [address] [place] Hematocrit (Bld) [Volume fraction] 37.7 % Normal 36.0-46.0 [facility] Comment on above: Order Comment: Speci men Type: BLOOD SPECIMENOrdering Facility: [facility] Address: [address] [place] [address] Performed By: #### 5 7021-8 ####[facility] SYSTEMLIA [id number] [place] [address] [place] Hemoglobin (Bld) [Mass/Vol] 12.9 g/dL Normal 11.5-15.5 [facility] Comment on above: Order Comment: Speci men Type: BLOOD SPECIMENOrdering Facility: [facility] Address: [address] [place] [address] Performed By: #### 5 7021-8 ####[facility] [id number] [place] [address] [place] Immature granulocytes (Bld) [#/Vol] 0.03 10*3/uL Normal <0.10 [facility] Comment on above: Order Comment: Speci men Type: BLOOD SPECIMENOrdering Facility: [facility] Address: [address] [place] [address] Performed By: #### 5 7021-8 ####[facility] SYSTEMLIA [id number] [place] [address] [place] Immature granulocytes/100 WBC (Bld) 0.3 % Normal [facility] Comment on above: Order Comment: Speci men Type: BLOOD SPECIMENOrdering Facility: [facility] Address: [address] [place] [address] Performed By: #### 5 7021-8 ####[facility]ALTHNCLIA [id number] [place] [address] [place] Lymphocytes (Bld) [#/Vol] 2.13 10*3/uL Normal 1.00-4.00 [facility] Comment on above: Order Comment: Speci men Type: BLOOD SPECIMENOrdering Facility: [facility] Address: [address] [place] [address] Performed By: #### 5 7021-8 ####[facility] [id number] [place] [address] [place] Lymphocytes/100 WBC (Bld) 22.0 % Normal [facility] Comment on above: Order Comment: Speci men Type: BLOOD SPECIMENOrdering Facility: [facility] Address: [address] [place] [address] Performed By: #### 5 7021-8 ####[facility] [id number] [place] [address] [place] MCH (RBC) [Entitic mass] 30.9 pg Normal 26.0-34.0 [facility] Comment on above: Order Comment: Speci men Type: BLOOD SPECIMENOrdering Facility: [facility] Address: [address] [place] [address] Performed By: #### 5 7021-8 ####[facility] [id number] [place] [address] [place] MCHC (RBC) [Mass/Vol] 34.2 g/dL Normal 30.5-36.0 [facility] Comment on above: Order Comment: Speci men Type: BLOOD SPECIMENOrdering Facility: [facility] Address: [address] [place] [address] Performed By: #### 5 7021-8 ####[facility] [id number] [place] [address] [place] MCV (RBC) [Entitic vol] 90.4 fL Normal 80.0-100.0 [facility] Comment on above: Order Comment: Speci men Type: BLOOD SPECIMENOrdering Facility: [facility] Address: [address] [place] [address] Performed By: #### 5 7021-8 ####[facility]LANMARILYNA [id number] [place] [address] [place] Monocytes (Bld) [#/Vol] 0.47 10*3/uL Normal <0.87 [facility] Comment on above: Order Comment: Speci men Type: BLOOD SPECIMENOrdering Facility: [facility] Address: [address] [place] [address] Performed By: #### 5 7021-8 ####[facility] [id number] [place] [address] [place] Monocytes/100 WBC (Bld) 4.9 % Normal [facility] Comment on above: Order Comment: Speci men Type: BLOOD SPECIMENOrdering Facility: [facility] Address: [address] [place] [address] Performed By: #### 5 7021-8 ####[facility] HEALTHNCA [id number] [place] [address] [place] Neutrophils (Bld) [#/Vol] 6.95 10*3/uL Normal 1.45-7.50 [facility] Comment on above: Order Comment: Speci men Type: BLOOD SPECIMENOrdering Facility: [facility] Address: [address] [place] [address] Performed By: #### 5 7021-8 ####[facility] SYSTEMLIA [id number] [place] [address] [place] Neutrophils/100 WBC (Bld) 72.0 % Normal [facility] Comment on above: Order Comment: Speci men Type: BLOOD SPECIMENOrdering Facility: [facility] Address: [address] [place] [address] Performed By: #### 5 7021-8 ####[facility] HARLANWMARALLIA [id number] [place] [address] [place] Nucleated RBC (Bld) [#/Vol] 10*3/uL Normal <0.01 [facility] Comment on above: Order Comment: Speci men Type: BLOOD SPECIMENOrdering Facility: [facility] Address: [address] [place] [address] Performed By: #### 5 7021-8 ####[facility] SYSTEMLIA [id number] [place] [address] [place] Nucleated RBC/100 WBC (Bld) [Ratio] 0.0 /100 WBC Normal [facility] Comment on above: Order Comment: Speci men Type: BLOOD SPECIMENOrdering Facility: [facility] Address: [address] [place] [address] Performed By: #### 5 7021-8 ####[facility] [id number] [place] [address] [place] Platelet mean volume (Bld) [Entitic vol] 9.3 fL Normal 9.0-12.7 [facility] Comment on above: Order Comment: Speci men Type: BLOOD SPECIMENOrdering Facility: [facility] Address: [address] [place] [address] Performed By: #### 5 7021-8 ####[facility] [id number] [place] [address] [place] Platelets (Bld) [#/Vol] 281 10*3/uL Normal 150-400 [facility] Comment on above: Order Comment: Speci men Type: BLOOD SPECIMENOrdering Facility: [facility] Address: [address] [place] [address] Performed By: #### 5 7021-8 ####[facility] HEALTHNCLI [id number] [place] [address] [place] RBC (Bld) [#/Vol] 4.17 10*6/uL Normal 3.90-5.20 [facility] Comment on above: Order Comment: Speci men Type: BLOOD SPECIMENOrdering Facility: [facility] Address: [address] [place] [address] Performed By: #### 5 7021-8 ####[facility] [id number] [place] [address] [place] WBC (Bld) [#/Vol] 9.66 10*3/uL Normal 3.70-11.00 [facility] Comment on above: Order Comment: Speci men Type: BLOOD SPECIMENOrdering Facility: [facility] Address: [address] [place] [address] Performed By: #### 5 7021-8 ####[facility] [id number] [place] [address] [place] HBV surface Ag Ser Qlon 05-0 HBV surface Ag Ql (S) Negative Normal Negative [facility] Comment on above: Order Comment: Speci men Type: BLOOD SPECIMEN [facility] Address: [address] [place] [address] Performed By: #### G TGST1 #### [facility] CLIA [id number] [address] [place] [address] [place] HCV Ab Ser Qlon 09-23-2024 HCV Ab Ql (S) Negative Normal Negative [facility] Comment on above: Order Comment: Speci men Type: BLOOD SPECIMENOrdering Facility: [facility] Address: [address] [place] [address] Result Comment: The result suggests no evidence of infection with Hepatitis C virus. Should recent infection be suspected, repeat testing may be considered 4-6 weeks after this draw. Performed By: #### 1 6128-1 ####[facility] LABCLIA [id number] [address] OF [facility] HIV 1+2 Ab IA Qlon HIV 1 and 2 Ab IA.rapid Nom (S/P/Bld) Normal [facility] Comment on above: Order Comment: Speci men Type: BLOOD SPECIMEN [facility] Address: [address] [place] [address] Result Comment: Test not indicated. Performed By: #### G TGST1 #### [facility] CLIA [id number] [address] [place] [address] [place] HIV 1+2 Ab+HIV1 p24 Ag IA Ql Non-Reactive Normal Nonreactive [facility] Comment on above: Order Comment: Speci men Type: BLOOD SPECIMEN [facility] Address: [address] [place] [address] Performed By: #### G TGST1 #### [facility]IA [id number] [address] [place] [address] [place] [facility] HIV immunoassay testing algorithm interpretation (S/P/Bld) [Interp] Normal [facility] Comment on above: Order Comment: Speci men Type: BLOOD SPECIMEN [facility] Address: [address] [place] [address] Result Comment: No e vidence of HIV-1 or HIV-2 infection. Should recent infection be suspected, repeat testing may be considered 2-3 weeks after this draw. [place] Rev. Code 3701.243(E): This information has been [...] diagnoses. Performed By: #### G TGST1 #### [facility] CLIA [id number] [address] [place] [address] [place] HbA1c (Bld)on 09-23-2024 Average glucose Estimated from glycated hemoglobin (Bld) [Mass/Vol] 85 mg/dL Normal [facility] Comment on above: Order Comment: Speci men Type: BLOOD SPECIMENOrdering Facility: [facility] Address: [address] [place] [address] Result Comment: eAG: (Estimated average glucose) is a calculated value from HgbA1c and is pharmaceutical representative of the average blood glucose level in the last 2-3 month period. Performed By: #### 5 5454-3 ####[facility] LABCLIA [id number] [address] STATES OF [facility] HbA1c (Bld) [Mass fraction] 4.6 % Normal 4.3-5.6 [facility] Comment on above: Order Comment: Specnathalie marcus Type: BLOOD SPECIMENOrdering Facility: [facility] Address: [address] [place] [address] Result Comment: Amer ican Diabetes Association guidelines indicate that patients with HgbA1c in the range 5.7-6.4% are at increased risk for development of diabetes, and intervention by lifestyle modification may be beneficial. HgbA1c greater or equal to 6.5% is considered diagnostic of diabetes. Performed By: #### 5 5454-3 ####[facility] LABCLIA [id number] [address] [place] POC MANAGER ENTERPRISE ULTRASOUNDon 09-24-19 25 Indication Viability; confirm cardiac [...] Read By: Tianna Mota CNM MATERNAL MEDICINE [facility] Radiology Study observation (narrative) [facility] RUBELLA IGG ANTIBODYon 09-23 RUBELLA IGG AB, QUAL Positive Normal Positive [facility] Comment on above: Order Comment: Speci men Type: BLOOD SPECIMENOrdering Facility: [facility] Address: [address] [place] [address] Result Comment: The result suggests recent or past exposure to Rubella virus or history of Rubella vaccination. Positive result may also be seen due to presence of passively-transferred antibodies. Please correlate with patient's history. Performed By: #### R UBIGG ####[facility] LABCLIA [id number] [place] [address] [place] Reagin and Treponema pallidu m IgG and IgM [Interp]on 09-23-2024 T. pallidum IgG+IgM IA Ql (S) Non-Reactive Normal Nonreactive [facility] Comment on above: Order Comment: Klarissa marcus Type: BLOOD SPECIMEN [facility] Address: [address] [place] [address] Performed By: #### G TGST1 #### [facility] CLIA [id number] [address] [place] [address] [place] Reagin+T pallidum IgG+IgM Se rPl-Impon 09-23-2024 Reagin and Treponema pallidum IgG and IgM [Interp] Cannot exclude recent Treponemal infection if specimen collected within 7-10 days after appearance of suspect lesions or 2-3 weeks after an exposure. Clinical correlation is required. Normal [facility] Comment on above: Order Comment: Speci men Type: BLOOD SPECIMEN [facility] Address: [address] [place] [address] Performed By: #### G TGST1 #### [facility] CLIA [id number] [address] [place] [address] [place] TRICHOMONAS VAGINALIS NAATon 09-23-2024 T. vaginalis DNA ITZEL+probe Ql (Unsp spec) Not detected Normal Not detected [facility] Comment on above: Order Comment: Speci men Type: SWABOrdering Facility: [facility] Address: [address] [place] [address] Performed By: #### T RVAMP, 52698-2 ####[facility] LABCLIA [id number] [address] OF [facility] TYPE + SCREEN PRENATALon ABO B Normal [facility] Comment on above: Order Comment: Speci men Type: BLOOD SPECIMENOrdering Facility: [facility] Address: [address] [place] [address] Performed By: #### T SPN ####[facility] B[facility] BANKIA [id number] [place] [address] [place] Rh Nom (Bld) Positive Normal [facility] Comment on above: Order Comment: Speci men Type: BLOOD SPECIMENOrdering Facility: [facility] Address: [address] [place] [address] Performed By: #### T SPN ####[facility] B[facility] BANKCLIA [id number] [place] [address] [place] TYPE AND SCREEN EXPIRATION 09/26/2024 23:59 Normal [facility] Comment on above: Order Comment: Speci men Type: BLOOD SPECIMENOrdering Facility: [facility] Address: [address] [place] [address] Performed By: #### T SPN ####[facility] B[facility] BANKCLIA [id number] [place] [address] [place] CNOVon 07-01-2024 CNOV Office Visit (OBGYWM ) DORY PRADHAN ([id number]) 1995 F Date Time Provider Department 07/01/24 [...] 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: 06/13/2024 (Exact Date), Having periods Age at Menarche: 10 Age at First : Age at 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 As applicable, any other physician, advance practice provider, medical student, or other health professional student that will be observing or involved in the sensitive examination for educational or training purposes was discussed with the Patient or Authorized Dovetail Machine Operator. The Patient or Authorized Dovetail Machine Operator has agreed to proceed with the sensitive [...] external genitalia normal, normal [place]tholin's glands, urethra, [place]'s glands, no vulvar lesions, no cervical lesions, [...] daily Follow (more content not included)... Normal [facility] HIGH RISK HUMAN PAPILLOMA CROW (HPV), PCR FOR DETECTION AND GENOTYPINGon 07-01-2024 HPV 16 Ag Ql (Unsp spec) Not detected Normal Not detected [facility] Comment on above: Order Comment: Speci men Type: FLUID SPECIMENOrdering Facility: [facility] Address: [address] [place] [address] Performed By: #### H PVHRT ####[facility] LABCLIA [id number] [address] [place] HPV 18 Ag Ql (Unsp spec) Not detected Normal Not detected [facility] Comment on above: Order Comment: Speci men Type: FLUID SPECIMENOrdering Facility: [facility] Address: [address] [place] [address] Performed By: #### H PVHRT ####[facility] LABCLIA [id number] [address] [place] HPV 31+33+35+39+45+51+52 +56+58+59+66+68 DNA ITZEL+probe Ql (Cvx) Not detected Normal Not detected [facility] Comment on above: Order Comment: Speci men Type: FLUID SPECIMENOrdering Facility: [facility] Address: [address] [place] [address] Result Comment: High Risk HPV Other Type includes HPV types 31, 33, 35, 39, 45, 51, 52, 56, 58, 59, 66 and 68. Performed By: #### H PVHRT ####[facility] LABCLIA [id number] [place] [address] [place] PAP TESTon 07-01-2024 ADEQUACY Normal [facility] Comment on above: Order Comment: Speci men Type: FLUID SPECIMENOrdering Facility: [facility] Address: [address] [place] [address] Result Comment: Sati sfactory for interpretation. Transformation zone present Performed By: #### L [id number] ####[facility] LABCLIA [id number] [place] [address] [place] CASE REPORT Normal [facility] Comment on above: Order Comment: Speci men Type: FLUID SPECIMENOrdering Facility: [facility] Address: [address] [place] [address] Result Comment: Gyne cologic Cytology Report Case: [id number] Authorizing Provider: Tianna Mota APRN.CNHaylee Collected: 07/01/2024 11:06 AM Ordering Location: OB/Gynecology Received: 07/01/2024 12:02 PM First Screen: Gmitro, Scooby, CT, ASCP Specimen: Pap Test, ThinPrep, Cervix Performed By: #### L [id number] ####[facility] LABCLIA [id number] [place] [address] [place] CLINICAL HISTORY, CYTOLOGY, BIOCHEMISTRY TEACHER Routine Exam Normal [facility] Comment on above: Order Comment: Speci men Type: FLUID SPECIMENOrdering Facility: [facility] Address: [address] [place] [address] Performed By: #### L [id number] ####[facility] LABCLIA [id number] [place] [address] [place] FINAL PERFORMING LAB Normal [facility] Comment on above: Order Comment: Speci men Type: FLUID SPECIMENOrdering Facility: [facility] Address: [address] [place] [address] Result Comment: Tech nical component, wind turbine electrical engineer screening performed at [facility], [address] [place] [address] CLIA# [id number] Diagnostic interpretation performed at [facility], [address] [place] [address] CLIA# [id number] Flame Annealing Machine Setter: Chris Bell M.D. Performed By: #### L [id number] ####[facility] LABCLIA [id number] [place] [address] [place] INTERPRETATION, CYTOLOGY, BIOCHEMISTRY TEACHER Normal [facility] Comment on above: Order Comment: Speci men Type: FLUID SPECIMENOrdering Facility: [facility] Address: [address] [place] [address] Result Comment: Nega tive for intraepithelial lesion or malignancy. at 0711 EST Performed By: #### L [id number] ####[facility] LABCLIA [id number] [place] [address] [place] LMP 06/13/2024 Normal [facility] Comment on above: Order Comment: Speci men Type: FLUID SPECIMENOrdering Facility: [facility] Address: [address] [place] [address] Performed By: #### L [id number] ####[facility] LABCLIA [id number] [place] [address] [place] PAP DISCLAIMER COMMENT The Pap Smear is a screening test for cervical cancer. False negative results occur with all screening tests, emphasizing the need for rescreening at recommended intervals, and clinical correlation. Normal [facility] Comment on above: Order Comment: Speci men Type: FLUID SPECIMENOrdering Facility: [facility] Address: [address] [place] [address] Performed By: #### L [id number] ####[facility] LABCLIA [id number] [place] [address] [place] PAP CUSTOM MARINE CANVAS FABRICATOR COMMENT This specimen has be en analyzed by the ThinPrep Imaging System, an automated imaging and review system, which assists the laboratory in evaluating cells on ThinPrep Pap tests. Following automated imaging, selected allen from every slide are reviewed by a wind turbine electrical engineer. Normal [facility] Comment on above: Order Comment: Speci men Type: FLUID SPECIMENOrdering Facility: [facility] Address: [address] [place] [address] Performed By: #### L [id number] ####[facility] LABCLIA [id number] [facility] [id number] V[place] [id number] [place] B-HCG SerPl-aCncon 5 HCG.beta subunit Qn 19.1 m[IU]/mL High <5.0 [facility] Comment on above: Order Comment: Speci men Type: BLOOD SPECIMEN [facility] Address: [address] [place] [address] Result Comment: DANE TITATIVE HCG NORMAL RANGES Weeks of Gestation (Weeks Since LMP) 3 Weeks (5.8-71.2 mIU/mL) 4 Weeks (9.5-750 mIU/mL) 5 Weeks (217-7138 mIU/mL) 6 Weeks (158-04020 mIU/mL) 7 Weeks (3697-665954 mIU/mL) 8 Weeks (87948-629785 mIU/mL) 9 Weeks (59470-414049 mIU/mL) 10 Weeks (16197-060643 mIU/mL) 12 Weeks (95747-104508 mIU/mL) Referenced to 4th IS of [facility] Performed By: #### G TGST1 #### [facility] [id number] [address] [place] [address] [place] B-HCG SerPl-aCncon 5 HCG.beta subunit Qn 52.9 m[IU]/mL High <5.0 [facility] Comment on above: Order Comment: Speci men Type: BLOOD SPECIMEN [facility] Address: [address] [place] [address] Result Comment: DANE TITATIVE HCG NORMAL RANGES Weeks of Gestation (Weeks Since LMP) 3 Weeks (5.8-71.2 mIU/mL) 4 Weeks (9.5-750 mIU/mL) 5 Weeks (217-7138 mIU/mL) 6 Weeks (158-10313 mIU/mL) 7 Weeks (3697-856121 mIU/mL) 8 Weeks (85439-604701 mIU/mL) 9 Weeks (18639-015725 mIU/mL) 10 Weeks (23567-058178 mIU/mL) 12 Weeks (37369-049854 mIU/mL) Referenced to 4th IS of [facility] Performed By: #### G TGST1 #### [facility] [id number] [address] [place], [place] [address] [place] B-HCG SerPl-aCncon 5 HCG.beta subunit Qn 142.6 m[IU]/mL High <5.0 [facility] Comment on above: Order Comment: Speci men Type: BLOOD SPECIMENOrdering Facility: [facility] Address: [address] [place] [address] Result Comment: DANE TITATIVE HCG NORMAL RANGES Weeks of Gestation (Weeks Since LMP) 3 Weeks (5.8-71.2 mIU/mL) 4 Weeks (9.5-750 mIU/mL) 5 Weeks (217-7138 mIU/mL) 6 Weeks (158-04101 mIU/mL) 7 Weeks (3697-852108 mIU/mL) 8 Weeks (35025-738624 mIU/mL) 9 Weeks (22120-036889 mIU/mL) 10 Weeks (58714-466304 mIU/mL) 12 Weeks (25263-630773 mIU/mL) Referenced to 4th IS of [facility] Performed By: #### 2 1198-7 ####[facility] LABCLIA [id number] [facility] [id number] [address] [place] B-HCG SerPl-aCncon 4 HCG.beta subunit Qn 606.3 m[IU]/mL High <5.0 C [facility] Comment on above: Order Comment: Speci men Type: BLOOD SPECIMENOrdering Facility: [facility] Address: [address] [place] [address] Result Comment: DANE TITATIVE HCG NORMAL RANGES Weeks of Gestation (Weeks Since LMP) 3 Weeks (5.8-71.2 mIU/mL) 4 Weeks (9.5-750 mIU/mL) 5 Weeks (217-7138 mIU/mL) 6 Weeks (158-15010 mIU/mL) 7 Weeks (3697-278821 mIU/mL) 8 Weeks (74000-798199 mIU/mL) 9 Weeks (92063-092653 mIU/mL) 10 Weeks (86897-732131 mIU/mL) 12 Weeks (85582-400073 mIU/mL) Referenced to 4th IS of [facility] Performed By: #### 2 1198-7 ####[facility] LABIA [id number] [address] CNPAlison 05-13-2024 CNPN Telephone (OBGYWM) DORY PRADHAN ([id number]) 1995 F Date Time Provider Department 05/13/24 [...] tablet by mouth once daily. - 25-IRON SGR-UTHAP-BBN ORAL Take by mouth. - EPINEPHrine (EPIPEN) [...] Encounter Status:Closed by RHINA CONNORS on 05/13/24 [facility] CNOVon 05-06-2024 CNOV Office Visit (OBGYWM ) DORY PRADHAN ([id number]) 1995 F Date Time Provider Department 05/06/24 2:20 PM KATHLEEN PATEL OBGYWM During your visit today, we recorded the following information about you: Pulse Respiration Blood pressure Weight 96/minute 18/minute 136/88 87.5 kg Kathleen Patel MD 05/06/2024 4:25 PM Signed It Sales Consultant offered: Patient declines. 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 EPINEPHrine (EPIPEN) 0.3 [...] discussed with the Patient or Patient's Authorized Dovetail Machine Operator. As applicable, any other physician, advance practice provider, medical student, or other health professional student that will be observing or involved in the sensitive examination for educational or training purposes was discussed with the Patient or Authorized Dovetail Machine Operator. The Patient or Authorized Dovetail Machine Operator has agreed to proceed with the sensitive [...] external genitalia normal, normal Bartholin's glands, urethra, [place]'s glands, no vulvar lesions, no cervical lesions, [...] RAMBO proc (more content not included)... [facility] SURGICAL PATHOLOGYon 024 CASE REPORT Normal [facility] Comment on above: Order Comment: Speci men Type: TISSUE SPECIMENOrdering Facility: [facility] Address: [address] [place] [address] Result Comment: Surg ica Pathology Report Case: [id number] Authorizing Provider: Kathleen Patel, Collected: 05/06/2024 03:34 PM Ordering Location: OB/Gynecology Received: 05/06/2024 04:42 PM Pathologist: Susan Nielsen MD Specimen: Products of Conception Performed By: #### S ####[facility] LABCLIA [id number] [place] [address] [place] CLINICAL HISTORY missed ab Normal [facility] Comment on above: Order Comment: Speci men Type: TISSUE SPECIMENOrdering Facility: [facility] Address: [address] [place] [address] Performed By: #### S ####[facility] LABCLIA [id number] [place] [address] [place] DIAGNOSIS COMMENT Drs. Alcala and Yasmeen Caro are informed of this result by epic email on 05/12/2024 Normal [facility] Comment on above: Order Comment: Speci men Type: TISSUE SPECIMENOrdering Facility: [facility] Address: [address] [place] [address] Performed By: #### S ####[facility] LABCLIA [id number] [place] [address] [place] FINAL DIAGNOSIS Normal [facility] Comment on above: Order Comment: Speci men Type: TISSUE SPECIMENOrdering Facility: [facility] Address: [address] [place] [address] Result Comment: Orestes scott contents, vacuum aspiration: - Partial hydatidiform mole [facility] 05/12/2024 Performed By: #### S ####[facility] LABCLIA [id number] [address] [place] FINAL PERFORMING LAB Normal [facility] Comment on above: Order Comment: Speci men Type: TISSUE SPECIMENOrdering Facility: [facility] Address: [address] [place] [address] Result Comment: Diag nostic interpretation performed at [facility], [address] [place] [address] CLIA# [id number] Flame Annealing Machine Setter: Chris Bell M.D. Performed By: #### S ####[facility]CLIA [id number] [place] [address] [place] GROSS DESCRIPTION Normal [facility] Comment on above: Order Comment: Speci men Type: TISSUE SPECIMENOrdering Facility: [facility] Address: [address] [place] [address] Result Comment: A. P roducts of Conception Received in formalin, labeled products of conception are multiple fragments of soft, balderas-pink tissue and hemorrhagic material aggregating to 9.0 x 4.5 x 0.7 cm. Chorionic villi are identified. fragments and vesicles are not present. Dovetail Machine Operator sections are submitted in cassettes A1-A3. AKA May 09, 2024 12:52 PM Gross examination performed at [facility], [address] [place] [address] Performed By: #### S ####[facility] [id number] [address] [place] MICROSCOPIC DESCRIPTION Normal [facility] Comment on above: Order Comment: Speci men Type: TISSUE SPECIMENOrdering Facility: [facility] Address: [address] [place] [address] Result Comment: Gest ational age: 11 weeks [...] or more minor. Performed By: #### S ####[facility] [id number] [place] [address] [place] B-HCG [facility] 4 [place] [address].0 m[IU]/mL High <5.0 [facility] Comment on above: Order Comment: Speci men Type: BLOOD SPECIMENOrdering Facility: [facility] Address: [address] [place] [address] Result Comment: DANE TITATIVE HCG NORMAL RANGES Weeks of Gestation (Weeks Since LMP) 3 Weeks (5.8-71.2 mIU/mL) 4 Weeks (9.5-750 mIU/mL) 5 Weeks (217-7138 mIU/mL) 6 Weeks (158-58020 mIU/mL) 7 Weeks (3697-734206 mIU/mL) 8 Weeks (90465-365516 mIU/mL) 9 Weeks (53869-587481 mIU/mL) 10 Weeks (59492-297355 mIU/mL) 12 Weeks (34427-168644 mIU/mL) Referenced to 4th IS of [facility] Performed By: #### 2 1198-7 ####[facility] LABIA [id number] [place] [address] [place] B-HCG SerPl-aCncon 4 [place] [address].0 m[IU]/mL High <5.0 [facility] Comment on above: Order Comment: Speci men Type: BLOOD SPECIMENOrdering Facility: [facility] Address: [address] [place] [address] Result Comment: DANE TITATIVE HCG NORMAL RANGES Weeks of Gestation (Weeks Since LMP) 3 Weeks (5.8-71.2 mIU/mL) 4 Weeks (9.5-750 mIU/mL) 5 Weeks (217-7138 mIU/mL) 6 Weeks (158-92520 mIU/mL) 7 Weeks (3697-288090 mIU/mL) 8 Weeks (20320-428974 mIU/mL) 9 Weeks (01648-311022 mIU/mL) 10 Weeks (94270-031487 mIU/mL) 12 Weeks (30612-003193 mIU/mL) Referenced to 4th IS of [facility] Performed By: #### 2 1198-7 ####[facility] [id number] [place] [address] [place] Ender 04-29-2024 KAYKAYN Telephone (OBGYWM) DORY PRADHAN ([id number]) 1995 F Date Time Provider Department 04/29/24 GIANA ALCALA During your visit today, we recorded the following information about you: Giana Alexandre RN 04/29/2024 12:10 PM Signed Patient called with her decision. She would like J to send in Cytotec to [facility] in [facility]. PRAVEEN Sharma Jennifer, MD 04/29/2024 12:19 PM [...] tabletRfl: 0 HCG QUANTITATIVE [SQHCGQT] Order #: [id number] STANDING Prescriptions as of 04/29/2024 - miSOPROStol (CYTOTEC) 200 mcg tablet Use 4 tablets vaginally one time only for 1 dose. - aspirin, enteric coated (ECOTRIN LOW STRENGTH) 81 mg EC tablet Take 1 tablet by mouth once daily. - 25-IRON NHY-[id number]-FXO ORAL Take by mouth. - EPINEPHrine (EPIPEN) [...] Status:Closed by GIANA ALCALA on 04/29/24 [facility] Examination level ultrasound on 04-29-2024 Indication [...] Read By: Maliha Chin M.D. MATERNAL MEDICINE [facility] Radiology Study observation (narrative) [facility] Bacteria Ur Culton 4 Bacteria identified Cx Nom (U) ORGANISM ID: 1 10,000 -<50,000 CFU/ml Normal urogenital daniel Normal [facility] Comment on above: Performed By: #### 6 30-4 ####[facility] LABIA [id number] [place] [address] [place] C. trachomatis+N. gonorrhoea e DNA ITZEL+probe Ql (Unsp spec)on 04-22-2024 C. trachomatis rRNA ITZEL+probe Ql (Unsp spec) Not detected Normal Not detected [facility] Comment on above: Order Comment: Speci men Type: SWABOrdering Facility: [facility] Address: [address] [place] [address] Performed By: #### 3 6902-5 ####[facility] [id number] [place] [address] [place] N. gonorrhoeae rRNA ITZEL+probe Ql (Unsp spec) Not detected Normal Not detected [facility] Comment on above: Order Comment: Speci men Type: SWABOrdering Facility: [facility] Address: [address] [place] [address] Performed By: #### 3 6902-5 ####[facility] [id number] [place] [address] [place] CBC W Auto Differential pane l (Bld)on 04-22-2024 Basophils (Bld) [#/Vol] 0.03 10*3/uL Normal <0.11 [facility] Comment on above: Order Comment: Speci men Type: BLOOD SPECIMEN [facility] Address: [address] [place] [address] Performed By: #### G TGST1 #### [facility] [id number] [address] [place] [address] [place] Basophils/100 WBC (Bld) 0.3 % Normal [facility] Comment on above: Order Comment: Speci men Type: BLOOD SPECIMEN [facility] Address: [address] [place] [address] Performed By: #### G TGST1 #### [facility] CLIA [id number] [address] [place] [address] [place] Differential cell count method Nom (Bld) Auto Normal [facility] Comment on above: Order Comment: Speci men Type: BLOOD SPECIMEN [facility] Address: [address] [place] [address] Performed By: #### G TGST1 #### [facility] CLIA [id number] [address] [place] [address] [place] Eosinophils (Bld) [#/Vol] 0.04 10*3/uL Normal <0.46 [facility] Comment on above: Order Comment: Speci men Type: BLOOD SPECIMEN [facility] Address: [address] [place] [address] Performed By: #### G TGST1 #### [facility] CLIA [id number] [address] [place] [address] [place] Eosinophils/100 WBC (Bld) 0.4 % Normal [facility] Comment on above: Order Comment: Speci men Type: BLOOD SPECIMEN [facility] Address: [address] [place] [address] Performed By: #### G TGST1 #### [facility] CLIA [id number] [address] [place] [address] [place] Erythrocyte distribution width (RBC) [Ratio] 13.2 % Normal 11.5-15.0 [facility] Comment on above: Order Comment: Speci men Type: BLOOD SPECIMEN [facility] Address: [address] [place] [address] Performed By: #### G TGST1 #### [facility] CLIA [id number] [address] [place] [address] [place] Hematocrit (Bld) [Volume fraction] 39.9 % Normal 36.0-46.0 [facility] Comment on above: Order Comment: Speci men Type: BLOOD SPECIMEN [facility] Address: [address] [place] [address] Performed By: #### G TGST1 #### [facility] CLIA [id number] [address] [place] [address] [place] Hemoglobin (Bld) [Mass/Vol] 13.6 g/dL Normal 11.5-15.5 [facility] Comment on above: Order Comment: Speci men Type: BLOOD SPECIMEN [facility] Address: [address] [place] [address] Performed By: #### G TGST1 #### [id number] [address] [place] [address] [place] Immature granulocytes (Bld) [#/Vol] 0.03 10*3/uL Normal <0.10 [facility] Comment on above: Order Comment: Speci men Type: BLOOD SPECIMEN [facility] Address: [address] [place] [address] Performed By: #### G TGST1 #### [facility] [id number] [address] [place] [address] [place] Immature granulocytes/100 WBC (Bld) 0.3 % Normal [facility] Comment on above: Order Comment: Speci men Type: BLOOD SPECIMEN [facility] Address: [address] [place] [address] Performed By: #### G TGST1 #### [facility] CLIA [id number] [address] [place] [address] [place] Lymphocytes (Bld) [#/Vol] 2.15 10*3/uL Normal 1.00-4.00 [facility] Comment on above: Order Comment: Speci men Type: BLOOD SPECIMEN [facility] Address: [address] [place] [address] Performed By: #### G TGST1 #### [facility] CLIA [id number] [address] [place] [address] [place] Lymphocytes/100 WBC (Bld) 23.1 % Normal [facility] Comment on above: Order Comment: Speci men Type: BLOOD SPECIMEN [facility] Address: [address] [place] [address] Performed By: #### G TGST1 #### [facility] CLIA [id number] [address] [place] [address] [place] MCH (RBC) [Entitic mass] 30.8 pg Normal 26.0-34.0 [facility] Comment on above: Order Comment: Speci men Type: BLOOD SPECIMEN [facility] Address: [address] [place] [address] Performed By: #### G TGST1 #### [facility] [id number] [address] [place] [address] [place] MCHC (RBC) [Mass/Vol] 34.1 g/dL Normal 30.5-36.0 [facility] Comment on above: Order Comment: Speci men Type: BLOOD SPECIMEN [facility] Address: [address] [place] [address] Performed By: #### G TGST1 #### [facility] [id number] [address] [place] [address] [place] MCV (RBC) [Entitic vol] 90.5 fL Normal 80.0-100.0 [facility] Comment on above: Order Comment: Speci men Type: BLOOD SPECIMEN [facility] Address: [address] [place] [address] Performed By: #### G TGST1 #### [facility] CLIA [id number] [address] [place] [address] [place] Monocytes (Bld) [#/Vol] 0.42 10*3/uL Normal <0.87 [facility] Comment on above: Order Comment: Speci men Type: BLOOD SPECIMEN [facility] Address: [address] [place] [address] Performed By: #### G TGST1 #### [facility] CLIA [id number] [address] [place] [address] [place] Monocytes/100 WBC (Bld) 4.5 % Normal [facility] Comment on above: Order Comment: Speci men Type: BLOOD SPECIMEN [facility] Address: [address] [place] [address] Performed By: #### G TGST1 #### [facility] CLIA [id number] [address] [place] [address] [place] Neutrophils (Bld) [#/Vol] 6.63 10*3/uL Normal 1.45-7.50 [facility] Comment on above: Order Comment: Speci men Type: BLOOD SPECIMEN [facility] Address: [address] [place] [address] Performed By: #### G TGST1 #### [facility] CLIA [id number] [address] [place] [address] [place] Neutrophils/100 WBC (Bld) 71.4 % Normal [facility] Comment on above: Order Comment: Speci men Type: BLOOD SPECIMEN [facility] Address: [address] [place] [address] Performed By: #### G TGST1 #### [facility] CLIA [id number] [address] [place] [address] [place] Nucleated RBC (Bld) [#/Vol] 10*3/uL Normal <0.01 [facility] Comment on above: Order Comment: Speci men Type: BLOOD SPECIMEN [facility] Address: [address] [place] [address] Performed By: #### G TGST1 #### [facility] CLIA [id number] [address] [place] [address] [place] Nucleated RBC/100 WBC (Bld) [Ratio] 0.0 /100 WBC Normal [facility] Comment on above: Order Comment: Speci men Type: BLOOD SPECIMEN [facility] Address: [address] [place] [address] Performed By: #### G TGST1 #### [facility] CLIA [id number] [address] [place] [address] [place] Platelet mean volume (Bld) [Entitic vol] 9.3 fL Normal 9.0-12.7 [facility] Comment on above: Order Comment: Speci men Type: BLOOD SPECIMEN [facility] Address: [address] [place] [address] Performed By: #### G TGST1 #### [facility] CLIA [id number] [address] [place] [address] [place] Platelets (Bld) [#/Vol] 298 10*3/uL Normal 150-400 [facility] Comment on above: Order Comment: Speci men Type: BLOOD SPECIMEN [facility] Address: [address] [place] [address] Performed By: #### G TGST1 #### [facility] CLIA [id number] [address] [place] [address] [place] RBC (Bld) [#/Vol] 4.41 10*6/uL Normal 3.90-5.20 [facility] Comment on above: Order Comment: Speci men Type: BLOOD SPECIMEN [facility] Address: [address] [place] [address] Performed By: #### G TGST1 #### [facility] CLIA [id number] [address] [place] [address] [place] WBC (Bld) [#/Vol] 9.30 10*3/uL Normal 3.70-11.00 [facility] Comment on above: Order Comment: Speci men Type: BLOOD SPECIMEN [facility] Address: [address] [place] [address] Performed By: #### G TGST1 #### [facility] CLIA [id number] [address] [place] [address] [place] HBV surface Ag Ser Qlon 12 HBV surface Ag Ql (S) Negative Normal Negative [facility] Comment on above: Order Comment: Speci men Type: BLOOD SPECIMENOrdering Facility: [facility] Address: [address] [place] [address] Performed By: #### 7 3752-8, 5195-3, 09794-6 ####[facility] LABCLIA [id number] [place] [address] [place] HCV Ab Ser Qlon 04-22-2024 HCV Ab Ql (S) Negative Normal Negative [facility] Comment on above: Order Comment: Speci men Type: BLOOD SPECIMENOrdering Facility: [facility] Address: [address] [place] [address] Result Comment: The result suggests no evidence of active infection with Hepatitis C virus. Should recent infection be suspected, repeat testing may be considered 4-6 weeks after this draw. Performed By: #### 1 6128-1 ####[facility] LABCLIA [id number] [place] [address] [place] HIV 1+2 Ab IA Qlon 4 HIV 1 and 2 Ab IA.rapid Nom (S/P/Bld) Normal [facility] Comment on above: Order Comment: Speci men Type: BLOOD SPECIMENOrdering Facility: [facility] Address: [address] [place] [address] Result Comment: Test not indicated. Performed By: #### 7 3752-8, 5195-3, 63024-8 ####[facility] LABCLIA [id number] [place] [address] [place] HIV 1+2 Ab+HIV1 p24 Ag IA Ql Non-Reactive Normal Nonreactive [facility] Comment on above: Order Comment: Speci men Type: BLOOD SPECIMENOrdering Facility: [facility] Address: [address] [place] [address] Performed By: #### 7 3752-8, 5195-3, 48065-0 ####[facility] LABCLIA [id number] [place] [address] [place] HIV immunoassay testing algorithm interpretation (S/P/Bld) [Interp] Normal [facility] Comment on above: Order Comment: Speci men Type: BLOOD SPECIMENOrdering Facility: [facility] Address: [address] [place] [address] Result Comment: No e vidence of HIV-1 or HIV-2 infection. Should recent infection be suspected, repeat testing may be considered 2-3 weeks after this draw. Stark Rev. Code 3701.243(E): This information has been [...] diagnoses. Performed By: #### 7 3752-8, 5195-3, 60833-0 ####[facility] LABCLIA [id number] [place] [id number] [place] HbA1c (Bld)on 04-22-2024 Average glucose Estimated from glycated hemoglobin (Bld) [Mass/Vol] 88 mg/dL Normal [facility] Comment on above: Order Comment: Speci men Type: BLOOD SPECIMENOrdering Facility: [facility] Address: [address] [place] [address] Result Comment: eAG: (Estimated average glucose) is a calculated value from HgbA1c and is pharmaceutical representative of the average blood glucose level in the last 2-3 month period. Performed By: #### 5 5454-3 ####[facility] LABCLIA [id number] [place] [address] [place] HbA1c (Bld) [Mass fraction] 4.7 % Normal 4.3-5.6 [facility] Comment on above: Order Comment: Speci men Type: BLOOD SPECIMENOrdering Facility: [facility] Address: [address] [place] [address] Result Comment: Leonila ican Diabetes Association guidelines indicate that patients with HgbA1c in the range 5.7-6.4% are at increased risk for development of diabetes, and intervention by lifestyle modification may be beneficial. HgbA1c greater or equal to 6.5% is considered diagnostic of diabetes. Performed By: #### 5 5454-3 ####[facility] LABCLIA [id number] [place] [address] [place] POC MANAGER ENTERPRISE ULTRASOUNDon 04-22-20 24 Indication Viability; confirm cardiac [...] Read By: Kailee Rahman NP MATERNAL MEDICINE [facility] Radiology Study observation (narrative) [facility] RUBELLA IGG ANTIBODYon 04-22 RUBELLA IGG AB, QUAL Positive Normal Positive [facility] Comment on above: Order Comment: Klarissa marcus Type: BLOOD SPECIMENOrdering Facility: [facility] Address: [address] [place] [address] Result Comment: The result suggests recent or past exposure to Rubella virus or history of Rubella vaccination. Positive result may also be seen due to presence of passively-transferred antibodies. Please correlate with patient's history. Performed By: #### R UBIGG ####[facility] LABCLIA [id number] [place] [address] [place] Reagin and Treponema pallidu m IgG and IgM [Interp]on 04-22-2024 T. pallidum IgG+IgM IA Ql (S) Non-Reactive Normal Nonreactive [facility] Comment on above: Order Comment: Klarissa marcus Type: BLOOD SPECIMENOrdering Facility: [facility] Address: [address] [place] [address] Performed By: #### 7 3752-8, 5195-3, 62329-0 ####[facility] LABCLIA [id number] [place] [address] [place] Reagin+T pallidum IgG+IgM Se rPl-Impon 04-22-2024 Reagin and Treponema pallidum IgG and IgM [Interp] Cannot exclude recent Treponemal infection if specimen collected within 7-10 days after appearance of suspect lesions or 2-3 weeks after an exposure. Clinical correlation is required. Normal [facility] Comment on above: Order Comment: Ranjithi angeline Type: BLOOD SPECIMENOrdering Facility: [facility] Address: [address] [place] [address] Performed By: #### 7 3752-8, 5195-3, 68145-2 ####[facility]CL[facility] [id number] [place] [address] [place] TYPE + SCREEN PRENATALon ABO B Normal [facility] Comment on above: Order Comment: Speci men Type: BLOOD SPECIMENOrdering Facility: [facility] Address: [address] [place] [address] Performed By: #### T SPN ####[facility] [id number] [address] [place] Rh Nom (Bld) Positive Normal [facility] Comment on above: Order Comment: Speci men Type: BLOOD SPECIMENOrdering Facility: [facility] Address: [address] [place] [address] Performed By: #### T SPN ####[facility] [id number] [address] [place] TYPE AND SCREEN EXPIRATION 04/25/2024 23:59 Normal [facility] Comment on above: Order Comment: Speci men Type: BLOOD SPECIMENOrdering Facility: [facility] Address: [address] [place] [address] Performed By: #### T SPN ####[facility] [id number] [place] [address] [place] Consenton 01-15-2022 Consent [id number]#1.00 CD:127 Normal [facility] Registrationon 01-15-2022 Registration [id number]#1.00 CD:127 Normal [facility] C Urineon 01-10-2017 C Urine Final Report: >100,0 00 cfu/ml Escherichia coliORGANISM: ECSUSCEPTIBILITY RESULTSAntibiotic KALIE Dilutn KALIE InterpORGANISM: ECAmox/Cla : <=8/4 SAmp : <=8 SAmp/Sul : <=8/4 SCefaz : <=8 SCefo : <=2 SCipro : <=1 SGent : <=4 SLevo : <=2 SMero : <=1 SNitro : <=32 SPip/Blair : <=16 STetra : <=4 STobra : <=4 SSXT : <=2/38 S Normal [facility] Comment on above: Performed By: #### 2 [id number] ####CANELO Microbiology [id number] [place] [address] Auto Diffon 11-26-2016 Basophils Auto #/vol (Bld) 0.0 E3/mcL Normal 0.0-0.2 [facility] Comment on above: Order Comment: Order Added by Discern Expert. Performed By: #### 2 [id number] ####CANELO CastroOgiWxgn8529 [place] [address] Basophils/100 WBC Auto (Bld) 0.3 % Normal 0.0-2.0 [facility] Comment on above: Order Comment: Order Added by Discern Expert. Performed By: #### 2 [id number] ####CANELO CastroFxoNgpg3332 [place] [address] Eos Absolute 0.1 E3/mcL Normal 0.0-0.7 [facility] Comment on above: Order Comment: Order Added by Discern Expert. Performed By: #### 2 [id number] ####CANELO CastroMpwWipm8943 [place] [address] Eosinophils/100 leukocytes 0.8 % Normal 0.0-11.0 [facility] Comment on above: Order Comment: Order Added by Discern Expert. Performed By: #### 2 [id number] ####CANELO CastroLvrGxao8330 [place] [address] Lymphocytes 2.7 E3/mcL Normal 1.2-3.4 [facility] Comment on above: Order Comment: Order Added by Discern Expert. Performed By: #### 2 106135 ####CANELO CastroEctDwox8694 [place] [address] Lymphocytes/100 leukocytes 31.9 % Normal 20.0-55.0 [facility] Comment on above: Order Comment: Order Added by Discern Expert. Performed By: #### 2 [id number] ####CANELO CastroCyjGrtw1533 [place] [address] Person Absolute 0.4 E3/mcL Normal 0.0-0.7 [facility] Comment on above: Order Comment: Order Added by Discern Expert. Performed By: #### 2 [id number] ####CANELO CastroAraUvkd8584 [place] [address] Monocytes/100 leukocytes 4.7 % Normal 0.0-10.0 [facility] Comment on above: Order Comment: Order Added by Discern Expert. Performed By: #### 2 [id number] ####CANELO CastroOdsOoks3724 [place] [address] Neutro Absolute 5.3 E3/mcL Normal 1.4-6.5 [facility] Comment on above: Order Comment: Order Added by Discern Expert. Performed By: #### 2 [id number] ####CANELO CastroRggEgds4812 [place] [address] Neutro Auto 62.3 % Normal 37.0-75.0 [facility] Comment on above: Order Comment: Order Added by Discern Expert. Performed By: #### 2 [id number] ####CANELO Peopleso1025 [place] [address] CBC w/ Auto Diffon 7 Erythrocyte distribution width Auto Ratio (RBC) 12.6 % Normal 11.5-14.5 [facility] Comment on above: Performed By: #### 2 [id number] ####CANELO CastroUvkBuuq8576 [place] [address] Erythrocytes (RBC) 4.68 E6/mcL Normal 3.90-5.40 [facility] Comment on above: Performed By: #### 2 179222 ####CANELO SjkHbph4177 [place] [address] Hematocrit (HCT) 41.4 % Normal 36.0-48.0 [facility] Comment on above: Performed By: #### 2 [id number] ####CANELO CastroXjuRwpm1673 [place] [address] Hemoglobin mass conc (Bld) 13.9 g/dL Normal 12.0-16.0 [facility] Comment on above: Performed By: #### 2 [id number] ####CANELO CastroOqzHxhp2234 [place] [address] MCH 29.6 pg Normal 27.0-31.0 [facility] Comment on above: Performed By: #### 2 [id number] ####CANELO CastroShgJyzv3475 [place] [address] MCHC mass conc (RBC) 33.5 g/dL Normal 33.0-37.0 [facility] Comment on above: Performed By: #### 2 489191 ####CANELO Peopleso[address] [place] [address] MCV 88.5 fL Normal 78.0-100.0 [facility] Comment on above: Performed By: #### 2 [id number] ####CANELO Peopleso1025 [place] [address] Platelet mean volume (PMV) 8.6 fL Normal 7.4-11.0 [facility] Comment on above: Performed By: #### 2 884558 ####CANELO Peopleso[address] [place] [address] Platelets 299 E3/mcL Normal 130-400 [facility] Comment on above: Performed By: #### 2 478150 ####CANELO [address]opleso[address] [place] [address] WBC (Leukocytes) 8.5 E3/mcL Normal 3.6-11.0 [facility] Comment on above: Performed By: #### 2 [id number] ####CANELO [address] [place] [address] CMPon 11-26-2016 Alanine aminotransferase (ALT) 15 Int._Unit/L Normal 10-40 [facility] Comment on above: Performed By: #### 2 [id number] ####CANELO CastroYphIhvv1325 [place] [address] Albumin 3.9 g/dL Normal 3.2-5.0 [facility] Comment on above: Performed By: #### 2 190007 ####CANELO CastroFeoRfyp0279 [place] [address] Albumin/Globulin Ratio 1.0 {ratio} Low 1.1-1.9 [facility] Comment on above: Performed By: #### 2 092960 ####CANELO CastroDzyVphg2948 [place] [address] Alk Phos 87 Int._Unit/L Normal 42-121 [facility] Comment on above: Performed By: #### 2 [id number] ####CANELO NaxLrso0438 [place] [address] Aspartate aminotransferase (AST) 16 Int._Unit/L Normal 10-42 [facility] Comment on above: Performed By: #### 2 [id number] ####CANELO QbkDqjj1181 [place] [address] Bili Total 0.5 mg/dL Normal 0.2-1.0 [facility] Comment on above: Performed By: #### 2 501003 ####CANELO PraNdhu1708 [place] [address] BUN/Creatinine Ratio 10.0 ratio Normal 5.4-30.0 [facility] Comment on above: Performed By: #### 2 733339 ####CANELO VrkMufz6707 [place] [address] Creatinine 0.8 mg/dL Normal 0.6-1.3 [facility] Comment on above: Performed By: #### 2 760821 ####CANELO AwnWaen4898 [place] [address] Globulin 3.9 g/dL Normal 2.0-4.0 [facility] Comment on above: Performed By: #### 2 [id number] ####CANELO EulJvkz2790 [place] [address] Protein 7.8 g/dL Normal 6.4-8.3 [facility] Comment on above: Performed By: #### 2 146372 ####CANELO KisNyrb6542 [place] [address] Urea nitrogen 8 mg/dL Normal 7-18 [facility] Comment on above: Performed By: #### 2 456283 ####CANELO GyaAots7641 [place] [address] Calcium 9.7 mg/dL Normal 8.4-10.2 [facility] Comment on above: Performed By: #### 2 962521 ####CANELO JviVxru6561 [place] [address] Chloride 106 mmol/L Normal 98-107 [facility] Comment on above: Performed By: #### 2 705733 ####CANELO CastroEzrUlat4130 [place] [address] CO2 24.5 mmol/L Normal 24.0-30.0 [facility] Comment on above: Performed By: #### 2 614138 ####CANELO Orta[address] [place] [address] Glucose mass conc 85 mg/dL Normal 70-99 [facility] Comment on above: Performed By: #### 2 196442 ####CANELO Or[address] [place] [address] Potassium molar conc 4.2 mmol/L Normal 3.5-5.1 [facility] Comment on above: Performed By: #### 2 189064 ####CANELO Orta[address] [place] [address] Sodium 138 mmol/L Normal 136-145 [facility] Comment on above: Performed By: #### 2 [id number] ####CANELO Orta[address] [place] [address] Lipase Levelon 11-26-2016 Lipase Lvl 22 U/L Normal 8-57 [facility] Comment on above: Performed By: #### 2 [id number] ####CANELO CastroIeyGoyj4103 [place] [address] TSHon 11-26-2016 Thyroid stimulating hormone (TSH) 0.99 mIU/m Normal 0.30-5.60 [facility] Comment on above: Performed By: #### 2 [id number] ####CANELO CastroXgbQnez9187 [place] [address] eGFRon 11-26-2016 eGFR (non-black) mL/min/{1.73_m2} Normal [facility] Comment on above: Order Comment: Order added by Discern Expert. Performed By: #### 1 [id number] ####CANELO CastroZxjOhdu0639 [place] [address] Vital Signs Date Time Vital Sign Value Performing Clinician Facility 01-06-2025 10:06-0400 Body mass index (BMI) [Ratio] 36.18 kg/m2 Tianna Mota APRN.CNM Work Phone: [facility] 01-06-2025 10:06-0400 Body weight 91.17 kg Tianna Plotts [employer] SUPERVISOR.CNM Work Phone: [facility] 01-06-2025 10:06-0400 Diastolic blood pressure 72 mm[Hg] Tianna Plotts [employer]PERAT[employer] SUPERVISOR.CNM Work Phone: [facility] 01-06-2025 10:06-0400 Systolic blood pressure 118 mm[Hg] Tianna Plotts [employer] OPERAT[employer] SUPERVISOR.CNM Work Phone: [facility] 12-09-2024 15:30-0400 Body mass index (BMI) [Ratio] 35.64 kg/m2 Kailee Haury [employer] SUPERVISOR.SALES SUPPORT ADMINISTRATOR Work Phone: [facility] 12-09-2024 15:30-0400 Body weight 89.81 kg Kailee Haury [employer] SUPERVISOR.SALES SUPPORT ADMINISTRATOR Work Phone: [facility] 12-09-2024 15:30-0400 Diastolic blood pressure 66 mm[Hg] Kailee Haury [employer]ER [employer]PERAT[employer] SUPERVISOR.SALES SUPPORT ADMINISTRATOR Work Phone: [facility] 12-09-2024 15:30-0400 Systolic blood pressure 120 mm[Hg] Kailee Haury [employer]PER[employer] SUPERVISOR.SALES SUPPORT ADMINISTRATOR Work Phone: [facility] 11-11-2024 11:07-0400 Body mass index (BMI) [Ratio] 35.28 kg/m2 Tianna Plotts [employer]PER[employer] SUPERVISOR.CNM Work Phone: [facility] 11-11-2024 11:07-0400 Body weight 88.91 kg Tianna Plotts BOILER OPERATORS SUPERVISOR.CNM Work Phone: [facility] 11-11-2024 11:07-0400 Diastolic blood pressure 78 mm[Hg] Tianna Plotts BOILER OPERATORS SUPERVISOR.CNM Work Phone: [facility] 11-11-2024 11:07-0400 Systolic blood pressure 110 mm[Hg] Tianna Plotts BOILER OPERATORS SUPERVISOR.CNM Work Phone: [facility] 10-17-2024 16:07-0400 Body mass index (BMI) [Ratio] 35.64 kg/m2 Giana Alcala MD Work Phone: [facility] 10-17-2024 16:07-0400 Body weight 89.81 kg Giana Alcala MD Work Phone: [facility] 10-17-2024 16:07-0400 Diastolic blood pressure 60 mm[Hg] Giana Alcala MD Work Phone: [facility] 10-17-2024 16:07-0400 Systolic blood pressure 104 mm[Hg] Giana Alcala MD Work Phone: [facility] 09-23-2024 13:07-0400 Body height 158.8 cm Tianna Plotts BOILER OPERATORS SUPERVISOR.CNM Work Phone: [facility] 09-23-2024 13:07-0400 Body mass index (BMI) [Ratio] 35.46 kg/m2 Tianna Plotts BOILER OPERAT[employer] SUPERVISOR.CNM Work Phone: [facility] 09-23-2024 13:07-0400 Body weight 89.36 kg Tianna Plotts BOILER OPERATORS SUPERVISOR.CNM Work Phone: [facility] 09-23-2024 13:07-0400 Diastolic blood pressure 74 mm[Hg] Tianna Plotts BOILER OPERATORS SUPERVISOR.CNM Work Phone: [facility] 09-23-2024 13:07-0400 Systolic blood pressure 122 mm[Hg] Tianna Plotts BOILER OPERATORS SUPERVISOR.CNM Work Phone: [facility] 07-01-2024 10:35-0500 Body height 160 cm Tianna Plotts BOILER OPERATORS SUPERVISOR.CNM Work Phone: [facility] 07-01-2024 10:35-0500 Body mass index (BMI) [Ratio] 33.48 kg/m2 Tianna Plotts BOILER OPERATORS SUPERVISOR.CNM Work Phone: [facility] 07-01-2024 10:35-0500 Body weight 85.73 kg Tianna Plotts BOILER OPERATORS SUPERVISOR.CNM Work Phone: [facility] 07-01-2024 10:35-0500 Diastolic blood pressure 72 mm[Hg] Tianna Plotts BOILER OPERATORS SUPERVISOR.CNM Work Phone: [facility] 07-01-2024 10:35-0500 Systolic blood pressure 126 mm[Hg] Tianna Mota BOILER OPERATORS SUPERVISOR.CNM Work Phone: [facility] 05-06-2024 14:56-0500 Diastolic blood pressure 88 mm[Hg] Kathleen Caro MD Work Phone: [facility] Comment on above: prior to IPAS 05-06-2024 14:56-0500 Heart rate 96 /min Kathleen Caro MD Work Phone: [facility] 05-06-2024 14:56-0500 Respiratory rate 18 /min Kathleen Caro MD Work Phone: [facility] 05-06-2024 14:56-0500 SaO2% (BldA) [Mass fraction] 100 % Kathleen Caro MD Work Phone: [facility] 05-06-2024 14:56-0500 Systolic blood pressure 136 mm[Hg] Kathleen Adam Caro MD Work Phone: [facility] Comment on above: prior to IPAS 05-06-2024 14:13-0500 Body mass index (BMI) [Ratio] 34.19 kg/m2 Kathleen Caro MD Work Phone: [facility] 05-06-2024 14:13-0500 Body weight 87.54 kg Kathleen Caro MD Work Phone: [facility] 04-29-2024 10:52-0500 Body mass index (BMI) [Ratio] 35.07 kg/m2 Giana Alcala MD Work Phone: [facility] 04-29-2024 10:52-0500 Body weight 89.81 kg Giana Alcala MD Work Phone: [facility] 04-29-2024 10:52-0500 Diastolic blood pressure 62 mm[Hg] Giana Alcala MD Work Phone: [facility] 04-29-2024 10:52-0500 Systolic blood pressure 110 mm[Hg] Giana Alcala MD Work Phone: [facility] 04-22-2024 09:21-0500 Body height 160 cm Kailee Haury [employer]PERAT[employer] SUPERVISOR.SALES SUPPORT ADMINISTRATOR Work Phone: [facility] 04-22-2024 09:21-0500 Body mass index (BMI) [Ratio] 35.07 kg/m2 Kailee Haury [employer] SUPERVISOR.SALES SUPPORT ADMINISTRATOR Work Phone: [facility] 04-22-2024 09:21-0500 Body weight 89.81 kg Kailee Haury BOILER OPERATORS SUPERVISOR.SALES SUPPORT ADMINISTRATOR Work Phone: [facility] 04-22-2024 09:21-0500 Diastolic blood pressure 68 mm[Hg] Kailee Haury BOILER OPERATORS SUPERVISOR.SALES SUPPORT ADMINISTRATOR Work Phone: [facility] 04-22-2024 09:21-0500 Systolic blood pressure 120 mm[Hg] Kailee Haury [employer]ER OPERATORS SUPERVISOR.SALES SUPPORT ADMINISTRATOR Work Phone: [facility] 06-29-2023 08:05-0500 Body height 160 cm Tianna Plotts BOILER OPERATORS SUPERVISOR.CNM Work Phone: [facility] 06-29-2023 08:05-0500 Body weight 90.63 kg Tianna Plotts BOILER OPERATORS SUPERVISOR.CNM Work Phone: [facility] 06-29-2023 08:05-0500 Diastolic blood pressure 70 mm[Hg] Tianna Plotts BOILER OPERATORS SUPERVISOR.CNM Work Phone: [facility] 06-29-2023 08:05-0500 Systolic blood pressure 116 mm[Hg] Tianna Plotts BOILER OPERATORS SUPERVISOR.CNM Work Phone: [facility] 06-23-2022 08:18-0500 Body height 160 cm Tianna Plotts BOILER OPERATORS SUPERVISOR.CNM Work Phone: [facility] 06-23-2022 08:18-0500 Body weight 92.08 kg Tianna Plotts BOILER OPERATORS SUPERVISOR.CNM Work Phone: [facility] 06-23-2022 08:18-0500 Diastolic blood pressure 76 mm[Hg] Tianna Mota BOILER OPERATORS SUPERVISOR.CNM Work Phone: [facility] 06-23-2022 08:18-0500 Systolic blood pressure 114 mm[Hg] Tianna Mota BOILER OPERATORS SUPERVISOR.CNM Work Phone: [facility] Encounters Encounter Date Encounter Type Care Provider Facility Start: 04-24-2025 ambulatory Tianna Mota Facilit y:[facility] Start: 03-20-2025 End: 03-20-2025 ambulatory TIANNA MOTA Facility:[facility] Start: 03-03-2025 End: 03-03-2025 ambulatory TAWANDA LA Facility:[facility] Start: 02-17-2025 End: 02-17-2025 ambulatory TIANNA MOTA Facility:[facility] Start: 02-10-2025 End: 02-10-2025 ambulatory TIANNA MOTA Facility:[facility] Start: 02-03-2025 End: 02-03-2025 ambulatory SHAZIA EDWARDS Facility:[facility] Start: 01-06-2025 End: 01-06-2025 Patient encounter procedure Tianna Mota APRN.CNHaylee Work Phone: OB/Gynecology Comment on above: Supervision of high risk in second trimester (HCC) (Primary Dx); 24 weeks gestation of (HCC); Obesity affecting in second trimester, unspecified obesity type (HCC); Low-lying placenta (HCC); Screening for diabetes mellitus; Heartburn during in second trimester (HCC) Start: 01-06-2025 End: 01-06-2025 ambulatory SHAZIA T FURNESS Facility:[facility] Start: 12-19-2024 End: 12-19-2024 Telephone encounter Radha Levine APRN.CNM Work Phone: OB/Gynecology Start: 12-12-2024 End: 12-12-2024 Telephone encounter Tianna Mota APRN.CNHaylee Work Phone: OB/Gynecology Comment on above: Results Start: 12-09-2024 End: 12-09-2024 ambulatory KAILEERICK RAJANDARWIN Facility:[facility] Start: 12-09-2024 End: 12-09-2024 Patient encounter procedure Kailee Rajandarwin [employer] SUPERVISOR.SALES SUPPORT ADMINISTRATOR Work Phone: OB/Gynecology Comment on above: Supervision of high risk in second trimester (HCC) (Primary Dx); 20 weeks gestation of (HCC); Obesity affecting in second trimester, unspecified obesity type (HCC); Irritable bowel syndrome with both constipation and diarrhea Obesity affecting pr egnancy in second trimester, unspecified obesity type (HCC) (Primary Dx); 9 weeks gestation of ([facility]); Supervision of high risk in second trimester ([facility]) Start: 12-09-2024 End: 12-09-2024 ambulatory [facility] Facility:[facility] Start: 12-05-2024 End: 12-05-2024 Telephone encounter Tianna Mota APRN.CNM Work Phone: OB/Gynecology Comment on above: OB Vomiting Start: 11-11-2024 End: 11-11-2024 Patient encounter procedure Tianna Mota APRN.CNM Work Phone: OB/Gynecology Comment on above: Encounter for superv ision of low-risk in second trimester (HCC) (Primary Dx); 16 weeks gestation of (HCC); Other obesity affecting in second trimester (HCC) Start: 11-11-2024 End: 11-11-2024 [facility] Facility:[facility] Start: 10-18-2024 End: 12-18-2024 Follow-up encounter Mica Concepcion MD Work Phone: OB/Gynecology Start: 10-17-2024 End: 10-17-2024 Patient encounter procedure Whi Tech 1 [employer] [facility] Comment on above: Encounter for antena jed screening for malformation using ultrasound (HCC) (Primary Dx); 13 weeks gestation of (HCC) Encounter for superv ision of low-risk in second trimester (HCC) (Primary Dx); Other obesity affecting in second trimester (HCC); 13 weeks gestation of (HCC) Start: 10-17-2024 End: 10-17-2024 ambulatory SHAZIA REYESDENG Facility:[facility] Start: 09-23-2024 End: 09-23-2024 Patient encounter procedure Tianna Mota APRN.CNM Work Phone: OB/Gynecology Comment on above: 9 weeks gestation of (HCC) (Primary Dx); with uncertain dates in first trimester (HCC); Obesity affecting in first trimester, unspecified obesity type (HCC); Encounter for supervision of low-risk in first trimester (HCC); Irritable bowel syndrome with both constipation and diarrhea Start: 09-23-2024 End: 09-23-2024 ambulatory SHAZIA REYESDENG Facility:[facility] Start: 07-01-2024 End: 07-01-2024 ambulatory TIANNA MOTA Facility:[facility] Start: 07-01-2024 End: 07-01-2024 Patient encounter procedure Tianna Mota APRN.CNM Work Phone: OB/Gynecology Comment on above: Encounter for gyneco logical examination (general) (routine) without abnormal findings (Primary Dx); Screening for cervical cancer; Encounter for screening for human papillomavirus (HPV) Start: 07-01-2024 End: 07-01-2024 Patient encounter status Tianna Mota APRN.CNM Work Phone: [facility] Start: 06-03-2024 End: 06-03-2024 ambulatory KATHLEEN CARO Facility:[facility] Start: 05-27-2024 End: 05-27-2024 ambulatory KATHLEEN CARO Facility:[facility] Start: 05-20-2024 End: 05-20-2024 ambulatory KATHLEENBRENDA CARO Facility:[facility] Start: 05-13-2024 End: 05-13-2024 Telephone encounter Kathleen Caro MD Work Phone: OB/Gynecology Comment on above: Results Start: 05-13-2024 End: 05-13-2024 ambulatory KATHLEENBRENDA CARO Facility:[facility] Start: 05-06-2024 End: 05-06-2024 ambulatory KATHLEEN CARO Facility:[facility] Start: 05-06-2024 End: 05-06-2024 Patient encounter procedure Kathleen Caro MD Work Phone: OB/Gynecology Comment on above: Incomplete spontaneo us without complication (Primary Dx) Start: 05-04-2024 End: 05-04-2024 [facility] Start: 05-02-2024 End: 05-02-2024 ambulatory GIANA SUJATA Facility:[facility] Start: 04-29-2024 End: 04-29-2024 Telephone encounter Giana Alcala MD Work Phone: OB/Gynecology Comment on above: Patient Update Start: 04-29-2024 End: 04-29-2024 Office outpatient visit 25 minutes Giana Alcala MD Work Phone: OB/Gynecology Comment on above: SAB (spontaneous abo rtion) (Primary Dx) Start: 04-29-2024 End: 04-29-2024 ambulatory GIANA SUJATA Facility:[facility] Start: 04-29-2024 End: 04-29-2024 Patient encounter procedure Us Tech 1 Wstr [employer] OB/Gynecology Comment on above: Vaginal bleeding aff ecting early Start: 04-26-2024 End: 04-27-2024 ambulatory Kailee Rahman APRN.SALES SUPPORT ADMINISTRATOR Work Phone: OB/Gynecology Comment on above: Vaginal bleeding Start: 04-22-2024 End: 04-22-2024 ambulatory SHAZIA EDWARDS Facility:[facility] Start: 04-22-2024 End: 04-22-2024 Patient encounter procedure Kailee Rahman APRN.SALES SUPPORT ADMINISTRATOR Work Phone: OB/Gynecology Comment on above: Encounter [...] encounter status Tianna Ryanjacqui AMAYAN.CNM Work Phone: [facility] Start: 06-23-2022 End: 06-23-2022 Patient encounter [...] 09-23-2017 End: 09-24-2017 Ambulatory Shazia T Grace Facility:[facility] Start: 02-19-2017 End: 02-20-2017 [facility] Start: 01-29-2017 End: 01-29-2017 Ambulatory Horacio Diaz Facility:Horacio Diaz DO Start: 01-08-2017 End: 01-09-2017 [facility] Start: 01-08-2017 End: 01-09-2017 Ambulatory Nabil Pal Facility:[facility] Start: 11-26-2016 End: 11-27-2016 Ambulatory [facility]ia [facility] Facility:[facility] Start: 11-26-2016 End: 11-27-2016 Ambulatory Shazia T [facility] Facility:[facility] Start: 07-26-2013 End: 08-11-2014 Patient encounter status Kailee Josiah SANFORDSALES SUPPORT ADMINISTRATOR Work Phone: [facility] Procedures Date Procedure Procedure Detail Performing Clinician Start: 12-09-2024 Us preg uterus after 1st trimest 05/18 gestation Tianna Mota APRN.CNM Work Phone: Start: 10-17-2024 Us preg uterus after 1st trimest / gestation Tianna Mota APRN.CNM Work Phone: Start: 09-23-2024 Antibody screen SHAZIA EDWARDS Comment on above: Order Comment: Speci men Type: BLOOD SPECIMENOrdering Facility: [facility] Address: [address] [place] [address] Performed By: #### T SPN ####CC MAIN BLOOD BANKCLIA [id number] [address] [place] Start: 09-23-2024 Us uterus l imited 1/> fetuses Tianna Mota APRN.CNHaylee Work Phone: Start: 04-29-2024 Us preg uterus after 1st trimest / gestation Kailee Rahman APRN.SALES SUPPORT ADMINISTRATOR Work Phone: Start: 04-22-2024 Antibody screen SHAZIA EDWARDS Comment on above: Order Comment: Speci men Type: BLOOD SPECIMENOrdering Facility: [facility] Address: [address] [place] [address] Performed By: #### T SPN ####CC MAIN BLOOD BANKCLIA [id number] [place] [address] [place] Start: 04-22-2024 Us uterus l imited 1/> fetuses Kailee Rahman APRN.SALES SUPPORT ADMINISTRATOR Work Phone: Start: 04-22-2024 Adult depression scr eening assessment Us Mob Plan of Treatment Date Care Activity Detail Author Start: 07-01-2029 Screening for malign ant neoplasm of cervix Cervical Cancer Screening [facility] Start: 07-07-2025 End: 07-07-2025 Patient encounter procedure 07/07/2025 10:45 AM EST Office Visit OB/Gynecology [address] [place] [address] Tianna Mota APRN.CNM [address] [place] [address] Annual OB/Gynecology Comment on above: Annual Start: 04-22-2025 Anxiety Screening Anxiety Screening [facility] Start: 04-22-2025 Depression Screening Depression Scre ening [facility] Start: 02-27-2025 RSV Vaccine (1 - Ris k 1-dose series) RSV Vaccine (1 - Risk 1-dose series) [facility] Start: 02-03-2025 End: 02-03-2025 Patient encounter procedure OB/Gynecology Comment on above: Growth/OB/Glucose Te st Start: 02-03-2025 End: 02-03-2025 ambulatory 02/03/2025 10:15 AM EDT Results Only [facility] [address] [place] [address] Glucose Test [facility] Comment on above: Glucose Test Start: 01-16-2025 Influenza vaccination C [facility] Start: 01-06-2025 End: 04-07-2025 ANEMIA REFLEX PANEL ANEMIA REFLEX PANEL Lab Routine 24 weeks gestation of (HCC) Supervision of high risk in second trimester (HCC) Obesity affecting in second trimester, unspecified obesity type (HCC) Low-lying placenta (HCC) Screening for diabetes mellitus Expected: 01/06/2025, Expires: 04/07/2025 [facility] Comment on above: Expected: 01/06/2025 , Expires: 04/07/2025 Start: 01-06-2025 End: 01-06-2026 GESTATIONAL GLUCOSE SCREEN, 1-HOUR, 50 GRAM, NON-FASTING GESTATIONAL GLUCOSE SCREEN, 1-HOUR, 50 GRAM, NON-FASTING Lab Routine 24 weeks gestation of (HCC) Supervision of high risk in second trimester (HCC) Obesity affecting in second trimester, unspecified obesity type (HCC) Low-lying placenta (HCC) Screening for diabetes mellitus Expected: 01/06/2025, Expires: 01/06/2026 [facility] Work Phone: Comment on above: Expected: 01/06/2025 , Expires: 01/06/2026 Start: 01-06-2025 End: 01-06-2026 OBSTETRIC ULTRASOUND WHI [facility] Comment on above: Expected: 01/06/2025 , Expires: 01/06/2026 Start: 01-06-2025 End: 01-06-2026 SYPHILIS TREPONEMAL W/REFLEX SYPHILIS TREPONEMAL W/REFLEX Lab Routine 24 weeks gestation of ([facility]) Supervision of high risk in second trimester ([facility]) Obesity affecting in second trimester, unspecified obesity type ([facility]) Low-lying placenta ([facility]) Screening for diabetes mellitus Expected: 01/06/2025, Expires: 01/06/2026 [facility] Comment on above: Expected: 01/06/2025 , Expires: 01/06/2026 Start: 01-06-2025 End: 01-06-2025 Patient encounter procedure 01/06/2025 10:15 AM EDT Routine Office Visit OB/Gynecology [address] [place] [address] Tianna Mota APRN.CNM [address] [place] [address] OB OB/Gynecology Comment on above: OB Start: 12-09-2024 End: 12-09-2024 Patient encounter procedure [facility] Comment on above: Anatomy Anatomy/OB Start: 11-11-2024 End: 11-11-2024 Patient encounter procedure 11/11/2024 11:15 AM EDT Routine Office Visit OB/Gynecology [address] [place] [address] Tianna Mota APRN.CNM [address] [place] [address] OB OB/Gynecology Comment on above: OB Start: 10-21-2024 End: 10-21-2024 Patient encounter procedure 10/21/2024 2:30 PM EDT Routine Office Visit OB/Gynecology [address] [place] [address] Tianna Mota APRN.CNM [address] [place] [address] 2 missed periods and + at home test OB/Gynecology Comment on above: 2 missed periods and + at home test Start: 10-17-2024 End: 10-17-2024 Patient encounter procedure [facility] Comment on above: 12 weeks gestation o f ([facility]) [Z3A.09] Start: 09-23-2024 End: 12-23-2024 ANEMIA REFLEX PANEL [facility] Work Phone: Comment on above: Expected: 09/23/2024 , Expires: 12/23/2024 Start: 09-23-2024 End: 12-23-2024 Hemoglobin A1c in Blood [facility] Comment on above: Expected: 09/23/2024 , Expires: 12/23/2024 Start: 09-23-2024 End: 12-23-2024 Hepatitis B virus surface Ag [Presence] in Serum [facility] Comment on above: Expected: 09/23/2024 , Expires: 12/23/2024 Start: 09-23-2024 End: 12-23-2024 Hepatitis C virus Ab [Presence] in Serum [facility] Comment on above: Expected: 09/23/2024 , Expires: 12/23/2024 Start: 09-23-2024 End: 12-23-2024 HIV 1+2 Ab [Presence] in Serum or Plasma by Immunoassay [facility] Comment on above: Expected: 09/23/2024 , Expires: 12/23/2024 Start: 09-23-2024 End: 09-23-2025 OBSTETRIC ULTRASOUND WHI OBSTETRIC ULTRASOUND WHI Anc Imaging Routine 9 weeks gestation of ([facility]) Expected: 09/23/2024, Expires: 09/23/2025 [facility] Comment on above: Expected: 09/23/2024 , Expires: 09/23/2025 Start: 09-23-2024 End: 12-23-2024 RUBELLA IGG ANTIBODY [facility] Comment on above: Expected: 09/23/2024 , Expires: 12/23/2024 Start: 09-23-2024 End: 12-23-2024 SYPHILIS TREPONEMAL W/REFLEX [facility] Comment on above: Expected: 09/23/2024 , Expires: 12/23/2024 Start: 07-22-2024 End: 07-22-2024 Patient encounter procedure 07/22/2024 9:40 AM EST Routine Office Visit OB/Gynecology [address] [place] [address] Kathleen Patel MD [address] [place] [address] OB Routine OB/Gynecology Comment on above: OB Routine Start: 07-22-2024 End: 07-22-2024 Patient encounter procedure 07/22/2024 8:30 AM EST Routine Office Visit Maternal Medicine [address] [place] [address] Anatomy Scan [facility] Comment on above: Anatomy Scan Start: 07-01-2024 End: 07-01-2024 Patient encounter procedure 07/01/2024 10:45 AM EST Office Visit OB/Gynecology [address] [place] [address] Tianna Mota APRN.CN [address] [place] [address] ANNUAL OB/Gynecology Comment on above: ANNUAL Start: 06-18-2024 PAP TESTING PAP TESTING [facility] Start: 06-18-2024 Screening for malign ant neoplasm of cervix [facility] Start: 05-27-2024 End: 05-27-2024 Patient encounter procedure [facility] Comment on above: Nuchal OB Routine Start: 04-29-2024 End: 04-29-2024 Patient encounter procedure 04/29/2024 10:00 AM EST Routine Office Visit OB/Gynecology [address] [place] [address] Early OB bleeding OB/Gynecology Comment on above: Early OB bleeding Start: 04-27-2024 End: 04-27-2025 OBSTETRIC ULTRASOUND WHI OBSTETRIC ULTRASOUND [facility]I Anc Imaging Routine Vaginal bleeding affecting early Expected: 04/27/2024, Expires: 04/27/2025 [facility] Work Phone: Comment on above: Expected: 04/27/2024 , Expires: 04/27/2025 Start: 04-22-2024 End: 07-22-2024 ANEMIA REFLEX PANEL [facility] Work Phone: Comment on above: Expected: 04/22/2024 , Expires: 07/22/2024 Start: 04-22-2024 End: 07-22-2024 Hemoglobin A1c in Blood [facility] Comment on above: Expected: 04/22/2024 , Expires: 07/22/2024 Start: 04-22-2024 End: 07-22-2024 Hepatitis B virus surface Ag [Presence] in Serum [facility] Comment on above: Expected: 04/22/2024 , Expires: 07/22/2024 Start: 04-22-2024 End: 07-22-2024 Hepatitis C virus Ab [Presence] in Serum [facility] Comment on above: Expected: 04/22/2024 , Expires: 07/22/2024 Start: 04-22-2024 End: 07-22-2024 HIV 1+2 Ab [Presence] in Serum or Plasma by Immunoassay [facility] Comment on above: Expected: 04/22/2024 , Expires: 07/22/2024 Start: 04-22-2024 End: 04-22-2025 NUCHAL TRANSLUCENCY WHI [facility] Comment on above: Expected: 04/22/2024 , Expires: 04/22/2025 Start: 04-22-2024 End: 04-22-2025 OBSTETRIC ULTRASOUND [facility] OBSTETRIC ULTRASOUND [facility] Anc Imaging Routine with uncertain dates in first trimester Expected: 04/22/2024, Expires: 04/22/2025 [facility] Comment on above: Expected: 04/22/2024 , Expires: 04/22/2025 Start: 04-22-2024 End: 07-22-2024 RUBELLA IGG ANTIBODY [facility] Comment on above: Expected: 04/22/2024 , Expires: 07/22/2024 Start: 04-22-2024 End: 07-22-2024 SYPHILIS TREPONEMAL W/REFLEX [facility] Comment on above: Expected: 04/22/2024 , Expires: 07/22/2024 Start: 04-22-2024 End: 07-22-2024 TYPE + SCREEN [facility] Comment on above: Expected: 04/22/2024 , Expires: 07/22/2024 Start: 01-17-2024 Covid-19 Vaccine ( season) Covid-19 Vaccine ( season) [facility] Start: 01-17-2024 Influenza vaccination Influenza Vacc ine (#1) [facility] Start: 05-18-2023 Depression Assessment Depression Ass essment [facility] Start: 01-16-2023 Influenza vaccination Influenza Vacc ine (#1) [facility] Start: 05-18-2022 DEPRESSION ASSESSMENT DEPRESSION ASS ESSMENT [facility] Start: 01-16-2022 Influenza vaccination INFLUENZA (#1) [facility] Start: 2020 HPV Vaccine (1 - 3-d ose SCDM series) HPV Vaccine (1 - 3-dose SCDM series) [facility] Start: 2012 Hepatitis B Vaccine (1 of 3 - 19+ 3-dose series) Hepatitis B Vaccine (1 of 3 - 19+ 3-dose series) [facility] Start: 2012 Pneumococcal vaccination Pneumococcal Vaccine (1 of 2 - PCV) [facility] Start: 2012 Urine microalbumin profile [facility] Start: 09-08-2011 Anxiety Screening Anxiety Screening [facility] Start: 09-08-2011 Depression Screening Depression Scre ening [facility] Start: 03-09-1994 COVID-19 VACCINE (#1) COVID-19 VACCI NE (#1) [facility] Start: 1993 HEPATITIS B (1 of 3 - 3-dose series) HEPATITIS B (1 of 3 - 3-dose series) [facility] Start: 1993 Hepatitis B Vaccine (1 of 3 - 3-dose series) Hepatitis B Vaccine (1 of 3 - 3-dose series) [facility] Bacteria identified in Urine by Culture URINE CULTURE Microbiology Routine with uncertain dates in first trimester 04/22/2024 10:27 AM EST [facility] Bacteria identified in Urine by Culture BACTERIAL CULTURE, URINE Microbiology Routine 9 weeks gestation of (HCC) 09/23/2024 1:45 PM EDT [facility] Chlamydia trachomatis+Neisseria gonorrhoeae DNA [Presence] in Unspecified specimen by ITZEL with probe detection GONORRHEA/CHLAMYDIA NAAT Lab Routine with uncertain dates in first trimester 04/22/2024 10:27 AM [facility] Chlamydia trachomatis+Neisseria gonorrhoeae DNA [Presence] in Unspecified specimen by ITZEL with probe detection GONORRHEA/CHLAMYDIA NAAT Lab Routine 9 weeks gestation of ([facility]) 09/23/2024 1:45 PM EDT [facility] End: 04-29-2025 Choriogonadotropin.beta subunit [Units/volume] in Serum or Plasma HCG QUANTITATIVE Lab Routine SAB (spontaneous ) 3x per week for 10 Occurrences starting 04/29/2024 until 04/29/2025 [facility] Work Phone: Comment on above: 3x per week for 10 O ccurrences starting 04/29/2024 until 04/29/2025 PAP TEST PAP TEST Lab Blanka velazquez Encounter for gynecological examination (general) (routine) without abnormal findings Screening for cervical cancer Encounter for screening for human papillomavirus (HPV) 07/01/2024 11:06 AM [facility] Work Phone: SURGICAL PATHOLOGY SURGICAL PATH OLOGY Lab Routine Incomplete spontaneous without complication 05/06/2024 3:34 PM EST [facility] TRICHOMONAS VAGINALI S NAAT TRICHOMONAS VAGINALIS NAAT Lab Routine 9 weeks gestation of ([facility]) 09/23/2024 1:45 PM EDT [facility] TYPE + SCREEN TYPE + SC REEN Blood Bank Routine 9 weeks gestation of ([facility]) 09/23/2024 2:09 PM EDT [facility] WHI (OFFICE IPAS) WHI (OFFICE IP ) Procedures Routine Incomplete spontaneous without complication Ordered: 05/06/2024 [facility] Work Phone: Comment on above: Ordered: 05/06/2024 [facility] Immunizations Immunization Date Immunization Notes Care Provider Grover reddy 04-07-2015 measles, mumps and rubella virus vaccine Mica Concepcion MD Work Phone: [facility] Payers Date Payer Category Payer Self-pay 2023 Private Health Insurance [employer] PPO [id number] 2023 Unknown [id number] 2016 Unknown Unknown [id number] Social History Date Type Detail Facility Start: 11-02-2017 End: 09-22-2024 Tobacco smoking status NHIS Ex-smoker [facility] Work Phone: Start: 08-16-2016 End: 09-19-2017 History of tobacco use Current smoker [facility] Work Phone: Start: 08-16-2016 End: 09-19-2017 History of tobacco use Cigarette Smoker [facility] Work Phone: Start: 11-02-2017 End: 09-22-2024 Tobacco use and exposure Smokeless tobacco non-user [facility] Work Phone: Start: 06-18-2021 End: 07-01-2024 Alcohol intake Current drinker of alcohol (finding) [facility] Start: 06-05-2020 History SDOH Social Connections Phone 5 [facility] Start: 06-05-2020 History SDOH Social Connections Buddhism 1 [facility] Start: 06-05-2020 History SDOH Social Connections Membership 2 [facility] Start: 06-05-2020 History SDOH Social Connections Living 3 [facility] Start: 06-05-2020 History SDOH Physical Activity MPS 12 [facility] Start: 06-05-2020 Education 13 [facility] Start: 06-01-2019 Alcohol Comment socially [facility] Start: 1995 Sex Assigned At Not on file [facility] Start: 1995 Sex Assigned At Female [facility] Start: 06-05-2020 End: 06-29-2023 History of Social function [facility] Start: 06-05-2020 End: 06-29-2023 Social connection and isolation panel [facility] Do you belong to any clubs or organizations such as anabaptist groups, unions, fraternal or athletic groups, or school groups? No [facility] Are you now , , , , never or living with a partner? [facility] Do you feel stress - tense, restless, nervous, or anxious, or unable to sleep at night because your mind is troubled all the time - these days [OSQ] To some extent [facility] Start: 04-18-2012 National Score (1-100), lower number is lower risk 64 [facility] Start: 06-23-2022 Gender identity Identifies as female gender (finding) [facility] Start: 06-23-2022 Sexual orientation Heterosexual (finding) [facility] Start: 04-22-2024 End: 12-09-2024 Alcoholic beverage intake Ex-drinker (finding) [facility] Start: 03-12-2024 [facility] Start: 08-16-2016 Tobacco smoking status ALIS Smokes tobacco daily [facility] Goals Date Patient Goal Desired Activity /State Personal health goal Personal health goal Functional Status Date Assessment Result Facility 04-07-2015 Are you deaf, or do you have serious difficulty hearing No 04/07/2015 2:19 PM Margaret CrowleyRn)(Hist), RN No [facility] 04-07-2015 Are you blind, or do you have serious difficulty seeing, even when wearing glasses No 04/07/2015 2:19 PM Margaret CrowleyRn)(Hist), RN [facility] 04-07-2015 Do you have serious difficulty walking or climbing stairs No 04/07/2015 2:19 PM Margaret CrowleyRn)(Hist), RN No [facility] 04-07-2015 Do you have difficul ty dressing or bathing No 04/07/2015 2:19 PM Margaret CrowleyRn)(Hist), RN No [facility] 04-07-2015 Because of a physica l, mental, or emotional condition, do you have difficulty doing errands alone such as visiting a physician's office or shopping No 04/07/2015 2:19 PM Margaret Crowley (Rn)(Hist), RN No [facility] Mental Status Date Assessment Result Facility 04-07-2015 Because of a physica l, mental, or emotional condition, do you have serious difficulty concentrating, remembering, or making decisions No 04/07/2015 2:19 PM Margaret Crowley (Rn)(Hist), RN No [facility] Clinical Notes 04-05-2015 to 01-06-2025 Quick Notes - Tianna Moat APRN.CNM - 01/06/2025 10:39 AM EDTPrenatal Quick Notes - Tianna Mota APRN.CNM - 01/06/2025 10:39 AM EDTPatient InstructionsPatient Instructions Note Date & Type Note Facility 01-06-2025 Progress note Formatting of t his note might be different from the original. S: Dory Pradhan is a 29 year old female who presents at 24 weeks gestation for a routine visit. Positive [id number]/8/2025, by Last Menstrual Period for a routine [...] SARAI with GCT screening Tianna Mota APRN.CNM [facility] 01-06-2025 Miscellaneous Notes Formattin g of this note might be different from the original. S: Dory Pradhan is a 29 year old female who presents at 24 weeks gestation for a routine visit. Positive [id number]/8/2025, by Last Menstrual Period for a routine [...] Tianna Mota APRN.CNM documented in this encounter [facility] 01-06-2025 Instructions Poppy Man MA - 01/06/2025 10:03 AM EDT SEQUENTIAL SCREENINGS The [facility] offers sequential screenings for women who [...] It will require an appointment with our photo technician. This is not an ultrasound performed [...] the above symptoms, contact our office at [phone] and ask to speak with a nurse. After hours, you can call doctors registry at [phone] OR call [facility] at [phone] and ask to have the doctor supervisor education paged. If you consider this an emergency, dial or go to your nearest emergency department. NEED HELP? Are you dealing with a violent or abusive relationship? Are you a victim of rape or sexual assult? Call [facility] ([place]) 24 hour Crisis Hotline: 933.831.1352 or 892-315-7228. MANUAL Your Guide to a Healthy manual is now on-line. Visit [email or web address] to download your free copy documented in this encounter [facility] 12-19-2024 Telephone encount er Note Patient notified. Giana Alexandre RN [facility] 12-19-2024 Miscellaneous Notes Formattin g of this note might be different from the original. Patient notified. Giana Alexandre RN Thank you. Would recommend [facility] due to gestational age if needing [...] Giana Alexandre RN documented in this encounter [facility] 12-19-2024 Telephone encount er Note Thank you. Would recommend [facility] due to gestational age if needing to go in. Thank you, Radha Levine APRN.CNM [facility] Work Phone: 12-19-2024 Telephone encount er [...] Next OB visit 01/06/25. Giana Alexandre RN [facility] 12-12-2024 Telephone encount er Note Spoke with patient and counseled on low lying placenta. Recommended pelvic rest until follow up ultrasound at 28 weeks gestation. Questions answered.. Tianna Mota APRN.CNM [facility] 12-12-2024 Miscellaneous Notes Formattin g of [...] Attempted to call patient to notify and personal counselor on low lying placenta. No answer and unable to leave message. Will have supervisor education provider attempt tomorrow. Tianna Mota APRN.CNM documented in this encounter [facility] 12-12-2024 Telephone encount er Note Patient called back. Spoke with CP. She will call patient right back in a few minutes. Giana Alexandre RN [facility] 12-12-2024 Telephone encount er Note Attempted to call patient to notify and personal counselor on low lying placenta. No answer and unable to leave message. Will have supervisor education provider attempt tomorrow. Tianna Mota APRN.CNM [facility] 12-09-2024 Progress note Formatting of t [...] Supervision of high risk in second trimester ([facility]) - ICD9: V23.9, ICD10: O09.92 (primary diagnosis) - Continue PNV and LDA - Recent URI/sinusitis symptoms improving. Nausea controlled. Continue good hydration. 2. 20 weeks gestation of ([facility]) - ICD9: V22.2, ICD10: Z3A.20 - Anatomy today, report pending 3. Obesity affecting in second trimester, unspecified obesity type ([facility]) - ICD9: 649.13, ICD10: O99.212 -Pre BMI 33 4. Irritable bowel syndrome with both constipation and diarrhea - ICD9: 564.1, ICD10: K58.2 - Controlled PTL precautions reviewed. RTO in 4 weeks or sooner as needed. Kailee Rahman APRN.SALES SUPPORT ADMINISTRATOR [facility] 12-09-2024 Miscellaneous Notes Formattin g of [...] Supervision of high risk in second trimester ([facility]) - ICD9: V23.9, ICD10: O09.92 (primary diagnosis) - Continue PNV and LDA - Recent URI/sinusitis symptoms improving. Nausea controlled. Continue good hydration. 2. 20 weeks gestation of ([facility]) - ICD9: V22.2, ICD10: Z3A.20 - Anatomy today, report pending 3. Obesity affecting in second trimester, unspecified obesity type ([facility]) - ICD9: 649.13, ICD10: O99.212 -Pre BMI 33 4. Irritable bowel syndrome with both constipation and diarrhea - ICD9: 564.1, ICD10: K58.2 - Controlled PTL precautions reviewed. RTO in 4 weeks or sooner as needed. Kailee Rahman APRN.SALES SUPPORT ADMINISTRATOR documented in this encounter [facility] 12-09-2024 Instructions Dia Bejarano MA - 12/09/2024 3:28 PM EDT SEQUENTIAL SCREENINGS The [facility] offers sequential screenings for women who [...] It will require an appointment with our photo technician. This is not an ultrasound performed [...] the above symptoms, contact our office at [phone] and ask to speak with a nurse. After hours, you can call doctors registry at [phone] OR call [facility] at [phone] and ask to have the doctor supervisor education paged. If you consider this an emergency, dial [phone] or go to your nearest emergency department. NEED HELP? Are you dealing with a violent or abusive relationship? Are you a victim of rape or sexual assult? Call [facility] ([place]) 24 hour Crisis Hotline: 878.350.6758 or 594-095-4802. MANUAL Your Guide to a Healthy manual is now on-line. Visit [email or web address] to download your free copy documented in this encounter [facility] 12-05-2024 Telephone encount er Note Patient notified and voiced understanding. Rhina Connors RN [facility] 07-21-2025 Miscellaneous Notes Formattin g of [...] can have antiemetic prescribed and sent to [facility] in [place]. Encouraged to push fluids and include electrolytes. [...] Giana Alexandre, PRAVEEN documented in this encounter [facility] 12-05-2024 Telephone encount er Note Rx for Phenergan suppositories sent. Yes, agree with movement not being regular at this early gestational age. If concerned, can come in for FHT. Tianna Mota APRN.CNM [facility] 12-05-2024 Telephone encount er Note 20w0d Patient has been taking Amoxicillin 500 mg for upper respiratory infection and sinus infections for the last 3 days. Since starting the antibiotic she has been vomiting 3-5 times a day and having diarrhea. Asking if she can have antiemetic prescribed and sent to [facility] in [place]. Encouraged to push fluids and include electrolytes. [...] when we call back. Giana Alexandre RN [facility] 11-11-2024 Progress note Formatting of t [...] 1. Encounter for supervision of low-risk in [facility] 2. 16 weeks gestation of 3. Other obesity affecting in second trimester - Continue vitamin daily - Continue ASA at bedtime - RTO 4 weeks for anatomy US and SARAI - Gender is a surprise! Tianna Mota APRN.CNM [facility] 11-11-2024 Miscellaneous Notes Formattin g of [...] 1. Encounter for supervision of low-risk in [facility] 2. 16 weeks gestation of 3. Other obesity affecting in second trimester - Continue vitamin daily - Continue ASA at bedtime - RTO 4 weeks for anatomy US and SARAI - Gender is a surprise! Tianna Mota APRN.CNM documented in this encounter [facility] 11-11-2024 Instructions Rao Hernández MA - 11/11/2024 11:05 AM EDT SEQUENTIAL SCREENINGS The [facility] offers sequential screenings for women who [...] It will require an appointment with our photo technician. This is not an ultrasound performed [...] the above symptoms, contact our office at [phone] and ask to speak with a nurse. After hours, you can call doctors registry at [phone] OR call [facility] at [phone] and ask to have the doctor supervisor education paged. If you consider this an emergency, dial [phone] or go to your nearest emergency department. NEED HELP? Are you dealing with a violent or abusive relationship? Are you a victim of rape or sexual assult? Call [facility] ([place]) 24 hour Crisis Hotline: 816.881.5333 or 545-316-8514. MANUAL Your Guide to a Healthy manual is now on-line. Visit [email or web address] to download your free copy documented in this encounter [facility] 10-18-2024 Progress note Formatting of t his note might be different from the original. Anatomy ultrasound reviewed. No abnormalities identified. Follow up as clinically indicated. Schedule [address] copy in ob chart. Mica Concepcion MD [facility] 10-18-2024 Miscellaneous Notes Formattin g of this note might be different from the original. Anatomy ultrasound reviewed. No abnormalities identified. Follow up as clinically indicated. Schedule [address] copy in ob chart. Mica Concepcion MD documented in this encounter [facility] 10-17-2024 Progress note Formatting of t [...] for supervision of low-risk in second trimester ([facility]) - ICD9: V22.1, ICD10: Z34.92 (primary diagnosis) 2. Other obesity affecting in second trimester ([facility]) - ICD9: 649.13, 278.00, ICD10: O99.212, E66.89 Pre BMI 33 3. 13 weeks gestation of ([facility]) - ICD9: V22.2, ICD10: Z3A.13 NT completed today declined NIPT Giana Alcala MD [facility] Work Phone: 10-17-2024 Miscellaneous Notes Formattin [...] for supervision of low-risk in second trimester ([facility]) - ICD9: V22.1, ICD10: Z34.92 (primary diagnosis) 2. Other obesity affecting in second trimester ([facility]) - ICD9: 649.13, 278.00, ICD10: O99.212, E66.89 Pre BMI 33 3. 13 weeks gestation of ([facility]) - ICD9: V22.2, ICD10: Z3A.13 NT completed today declined NIPT Giana Alcala MD documented in this encounter [facility] 10-17-2024 Instructions Domenica Mata MA - 10/17/2024 3:20 PM EDT SEQUENTIAL SCREENINGS The [facility] offers sequential screenings for women who [...] It will require an appointment with our photo technician. This is not an ultrasound performed [...] the above symptoms, contact our office at [phone] and ask to speak with a nurse. After hours, you can call doctors registry at [phone] OR call [facility] at [phone] and ask to have the doctor supervisor education paged. If you consider this an emergency, dial or go to your nearest emergency department. NEED HELP? Are you dealing with a violent or abusive relationship? Are you a victim of rape or sexual assult? Call [facility] ([place]) 24 hour Crisis Hotline: 607.689.7841 or 298-371-4932. MANUAL Your Guide to a Healthy manual is now on-line. Visit [facility].org/HealthyPre gnancyGuide to download your free copy documented in this encounter [facility] 09-23-2024 Progress note Formatting of t his note might be different from the original. here for NOB. See progress note. Tianna Mota APRN.CNM [facility] 09-23-2024 Miscellaneous Notes Formattin g of this note might be different from the original. here for NOB. See progress note. Tianna Mota APRN.CNM documented in this encounter [facility] 09-23-2024 Note HNO ID: [id number] Author: DOMENICA MATA MA Service: ? Author Type: Housing Quality Standard Inspector Type: Progress Notes Filed: 09/23/2024 17:30 Note Text: OB point of care ultrasound was performed. See imaging tab for details. Domenica Mata MA [facility] 09-23-2024 History of Presen t illness [...] the following (please check all that apply)? 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 EPINEPHrine (EPIPEN) 0.3 [...] discussed with the Patient or Patient's Authorized Dovetail Machine Operator. As applicable, any other physician, advance practice provider, medical student, or other health professional student that will be observing or involved in the sensitive examination for educational or training purposes was discussed with the Patient or Authorized Dovetail Machine Operator. The Patient or Authorized Dovetail Machine Operator has agreed to proceed with the sensitive [...] Your guide to a health and the Sorter Operator. Reviewed midwifery and paint line supervisor services that are available. 2) Screening: Hemoglobin [...] Tianna Mota APRN.CNM documented in this encounter [facility] 09-22-2024 Note HNO ID: [id number] Author: TIANNA MOTA APRN.CNM Service: ? Author Type: Feeder Associate Type: Progress Notes Filed: 09/23/2024 17:30 Note [...] the following (please check all that apply)? 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 EPINEPHrine (EPIPEN) 0.3 [...] Swelling, Pain, Stiffne (more content not included)... [facility] 09-22-2024 Instructions Domenica Mata MA - 09/22/2024 9:28 AM EDT Please select the following link to access the [facility] Your Guide to a Healthy . [email or web address] Please select the following link to access the [facility] Your Guide to a Healthy . [email or web address] documented in this encounter [facility] 07-01-2024 Note HNO ID: [id number] Author: TIANNA MOTA APRN.CNM Service: ? 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: 06/13/2024 (Exact Date), Having periods Age at Menarche: 10 Age at First : Age at 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 As applicable, any other physician, advance practice provider, medical student, or other health professional student that will be observing or involved in the sensitive examination for educational or training purposes was discussed with the Patient or Authorized Dovetail Machine Operator. 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 As applicable, any other physician, advance practice provider, medical student, or other health professional student that will be observing or involved in the sensitive examination for educational or training purposes was discussed with the Patient or Authorized Dovetail Machine Operator. The Patient or Authorized Dovetail Machine Operator has agreed to proceed with the sensitive [...] external genitalia normal, normal Bartholin's glands, urethra, [place]'s glands, no vulvar lesions, no cervical lesions, [...] Tianna Mota APRN.CNM documented in this encounter [facility] 05-13-2024 Telephone encount er Note Patient [...] this time to discuss. Rhina Connors RN [facility] 05-13-2024 Telephone encount er Note ----- [...] office would be fine. Lab orders placed. [facility] 05-13-2024 Miscellaneous Notes Formattin g of [...] Lab orders placed. documented in this encounter [facility] 05-06-2024 Note HNO ID: [id number] Author: KATHLEEN PATEL MD Service: ? Author [...] call with pathology results Kathleen Ken MD [facility] 05-06-2024 History of Presen t illness [...] 18 Bleeding:Light Pain Ratin Franchesca Metzger RN It Sales Consultant offered: Patient declines. 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 EPINEPHrine (EPIPEN) 0.3 [...] discussed with the Patient or Patient's Authorized Dovetail Machine Operator. As applicable, any other physician, advance practice provider, medical student, or other health professional student that will be observing or involved in the sensitive examination for educational or training purposes was discussed with the Patient or Authorized Dovetail Machine Operator. The Patient or Authorized Dovetail Machine Operator has agreed to proceed with the sensitive [...] external genitalia normal, normal Bartholin's glands, urethra, [place]'s glands, no vulvar lesions, no cervical lesions, [...] Kathleen Ken MD documented in this encounter [facility] 05-06-2024 Note HNO ID: [id number] Author: FRANCHESCA METZGER RN Service: ? Author [...] 18 Bleeding:Light Pain Ratin/10 Franchesca Metzger RN [facility] 05-06-2024 Instructions Gladis Platt RN - [...] and showers are OK. Important Phone Numbers: [facility] Appointments in Administrative Resources Associate ( Early Assessment Clinics) Martina Sinclair [facility] at [phone] [facility] at [phone] [facility] at [phone] After 4:30 PM or on weekends, you may reach the on-call Administrative Resources Associate by calling the clinic where you were [...] for diagnosis or termination for medical reasons. http://www.Sedimap/ [facility]: ending a for a abnormality http://www.healthtalkonline.or g/Pregnancy_children/Ending_a_ pregnancy_for_fetal_abnormalit y Ending a Wanted : support for patients and families ending a after or maternal medical diagnosis https://endingawantedpregnancy .Sqrl Patrick Trevizo: one person's story about loss and collected resources. http://www.[employer].Sqrl [employer]: headquarters in [place] but with online support group https://www.[employer].org/in rnib-zdbo-beopkjk-groups.html LOCAL RESOURCES [facility], [facility] https://my.[facility].org /locations/[facility]/ guest-services/support Haydee[employer]ra(Families Experiencing Early Loss) [employer] https://consultqd.[facility].org/njlkabnbo-hgfpjnbnb-of qhexmodmf-jpwcdrm-wxcwiqqc-gri eving-families/ [facility] - counseling services [phone] or toll free at [phone] [facility] Support Groups (not specific to loss) https://my.[facility].org /patients/information/bereavem ent/support-groups [facility] [place] Counselors with experience with families facing the loss of a baby before . This service may be covered by your insurance. If not, [facility] will not turn anyone away because of inability to pay. or [phone] Jacob Fleming, local counselor, not associated with [facility] [phone] Some of our families have recommended Jacob [...] induction of labor) documented in this encounter [facility] 05-06-2024 Note HNO ID: [id number] Author: KATHLEEN PATEL MD Service: ? Author Type: Physician Type: Progress Notes Filed: 05/06/2024 16:25 Note Text: It Sales Consultant offered: Patient declines. 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 EPINEPHrine (EPIPEN) 0.3 [...] discussed with the Patient or Patient's Authorized Dovetail Machine Operator. As applicable, any other physician, advance practice provider, medical student, or other health professional student that will be observing or involved in the sensitive examination for educational or training purposes was discussed with the Patient or Authorized Dovetail Machine Operator. The Patient or Authorized Dovetail Machine Operator has agreed to proceed with the sensitive [...] external genitalia normal, normal Bartholin's glands, urethra, [place]'s glands, no vulvar lesions, no cervical lesions, [...] Level: 3 - Low Kathleen Ken MD [facility] 04-29-2024 Telephone encount er Note Spoke with patient. She had questions about the Cytotec. All questions answered. Aware JG placed order to check HCG level. Patient to have drawn on Mon, Wed, Fri next week. Encouraged to call with questions or concerns. Aware of heavy bleeding precautions. Giana Alexandre RN [facility] 04-29-2024 Miscellaneous Notes Formattin g of [...] like JG to send in Cytotec to [facility] in [facility]. Giana Alexandre RN documented in this encounter [facility] 04-29-2024 Telephone encount er Note Thank you. Giana Alexandre RN [facility] 04-29-2024 Telephone encount er Note Yes. I reviewed that with her. I'll add the order [facility] 04-29-2024 Telephone encount er Note Thank you. Is patient to f/u in the office or have HCG levels? Giana Alexandre RN [facility] 04-29-2024 Telephone encount er Note Ok prescription sent [facility] 04-29-2024 Telephone encount er Note Patient called with her decision. She would like J to send in Cytotec to [facility] in [facility]. Giana Alexandre RN [facility] 04-29-2024 Note HNO ID: [id number] Author: GIANA ALCALA MD Service: ? 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 aspirin, enteric coated [...] passage. 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 aspirin, enteric coated [...] Giana Alcala MD documented in this encounter [facility] 04-29-2024 Note HNO ID: [id number] Author: MALIHA CHIN MD Service: ? Author Type: Physician Type: Progress Notes Filed: 04/29/2024 11:10 Note Text: Dory Pradhan is a 28 year old female who presented for director of speech pathology ultrasound today. Encounter Diagnosis ICD-10-CM 1. Vaginal bleeding affecting early O20.9 Please see report under imaging tab. Maliha Chin MD April 29, 2024 11:05 AM [facility] 04-29-2024 History of Presen t illness Narrative Dory Pradhan is a 28 year old female who presented for director of speech pathology ultrasound today. Encounter Diagnosis ICD-10-CM 1. Vaginal bleeding affecting early O20.9 Please see report under imaging tab. Maliha Chin MD April 29, 2024 11:05 AM documented in this encounter [facility] 04-27-2024 Miscellaneous Notes Formattin g of [...] Rhina Connors RN documented in this encounter [facility] 04-27-2024 Telephone encount er Note Patient called, notified of below and voiced understanding. Ultrasound scheduled for Thursday. Rhina Connors RN [facility] 04-27-2024 Note Addended by: KAILEE RAHMAN on: 04/27/2024 12:11 PM Modules accepted: Orders [facility] 04-27-2024 Telephone encount er Note Recommend pelvic rest at this time. Order signed. Kailee Rahman APRN.CNP [facility] 04-27-2024 Note Addended by: RHINA CONNORS on: 04/27/2024 12:04 PM Modules accepted: Orders [facility] 04-27-2024 Telephone encount er Note We have openings downstairs, tomorrow and Thursday. Please place order. Rhina Connors RN [facility] 04-27-2024 Telephone encount er Note Do we have any ultrasound availability this week to see if she has a subchorionic hematoma? Kailee Rahman APRN.CNP [facility] 04-27-2024 Telephone encount er Note Patient 8w4d, seen in office on 04/22 for New OB. Rhina Connors RN [facility] 04-22-2024 Instructions Dia Bejarano MA - 04/22/2024 9:15 AM EST Please select the following link to access the [facility] Your Guide to a Healthy . [email or web address] documented in this encounter [facility] 04-07-2024 Note HNO ID: [id number] Author: KAILEE RAHMAN APRN.SALES SUPPORT ADMINISTRATOR Service: ? Author Type: Nurse Practitioner Type: Progress Notes Filed: 04/22/2024 09:53 Note Text: It Sales Consultant offered: Patient declines. 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 EPINEPHrine (EPIPEN) 0.3 mg/0.3 mL auto-injector NEEDED PRN For Allergies No current facility-administered medications for this visit. Allergies As of Date: 04/22/2024 Allergen Noted Reaction PEANUTS 06/01/2019 Anaphylaxis Fully Assess (more content not included)... [facility] 04-07-2024 History of Presen t illness Narrative It Sales Consultant offered: Patient declines. 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 EPINEPHrine (EPIPEN) 0.3 [...] discussed with the Patient or Patient's Authorized Dovetail Machine Operator. As applicable, any other physician, advance practice provider, medical student, or other health professional student that will be observing or involved in the sensitive examination for educational or training purposes was discussed with the Patient or Authorized Dovetail Machine Operator. The Patient or Authorized Dovetail Machine Operator has agreed to proceed with the sensitive [...] Your guide to a health and the Sorter Operator. Discussed hemoglobin electrophoresis. Patient: Declines Reviewed midwifery and paint line supervisor services that are available. 2) Screening: Hemoglobin [...] (28-30 weeks): [] Consent [] Contraception [] Fish Bait Processing Supervisor [] TeamBirth handout Third trimester (36-40 weeks): [] GBS [] Presentation - [] Scheduled [] yes - Hibiclens, pre-op instructions, CBC, T&S ordered [] no [] H&P [] Preferences worksheet [] Scanned in With Uncertain Dates in First Trimester - 04/22/2024 Comment: April 22, 2024 POCUS not consistent with LMP. Confirm dating with NT. Kailee Rahman, BOILER OPERATORS SUPERVISOR.SALES SUPPORT ADMINISTRATOR Obesity Affecting in First Trimester - 04/22/2024 [...] NT scan between 12w0d and 13w6d gestation. 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 History LMP: 05/12/2020, Drug Induced Amenorrhea Age at Menarche: Age at First : Age at Menopause: 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 History Comments: Sexual Activity: Yes; Male; ring [...] external genitalia normal, normal Bartholin's glands, urethra, [place]'s glands, no vulvar lesions, no cervical lesions, [...] Tianna Mota APRN.CNM documented in this encounter [facility] 06-23-2022 History of Presen t illness Narrative It Sales Consultant offered: Patient declinesPilar Connors is a 26 [...] L2 SAB0 IAB0 Ectopic0 Multiple0 Live Births2 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 History LMP: 05/12/2020, Drug Induced Amenorrhea Age at Menarche: Age at First : Age at Menopause: 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 History Comments: Sexual Activity: Yes; Male; ring [...] external genitalia normal, normal Bartholin's glands, urethra, [place]'s glands, no vulvar lesions, no cervical lesions, [...] Tianna Mota APRN.CNM documented in this encounter [facility] 06-09-2022 Miscellaneous Notes Formattin g of [...] Gladis Platt RN documented in this encounter [facility] 04-05-2015 History of Past i llness [...] of this encounter (statuses as of 06/09/2022) [facility] History of Past illness Narrative* Problem [...] of this encounter (statuses as of 06/23/2022) [facility] History of Past illness Narrative* Problem [...] of this encounter (statuses as of 06/29/2023) [facility] [place] [facility] Diagnosis Encounter for gynecological examination (general) (routine) without abnormal findings- Primary [facility] [place] [facility] Diagnosis Encounter for gynecological examination (general) (routine) without abnormal findings- Primary Encounter for surveillance of vaginal ring hormonal contraceptive device [facility] [place] [facility] Diagnosis Encounter for supervision of high risk in first trimester, antepartum- Primary Less than 8 weeks gestation of state, incidental with uncertain dates in first trimester Obesity affecting in first trimester, unspecified obesity type Constipation during in first trimester Vaginal bleeding affecting early [facility] [place] [facility] Diagnosis Vaginal bleeding affecting early - Primary [facility] [place] [facility]* Diagnosis Vaginal bleeding affecting early [facility] [place] [facility]* Diagnosis SAB (spontaneous )- Primary Unspecified spontaneous without mention of complication [facility]* Diagnosis SAB (spontaneous )- Primary Unspecified spontaneous without mention of complication [facility] [place] [facility]* Diagnosis Incomplete spontaneous without complication- Primary Incomplete spontaneous without mention of complication [facility] [place] [facility]* Diagnosis Encounter for gynecological examination (general) (routine) without abnormal findings- Primary Screening for cervical cancer Screening for malignant neoplasm of the cervix Encounter for screening for human papillomavirus (HPV) Special screening examination for human papillomavirus (HPV) [facility] [place] [facility]* Diagnosis 9 weeks gestation of (HCC)- Primary state, incidental with uncertain dates in first trimester (HCC) Obesity affecting in first trimester, unspecified obesity type (HCC) Encounter for supervision of low-risk in first trimester (HCC) Irritable bowel syndrome with both constipation and diarrhea [facility] Diagnosis Encounter for screening for malformation using ultrasound (HCC)- Primary 13 weeks gestation of (HCC) state, incidental documented in this encounter [facility] note* Diagnosis Encounter for supervision of low-risk in second trimester (HCC)- Primary Other obesity affecting in second trimester (HCC) 13 weeks gestation of (HCC) state, incidental documented in this encounter [facility] note* Diagnosis Encounter for supervision of low-risk in second trimester (HCC)- Primary 16 weeks gestation of (HCC) state, incidental Other obesity affecting in second trimester (HCC) documented in this encounter [facility] note* Diagnosis Supervision of high risk in second trimester (HCC)- Primary Unspecified high-risk 20 weeks gestation of (HCC) state, incidental Obesity affecting in second trimester, unspecified obesity type (HCC) Irritable bowel syndrome with both constipation and diarrhea documented in this encounter [facility] note* Diagnosis Obesity affecting in second trimester, unspecified obesity type (HCC)- Primary 9 weeks gestation of (HCC) state, incidental Supervision of high risk in second trimester (HCC) Unspecified high-risk documented in this encounter [facility] note* Diagnosis Low-lying placenta (HCC)- Primary Hemorrhage from placenta previa, unspecified as to episode of care documented in this encounter [facility] note* Diagnosis Supervision of high risk in second trimester (HCC)- Primary Unspecified high-risk 24 weeks gestation of ([facility]) state, incidental Obesity affecting in second trimester, unspecified obesity type (HCC) Low-lying placenta (HCC) Hemorrhage from placenta previa, unspecified as to episode of care Screening for diabetes mellitus Heartburn during in second trimester ([facility]) documented in this encounter [facility] for referral (narrative)* Diagnostic Procedure Only (Routine) - Authorized Specialty Diagnoses / Procedures Referred By Brianna delgado Referred To Contact [facility] Diagnoses Encounter for supervision of high risk in first trimester, antepartum Less than 8 weeks gestation of with uncertain dates in first trimester Procedures NUCHAL TRANSLUCENCY WHI US NUCHAL TRANSLUCENCY 1ST GESTATION Kailee Rahman APRN.SALES SUPPORT ADMINISTRATOR [address] [place] [address] [address] Referral ID Status Reason Start Date Expiration Date Visits Requested Visits Authorized [id number] Authorized Auto-Generat ed Referral 04/22/2024 04/22/2025 1 1 * Diagnostic Procedure Only (Routine) - Authorized Specialty Diagnoses / Procedures Referred By Contac t Referred To Contact [facility] Diagnoses with uncertain dates in first trimester Procedures NUCHAL TRANSLUCENCY WHI US NUCHAL TRANSLUCENCY 1ST GESTATION Kailee Rahman APRN.CNP [address] [place] [address] [address] Referral ID Status Reason Start Date Expiration Date Visits Requested Visits Authorized [id number] Authorized Auto-Generat ed Referral 04/22/2024 04/22/2025 1 1 * Diagnostic Procedure Only (Routine) - Authorized Specialty Diagnoses / Procedures Referred By Contac t Referred To Contact [facility] Diagnoses with uncertain dates in first trimester Procedures OBSTETRIC ULTRASOUND WHI US PREG UTERUS AFTER 1ST TRIMEST GESTATION Kailee Rahman APRN.CNP [address] [place] [address] [address] Referral ID Status Reason Start Date Expiration Date Visits Requested Visits Authorized [id number] Authorized Auto-Generat ed Referral 04/22/2024 04/22/2025 1 1 [facility] for referral (narrative)* Diagnostic Procedure Only (Routine) - Authorized Specialty Diagnoses / Procedures Referred By Contac t Referred To Contact [facility] Diagnoses Vaginal bleeding affecting early Procedures OBSTETRIC ULTRASOUND WHI US PREG UTERUS AFTER 1ST TRIMEST GESTATION Kailee Rahman APRN.CNP [address] [place] [address] [address] [place] [address] Referral ID Status Reason Start Date Expiration Date Visits Requested Visits Authorized [id number] Authorized Auto-Generat ed Referral 04/27/2025 1 1 [facility] for visit Narrative* Diagnostic Procedure Only (Routine) - Closed Specialty Diagnoses / Procedures Referred By Contchristiane t Referred To Contact [facility] Diagnoses Vaginal bleeding affecting early Procedures OBSTETRIC ULTRASOUND WHI US PREG UTERUS AFTER 1ST TRIMEST GESTATION Kailee Rahman APRN.CNP [address] [place] [address] [address] Referral ID Status Reason Start Date Expiration Date V isits Requested Visits Authorized [id number] Closed Auto-Generate d Referral 04/27/2024 04/27/2025 1 1 [facility] Summary Purpose Family History No Family History Records FoundNo Family History Records FoundNo Family History Records FoundNo Family History Records Found Advance Directives No Advanced Directives Records FoundNo Advanced Directives Records FoundNo Advanced Directives Records FoundNo Advanced Directives Records Found Additional Source Comments INFORMATION SOURCE (unrecogn ized section and content) DATE CREATED AUTHOR 11/04/2017 [facility] DATE CREATED AUTHOR AUTHOR'S ORGANIZ ATION 01/16/2022 [facility] DATE CREATED AUTHOR AUTHOR'S ORGANIZ ATION 03/19/2025 [facility] DATE CREATED AUTHOR AUTHOR'S ORGANIZ ATION 03/25/2025 [facility] Source Comments (unrecognize d section and content) In the event this informatio n is protected by the Federal Confidentiality of Alcohol and Drug Abuse Patient Records regulations: The Federal rules restrict any use of the information to criminally investigate or prosecute any alcohol or drug abuse patient.[facility] the event this information is protected by the Federal Confidentiality of Alcohol and Drug Abuse Patient Records regulations: The Federal rules restrict any use of the information to criminally investigate or prosecute any alcohol or drug abuse patient.[facility] the event this information is protected by the Federal Confidentiality of Alcohol and Drug Abuse Patient Records regulations: The Federal rules restrict any use of the information to criminally investigate or prosecute any alcohol or drug abuse patient.[facility] the event this information is protected by the Federal Confidentiality of Alcohol and Drug Abuse Patient Records regulations: The Federal rules restrict any use of the information to criminally investigate or prosecute any alcohol or drug abuse patient.[facility] the event this information is protected by the Federal Confidentiality of Alcohol and Drug Abuse Patient Records regulations: The Federal rules restrict any use of the information to criminally investigate or prosecute any alcohol or drug abuse patient.[facility] the event this information is protected by the Federal Confidentiality of Alcohol and Drug Abuse Patient Records regulations: The Federal rules restrict any use of the information to criminally investigate or prosecute any alcohol or drug abuse patient.[facility] the event this information is protected by the Federal Confidentiality of Alcohol and Drug Abuse Patient Records regulations: The Federal rules restrict any use of the information to criminally investigate or prosecute any alcohol or drug abuse patient.[facility] the event this information is protected by the Federal Confidentiality of Alcohol and Drug Abuse Patient Records regulations: The Federal rules restrict any use of the information to criminally investigate or prosecute any alcohol or drug abuse patient.[facility] the event this information is protected by the Federal Confidentiality of Alcohol and Drug Abuse Patient Records regulations: The Federal rules restrict any use of the information to criminally investigate or prosecute any alcohol or drug abuse patient.[facility] the event this information is protected by the Federal Confidentiality of Alcohol and Drug Abuse Patient Records regulations: The Federal rules restrict any use of the information to criminally investigate or prosecute any alcohol or drug abuse patient.[facility] the event this information is protected by the Federal Confidentiality of Alcohol and Drug Abuse Patient Records regulations: The Federal rules restrict any use of the information to criminally investigate or prosecute any alcohol or drug abuse patient.[facility] the event this information is protected by the Federal Confidentiality of Alcohol and Drug Abuse Patient Records regulations: The Federal rules restrict any use of the information to criminally investigate or prosecute any alcohol or drug abuse patient.[facility] the event this information is protected by the Federal Confidentiality of Alcohol and Drug Abuse Patient Records regulations: The Federal rules restrict any use of the information to criminally investigate or prosecute any alcohol or drug abuse patient.[facility] the event this information is protected by the Federal Confidentiality of Alcohol and Drug Abuse Patient Records regulations: The Federal rules restrict any use of the information to criminally investigate or prosecute any alcohol or drug abuse patient.[facility] the event this information is protected by the Federal Confidentiality of Alcohol and Drug Abuse Patient Records regulations: The Federal rules restrict any use of the information to criminally investigate or prosecute any alcohol or drug abuse patient.[facility] the event this information is protected by the Federal Confidentiality of Alcohol and Drug Abuse Patient Records regulations: The Federal rules restrict any use of the information to criminally investigate or prosecute any alcohol or drug abuse patient.[facility] the event this information is protected by the Federal Confidentiality of Alcohol and Drug Abuse Patient Records regulations: The Federal rules restrict any use of the information to criminally investigate or prosecute any alcohol or drug abuse patient.[facility] the event this information is protected by the Federal Confidentiality of Alcohol and Drug Abuse Patient Records regulations: The Federal rules restrict any use of the information to criminally investigate or prosecute any alcohol or drug abuse patient.[facility] the event this information is protected by the Federal Confidentiality of Alcohol and Drug Abuse Patient Records regulations: The Federal rules restrict any use of the information to criminally investigate or prosecute any alcohol or drug abuse patient.[facility] the event this information is protected by the Federal Confidentiality of Alcohol and Drug Abuse Patient Records regulations: The Federal rules restrict any use of the information to criminally investigate or prosecute any alcohol or drug abuse patient.[facility] the event this information is protected by the Federal Confidentiality of Alcohol and Drug Abuse Patient Records regulations: The Federal rules restrict any use of the information to criminally investigate or prosecute any alcohol or drug abuse patient.[facility] the event this information is protected by the Federal Confidentiality of Alcohol and Drug Abuse Patient Records regulations: The Federal rules restrict any use of the information to criminally investigate or prosecute any alcohol or drug abuse patient.[facility] Reason for Visit (unrecogniz ed section and content) Reason Onset Date Comments Refill Request 06/09/2022 Reason Comments Yearly Exam Reason Comments Initial OB Visit Reason Comments Patient Update Reason Comments Follow Up Reason Comments Results Reason Comments Initial OB Visit Reason Comments US Specialty Diagnoses / Procedures Referred By Contchristiane t Referred To Contact [facility] Diagnoses 9 weeks gestation of (HCC) Procedures OBSTETRIC ULTRASOUND WHI US PREG UTERUS AFTER 1ST TRIMEST GESTATION Tianna Mota APRN.[address]RI [address] [address] Phone: tel: fax: [facility] [address] [place] [address] Referral ID Status Reason Start Date Expiration Date V isits Requested Visits Authorized [id number] Closed Auto-Generate d Referral 09/23/2024 09/23/2025 1 1 Reason Onset Date Comments Care 10/17/2024 Reason Onset Date Comments Care 11/11/2024 Reason Comments OB Vomiting Reason Onset Date Comments Care 12/09/2024 Referral ID Status Reason Start Date Expiration Date V isits Requested Visits Authorized [id number] Closed Auto-Generate d Referral 09/23/2024 09/23/2025 1 1 Reason Onset Date Comments Care 01/06/2025 Care Teams (unrecognized sec tion and content) Restrike Hammer Operator Relationship Specialty Start Date End Date Shazia Edwards PCP - General Family Medicine 07/22/12 Restrike Hammer Operator Relationship Specialty Start Date End Date Shazia Edwards MD PCP - General Family Medicine 07/22/12 Restrike Hammer Operator Relationship Specialty Start Date End Date Shazia Edwards MD PCP - General Family Medicine 07/22/12 Restrike Hammer Operator Relationship Specialty Start Date End Date Shazia Edwards MD PCP - General Family Medicine 07/22/12 Restrike Hammer Operator Relationship Specialty Start Date End Date Shazia Edwards MD PCP - General Family Medicine 07/22/12 Restrike Hammer Operator Relationship Specialty Start Date End Date Shazia Edwards MD PCP - General Family Medicine 07/22/12 Restrike Hammer Operator Relationship Specialty Start Date End Date Shazia Edwards MD PCP - General Family Medicine 07/22/12 Restrike Hammer Operator Relationship Specialty Start Date End Date Shazia Edwards MD PCP - General Family Medicine 07/22/12 Restrike Hammer Operator Relationship Specialty Start Date End Date Shazia Edwards MD PCP - General Family Medicine 07/22/12 Restrike Hammer Operator Relationship Specialty Start Date End Date Shazia Edwards MD PCP - General Family Medicine 07/22/12 Restrike Hammer Operator Relationship Specialty Start Date End Date Shazia Edwards MD PCP - General Family Medicine 07/22/12 Restrike Hammer Operator Relationship Specialty Start Date End Date Shazia Edwards MD PCP - General Family Medicine 07/22/12 Restrike Hammer Operator Relationship Specialty Start Date End Date Shazia Edwards MD PCP - General Family Medicine 07/22/12 Restrike Hammer Operator Relationship Specialty Start Date End Date Shazia Edwards MD PCP - General Family Medicine 07/22/12 Restrike Hammer Operator Relationship Specialty Start Date End Date Shazia Edwards MD PCP - General Family Medicine 07/22/12 Restrike Hammer Operator Relationship Specialty Start Date End Date Shazia Edwards MD PCP - General Family Medicine 07/22/12 Restrike Hammer Operator Relationship Specialty Start Date End Date Shazia Edwards MD PCP - General Family Medicine 07/22/12 Restrike Hammer Operator Relationship Specialty Start Date End Date Shazia [...] BE BASED ON THE PRIMARY CLINICAL RECORDS. [facility] [employer] [facility]. provides no warranty or guarantee of the accuracy or completeness of information in this document.
--- OUTSIDE RECORDS SUMMARY | 2025-04-19 07:29 | XMS RPT_ITS | CCD ---
Author Organization [facility] [place] [facility] Team Providers Care Manager Occupational Name Role Phone Furness, Shazia T Unavailable [...] Care Unavailable PLOTTS, TIANNA Referring Unavailable NEYHART RZAAIDRE Attending Unavail able FURNESS, SHAZIA T Primary Care Unavailable NEYHART CARO, KATHLEEN Referring Unavail able FURNESS, SHAZIA T Primary Care Unavailable Allergies Allergy Classification Reported Allergen(s) Allergy Type Date of Onset Reaction(s) Facility (20 sources) peanut; Translations: [Peanuts] Propensity to adverse reactions to food (disorder) 0 Anaphylaxis [facility] Repository (1 source) No Known Allergies; Translations: [No Known Allergies] Propensity to adverse reactions to drug (disorder) [facility] Repository (1 source) peanut allergenic extract Drug Allergy 2 [facility] Repository Medications Current Medications Medication Drug [...] 1 dose. 2 tablet 05/06/2024 05/06/2024 Active [id number] 0.3 ml EPINEPHrine 1 mg/ml auto-injector (20 sources) alpha-Adrenergic Agonist, beta-Adrenergic Agonist, Catecholamine Start: 05-13-2018 EPINEPHrine (EPIPEN) 0.3 mg/0.3 mL auto-injector NEEDED PRN For Allergies 05/13/2018 Active Comment on above: NEEDED PRN For Al lergies 273 day ethinyl estradiol 0.181571 mg/hr / segesterone acetate 0.18268 mg/hr vaginal system (5 sources) Estrogen Start: [...] daily. 30 tablet 1 01/06/2025 Active 25-IRON QDF-JIONI-DER ORAL (19 sources) 25-IRON VXM-[id number]-MPC ORAL Take by mouth. Active promethazine hydrochloride [...] of ; Translations: [30 weeks gestation of ([facility])] Onset: 02-17-2025 Episodic Residual codes; unclassified (1 source) 24 weeks gestation of ; Translations: [24 weeks gestation of ([facility])] Onset: 02-03-2025 Episodic Residual codes; unclassified (1 source) 28 weeks gestation of ; Translations: [28 weeks gestation of ([facility])] Onset: 02-03-2025 Episodic Unclassified (20 sources) [facility] Education - COMMON Onset: 04-23-2024 04-23-2024 Unclassified (11 sources) [place] - [place] Onset: 09-23-2024 09-23-2024 Unclassified (1 source) Other obesity affecting in second trimester ([facility]); Translations: [Other obesity affecting in second trimester ([facility])] Onset: 10-17-2024 Past or Other Problems Problem [...] Ql (Vag fld) Detected Abnormal Not detected [facility] Comment on above: Order Comment: Speci men Type: SWABOrdering Facility: [facility] Address: [address] [place] [address] Performed By: #### C VTV, BVAMP ####[facility] LABCLIA [id number] [place] [address] [place] MILADIS/TRICHOMONAS NAATon 1 05-20-2024 C. glabrata RNA ITZEL+probe Ql (Vag fld) Not detected Normal Not detected [facility] Comment on above: Order Comment: Speci men Type: SWABOrdering Facility: [facility] Address: [address] [place] [address] Performed By: #### C VTV, BVAMP ####[facility] LABCLIA [id number] [address] [place] Miladis sp DNA ITZEL+probe Ql (Vag fld) Not detected Normal Not detected [facility] Comment on above: Order Comment: Speci men Type: SWABOrdering Facility: [facility] Address: [address] [place] [address] Result Comment: The Miladis species group target includes C. albicans, C. tropicalis, C. parapsilosis, and C. dubliniensis. Performed By: #### C VTV, BVAMP ####[facility] LABCLIA [id number] [address] [place] T. vaginalis DNA ITZEL+probe Ql (Unsp spec) Not detected Normal Not detected [facility] Comment on above: Order Comment: Speci men Type: SWABOrdering Facility: [facility] Address: [address] [place] [address] Performed By: #### C VTV, BVAMP ####[facility] LABCLIA [id number] [address] [place] Ender 02-15-2025 CNPN Telephone (OBGYWM) DORY PRADHAN ([id number]) 1995 F Date Time Provider Department 02/15/25 [...] tablet by mouth once daily. - 25-IRON OAS-ZMNXY-GVH ORAL Take by mouth. - EPINEPHrine (EPIPEN) [...] Status:Closed by TIANNA MOTA on 02/15/25 Normal [facility] GLUCOSE GESTATIONAL, 1 HOURo n 02-10-2025 Glucose 1 Hr post Unsp challenge [Mass/Vol] 142 mg/dL Normal 74-179 [facility] Comment on above: Order Comment: Speci men Type: BLOOD SPECIMEN [facility]ing Facility: [facility] Address: [address] [place] [address] [place] [address] Result Comment: [facility] Congress of Obstetricians and Gynecologists (Koko/Brenda) guidelines state gestational diabetes mellitus is present when 2 or more of the plasma glucose concentrations meet or exceed the following levels: fastin mg/dl, 1 hr: 180 mg/dl, 2 hr: 155 mg/dl, and 3 hr: 140 mg/dl. Performed By: #### G TGST1 #### [facility] CLIA [id number] [address] [place] [address] [place] GLUCOSE GESTATIONAL, 2 HOURo n 02-10-2025 Glucose 2 Hr post Unsp challenge [Mass/Vol] 151 mg/dL Normal 74-154 [facility] Comment on above: Order Comment: Speci men Type: BLOOD SPECIMENOrdering Facility: [facility] Address: [address] [place] [address] Result Comment: [facility] Congress of Obstetricians and Gynecologists (Koko/Brenda) guidelines state gestational diabetes mellitus is present when 2 or more of the plasma glucose concentrations meet or exceed the following levels: fastin mg/dl, 1 hr: 180 mg/dl, 2 hr: 155 mg/dl, and 3 hr: 140 mg/dl. Performed By: #### G TGST2 ####[facility] [id number] [place] [address] [place] GLUCOSE GESTATIONAL, 3 HOURo n 02-10-2025 Glucose 3 Hr post Unsp challenge [Mass/Vol] 153 mg/dL High 74-139 [facility] Comment on above: Order Comment: Speci men Type: BLOOD SPECIMENOrdering Facility: [facility] Address: [address] [place] [address] Result Comment: [facility] Congress of Obstetricians and Gynecologists (Koko/Brenda) guidelines state gestational diabetes mellitus is present when 2 or more of the plasma glucose concentrations meet or exceed the following levels: fastin mg/dl, 1 hr: 180 mg/dl, 2 hr: 155 mg/dl, and 3 hr: 140 mg/dl. Performed By: #### G TGST3 ####[facility] [id number] [place] [address] [place] GLUCOSE GESTATIONAL, FASTING on 02-10-2025 Glucose post fast [Mass/Vol] 79 mg/dL Normal 74-94 [facility] Comment on above: Order Comment: Speci men Type: BLOOD SPECIMEN [facility]ing [facility]: [facility] Address: [address] [place] [address] Result Comment: [facility] Congress of Obstetricians and Gynecologists (Koko/Brenda) guidelines state gestational diabetes mellitus is present when 2 or more of the plasma glucose concentrations meet or exceed the following levels: fastin mg/dl, 1 hr: 180 mg/dl, 2 hr: 155 mg/dl, and 3 hr: 140 mg/dl. Performed By: #### G TGSTF #### [facility] CLIA [id number] [address] [place] [address] [place] CBC W Auto Differential pane l (Bld)on 02-03-2025 Basophils (Bld) [#/Vol] 10*3/uL Normal <0.11 [facility] Comment on above: Order Comment: Speci men Type: BLOOD SPECIMEN [facility]ing [facility]: [facility] Address: [address] [place] [address] Performed By: #### G TGST1 #### [facility] [id number] [address] [place] [address] [place] Basophils/100 WBC (Bld) 0.2 % Normal [facility] Comment on above: Order Comment: Speci men Type: BLOOD SPECIMEN Ordering Facility: [facility] Address: [address] [place] [address] Performed By: #### G TGST1 #### [facility] [id number] [address] [place] [address] [place] Differential cell count method Nom (Bld) Auto Normal [facility] Comment on above: Order Comment: Speci men Type: BLOOD SPECIMEN [facility]ing [facility]: [facility] Address: [address] [place] [address] Performed By: #### G TGST1 #### [facility] [id number] [address] [place] [address] [place] Eosinophils (Bld) [#/Vol] 0.04 10*3/uL Normal <0.46 [facility] Comment on above: Order Comment: Speci men Type: BLOOD SPECIMEN Ordering Facility: [facility] Address: [address] [place] [address] Performed By: #### G TGST1 #### [facility] CLIA [id number] [address] [place] [address] [place] Eosinophils/100 WBC (Bld) 0.4 % Normal [facility] Comment on above: Order Comment: Speci men Type: BLOOD SPECIMEN Ordering Facility: [facility] Address: [address] [place] [address] Performed By: #### G TGST1 #### [facility] CLIA [id number] [address] [place] [address] [place] Erythrocyte distribution width (RBC) [Ratio] 13.3 % Normal 11.5-15.0 [facility] Comment on above: Order Comment: Speci men Type: BLOOD SPECIMEN Ordering Facility: [facility] Address: [address] [place] [address] Performed By: #### G TGST1 #### [facility] CLIA [id number] [address] [place] [address] [place] Hematocrit (Bld) [Volume fraction] 33.1 % Low 36.0-46.0 [facility] Comment on above: Order Comment: Speci men Type: BLOOD SPECIMEN [facility]ing [facility]: [facility] Address: [address] [place] [address] Performed By: #### G TGST1 #### [facility] [id number] [address] [place] [address] [place] Hemoglobin (Bld) [Mass/Vol] 11.2 g/dL Low 11.5-15.5 [facility] Comment on above: Order Comment: Speci men Type: BLOOD SPECIMEN Ordering [facility]: [facility] Address: [address] [place] [address] Performed By: #### G TGST1 #### [facility] CLIA [id number] [address] [place] [address] [place] Immature granulocytes (Bld) [#/Vol] 0.05 10*3/uL Normal <0.10 [facility] Comment on above: Order Comment: Speci men Type: BLOOD SPECIMEN Ordering [facility]: [facility] Address: [address] [place] [address] Performed By: #### G TGST1 #### [facility] CLIA [id number] [address] [place] [address] [place] Immature granulocytes/100 WBC (Bld) 0.5 % Normal [facility] Comment on above: Order Comment: Speci men Type: BLOOD SPECIMEN Ordering [facility]: [facility] Address: [address] [place] [address] Performed By: #### G TGST1 #### [facility] CLIA [id number] [address] [place] [address] [place] Lymphocytes (Bld) [#/Vol] 1.63 10*3/uL Normal 1.00-4.00 [facility] Comment on above: Order Comment: Speci men Type: BLOOD SPECIMEN Ordering [facility]: [facility] Address: [address] [place] [address] Performed By: #### G TGST1 #### [facility] CLIA [id number] [address] [place] [address] [place] Lymphocytes/100 WBC (Bld) 16.8 % Normal [facility] Comment on above: Order Comment: Speci men Type: BLOOD SPECIMEN Ordering [facility]: [facility] Address: [address] [place] [address] Performed By: #### G [email or web address] #### [facility] CLIA [id number] [address] [place] [address] [place] MCH (RBC) [Entitic mass] 30.0 pg Normal 26.0-34.0 [facility] Comment on above: Order Comment: Speci men Type: BLOOD SPECIMEN Ordering [facility]: [facility] Address: [address] [place] [address] Performed By: #### G [email or web address] #### [facility] CLIA [id number] [address] [place] [address] [place] MCHC (RBC) [Mass/Vol] 33.8 g/dL Normal 30.5-36.0 [facility] Comment on above: Order Comment: Speci men Type: BLOOD SPECIMEN Ordering Facility: [facility] Address: [address] [place] [address] Performed By: #### G [email or web address] #### [facility] CLIA [id number] [address] [place] [address] [place] MCV (RBC) [Entitic vol] 88.7 fL Normal 80.0-100.0 [facility] Comment on above: Order Comment: Speci men Type: BLOOD SPECIMEN Ordering Facility: [facility] Address: [address] [place] [address] Performed By: #### G TGST1 #### [facility] CLIA [id number] [address] [place] [address] [place] Monocytes (Bld) [#/Vol] 0.42 10*3/uL Normal <0.87 [facility] Comment on above: Order Comment: Speci men Type: BLOOD SPECIMEN Ordering Facility: [facility] Address: [address] [place] [address] Performed By: #### G TGST1 #### [facility] CLIA [id number] [address] [place] [address] [place] Monocytes/100 WBC (Bld) 4.3 % Normal [facility] Comment on above: Order Comment: Speci men Type: BLOOD SPECIMEN Ordering Facility: [facility] Address: [address] [place] [address] Performed By: #### G TGST1 #### [facility] CLIA [id number] [address] [place] [address] [place] Neutrophils (Bld) [#/Vol] 7.57 10*3/uL High 1.45-7.50 [facility] Comment on above: Order Comment: Speci men Type: BLOOD SPECIMEN Ordering Facility: [facility] Address: [address] [place] [address] Performed By: #### G TGST1 #### [facility] CLIA [id number] [address] [place] [address] [place] Neutrophils/100 WBC (Bld) 77.8 % Normal [facility] Comment on above: Order Comment: Speci men Type: BLOOD SPECIMEN [facility]ing [facility]: [facility] Address: [address] [place] [address] Performed By: #### G TGST1 #### [facility] CLIA [id number] [address] [place] [address] [place] Nucleated RBC (Bld) [#/Vol] 10*3/uL Normal <0.01 [facility] Comment on above: Order Comment: Speci men Type: BLOOD SPECIMEN Ordering [facility]: [facility] Address: [address] [place] [address] Performed By: #### G TGST1 #### [facility] CLIA [id number] [address] [place] [address] [place] Nucleated RBC/100 WBC (Bld) [Ratio] 0.0 /100 WBC Normal [facility] Comment on above: Order Comment: Speci men Type: BLOOD SPECIMEN Ordering [facility]: [facility] Address: [address] [place] [address] Performed By: #### G [email or web address] #### [facility] CLIA [id number] [address] [place] [address] [place] Platelet mean volume (Bld) [Entitic vol] 9.3 fL Normal 9.0-12.7 [facility] Comment on above: Order Comment: Speci men Type: BLOOD SPECIMEN Ordering Facility: [facility] Address: [address] [place] [address] Performed By: #### G TGST1 #### [facility] CLIA [id number] [address] [place] [address] [place] Platelets (Bld) [#/Vol] 229 10*3/uL Normal 150-400 [facility] Comment on above: Order Comment: Speci men Type: BLOOD SPECIMEN Ordering Facility: [facility] Address: [address] [place] [address] Performed By: #### G TGST1 #### [facility] CLIA [id number] [address] [place] [address] [place] RBC (Bld) [#/Vol] 3.73 10*6/uL Low 3.90-5.20 [facility] Comment on above: Order Comment: Speci men Type: BLOOD SPECIMEN Ordering [facility]: [facility] Address: [address] [place] [address] Performed By: #### G TGST1 #### [facility] CLIA [id number] [address] [place] [address] [place] WBC (Bld) [#/Vol] 9.73 10*3/uL Normal 3.70-11.00 [facility] Comment on above: Order Comment: Speci men Type: BLOOD SPECIMEN Ordering Facility: [facility] Address: [address] [place] [address] Performed By: #### G TGST1 #### [facility] CLIA [id number] [address] [place] [address] [place] GESTATIONAL GLUCOSE SCREEN, 1-HOUR, 50 GRAM, NON-FASTINGon 02-03-2025 Glucose [Mass/Vol] 171 mg/dL High 74-134 [facility] Comment on above: Order Comment: Speci men Type: BLOOD SPECIMENOrdering Facility: [facility] Address: [address] [place] [address] Result Comment: [facility] Congress of Obstetricians and Gynecologists (Koko/Brenda) guidelines state a gestational diabetes mellitus positive screen is made, in women not previously diagnosed with overt diabetes, when the 1 hr plasma glucose level is equal to or above 140 mg/dL. [facility] [employer] and [facility] [place] recommends a 135 mg/dL cutoff. Performed By: #### G LTGST ####[facility] O[facility]OLIA [id number] [place] [address] [place] Reagin and Treponema pallidu m IgG and IgM [Interp]on 02-03-2025 T. pallidum IgG+IgM IA Ql (S) Non-Reactive Normal Nonreactive [facility] Comment on above: Order Comment: Klarissa marcus Type: BLOOD SPECIMEN Ordering [facility]: [facility] Address: [address] [place] [address] Performed By: #### G TGST1 #### [facility] CLIA [id number] [address] [place] [address] [place] Reagin+T pallidum IgG+IgM Se rPl-Impon 02-03-2025 Reagin and Treponema pallidum IgG and IgM [Interp] Cannot exclude recent Treponemal infection if specimen collected within 7-10 days after appearance of suspect lesions or 2-3 weeks after an exposure. Clinical correlation is required. Normal [facility] Comment on above: Order Comment: Klarissa marcus Type: BLOOD SPECIMEN [facility]ing [facility]: [facility] Address: [address] [place] [address] Performed By: #### G TGST1 #### [facility] CLIA [id number] [address] [place] [address] [place] CNPNon 12-19-2024 CNPN Telephone (OBGYW) DORY PRADHAN ([id number]) 1995 F Date Time Provider Department 12/19/24 [...] 4:53 PM Signed Thank you. Would recommend [facility] due to gestational age if needing to go in. Thank you, PHYLLIS Franks Jennifer, RN 12/19/2024 5:00 PM Signed Patient notified. Giana Alexandre RN Allergies As of Date: 12/19/2024 Noted Allergy Reaction PEANUTS 06/01/2019 10 - Anaphylaxis Date Reviewed: 12/09/2024 Reviewed by: Kailee Rahman APRN.PAINTER SIGN MAINTENANCE - Fully Assessed Prescriptions as of 12/19/2024 [...] tablet by mouth once daily. - 25-IRON OPC-IOCYT-APN ORAL Take by mouth. - EPINEPHrine (EPIPEN) [...] Encounter Status:Closed by GIANA ALEXANDRE on 12/19/24 [facility] DORY PRAD[facility] ([id number]) 1995 F Date Time Provider Department 12/12/24 TIANNA MOTA During your visit today, we recorded the following information about you: Tianna Mota APRN.CNM 12/12/2024 4:44 PM Signed Attempted to call patient to notify and relocation counselor on low lying placenta. No answer and unable to leave message. Will have online merchandising specialist provider attempt tomorrow. PHYLLIS Loyd Jennifer, RN [...] Date Reviewed: 12/09/2024 Reviewed by: Kailee Rahman APRN.PAINTER SIGN MAINTENANCE - Fully Assessed Reason for Visit: Results [...] tablet by mouth once daily. - 25-IRON WJA-DUTCV-SFL ORAL Take by mouth. - EPINEPHrine (EPIPEN) [...] Status:Closed by TIANNA MOTA on 12/12/24 Normal [facility] Examination level ultrasound on 12-12-2024 Indication Detailed [...] Placenta: Placental site: posterior, low lying. Placental hxco-mp-rmpvcvav os distance 8 mm Umbilical cord: Cord [...] 13 oz EFW by: Hadlock (HC-AC-FL) Extended [employer] Clerk 5.9 mm CM 4.7 mm 36% Nicolaides [...] normal LVOT view: normal 3-vessel view: normal 7-vkymfz-eawsqul view: normal Heart / Thorax Situs: situs [...] Read By: Cristina Alegre M.D. MATERNAL MEDICINE [facility] Examination level ultrasound on 12-09-2024 Radiology Study observation (narrative) [facility] 12-05-2024 [facility] Telephone (OBGYWM) DORY PRADHAN ([id number]) 1995 F Date Time Provider Department 12/05/24 [...] can have antiemetic prescribed and sent to [facility] in [place]. Encouraged to push fluids and include electrolytes. [...] tablet by mouth once daily. - 25-IRON CEO-ZBDFU-QUA ORAL Take by mouth. - EPINEPHrine (EPIPEN) [...] RECTAL SUPPOSIT* 12 e* 0 12/05/2024 Route: IN Si suppository by RECTAL route every 6 hours as needed. Encounter Status:Closed by TIANNA MOTA on 12/05/24 Normal [facility] Examination level ultrasound on 10-17-2024 Indication First trimester anatomic survey Maternal obesity, BMI >30 Impression The patient is referred for a first trimester anatomy scan including nuchal translucency measurement as clinically indicated. - Single, live, intrauterine . - Mayer rump length measurement is consistent with the [...] view: visualized 4-chamber view with color: visualized 0-wiyyob-hpjbkbi view: visualized Abdominal cord insertion: normal Stomach: [...] Read By: Bella Mak M.D. MATERNAL MEDICINE [facility] Radiology Study observation (narrative) [facility] Bacteria Ur Culton Bacteria identified Cx Nom (U) ORGANISM ID: 1 10,000 -<50,000 CFU/ml Normal urogenital daniel Normal [facility] Comment on above: Performed By: #### 6 30-4 ####[facility] LABCLIA [id number] [place] [address] [place] C. trachomatis+N. gonorrhoea e DNA ITZEL+probe Ql (Unsp spec)on 09-23-2024 C. trachomatis rRNA ITZEL+probe Ql (Unsp spec) Not detected Normal Not detected [facility] Comment on above: Order Comment: Speci men Type: SWABOrdering Facility: [facility] Address: [address] [place] [address] Performed By: #### T RVAMP, 49412-5 ####[facility] LABCLIA [id number] [address] [place] N. gonorrhoeae rRNA ITZEL+probe Ql (Unsp spec) Not detected Normal Not detected [facility] Comment on above: Order Comment: Speci men Type: SWABOrdering Facility: [facility] Address: [address] [place] [address] Performed By: #### T RVAMP, 93482-1 ####[facility] LABCLIA [id number] [place] [address] [place] CBC W Auto Differential pane l (Bld)on 09-23-2024 Basophils (Bld) [#/Vol] 0.03 10*3/uL Normal <0.11 [facility] Comment on above: Order Comment: Speci men Type: BLOOD SPECIMENOrdering Facility: [facility] Address: [address] [place] [address] Performed By: #### 5 [id number] ####[facility] [id number] [place] [address] [place] Basophils/100 WBC (Bld) 0.3 % Normal [facility] Comment on above: Order Comment: Speci men Type: BLOOD SPECIMENOrdering Facility: [facility] Address: [address] [place] [address] Performed By: #### 5 7021-8 ####[facility] HARLANSEAN [id number] [place] [address] [place] Differential cell count method Nom (Bld) Auto Normal [facility] Comment on above: Order Comment: Speci men Type: BLOOD SPECIMENOrdering Facility: [facility] Address: [address] [place] [address] Performed By: #### 5 7021-8 ####[facility] [id number] [place] [address] [place] Eosinophils (Bld) [#/Vol] 0.05 10*3/uL Normal <0.46 [facility] Comment on above: Order Comment: Speci men Type: BLOOD SPECIMENOrdering Facility: [facility] Address: [address] [place] [address] Performed By: #### 5 7021-8 ####[facility] [id number] [place] [address] [place] Eosinophils/100 WBC (Bld) 0.5 % Normal [facility] Comment on above: Order Comment: Speci men Type: BLOOD SPECIMENOrdering Facility: [facility] Address: [address] [place] [address] Performed By: #### 5 7021-8 ####[facility] [id number] [place] [address] [place] Erythrocyte distribution width (RBC) [Ratio] 12.7 % Normal 11.5-15.0 [facility] Comment on above: Order Comment: Speci men Type: BLOOD SPECIMENOrdering Facility: [facility] Address: [address] [place] [address] Performed By: #### 5 7021-8 ####[facility] [id number] [place] [address] [place] Hematocrit (Bld) [Volume fraction] 37.7 % Normal 36.0-46.0 [facility] Comment on above: Order Comment: Speci men Type: BLOOD SPECIMENOrdering Facility: [facility] Address: [address] [place] [address] Performed By: #### 5 7021-8 ####[facility] OHIOLIA [id number] [place] [address] [place] Hemoglobin (Bld) [Mass/Vol] 12.9 g/dL Normal 11.5-15.5 [facility] Comment on above: Order Comment: Speci men Type: BLOOD SPECIMENOrdering Facility: [facility] Address: [address] [place] [address] Performed By: #### 5 7021-8 ####[facility] [id number] [place] [address] [place] Immature granulocytes (Bld) [#/Vol] 0.03 10*3/uL Normal <0.10 [facility] Comment on above: Order Comment: Speci men Type: BLOOD SPECIMENOrdering Facility: [facility] Address: [address] [place] [address] Performed By: #### 5 7021-8 ####[facility] O[facility]OLIA [id number] [place] [address] [place] Immature granulocytes/100 WBC (Bld) 0.3 % Normal [facility] Comment on above: Order Comment: Speci men Type: BLOOD SPECIMENOrdering Facility: [facility] Address: [address] [place] [address] Performed By: #### 5 7021-8 ####[facility]ITAL[facility]CL[facility] [id number] [place] [address] [place] Lymphocytes (Bld) [#/Vol] 2.13 10*3/uL Normal 1.00-4.00 [facility] Comment on above: Order Comment: Speci men Type: BLOOD SPECIMENOrdering Facility: [facility] Address: [address] [place] [address] Performed By: #### 5 7021-8 ####[facility] [id number] [place] [address] [place] Lymphocytes/100 WBC (Bld) 22.0 % Normal [facility] Comment on above: Order Comment: Speci men Type: BLOOD SPECIMENOrdering Facility: [facility] Address: [address] [place] [address] Performed By: #### 5 7021-8 ####[facility] [id number] [place] [address] [place] MCH (RBC) [Entitic mass] 30.9 pg Normal 26.0-34.0 [facility] Comment on above: Order Comment: Speci men Type: BLOOD SPECIMENOrdering Facility: [facility] Address: [address] [place] [address] Performed By: #### 5 7021-8 ####[facility] [id number] [place] [address] [place] MCHC (RBC) [Mass/Vol] 34.2 g/dL Normal 30.5-36.0 [facility] Comment on above: Order Comment: Speci men Type: BLOOD SPECIMENOrdering Facility: [facility] Address: [address] [place] [address] Performed By: #### 5 7021-8 ####[facility] [id number] [place] [address] [place] MCV (RBC) [Entitic vol] 90.4 fL Normal 80.0-100.0 [facility] Comment on above: Order Comment: Speci men Type: BLOOD SPECIMENOrdering Facility: [facility] Address: [address] [place] [address] Performed By: #### 5 7021-8 ####[facility] HARLANMARILYNA [id number] [place] [address] [place] Monocytes (Bld) [#/Vol] 0.47 10*3/uL Normal <0.87 [facility] Comment on above: Order Comment: Speci men Type: BLOOD SPECIMENOrdering Facility: [facility] Address: [address] [place] [address] Performed By: #### 5 7021-8 ####[facility] [id number] [place] [address] [place] Monocytes/100 WBC (Bld) 4.9 % Normal [facility] Comment on above: Order Comment: Speci men Type: BLOOD SPECIMENOrdering Facility: [facility] Address: [address] [place] [address] Performed By: #### 5 7021-8 ####[facility]ITALNCA [id number] [place] [address] [place] Neutrophils (Bld) [#/Vol] 6.95 10*3/uL Normal 1.45-7.50 [facility] Comment on above: Order Comment: Speci men Type: BLOOD SPECIMENOrdering Facility: [facility] Address: [address] [place] [address] Performed By: #### 5 7021-8 ####[facility] [id number] [place] [address] [place] Neutrophils/100 WBC (Bld) 72.0 % Normal [facility] Comment on above: Order Comment: Speci men Type: BLOOD SPECIMENOrdering Facility: [facility] Address: [address] [place] [address] Performed By: #### 5 7021-8 ####[facility] HARLANWMARALLIA [id number] [place] [address] [place] Nucleated RBC (Bld) [#/Vol] 10*3/uL Normal <0.01 [facility] Comment on above: Order Comment: Speci men Type: BLOOD SPECIMENOrdering Facility: [facility] Address: [address] [place] [address] Performed By: #### 5 7021-8 ####[facility] [id number] [place] [address] [place] Nucleated RBC/100 WBC (Bld) [Ratio] 0.0 /100 WBC Normal [facility] Comment on above: Order Comment: Speci men Type: BLOOD SPECIMENOrdering Facility: [facility] Address: [address] [place] [address] Performed By: #### 5 7021-8 ####[facility] [id number] [place] [address] [place] Platelet mean volume (Bld) [Entitic vol] 9.3 fL Normal 9.0-12.7 [facility] Comment on above: Order Comment: Speci men Type: BLOOD SPECIMENOrdering Facility: [facility] Address: [address] [place] [address] Performed By: #### 5 7021-8 ####[facility] [id number] [place] [address] [place] Platelets (Bld) [#/Vol] 281 10*3/uL Normal 150-400 [facility] Comment on above: Order Comment: Speci men Type: BLOOD SPECIMENOrdering Facility: [facility] Address: [address] [place] [address] Performed By: #### 5 7021-8 ####[facility]ITALNCLI [id number] [place] [address] [place] RBC (Bld) [#/Vol] 4.17 10*6/uL Normal 3.90-5.20 [facility] Comment on above: Order Comment: Speci men Type: BLOOD SPECIMENOrdering Facility: [facility] Address: [address] [place] [address] Performed By: #### 5 7021-8 ####[facility] [id number] [place] [address] [place] WBC (Bld) [#/Vol] 9.66 10*3/uL Normal 3.70-11.00 [facility] Comment on above: Order Comment: Speci men Type: BLOOD SPECIMENOrdering Facility: [facility] Address: [address] [place] [address] Performed By: #### 5 7021-8 ####[facility] [id number] [place] [address] [place] HBV surface Ag Ser Qlon 05-0 HBV surface Ag Ql (S) Negative Normal Negative [facility] Comment on above: Order Comment: Speci men Type: BLOOD SPECIMEN [facility] Address: [address] [place] [address] Performed By: #### G [id number] #### [facility] CLIA [id number] [address] [place] [address] [place] HCV Ab Ser Qlon 09-23-2024 HCV Ab Ql (S) Negative Normal Negative [facility] Comment on above: Order Comment: Speci men Type: BLOOD SPECIMENOrdering Facility: [facility] Address: [address] [place] [address] Result Comment: The result suggests no evidence of infection with Hepatitis C virus. Should recent infection be suspected, repeat testing may be considered 4-6 weeks after this draw. Performed By: #### 1 6128-1 ####[facility] LABCLIA [id number] [address] OF [facility] HIV 1+2 Ab IA Qlon HIV 1 and 2 Ab IA.rapid Nom (S/P/Bld) Normal [facility] Comment on above: Order Comment: Speci men Type: BLOOD SPECIMEN [facility] Address: [address] [place] [address] Result Comment: Test not indicated. Performed By: #### G TGST1 #### [facility] CLIA [id number] [address] [place] [address] [place] HIV 1+2 Ab+HIV1 p24 Ag IA Ql Non-Reactive Normal Nonreactive [facility] Comment on above: Order Comment: Speci men Type: BLOOD SPECIMEN [facility]ing [facility] Address: [address] [place] [address] Performed By: #### G TGST1 #### [facility] [id number] [address] [place] [address] [place] [facility] HIV immunoassay testing algorithm interpretation (S/P/Bld) [Interp] Normal [facility] Comment on above: Order Comment: Speci men Type: BLOOD SPECIMEN [facility] Address: [address] [place] [address] Result Comment: No e vidence of HIV-1 or HIV-2 infection. Should recent infection be suspected, repeat testing may be considered 2-3 weeks after this draw. [place] Rev. Code 3701.243(E): This information has been [...] diagnoses. Performed By: #### G TGST1 #### [facility] CLIA [id number] [address] [place] [address] [place] HbA1c (Bld)on 09-23-2024 Average glucose Estimated from glycated hemoglobin (Bld) [Mass/Vol] 85 mg/dL Normal [facility] Comment on above: Order Comment: Speci men Type: BLOOD SPECIMENOrdering Facility: [facility] Address: [address] [place] [address] Result Comment: eAG: (Estimated average glucose) is a calculated value from HgbA1c and is statement services representative of the average blood glucose level in the last 2-3 month period. Performed By: #### 5 5454-3 ####[facility] LABCLIA [id number] [address] STATES OF [facility] HbA1c (Bld) [Mass fraction] 4.6 % Normal 4.3-5.6 [facility] Comment on above: Order Comment: Specnathalie marcus Type: BLOOD SPECIMENOrdering Facility: [facility] Address: [address] [place] [address] Result Comment: Amer [place] Diabetes Association guidelines indicate that patients with HgbA1c in the range 5.7-6.4% are at increased risk for development of diabetes, and intervention by lifestyle modification may be beneficial. HgbA1c greater or equal to 6.5% is considered diagnostic of diabetes. Performed By: #### 5 5454-3 ####[facility] LABCLIA [id number] [address] [place] POC DIRECTOR INFORMATION ULTRASOUNDon 09-24-19 25 Indication Viability; confirm cardiac [...] Read By: Tianna Mota CNM MATERNAL MEDICINE [facility] Radiology Study observation (narrative) [facility] RUBELLA IGG ANTIBODYon 09-23 RUBELLA IGG AB, QUAL Positive Normal Positive [facility] Comment on above: Order Comment: Speci men Type: BLOOD SPECIMENOrdering Facility: [facility] Address: [address] [place] [address] Result Comment: The result suggests recent or past exposure to Rubella virus or history of Rubella vaccination. Positive result may also be seen due to presence of passively-transferred antibodies. Please correlate with patient's history. Performed By: #### R UBIGG ####[facility] LABCLIA [id number] [place] [address] [place] Reagin and Treponema pallidu m IgG and IgM [Interp]on 09-23-2024 T. pallidum IgG+IgM IA Ql (S) Non-Reactive Normal Nonreactive [facility] Comment on above: Order Comment: Klarissa marcus Type: BLOOD SPECIMEN [facility] Address: [address] [place] [address] Performed By: #### G TGST1 #### [facility] CLIA [id number] [address] [place] [address] [place] Reagin+T pallidum IgG+IgM Se rPl-Impon 09-23-2024 Reagin and Treponema pallidum IgG and IgM [Interp] Cannot exclude recent Treponemal infection if specimen collected within 7-10 days after appearance of suspect lesions or 2-3 weeks after an exposure. Clinical correlation is required. Normal [facility] Comment on above: Order Comment: Speci men Type: BLOOD SPECIMEN [facility] Address: [address] [place] [address] Performed By: #### G TGST1 #### [facility] CLIA [id number] [address] [place] [address] [place] TRICHOMONAS VAGINALIS NAATon 09-23-2024 T. vaginalis DNA ITZEL+probe Ql (Unsp spec) Not detected Normal Not detected [facility] Comment on above: Order Comment: Speci men Type: SWABOrdering Facility: [facility] Address: [address] [place] [address] Performed By: #### T RVAMP, 66055-9 ####[facility] LABCLIA [id number] [address] [place] [address] OF [facility] TYPE + SCREEN PRENATALon ABO B Normal [facility] Comment on above: Order Comment: Speci men Type: BLOOD SPECIMENOrdering Facility: [facility] Address: [address] [place] [address] Performed By: #### T SPN ####[facility] BANKIA [id number] [place] [address] [place] Rh Nom (Bld) Positive Normal [facility] Comment on above: Order Comment: Speci men Type: BLOOD SPECIMENOrdering Facility: [facility] Address: [address] [place] [address] Performed By: #### T SPN ####[facility] BLOOD BANKCLIA [id number] [place] [address] [place] TYPE AND SCREEN EXPIRATION 09/26/2024 23:59 Normal [facility] Comment on above: Order Comment: Speci men Type: BLOOD SPECIMENOrdering Facility: [facility] Address: [address] [place] [address] Performed By: #### T SPN ####[facility] BLO[facility] BANKCLIA [id number] [place] [address] [place] CNOVon 07-01-2024 CNOV Office Visit (OBGYWM ) DORY PRADHAN ([id number]) 1995 F Date Time Provider Department 07/01/24 [...] 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 LMP: 06/13/2024 (Exact Date), Having periods Age at Menarche: 10 Age at First : 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 As applicable, any other physician, advance practice provider, medical student, or other health professional student that will be observing or involved in the sensitive examination for educational or training purposes was discussed with the Patient or Authorized Mushroom Laborer. The Patient or Authorized Mushroom Laborer has agreed to proceed with the sensitive [...] external genitalia normal, normal Bartholin's glands, urethra, Elverta's glands, no vulvar lesions, no cervical lesions, [...] daily Follow (more content not included)... Normal [facility] HIGH RISK HUMAN PAPILLOMA CROW (HPV), PCR FOR DETECTION AND GENOTYPINGon 07-01-2024 HPV 16 Ag Ql (Unsp spec) Not detected Normal Not detected [facility] Comment on above: Order Comment: Speci men Type: FLUID SPECIMENOrdering Facility: [facility] Address: [address] [place] [address] Performed By: #### H PVHRT ####[facility] LABCLIA [id number] [address] [place] HPV 18 Ag Ql (Unsp spec) Not detected Normal Not detected [facility] Comment on above: Order Comment: Speci men Type: FLUID SPECIMENOrdering Facility: [facility] Address: [address] [place] [address] Performed By: #### H PVHRT ####[facility] LABCLIA [id number] [address] [place] HPV 31+33+35+39+45+51+52 +56+58+59+66+68 DNA ITZEL+probe Ql (Cvx) Not detected Normal Not detected [facility] Comment on above: Order Comment: Speci men Type: FLUID SPECIMENOrdering Facility: [facility] Address: [address] [place] [address] Result Comment: High Risk HPV Other Type includes HPV types 31, 33, 35, 39, 45, 51, 52, 56, 58, 59, 66 and 68. Performed By: #### H PVHRT ####[facility] LABCLIA [id number] [place] [address] [place] PAP TESTon 07-01-2024 ADEQUACY Normal [facility] Comment on above: Order Comment: Speci men Type: FLUID SPECIMENOrdering Facility: [facility] Address: [address] [place] [address] Result Comment: Sati sfactory for interpretation. Transformation zone present Performed By: #### L [id number] ####[facility] LABCLIA [id number] [place] [address] [place] CASE REPORT Normal [facility] Comment on above: Order Comment: Speci men Type: FLUID SPECIMENOrdering Facility: [facility] Address: [address] [place] [address] Result Comment: Gyne cologic Cytology Report Case: [id number] Authorizing Provider: Tianna Mota APRN.CNHaylee Collected: 07/01/2024 11:06 AM Ordering Location: OB/Gynecology Received: 07/01/2024 12:02 PM First Screen: Gmitro, Scooby, CT, ASCP Specimen: Pap Test, ThinPrep, Cervix Performed By: #### L [id number] ####[facility] LABCLIA [id number] [place] [address] [place] CLINICAL HISTORY, CYTOLOGY, TUNGSTEN TENDER Routine Exam Normal [facility] Comment on above: Order Comment: Speci men Type: FLUID SPECIMENOrdering Facility: [facility] Address: [address] [place] [address] Performed By: #### L [id number] ####[facility] LABCLIA [id number] [place] [address] [place] FINAL PERFORMING LAB Normal [facility] Comment on above: Order Comment: Speci men Type: FLUID SPECIMENOrdering Facility: [facility] Address: [address] [place] [address] Result Comment: Tech nical component, dough braker screening performed at [facility], [address] [place] [address] CLIA# [id number] Diagnostic interpretation performed at [facility], [address] [place] [address] CLIA# [id number] Investment Banking Analyst: Chris Bell M.D. Performed By: #### L [id number] ####[facility] LABCLIA [id number] [place] [address] [place] INTERPRETATION, CYTOLOGY, TUNGSTEN TENDER Normal [facility] Comment on above: Order Comment: Speci men Type: FLUID SPECIMENOrdering Facility: [facility] Address: [address] [place] [address] Result Comment: Nega tive for intraepithelial lesion or malignancy. at 0711 EST Performed By: #### L [id number] ####[facility] LABCLIA [id number] [place] [address] [place] LMP 06/13/2024 Normal [facility] Comment on above: Order Comment: Speci men Type: FLUID SPECIMENOrdering Facility: [facility] Address: [address] [place] [address] Performed By: #### L [id number] ####[facility] LABCLIA [id number] [place] [address] [place] PAP DISCLAIMER COMMENT The Pap Smear is a screening test for cervical cancer. False negative results occur with all screening tests, emphasizing the need for rescreening at recommended intervals, and clinical correlation. Normal [facility] Comment on above: Order Comment: Speci men Type: FLUID SPECIMENOrdering Facility: [facility] Address: [address] [place] [address] Performed By: #### L [id number] ####[facility] LABCLIA [id number] [place] [address] [place] PAP CONCRETE FLOAT MAKER COMMENT This specimen has be en analyzed by the ThinPrep Imaging System, an automated imaging and review system, which assists the laboratory in evaluating cells on ThinPrep Pap tests. Following automated imaging, selected allen from every slide are reviewed by a dough braker. Normal [facility] Comment on above: Order Comment: Speci men Type: FLUID SPECIMENOrdering Facility: [facility] Address: [address] [place] [address] Performed By: #### L [id number] ####[facility] LABCLIA [id number] [facility] [id number] [place] [id number] [place] B-HCG SerPl-aCncon 5 HCG.beta subunit Qn 19.1 m[IU]/mL High <5.0 [facility] Comment on above: Order Comment: Speci men Type: BLOOD SPECIMEN [facility]ing Facility: [facility] Address: [address] [place] [address] Result Comment: DANE TITATIVE HCG NORMAL RANGES Weeks of Gestation (Weeks Since LMP) 3 Weeks (5.8-71.2 mIU/mL) 4 Weeks (9.5-750 mIU/mL) 5 Weeks (217-7138 mIU/mL) 6 Weeks (158-51956 mIU/mL) 7 Weeks (3697-553526 mIU/mL) 8 Weeks (01211-580340 mIU/mL) 9 Weeks (71632-111065 mIU/mL) 10 Weeks (01049-303337 mIU/mL) 12 Weeks (66713-260073 mIU/mL) Referenced to 4th IS of [facility] Performed By: #### G TGST1 #### [facility] [id number] [address] [place] [address] [place] B-HCG SerPl-aCncon 5 HCG.beta subunit Qn 52.9 m[IU]/mL High <5.0 [facility] Comment on above: Order Comment: Speci men Type: BLOOD SPECIMEN Ordering Facility: [facility] Address: [address] [place] [address] Result Comment: DANE TITATIVE HCG NORMAL RANGES Weeks of Gestation (Weeks Since LMP) 3 Weeks (5.8-71.2 mIU/mL) 4 Weeks (9.5-750 mIU/mL) 5 Weeks (217-7138 mIU/mL) 6 Weeks (158-87484 mIU/mL) 7 Weeks (3697-221277 mIU/mL) 8 Weeks (16723-775860 mIU/mL) 9 Weeks (82254-991804 mIU/mL) 10 Weeks (01852-760671 mIU/mL) 12 Weeks (39322-412257 mIU/mL) Referenced to 4th IS of [facility] Performed By: #### G TGST1 #### [facility] [id number] [address] [place], [place] [address] [place] B-HCG SerPl-aCncon 5 HCG.beta subunit Qn 142.6 m[IU]/mL High <5.0 [facility] Comment on above: Order Comment: Speci men Type: BLOOD SPECIMENOrdering Facility: [facility] Address: [address] [place] [address] Result Comment: DANE TITATIVE HCG NORMAL RANGES Weeks of Gestation (Weeks Since LMP) 3 Weeks (5.8-71.2 mIU/mL) 4 Weeks (9.5-750 mIU/mL) 5 Weeks (217-7138 mIU/mL) 6 Weeks (158-17612 mIU/mL) 7 Weeks (3697-702445 mIU/mL) 8 Weeks (30423-744860 mIU/mL) 9 Weeks (99938-196671 mIU/mL) 10 Weeks (97451-755309 mIU/mL) 12 Weeks (90802-815709 mIU/mL) Referenced to 4th IS of [facility] Performed By: #### 2 1198-7 ####[facility] [id number] [facility] [id number] [address] [place] B-HCG SerPl-aCncon 4 HCG.beta subunit Qn 606.3 m[IU]/mL High <5.0 [facility] Comment on above: Order Comment: Speci men Type: BLOOD SPECIMENOrdering Facility: [facility] Address: [address] [place] [address] Result Comment: DANE TITATIVE HCG NORMAL RANGES Weeks of Gestation (Weeks Since LMP) 3 Weeks (5.8-71.2 mIU/mL) 4 Weeks (9.5-750 mIU/mL) 5 Weeks (217-7138 mIU/mL) 6 Weeks (158-54118 mIU/mL) 7 Weeks (3697-850566 mIU/mL) 8 Weeks (66012-596044 mIU/mL) 9 Weeks (38652-639421 mIU/mL) 10 Weeks (79851-617125 mIU/mL) 12 Weeks (84713-457670 mIU/mL) Referenced to 4th IS of [facility] Performed By: #### 2 1198-7 ####[facility] LABIA [id number] [address] CNPAlison 05-13-2024 CNPN Telephone (OBGYWM) DORY PRADHAN ([id number]) 1995 F Date Time Provider Department 05/13/24 [...] tablet by mouth once daily. - 25-IRON JQV-[id number] ORAL Take by mouth. - EPINEPHrine (EPIPEN) [...] Encounter Status:Closed by RHINA CONNORS on 05/13/24 [facility] CNOVon 05-06-2024 CNOV Office Visit (OBGYWM ) DORY PRADHAN ([id number]) 1995 F Date Time Provider Department 05/06/24 2:20 PM KATHLEEN PATEL OBGYWM During your visit today, we recorded the following information about you: Pulse Respiration Blood pressure Weight 96/minute 18/minute 136/88 87.5 kg Kathleen Patel MD 05/06/2024 4:25 PM Signed Relay Shop Supervisor offered: Patient declines. 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 EPINEPHrine (EPIPEN) 0.3 [...] discussed with the Patient or Patient's Authorized Mushroom Laborer. As applicable, any other physician, advance practice provider, medical student, or other health professional student that will be observing or involved in the sensitive examination for educational or training purposes was discussed with the Patient or Authorized Mushroom Laborer. The Patient or Authorized Mushroom Laborer has agreed to proceed with the sensitive [...] external genitalia normal, normal Bartholin's glands, urethra, Elverta's glands, no vulvar lesions, no cervical lesions, [...] RAMBO proc (more content not included)... Normal [facility] SURGICAL PATHOLOGYon 024 CASE REPORT Normal [facility] Comment on above: Order Comment: Speci men Type: TISSUE SPECIMENOrdering Facility: [facility] Address: [address] [place] [address] Result Comment: Surg ica Pathology Report Case: [id number] Authorizing Provider: Kathleen Patel, Collected: 05/06/2024 03:34 PM Ordering Location: OB/Gynecology Received: 05/06/2024 04:42 PM Pathologist: Susan Nielsen MD Specimen: Products of Conception Performed By: #### S ####[facility] [id number] [place] [address] [place] CLINICAL HISTORY missed ab Normal [facility] Comment on above: Order Comment: Speci men Type: TISSUE SPECIMENOrdering Facility: [facility] Address: [address] [place] [address] Performed By: #### S ####[facility] [id number] [place] [address] [place] DIAGNOSIS COMMENT Drs. Alcala and Yasmeen Caro are informed of this result by epic email on 05/12/2024 Normal [facility] Comment on above: Order Comment: Speci men Type: TISSUE SPECIMENOrdering Facility: [facility] Address: [address] [place] [address] Performed By: #### S ####[facility] [id number] [place] [address] [place] FINAL DIAGNOSIS Normal [facility] Comment on above: Order Comment: Speci men Type: TISSUE SPECIMENOrdering Facility: [facility] Address: [address] [place] [address] Result Comment: Orestes scott contents, vacuum aspiration: - Partial hydatidiform mole [facility] 05/12/2024 Performed By: #### S ####[facility]CL[facility] [id number] [address] [place] FINAL PERFORMING LAB Normal [facility] Comment on above: Order Comment: Speci men Type: TISSUE SPECIMENOrdering Facility: [facility] Address: [address] [place] [address] Result Comment: Diag nostic interpretation performed at [facility], [address] [place] [address] CLIA# [id number] Investment Banking Analyst: Chris Bell M.D. Performed By: #### S ####[facility] [id number] [place] [address] [place] GROSS DESCRIPTION Normal [facility] Comment on above: Order Comment: Speci men Type: TISSUE SPECIMENOrdering Facility: [facility] Address: [address] [place] [address] Result Comment: A. P roducts of Conception Received in formalin, labeled products of conception are multiple fragments of soft, balderas-pink tissue and hemorrhagic material aggregating to 9.0 x 4.5 x 0.7 cm. Chorionic villi are identified. fragments and vesicles are not present. Mushroom Laborer sections are submitted in cassettes A1-A3. AKA May 09, 2024 12:52 PM Gross examination performed at [facility], [address] [place] [address] Performed By: #### S ####[facility] [id number] [address] [place] MICROSCOPIC DESCRIPTION Normal [facility] Comment on above: Order Comment: Speci men Type: TISSUE SPECIMENOrdering Facility: [facility] Address: [address] [place] [address] Result Comment: Gest ational age: 11 weeks [...] or more minor. Performed By: #### S ####[facility] [id number] [place] [address] [place] B-HCG [facility] 4 [place] [address].0 m[IU]/mL High <5.0 [facility] Comment on above: Order Comment: Speci men Type: BLOOD SPECIMENOrdering Facility: [facility] Address: [address] [place] [address] Result Comment: DANE TITATIVE HCG NORMAL RANGES Weeks of Gestation (Weeks Since LMP) 3 Weeks (5.8-71.2 mIU/mL) 4 Weeks (9.5-750 mIU/mL) 5 Weeks (217-7138 mIU/mL) 6 Weeks (158-22116 mIU/mL) 7 Weeks (3697-746183 mIU/mL) 8 Weeks (05121-149278 mIU/mL) 9 Weeks (95398-543774 mIU/mL) 10 Weeks (37051-785333 mIU/mL) 12 Weeks (16089-819830 mIU/mL) Referenced to 4th IS of [facility] Performed By: #### 2 1198-7 ####[facility] LABIA [id number] [place] [address] [place] B-HCG SerPl-aCncon 4 [place] [address].0 m[IU]/mL High <5.0 [facility] Comment on above: Order Comment: Speci men Type: BLOOD SPECIMENOrdering Facility: [facility] Address: [address] [place] [address] Result Comment: DANE TITATIVE HCG NORMAL RANGES Weeks of Gestation (Weeks Since LMP) 3 Weeks (5.8-71.2 mIU/mL) 4 Weeks (9.5-750 mIU/mL) 5 Weeks (217-7138 mIU/mL) 6 Weeks (158-95566 mIU/mL) 7 Weeks (3697-856385 mIU/mL) 8 Weeks (15777-629173 mIU/mL) 9 Weeks (45219-766061 mIU/mL) 10 Weeks (01901-028237 mIU/mL) 12 Weeks (63040-912748 mIU/mL) Referenced to 4th IS of [facility] Performed By: #### 2 1198-7 ####[facility] [id number] [place] [address] [place] Ender 04-29-2024 KAYKAYN Telephone (OBGYWM) DORY PRADHAN ([id number]) 1995 F Date Time Provider Department 04/29/24 GIANA ALCALA During your visit today, we recorded the following information about you: Giana Alexandre RN 04/29/2024 12:10 PM Signed Patient called with her decision. She would like J to send in Cytotec to [facility] in [facility]. PRAVEEN Sharma Jennifer, MD 04/29/2024 12:19 [...] tabletRfl: 0 HCG QUANTITATIVE [SQHCGQT] Order #: [id number] STANDING Prescriptions as of 04/29/2024 - miSOPROStol (CYTOTEC) 200 mcg tablet Use 4 tablets vaginally one time only for 1 dose. - aspirin, enteric coated (ECOTRIN LOW STRENGTH) 81 mg EC tablet Take 1 tablet by mouth once daily. - 25-IRON [id number] ORAL Take by mouth. - EPINEPHrine (EPIPEN) [...] Status:Closed by GIANA ALCALA on 04/29/24 Normal [facility] Examination level ultrasound on 04-29-2024 Indication Vaginal [...] Read By: Maliha Chin M.D. MATERNAL MEDICINE [facility] Radiology Study observation (narrative) [facility] Bacteria Ur Culton 4 Bacteria identified Cx Nom (U) ORGANISM ID: 1 10,000 -<50,000 CFU/ml Normal urogenital daniel Normal [facility] Comment on above: Performed By: #### 6 30-4 ####[facility] LABIA [id number] [place] [address] [place] C. trachomatis+N. gonorrhoea e DNA ITZEL+probe Ql (Unsp spec)on 04-22-2024 C. trachomatis rRNA ITZEL+probe Ql (Unsp spec) Not detected Normal Not detected [facility] Comment on above: Order Comment: Speci men Type: SWABOrdering Facility: [facility] Address: [address] [place] [address] Performed By: #### 3 6902-5 ####[facility] [id number] [place] [address] [place] N. gonorrhoeae rRNA ITZEL+probe Ql (Unsp spec) Not detected Normal Not detected [facility] Comment on above: Order Comment: Speci men Type: SWABOrdering Facility: [facility] Address: [address] [place] [address] Performed By: #### 3 6902-5 ####[facility] [id number] [place] [address] [place] CBC W Auto Differential pane l (Bld)on 04-22-2024 Basophils (Bld) [#/Vol] 0.03 10*3/uL Normal <0.11 [facility] Comment on above: Order Comment: Speci men Type: BLOOD SPECIMEN Ordering Facility: [facility] Address: [address] [place] [address] Performed By: #### G TGST1 #### [facility] [id number] [address] [place] [address] [place] Basophils/100 WBC (Bld) 0.3 % Normal [facility] Comment on above: Order Comment: Speci men Type: BLOOD SPECIMEN Ordering Facility: [facility] Address: [address] [place] [address] Performed By: #### G TGST1 #### [facility] CLIA [id number] [address] [place] [address] [place] Differential cell count method Nom (Bld) Auto Normal [facility] Comment on above: Order Comment: Speci men Type: BLOOD SPECIMEN Ordering Facility: [facility] Address: [address] [place] [address] Performed By: #### G TGST1 #### [facility] CLIA [id number] [address] [place] [address] [place] Eosinophils (Bld) [#/Vol] 0.04 10*3/uL Normal <0.46 [facility] Comment on above: Order Comment: Speci men Type: BLOOD SPECIMEN Ordering Facility: [facility] Address: [address] [place] [address] Performed By: #### G TGST1 #### [facility] CLIA [id number] [address] [place] [address] [place] Eosinophils/100 WBC (Bld) 0.4 % Normal [facility] Comment on above: Order Comment: Speci men Type: BLOOD SPECIMEN Ordering Facility: [facility] Address: [address] [place] [address] Performed By: #### G [id number] #### [facility] CLIA [id number] [address] [place] [address] [place] Erythrocyte distribution width (RBC) [Ratio] 13.2 % Normal 11.5-15.0 [facility] Comment on above: Order Comment: Speci men Type: BLOOD SPECIMEN Ordering Facility: [facility] Address: [address] [place] [address] Performed By: #### G [id number] #### [facility] CLIA [id number] [address] [place] [address] [place] Hematocrit (Bld) [Volume fraction] 39.9 % Normal 36.0-46.0 [facility] Comment on above: Order Comment: Speci men Type: BLOOD SPECIMEN Ordering Facility: [facility] Address: [address] [place] [address] Performed By: #### G [id number] #### [facility] CLIA [id number] [address] [place] [address] [place] Hemoglobin (Bld) [Mass/Vol] 13.6 g/dL Normal 11.5-15.5 [facility] Comment on above: Order Comment: Speci men Type: BLOOD SPECIMEN Ordering Facility: [facility] Address: [address] [place] [address] Performed By: #### G TGST1 #### [facility] [id number] [address] [place] [address] [place] Immature granulocytes (Bld) [#/Vol] 0.03 10*3/uL Normal <0.10 [facility] Comment on above: Order Comment: Speci men Type: BLOOD SPECIMEN Ordering Facility: [facility] Address: [address] [place] [address] Performed By: #### G TGST1 #### [facility] [id number] [address] [place] [address] [place] Immature granulocytes/100 WBC (Bld) 0.3 % Normal [facility] Comment on above: Order Comment: Speci men Type: BLOOD SPECIMEN Ordering Facility: [facility] Address: [address] [place] [address] Performed By: #### G [id number] #### [facility] CLIA [id number] [address] [place] [address] [place] Lymphocytes (Bld) [#/Vol] 2.15 10*3/uL Normal 1.00-4.00 [facility] Comment on above: Order Comment: Speci men Type: BLOOD SPECIMEN Ordering Facility: [facility] Address: [address] [place] [address] Performed By: #### G [id number] #### [facility] CLIA [id number] [address] [place] [address] [place] Lymphocytes/100 WBC (Bld) 23.1 % Normal [facility] Comment on above: Order Comment: Speci men Type: BLOOD SPECIMEN Ordering Facility: [facility] Address: [address] [place] [address] Performed By: #### G [id number] #### [facility] CLIA [id number] [address] [place] [address] [place] MCH (RBC) [Entitic mass] 30.8 pg Normal 26.0-34.0 [facility] Comment on above: Order Comment: Speci men Type: BLOOD SPECIMEN Ordering Facility: [facility] Address: [address] [place] [address] Performed By: #### G [id number] #### [facility] [id number] [address] [place] [address] [place] MCHC (RBC) [Mass/Vol] 34.1 g/dL Normal 30.5-36.0 [facility] Comment on above: Order Comment: Speci men Type: BLOOD SPECIMEN Ordering Facility: [facility] Address: [address] [place] [address] Performed By: #### G [id number] #### [facility] [id number] [address] [place] [address] [place] MCV (RBC) [Entitic vol] 90.5 fL Normal 80.0-100.0 [facility] Comment on above: Order Comment: Speci men Type: BLOOD SPECIMEN Ordering Facility: [facility] Address: [address] [place] [address] Performed By: #### G [id number] #### [facility] CLIA [id number] [address] [place] [address] [place] Monocytes (Bld) [#/Vol] 0.42 10*3/uL Normal <0.87 [facility] Comment on above: Order Comment: Speci men Type: BLOOD SPECIMEN Ordering Facility: [facility] Address: [address] [place] [address] Performed By: #### G TGST1 #### [facility] CLIA [id number] [address] [place] [address] [place] Monocytes/100 WBC (Bld) 4.5 % Normal [facility] Comment on above: Order Comment: Speci men Type: BLOOD SPECIMEN Ordering Facility: [facility] Address: [address] [place] [address] Performed By: #### G [id number] #### [facility] CLIA [id number] [address] [place] [address] [place] Neutrophils (Bld) [#/Vol] 6.63 10*3/uL Normal 1.45-7.50 [facility] Comment on above: Order Comment: Speci men Type: BLOOD SPECIMEN Ordering Facility: [facility] Address: [address] [place] [address] Performed By: #### G [id number] #### [facility] CLIA [id number] [address] [place] [address] [place] Neutrophils/100 WBC (Bld) 71.4 % Normal [facility] Comment on above: Order Comment: Speci men Type: BLOOD SPECIMEN Ordering Facility: [facility] Address: [address] [place] [address] Performed By: #### G [id number] #### [facility] CLIA [id number] [address] [place] [address] [place] Nucleated RBC (Bld) [#/Vol] 10*3/uL Normal <0.01 [facility] Comment on above: Order Comment: Speci men Type: BLOOD SPECIMEN Ordering Facility: [facility] Address: [address] [place] [address] Performed By: #### G [id number] #### [facility] CLIA [id number] [address] [place] [address] [place] Nucleated RBC/100 WBC (Bld) [Ratio] 0.0 /100 WBC Normal [facility] Comment on above: Order Comment: Speci men Type: BLOOD SPECIMEN Ordering Facility: [facility] Address: [address] [place] [address] Performed By: #### G [id number] #### [facility] CLIA [id number] [address] [place] [address] [place] Platelet mean volume (Bld) [Entitic vol] 9.3 fL Normal 9.0-12.7 [facility] Comment on above: Order Comment: Speci men Type: BLOOD SPECIMEN Ordering Facility: [facility] Address: [address] [place] [address] Performed By: #### G [id number] #### [facility] CLIA [id number] [address] [place] [address] [place] Platelets (Bld) [#/Vol] 298 10*3/uL Normal 150-400 [facility] Comment on above: Order Comment: Speci men Type: BLOOD SPECIMEN Ordering Facility: [facility] Address: [address] [place] [address] Performed By: #### G [id number] #### [facility] CLIA [id number] [address] [place] [address] [place] RBC (Bld) [#/Vol] 4.41 10*6/uL Normal 3.90-5.20 [facility] Comment on above: Order Comment: Speci men Type: BLOOD SPECIMEN Ordering Facility: [facility] Address: [address] [place] [address] Performed By: #### G [id number] #### [facility] CLIA [id number] [address] [place] [address] [place] WBC (Bld) [#/Vol] 9.30 10*3/uL Normal 3.70-11.00 [facility] Comment on above: Order Comment: Speci men Type: BLOOD SPECIMEN Ordering Facility: [facility] Address: [address] [place] [address] Performed By: #### G [id number] #### [facility] CLIA [id number] [address] [place] [address] [place] HBV surface Ag Ser Qlon 12 HBV surface Ag Ql (S) Negative Normal Negative [facility] Comment on above: Order Comment: Speci men Type: BLOOD SPECIMENOrdering Facility: [facility] Address: [address] [place] [address] Performed By: #### 7 3752-8, 5195-3, 14277-0 ####[facility]CLIA [id number] [place] [address] [place] HCV Ab Ser Qlon 04-22-2024 HCV Ab Ql (S) Negative Normal Negative [facility] Comment on above: Order Comment: Speci men Type: BLOOD SPECIMENOrdering Facility: [facility] Address: [address] [place] [address] Result Comment: The result suggests no evidence of active infection with Hepatitis C virus. Should recent infection be suspected, repeat testing may be considered 4-6 weeks after this draw. Performed By: #### 1 6128-1 ####[facility]CLIA [id number] [place] [address] [place] HIV 1+2 Ab IA Qlon 4 HIV 1 and 2 Ab IA.rapid Nom (S/P/Bld) Normal [facility] Comment on above: Order Comment: Speci men Type: BLOOD SPECIMENOrdering Facility: [facility] Address: [address] [place] [address] Result Comment: Test not indicated. Performed By: #### 7 3752-8, 5195-3, 34860-6 ####[facility]CLIA [id number] [place] [address] [place] HIV 1+2 Ab+HIV1 p24 Ag IA Ql Non-Reactive Normal Nonreactive [facility] Comment on above: Order Comment: Speci men Type: BLOOD SPECIMENOrdering Facility: [facility] Address: [address] [place] [address] Performed By: #### 7 3752-8, 5195-3, 23024-5 ####[facility] [id number] [place] [address] [place] HIV immunoassay testing algorithm interpretation (S/P/Bld) [Interp] Normal [facility] Comment on above: Order Comment: Speci men Type: BLOOD SPECIMENOrdering Facility: [facility] Address: [address] [place] [address] Result Comment: No e vidence of HIV-1 or HIV-2 infection. Should recent infection be suspected, repeat testing may be considered 2-3 weeks after this draw. Bradley Rev. Code 3701.243(E): This information has been [...] diagnoses. Performed By: #### 7 3752-8, 5195-3, 79708-0 ####[facility] LABCLIA [id number] [place] [id number] [place] HbA1c (Bld)on 04-22-2024 Average glucose Estimated from glycated hemoglobin (Bld) [Mass/Vol] 88 mg/dL Normal [facility] Comment on above: Order Comment: Speci men Type: BLOOD SPECIMENOrdering Facility: [facility] Address: [address] [place] [address] Result Comment: eAG: (Estimated average glucose) is a calculated value from HgbA1c and is statement services representative of the average blood glucose level in the last 2-3 month period. Performed By: #### 5 5454-3 ####[facility] LABCLIA [id number] [place] [address] [place] HbA1c (Bld) [Mass fraction] 4.7 % Normal 4.3-5.6 [facility] Comment on above: Order Comment: Speci men Type: BLOOD SPECIMENOrdering Facility: [facility] Address: [address] [place] [address] Result Comment: Leonila ican Diabetes Association guidelines indicate that patients with HgbA1c in the range 5.7-6.4% are at increased risk for development of diabetes, and intervention by lifestyle modification may be beneficial. HgbA1c greater or equal to 6.5% is considered diagnostic of diabetes. Performed By: #### 5 5454-3 ####[facility] LABCLIA [id number] [place] [address] [place] POC DIRECTOR INFORMATION ULTRASOUNDon 04-22-20 24 Indication Viability; confirm cardiac [...] Read By: Kailee Rahman NP MATERNAL MEDICINE [facility] Radiology Study observation (narrative) [facility] RUBELLA IGG ANTIBODYon 04-22 RUBELLA IGG AB, QUAL Positive Normal Positive [facility] Comment on above: Order Comment: Klarissa marcus Type: BLOOD SPECIMENOrdering Facility: [facility] Address: [address] [place] [address] Result Comment: The result suggests recent or past exposure to Rubella virus or history of Rubella vaccination. Positive result may also be seen due to presence of passively-transferred antibodies. Please correlate with patient's history. Performed By: #### R UBIGG ####[facility] LABCLIA [id number] [place] [address] [place] Reagin and Treponema pallidu m IgG and IgM [Interp]on 04-22-2024 T. pallidum IgG+IgM IA Ql (S) Non-Reactive Normal Nonreactive [facility] Comment on above: Order Comment: Klarissa marcus Type: BLOOD SPECIMENOrdering Facility: [facility] Address: [address] [place] [address] Performed By: #### 7 3752-8, 5195-3, 62274-5 ####[facility] LABCLIA [id number] [place] [address] [place] Reagin+T pallidum IgG+IgM Se rPl-Impon 04-22-2024 Reagin and Treponema pallidum IgG and IgM [Interp] Cannot exclude recent Treponemal infection if specimen collected within 7-10 days after appearance of suspect lesions or 2-3 weeks after an exposure. Clinical correlation is required. Normal [facility] Comment on above: Order Comment: Ranjithi angeline Type: BLOOD SPECIMENOrdering Facility: [facility] Address: [address] [place] [address] Performed By: #### 7 3752-8, 5195-3, 30453-2 ####[facility] LABCLIA [id number] [place] [address] [place] TYPE + SCREEN PRENATALon ABO B Normal [facility] Comment on above: Order Comment: Speci men Type: BLOOD SPECIMENOrdering Facility: [facility] Address: [address] [place] [address] Performed By: #### T SPN ####CC MAIN BLOOD BANKCLIA [id number] [address] [place] Rh Nom (Bld) Positive Normal [facility] Comment on above: Order Comment: Speci men Type: BLOOD SPECIMENOrdering Facility: [facility] Address: [address] [place] [address] Performed By: #### T SPN ####CC MAIN BLOOD BANKCLIA [id number] [address] [place] TYPE AND SCREEN EXPIRATION 04/25/2024 23:59 Normal [facility] Comment on above: Order Comment: Speci men Type: BLOOD SPECIMENOrdering Facility: [facility] Address: [address] [place] [address] Performed By: #### T SPN ####CC MAIN BLOOD BANKCLIA [id number] [place] [address] [place] Consenton 01-15-2022 Consent [id number] [id number]#1.00 CD:127 Normal [facility] Registrationon 01-15-2022 Registration [id number] [id number]#[id number] CD:127 Normal [facility] C Urineon 01-10-2017 C Urine Final Report: >100,0 00 cfu/ml Escherichia coliORGANISM: ECSUSCEPTIBILITY RESULTSAntibiotic KALIE Dilutn KALIE InterpORGANISM: ECAmox/Cla : <=8/4 SAmp : <=8 SAmp/Sul : <=8/4 SCefaz : <=8 SCefo : <=2 SCipro : <=1 SGent : <=4 SLevo : <=2 SMero : <=1 SNitro : <=32 SPip/Blair : <=16 STetra : <=4 STobra : <=4 SSXT : <=2/38 S Normal [facility] Comment on above: Performed By: #### 2 [id number] ####CANELO Microbiology [address] [place] [address] Auto Diffon 11-26-2016 Basophils Auto #/vol (Bld) 0.0 E3/mcL Normal 0.0-0.2 [facility] Comment on above: Order Comment: Order Added by Discern Expert. Performed By: #### 2 [id number] ####CANELO CastroSlnLeer3780 [place] [address] Basophils/100 WBC Auto (Bld) 0.3 % Normal 0.0-2.0 [facility] Comment on above: Order Comment: Order Added by Discern Expert. Performed By: #### 2 [id number] ####CANELO CastroGkbEead3427 [place] [address] Eos Absolute 0.1 E3/mcL Normal 0.0-0.7 [facility] Comment on above: Order Comment: Order Added by Discern Expert. Performed By: #### 2 976366 ####CANELO CastroOcyYfze4291 [place] [address] Eosinophils/100 leukocytes 0.8 % Normal 0.0-11.0 [facility] Comment on above: Order Comment: Order Added by Discern Expert. Performed By: #### 2 320913 ####CANELO CastroAdpKigz1783 [place] [address] Lymphocytes 2.7 E3/mcL Normal 1.2-3.4 [facility] Comment on above: Order Comment: Order Added by Discern Expert. Performed By: #### 2 151365 ####CANELO CastroHouMmkh2483 [place] [address] Lymphocytes/100 leukocytes 31.9 % Normal 20.0-55.0 [facility] Comment on above: Order Comment: Order Added by Discern Expert. Performed By: #### 2 611705 ####CANELO CastroDevGqvk5765 [place] [address] [place] Absolute 0.4 E3/mcL Normal 0.0-0.7 [facility] Comment on above: Order Comment: Order Added by Discern Expert. Performed By: #### 2 617772 ####CANELO CastroMdgUowf6658 [place] [address] Monocytes/100 leukocytes 4.7 % Normal 0.0-10.0 [facility] Comment on above: Order Comment: Order Added by Discern Expert. Performed By: #### 2 128688 ####CANELO CastroHxpJsri9089 [place] [address] Neutro Absolute 5.3 E3/mcL Normal 1.4-6.5 [facility] Comment on above: Order Comment: Order Added by Discern Expert. Performed By: #### 2 401468 ####CANELO CastroGdeFtbz1237 [place] [address] Neutro Auto 62.3 % Normal 37.0-75.0 [facility] Comment on above: Order Comment: Order Added by Discern Expert. Performed By: #### 2 935284 ####CANELO Peopleso[address]25 [place] [address] CBC w/ Auto Diffon 7 Erythrocyte distribution width Auto Ratio (RBC) 12.6 % Normal 11.5-14.5 [facility] Comment on above: Performed By: #### 2 947179 ####CANELO CastroXryYfmh0959 [place] [address] Erythrocytes (RBC) 4.68 E6/mcL Normal 3.90-5.40 [facility] Comment on above: Performed By: #### 2 293120 ####CANELO EurGasx6562 [place] [address] Hematocrit (HCT) 41.4 % Normal 36.0-48.0 [facility] Comment on above: Performed By: #### 2 028320 ####CANELO CastroMvxYrei1507 [place] [address] Hemoglobin mass conc (Bld) 13.9 g/dL Normal 12.0-16.0 [facility] Comment on above: Performed By: #### 2 929610 ####CANELO CastroPzvZnhx9987 [place] [address] MCH 29.6 pg Normal 27.0-31.0 [facility] Comment on above: Performed By: #### 2 663233 ####CANELO CastroSylHrvu0532 [place] [address] MCHC mass conc (RBC) 33.5 g/dL Normal 33.0-37.0 [facility] Comment on above: Performed By: #### 2 572414 ####CANELO [address]opleso[address] [place] [address] MCV 88.5 fL Normal 78.0-100.0 [facility] Comment on above: Performed By: #### 2 666875 ####CANELO [address] [place] [address] Platelet mean volume (PMV) 8.6 fL Normal 7.4-11.0 [facility] Comment on above: Performed By: #### 2 220055 ####CANELO [address] [place] [address] Platelets 299 E3/mcL Normal 130-400 [facility] Comment on above: Performed By: #### 2 401574 ####CANELO [address] [place] [address] WBC (Leukocytes) 8.5 E3/mcL Normal 3.6-11.0 [facility] Comment on above: Performed By: #### 2 264336 ####CANELO [address] [place] [address] CMPon 11-26-2016 Alanine aminotransferase (ALT) 15 Int._Unit/L Normal 10-40 [facility] Comment on above: Performed By: #### 2 867700 ####CANELO CastroTcxJgrq1308 [place] [address] Albumin 3.9 g/dL Normal 3.2-5.0 [facility] Comment on above: Performed By: #### 2 338641 ####CANELO CastroTtoJxho9224 [place] [address] Albumin/Globulin Ratio 1.0 {ratio} Low 1.1-1.9 [facility] Comment on above: Performed By: #### 2 970497 ####CANELO CastroTpzRsdk0307 [place] [address] Alk Phos 87 Int._Unit/L Normal 42-121 [facility] Comment on above: Performed By: #### 2 [id number] ####CANELO KwnXlpr5639 [place] [address] Aspartate aminotransferase (AST) 16 Int._Unit/L Normal 10-42 [facility] Comment on above: Performed By: #### 2 766776 ####CANELO QtdTgiy2504 [place] [address] Bili Total 0.5 mg/dL Normal 0.2-1.0 [facility] Comment on above: Performed By: #### 2 948777 ####CANELO UqkMkfg2001 [place] [address] BUN/Creatinine Ratio 10.0 ratio Normal 5.4-30.0 [facility] Comment on above: Performed By: #### 2 349046 ####CANELO TnaSbhu6169 [place] [address] Creatinine 0.8 mg/dL Normal 0.6-1.3 [facility] Comment on above: Performed By: #### 2 477304 ####CANELO ExgLbqo0455 [place] [address] Globulin 3.9 g/dL Normal 2.0-4.0 [facility] Comment on above: Performed By: #### 2 189275 ####CANELO EkmQgne9840 [place] [address] Protein 7.8 g/dL Normal 6.4-8.3 [facility] Comment on above: Performed By: #### 2 631829 ####CANELO LbfJxtk2809 [place] [address] Urea nitrogen 8 mg/dL Normal 7-18 [facility] Comment on above: Performed By: #### 2 300923 ####CANELO YocYtcg1827 [place] [address] Calcium 9.7 mg/dL Normal 8.4-10.2 [facility] Comment on above: Performed By: #### 2 194604 ####CANELO MoiScow5170 [place] [address] Chloride 106 mmol/L Normal 98-107 [facility] Comment on above: Performed By: #### 2 942686 ####CANELO CastroWhfMyqn8294 [place] [address] CO2 24.5 mmol/L Normal 24.0-30.0 [facility] Comment on above: Performed By: #### 2 618835 ####CANELO Orta[address] [place] [address] Glucose mass conc 85 mg/dL Normal 70-99 [facility] Comment on above: Performed By: #### 2 922284 ####CANELO [address] [place] [address] Potassium molar conc 4.2 mmol/L Normal 3.5-5.1 [facility] Comment on above: Performed By: #### 2 118971 ####CANELO [address] [place] [address] Sodium 138 mmol/L Normal 136-145 [facility] Comment on above: Performed By: #### 2 371527 ####CANELO [address]ta[address] [place] [address] Lipase Levelon 11-26-2016 Lipase Lvl 22 U/L Normal 8-57 [facility] Comment on above: Performed By: #### 2 673256 ####CANELO CastroDzsEpmj5976 [place] [address] TSHon 11-26-2016 Thyroid stimulating hormone (TSH) 0.99 mIU/m Normal 0.30-5.60 [facility] Comment on above: Performed By: #### 2 539172 ####CANELO CastroShnEgfa9947 [place] [address] eGFRon 11-26-2016 eGFR (non-black) mL/min/{1.73_m2} Normal [facility] Comment on above: Order Comment: Order added by Discern Expert. Performed By: #### 1 [id number] ####CANELO CastroKzyIray5174 [place] [address] Vital Signs Date Time Vital Sign Value Performing Clinician Facility 01-06-2025 10:06-0400 Body mass index (BMI) [Ratio] 36.18 kg/m2 Tianna Mota APRN.CNM Work Phone: [facility] 01-06-2025 10:06-0400 Body weight 91.17 kg Tianna Plotts IP TECHNOLOGY TRANSACTIONS ATTORNEY.CNM Work Phone: [facility] 01-06-2025 10:06-0400 Diastolic blood pressure 72 mm[Hg] Tianna Plotts IP TECHNOLOGY TRANSACTIONS ATTORNEY.CNM Work Phone: [facility] 01-06-2025 10:06-0400 Systolic blood pressure 118 mm[Hg] Tianna Plotts IP TECHNOLOGY TRANSACTIONS ATTORNEY.CNM Work Phone: [facility] 12-09-2024 15:30-0400 Body mass index (BMI) [Ratio] 35.64 kg/m2 Kailee Haury IP TECHNOLOGY TRANSACTIONS ATTORNEY.PAINTER SIGN MAINTENANCE Work Phone: [facility] 12-09-2024 15:30-0400 Body weight 89.81 kg Kailee Haury IP TECHNOLOGY TRANSACTIONS ATTORNEY.PAINTER SIGN MAINTENANCE Work Phone: [facility] 12-09-2024 15:30-0400 Diastolic blood pressure 66 mm[Hg] Kailee Haury IP TECHNOLOGY TRANSACTIONS ATTORNEY.PAINTER SIGN MAINTENANCE Work Phone: [facility] 12-09-2024 15:30-0400 Systolic blood pressure 120 mm[Hg] Kailee Haury IP TECHNOLOGY TRANSACTIONS ATTORNEY.PAINTER SIGN MAINTENANCE Work Phone: [facility] 11-11-2024 11:07-0400 Body mass index (BMI) [Ratio] 35.28 kg/m2 Tianna Plotts IP TECHNOLOGY TRANSACTIONS ATTORNEY.CNM Work Phone: [facility] 11-11-2024 11:07-0400 Body weight 88.91 kg Tianna Plotts IP TECHNOLOGY TRANSACTIONS ATTORNEY.CNM Work Phone: [facility] 11-11-2024 11:07-0400 Diastolic blood pressure 78 mm[Hg] Tianna Plotts IP TECHNOLOGY TRANSACTIONS ATTORNEY.CNM Work Phone: [facility] 11-11-2024 11:07-0400 Systolic blood pressure 110 mm[Hg] Tianna Plotts IP TECHNOLOGY TRANSACTIONS ATTORNEY.CNM Work Phone: [facility] 10-17-2024 16:07-0400 Body mass index (BMI) [Ratio] 35.64 kg/m2 Giana Alcala MD Work Phone: [facility] 10-17-2024 16:07-0400 Body weight 89.81 kg Giana Alcala MD Work Phone: [facility] 10-17-2024 16:07-0400 Diastolic blood pressure 60 mm[Hg] Giana Alcala MD Work Phone: [facility] 10-17-2024 16:07-0400 Systolic blood pressure 104 mm[Hg] Giana Alcala MD Work Phone: [facility] 09-23-2024 13:07-0400 Body height 158.8 cm Tianna Plotts IP TECHNOLOGY TRANSACTIONS ATTORNEY.CNM Work Phone: [facility] 09-23-2024 13:07-0400 Body mass index (BMI) [Ratio] 35.46 kg/m2 Tianna Plotts IP TECHNOLOGY TRANSACTIONS ATTORNEY.CNM Work Phone: [facility] 09-23-2024 13:07-0400 Body weight 89.36 kg Tianna Plotts IP TECHNOLOGY TRANSACTIONS ATTORNEY.CNM Work Phone: [facility] 09-23-2024 13:07-0400 Diastolic blood pressure 74 mm[Hg] Tianna Plotts IP TECHNOLOGY TRANSACTIONS ATTORNEY.CNM Work Phone: [facility] 09-23-2024 13:07-0400 Systolic blood pressure 122 mm[Hg] Tianna Plotts IP TECHNOLOGY TRANSACTIONS ATTORNEY.CNM Work Phone: [facility] 07-01-2024 10:35-0500 Body height 160 cm Tianna Plotts IP TECHNOLOGY TRANSACTIONS ATTORNEY.CNM Work Phone: [facility] 07-01-2024 10:35-0500 Body mass index (BMI) [Ratio] 33.48 kg/m2 Tianna Plotts IP TECHNOLOGY TRANSACTIONS ATTORNEY.CNM Work Phone: [facility] 07-01-2024 10:35-0500 Body weight 85.73 kg Tianna Plotts IP TECHNOLOGY TRANSACTIONS ATTORNEY.CNM Work Phone: [facility] 07-01-2024 10:35-0500 Diastolic blood pressure 72 mm[Hg] Tianna Plotts IP TECHNOLOGY TRANSACTIONS ATTORNEY.CNM Work Phone: [facility] 07-01-2024 10:35-0500 Systolic blood pressure 126 mm[Hg] Tianna Mota IP TECHNOLOGY TRANSACTIONS ATTORNEY.CNM Work Phone: [facility] 05-06-2024 14:56-0500 Diastolic blood pressure 88 mm[Hg] Kathleen Caro MD Work Phone: [facility] Comment on above: prior to IPAS 05-06-2024 14:56-0500 Heart rate 96 /min Kathleen Caro MD Work Phone: [facility] 05-06-2024 14:56-0500 Respiratory rate 18 /min Kathleen Caro MD Work Phone: [facility] 05-06-2024 14:56-0500 SaO2% (BldA) [Mass fraction] 100 % Kathleen Caro MD Work Phone: [facility] 05-06-2024 14:56-0500 Systolic blood pressure 136 mm[Hg] Kathleen Adam Caro MD Work Phone: [facility] Comment on above: prior to IPAS 05-06-2024 14:13-0500 Body mass index (BMI) [Ratio] 34.19 kg/m2 Kathleen Caro MD Work Phone: [facility] 05-06-2024 14:13-0500 Body weight 87.54 kg Kathleen Caro MD Work Phone: [facility] 04-29-2024 10:52-0500 Body mass index (BMI) [Ratio] 35.07 kg/m2 Giana Alcala MD Work Phone: [facility] 04-29-2024 10:52-0500 Body weight 89.81 kg Giana Alcala MD Work Phone: [facility] 04-29-2024 10:52-0500 Diastolic blood pressure 62 mm[Hg] Giana Alcala MD Work Phone: [facility] 04-29-2024 10:52-0500 Systolic blood pressure 110 mm[Hg] Giana Alcala MD Work Phone: [facility] 04-22-2024 09:21-0500 Body height 160 cm Kailee Haury IP TECHNOLOGY TRANSACTIONS ATTORNEY.PAINTER SIGN MAINTENANCE Work Phone: [facility] 04-22-2024 09:21-0500 Body mass index (BMI) [Ratio] 35.07 kg/m2 Kailee Haury IP TECHNOLOGY TRANSACTIONS ATTORNEY.PAINTER SIGN MAINTENANCE Work Phone: [facility] 04-22-2024 09:21-0500 Body weight 89.81 kg Kailee Haury IP TECHNOLOGY TRANSACTIONS ATTORNEY.PAINTER SIGN MAINTENANCE Work Phone: [facility] 04-22-2024 09:21-0500 Diastolic blood pressure 68 mm[Hg] Kailee Haury IP TECHNOLOGY TRANSACTIONS ATTORNEY.PAINTER SIGN MAINTENANCE Work Phone: [facility] 04-22-2024 09:21-0500 Systolic blood pressure 120 mm[Hg] Kailee Haury IP TECHNOLOGY TRANSACTIONS ATTORNEY.PAINTER SIGN MAINTENANCE Work Phone: [facility] 06-29-2023 08:05-0500 Body height 160 cm Tianna Plotts IP TECHNOLOGY TRANSACTIONS ATTORNEY.CNM Work Phone: [facility] 06-29-2023 08:05-0500 Body weight 90.63 kg Tianna Plotts IP TECHNOLOGY TRANSACTIONS ATTORNEY.CNM Work Phone: [facility] 06-29-2023 08:05-0500 Diastolic blood pressure 70 mm[Hg] Tianna Plotts IP TECHNOLOGY TRANSACTIONS ATTORNEY.CNM Work Phone: [facility] 06-29-2023 08:05-0500 Systolic blood pressure 116 mm[Hg] Tianna Plotts IP TECHNOLOGY TRANSACTIONS ATTORNEY.CNM Work Phone: [facility] 06-23-2022 08:18-0500 Body height 160 cm Tianna Plotts IP TECHNOLOGY TRANSACTIONS ATTORNEY.CNM Work Phone: [facility] 06-23-2022 08:18-0500 Body weight 92.08 kg Tianna Plotts IP TECHNOLOGY TRANSACTIONS ATTORNEY.CNM Work Phone: [facility] 06-23-2022 08:18-0500 Diastolic blood pressure 76 mm[Hg] Tianna Mota IP TECHNOLOGY TRANSACTIONS ATTORNEY.CNM Work Phone: [facility] 06-23-2022 08:18-0500 Systolic blood pressure 114 mm[Hg] Tianna Mota IP TECHNOLOGY TRANSACTIONS ATTORNEY.CNM Work Phone: [facility] Encounters Encounter Date Encounter Type Care Provider Facility Start: 04-24-2025 ambulatory Tianna Mota Facilit y:[facility] Start: 03-20-2025 End: 03-20-2025 ambulatory TIANNA MOTA Facility:[facility] Start: 03-03-2025 End: 03-03-2025 ambulatory TAWANDA LA Facility:[facility] Start: 02-17-2025 End: 02-17-2025 ambulatory TIANNA MOTA Facility:[facility] Start: 02-10-2025 End: 02-10-2025 ambulatory TIANNA MOTA Facility:[facility] Start: 02-03-2025 End: 02-03-2025 ambulatory SHAZIA EDWARDS Facility:[facility] Start: 01-06-2025 End: 01-06-2025 Patient encounter procedure Tianna Mota APRN.CNHaylee Work Phone: OB/Gynecology Comment on above: Supervision of high risk in second trimester (HCC) (Primary Dx); 24 weeks gestation of (HCC); Obesity affecting in second trimester, unspecified obesity type (HCC); Low-lying placenta (HCC); Screening for diabetes mellitus; Heartburn during in second trimester (HCC) Start: 01-06-2025 End: 01-06-2025 ambulatory SHAZIA T FURNESS Facility:[facility] Start: 12-19-2024 End: 12-19-2024 Telephone encounter Radha Levine APRN.CNM Work Phone: OB/Gynecology Start: 12-12-2024 End: 12-12-2024 Telephone encounter Tianna Mota APRN.CNHaylee Work Phone: OB/Gynecology Comment on above: Results Start: 12-09-2024 End: 12-09-2024 ambulatory KAILEERICK RAJANDARWIN Facility:[facility] Start: 12-09-2024 End: 12-09-2024 Patient encounter procedure Kailee Rajandarwin IP TECHNOLOGY TRANSACTIONS ATTORNEY.PAINTER SIGN MAINTENANCE Work Phone: OB/Gynecology Comment on above: Supervision of high risk in second trimester (HCC) (Primary Dx); 20 weeks gestation of (HCC); Obesity affecting in second trimester, unspecified obesity type (HCC); Irritable bowel syndrome with both constipation and diarrhea Obesity affecting pr egnancy in second trimester, unspecified obesity type (HCC) (Primary Dx); 9 weeks gestation of ([facility]); Supervision of high risk in second trimester ([facility]) Start: 12-09-2024 End: 12-09-2024 ambulatory [facility] Facility:[facility] Start: 12-05-2024 End: 12-05-2024 Telephone encounter Tianna Mota APRN.CNM Work Phone: OB/Gynecology Comment on above: OB Vomiting Start: 11-11-2024 End: 11-11-2024 Patient encounter procedure Tianna Mota APRN.CNM Work Phone: OB/Gynecology Comment on above: Encounter for superv ision of low-risk in second trimester (HCC) (Primary Dx); 16 weeks gestation of (HCC); Other obesity affecting in second trimester (HCC) Start: 11-11-2024 End: 11-11-2024 [facility] Facility:[facility] Start: 10-18-2024 End: 12-18-2024 Follow-up encounter Mica Concepcion MD Work Phone: OB/Gynecology Start: 10-17-2024 End: 10-17-2024 Patient encounter procedure Whi Tech 1 [employer] [facility] Comment on above: Encounter for antena jed screening for malformation using ultrasound (HCC) (Primary Dx); 13 weeks gestation of (HCC) Encounter for superv ision of low-risk in second trimester (HCC) (Primary Dx); Other obesity affecting in second trimester (HCC); 13 weeks gestation of (HCC) Start: 10-17-2024 End: 10-17-2024 ambulatory SHAZIA REYESDENG Facility:[facility] Start: 09-23-2024 End: 09-23-2024 Patient encounter [...] Start: 09-23-2024 End: 09-23-2024 ambulatory SHAZIA REYESDENG Facility:[facility] Start: 07-01-2024 End: 07-01-2024 ambulatory TIANNA MOTA Facility:[facility] Start: 07-01-2024 End: 07-01-2024 Patient encounter procedure Tianna Mota APRN.CNM Work Phone: OB/Gynecology Comment on above: Encounter for gyneco logical examination (general) (routine) without abnormal findings (Primary Dx); Screening for cervical cancer; Encounter for screening for human papillomavirus (HPV) Start: 07-01-2024 End: 07-01-2024 Patient encounter status Tianna Mota APRN.CNM Work Phone: [facility] Start: 06-03-2024 End: 06-03-2024 ambulatory KATHLEEN CARO Facility:[facility] Start: 05-27-2024 End: 05-27-2024 ambulatory KATHLEEN CARO Facility:[facility] Start: 05-20-2024 End: 05-20-2024 ambulatory KATHLEENBRENDA CARO Facility:[facility] Start: 05-13-2024 End: 05-13-2024 Telephone encounter Kathleen Caro MD Work Phone: OB/Gynecology Comment on above: Results Start: 05-13-2024 End: 05-13-2024 ambulatory KATHLEENBRENDA CARO Facility:[facility] Start: 05-06-2024 End: 05-06-2024 ambulatory KATHLEEN CARO Facility:[facility] Start: 05-06-2024 End: 05-06-2024 Patient encounter procedure Kathleen Caro MD Work Phone: OB/Gynecology Comment on above: Incomplete spontaneo us without complication (Primary Dx) Start: 05-04-2024 End: 05-04-2024 [facility] Start: 05-02-2024 End: 05-02-2024 ambulatory GIANA SUJATA Facility:[facility] Start: 04-29-2024 End: 04-29-2024 Telephone encounter Giana Alcala MD Work Phone: OB/Gynecology Comment on above: Patient Update Start: 04-29-2024 End: 04-29-2024 Office outpatient visit 25 minutes Giana Alcala MD Work Phone: OB/Gynecology Comment on above: SAB (spontaneous abo rtion) (Primary Dx) Start: 04-29-2024 End: 04-29-2024 ambulatory GIANA SUJATA Facility:[facility] Start: 04-29-2024 End: 04-29-2024 Patient encounter procedure Us Tech 1 Wstr Mob OB/Gynecology Comment on above: Vaginal bleeding aff ecting early Start: 04-26-2024 End: 04-27-2024 ambulatory Kailee Rahman APRN.PAINTER SIGN MAINTENANCE Work Phone: OB/Gynecology Comment on above: Vaginal bleeding Start: 04-22-2024 End: 04-22-2024 ambulatory SHAZIA EDWARDS Facility:[facility] Start: 04-22-2024 End: 04-22-2024 Patient encounter procedure Kailee Rahman APRN.PAINTER SIGN MAINTENANCE Work Phone: OB/Gynecology Comment on above: Encounter [...] encounter status Tianna Ryanjacqui AMAYAN.CNM Work Phone: [facility] Start: 06-23-2022 End: 06-23-2022 Patient encounter [...] 09-23-2017 End: 09-24-2017 Ambulatory Shazia T Grace Facility:[facility] Start: 02-19-2017 End: 02-20-2017 [facility] Start: 01-29-2017 End: 01-29-2017 Ambulatory Horacio Diaz Facility:Horacio Diaz DO Start: 01-08-2017 End: 01-09-2017 [facility] Start: 01-08-2017 End: 01-09-2017 Ambulatory Nabil Pal Facility:[facility] Start: 11-26-2016 End: 11-27-2016 [facility] Start: 11-26-2016 End: 11-27-2016 [facility] Start: 07-26-2013 End: 08-11-2014 Patient encounter status Kailee Josiah SANFORDPAINTER SIGN MAINTENANCE Work Phone: [facility] Procedures Date Procedure Procedure Detail Performing Clinician Start: 12-09-2024 Us preg uterus after 1st trimest 05/18 gestation Tianna Mota APRN.CNM Work Phone: Start: 10-17-2024 Us preg uterus after 1st trimest / gestation Tianna Mota APRN.CNM Work Phone: Start: 09-23-2024 Antibody screen SHAZIA EDWARDS Comment on above: Order Comment: Speci men Type: BLOOD SPECIMENOrdering Facility: [facility] Address: [address] [place] [address] Performed By: #### T SPN ####CC MAIN BLOOD BANKCLIA [id number] [address] [place] Start: 09-23-2024 Us uterus l imited 1/> fetuses Tianna Mota APRN.CNHaylee Work Phone: Start: 04-29-2024 Us preg uterus after 1st trimest / gestation Kailee Rahman APRN.PAINTER SIGN MAINTENANCE Work Phone: Start: 04-22-2024 Antibody screen SHAZIA EDWARDS Comment on above: Order Comment: Speci men Type: BLOOD SPECIMENOrdering Facility: [facility] Address: [address] [place] [address] Performed By: #### T SPN ####CC MAIN BLOOD BANKCLIA [id number] [place] [address] [place] Start: 04-22-2024 Us uterus l imited 1/> fetuses Kailee Rahman APRN.PAINTER SIGN MAINTENANCE Work Phone: Start: 04-22-2024 Adult depression scr eening assessment Us Mob Plan of Treatment Date Care Activity Detail Author Start: 07-01-2029 Screening for malign ant neoplasm of cervix Cervical Cancer Screening [facility] Start: 07-07-2025 End: 07-07-2025 Patient encounter procedure 07/07/2025 10:45 AM EST Office Visit OB/Gynecology [address] [place] [address] Tianna Mota APRN.CNM [address] [place] [address] Annual OB/Gynecology Comment on above: Annual Start: 04-22-2025 Anxiety Screening Anxiety Screening [facility] Start: 04-22-2025 Depression Screening Depression Scre ening [facility] Start: 02-27-2025 RSV Vaccine (1 - Ris k 1-dose series) RSV Vaccine (1 - Risk 1-dose series) [facility] Start: 02-03-2025 End: 02-03-2025 Patient encounter procedure OB/Gynecology Comment on above: Growth/OB/Glucose Te st Start: 02-03-2025 End: 02-03-2025 ambulatory 02/03/2025 10:15 AM EDT Results Only [facility] [address] [place] [address] Glucose Test [facility] Comment on above: Glucose Test Start: 01-16-2025 Influenza vaccination [facility] Start: 01-06-2025 End: 04-07-2025 ANEMIA REFLEX PANEL ANEMIA REFLEX PANEL Lab Routine 24 weeks gestation of (HCC) Supervision of high risk in second trimester (HCC) Obesity affecting in second trimester, unspecified obesity type (HCC) Low-lying placenta (HCC) Screening for diabetes mellitus Expected: 01/06/2025, Expires: 04/07/2025 [facility] Comment on above: Expected: 01/06/2025 , Expires: 04/07/2025 Start: 01-06-2025 End: 01-06-2026 GESTATIONAL GLUCOSE SCREEN, 1-HOUR, 50 GRAM, NON-FASTING GESTATIONAL GLUCOSE SCREEN, 1-HOUR, 50 GRAM, NON-FASTING Lab Routine 24 weeks gestation of (HCC) Supervision of high risk in second trimester (HCC) Obesity affecting in second trimester, unspecified obesity type (HCC) Low-lying placenta (HCC) Screening for diabetes mellitus Expected: 01/06/2025, Expires: 01/06/2026 [facility] Work Phone: Comment on above: Expected: 01/06/2025 , Expires: 01/06/2026 Start: 01-06-2025 End: 01-06-2026 OBSTETRIC ULTRASOUND WHI [facility] Comment on above: Expected: 01/06/2025 , Expires: 01/06/2026 Start: 01-06-2025 End: 01-06-2026 SYPHILIS TREPONEMAL W/REFLEX SYPHILIS TREPONEMAL W/REFLEX Lab Routine 24 weeks gestation of ([facility]) Supervision of high risk in second trimester ([facility]) Obesity affecting in second trimester, unspecified obesity type ([facility]) Low-lying placenta ([facility]) Screening for diabetes mellitus Expected: 01/06/2025, Expires: 01/06/2026 [facility] Comment on above: Expected: 01/06/2025 , Expires: 01/06/2026 Start: 01-06-2025 End: 01-06-2025 Patient encounter procedure 01/06/2025 10:15 AM EDT Routine Office Visit OB/Gynecology [address] [place] [address] Tianna Mota APRN.CNM [address] [place] [address] OB OB/Gynecology Comment on above: OB Start: 12-09-2024 End: 12-09-2024 Patient encounter procedure [facility] Comment on above: Anatomy Anatomy/OB Start: 11-11-2024 End: 11-11-2024 Patient encounter procedure 11/11/2024 11:15 AM EDT Routine Office Visit OB/Gynecology [address] [place] [address] Tianna Mota APRN.CNM [address] [place] [address] OB OB/Gynecology Comment on above: OB Start: 10-21-2024 End: 10-21-2024 Patient encounter procedure 10/21/2024 2:30 PM EDT Routine Office Visit OB/Gynecology [address] [place] [address] Tianna Mota APRN.CNM [address] [place] [address] 2 missed periods and + at home test OB/Gynecology Comment on above: 2 missed periods and + at home test Start: 10-17-2024 End: 10-17-2024 Patient encounter procedure Maternal Medicine Comment on above: 12 weeks gestation o f ([facility]) [Z3A.09] Start: 09-23-2024 End: 12-23-2024 ANEMIA REFLEX PANEL [facility] Work Phone: Comment on above: Expected: 09/23/2024 , Expires: 12/23/2024 Start: 09-23-2024 End: 12-23-2024 Hemoglobin A1c in Blood [facility] Comment on above: Expected: 09/23/2024 , Expires: 12/23/2024 Start: 09-23-2024 End: 12-23-2024 Hepatitis B virus surface Ag [Presence] in Serum [facility] Comment on above: Expected: 09/23/2024 , Expires: 12/23/2024 Start: 09-23-2024 End: 12-23-2024 Hepatitis C virus Ab [Presence] in Serum [facility] Comment on above: Expected: 09/23/2024 , Expires: 12/23/2024 Start: 09-23-2024 End: 12-23-2024 HIV 1+2 Ab [Presence] in Serum or Plasma by Immunoassay [facility] Comment on above: Expected: 09/23/2024 , Expires: 12/23/2024 Start: 09-23-2024 End: 09-23-2025 OBSTETRIC ULTRASOUND WHI OBSTETRIC ULTRASOUND [facility]I Anc Imaging Routine 9 weeks gestation of ([facility]) Expected: 09/23/2024, Expires: 09/23/2025 [facility] Comment on above: Expected: 09/23/2024 , Expires: 09/23/2025 Start: 09-23-2024 End: 12-23-2024 RUBELLA IGG ANTIBODY [facility] Comment on above: Expected: 09/23/2024 , Expires: 12/23/2024 Start: 09-23-2024 End: 12-23-2024 SYPHILIS TREPONEMAL W/REFLEX [facility] Comment on above: Expected: 09/23/2024 , Expires: 12/23/2024 Start: 07-22-2024 End: 07-22-2024 Patient encounter procedure 07/22/2024 9:40 AM EST Routine Office Visit OB/Gynecology [address] [place] [address] Kathleen Patel MD [address] [place] [address] OB Routine OB/Gynecology Comment on above: OB Routine Start: 07-22-2024 End: 07-22-2024 Patient encounter procedure 07/22/2024 8:30 AM EST Routine Office Visit Maternal Medicine [address] [place] [address] Anatomy Scan [facility] Comment on above: Anatomy Scan Start: 07-01-2024 End: 07-01-2024 Patient encounter procedure 07/01/2024 10:45 AM EST Office Visit OB/Gynecology [address] [place] [address] Tianna Mota APRN.CN [address] [place] [address] ANNUAL OB/Gynecology Comment on above: ANNUAL Start: 06-18-2024 PAP TESTING PAP TESTING [facility] Start: 06-18-2024 Screening for malign ant neoplasm of cervix [facility] Start: 05-27-2024 End: 05-27-2024 Patient encounter procedure [facility]aternal [facility] Comment on above: Nuchal OB Routine Start: 04-29-2024 End: 04-29-2024 Patient encounter procedure 04/29/2024 10:00 AM EST Routine Office Visit OB/Gynecology [address] [place] [address] Early OB bleeding OB/Gynecology Comment on above: Early OB bleeding Start: 04-27-2024 End: 04-27-2025 OBSTETRIC ULTRASOUND WHI OBSTETRIC ULTRASOUND [facility] Anc Imaging Routine Vaginal bleeding affecting early Expected: 04/27/2024, Expires: 04/27/2025 [facility] Work Phone: Comment on above: Expected: 04/27/2024 , Expires: 04/27/2025 Start: 04-22-2024 End: 07-22-2024 ANEMIA REFLEX PANEL [facility] Work Phone: Comment on above: Expected: 04/22/2024 , Expires: 07/22/2024 Start: 04-22-2024 End: 07-22-2024 Hemoglobin A1c in Blood [facility] Comment on above: Expected: 04/22/2024 , Expires: 07/22/2024 Start: 04-22-2024 End: 07-22-2024 Hepatitis B virus surface Ag [Presence] in Serum [facility] Comment on above: Expected: 04/22/2024 , Expires: 07/22/2024 Start: 04-22-2024 End: 07-22-2024 Hepatitis C virus Ab [Presence] in Serum [facility] Comment on above: Expected: 04/22/2024 , Expires: 07/22/2024 Start: 04-22-2024 End: 07-22-2024 HIV 1+2 Ab [Presence] in Serum or Plasma by Immunoassay [facility] Comment on above: Expected: 04/22/2024 , Expires: 07/22/2024 Start: 04-22-2024 End: 04-22-2025 NUCHAL TRANSLUCENCY WHI [facility] Comment on above: Expected: 04/22/2024 , Expires: 04/22/2025 Start: 04-22-2024 End: 04-22-2025 OBSTETRIC ULTRASOUND [facility]I OBSTETRIC ULTRASOUND [facility] Anc Imaging Routine with uncertain dates in first trimester Expected: 04/22/2024, Expires: 04/22/2025 [facility] Comment on above: Expected: 04/22/2024 , Expires: 04/22/2025 Start: 04-22-2024 End: 07-22-2024 RUBELLA IGG ANTIBODY [facility] Comment on above: Expected: 04/22/2024 , Expires: 07/22/2024 Start: 04-22-2024 End: 07-22-2024 SYPHILIS TREPONEMAL W/REFLEX [facility] Comment on above: Expected: 04/22/2024 , Expires: 07/22/2024 Start: 04-22-2024 End: 07-22-2024 TYPE + SCREEN [facility] Comment on above: Expected: 04/22/2024 , Expires: 07/22/2024 Start: 01-17-2024 Covid-19 Vaccine ( season) Covid-19 Vaccine ( season) [facility] Start: 01-17-2024 Influenza vaccination Influenza Vacc ine (#1) [facility] Start: 05-18-2023 Depression Assessment Depression Ass essment [facility] Start: 01-16-2023 Influenza vaccination Influenza Vacc ine (#1) [facility] Start: 05-18-2022 DEPRESSION ASSESSMENT DEPRESSION ASS ESSMENT [facility] Start: 01-16-2022 Influenza vaccination INFLUENZA (#1) [facility] Start: 2020 HPV Vaccine (1 - 3-d ose SCDM series) HPV Vaccine (1 - 3-dose SCDM series) [facility] Start: 2012 Hepatitis B Vaccine (1 of 3 - 19+ 3-dose series) Hepatitis B Vaccine (1 of 3 - 19+ 3-dose series) [facility] Start: 2012 Pneumococcal vaccination Pneumococcal Vaccine (1 of 2 - PCV) [facility] Start: 2012 Urine microalbumin profile [facility] Start: 09-08-2011 Anxiety Screening Anxiety Screening [facility] Start: 09-08-2011 Depression Screening Depression Scre ening [facility] Start: 03-09-1994 COVID-19 VACCINE (#1) COVID-19 VACCI NE (#1) [facility] Start: 1993 HEPATITIS B (1 of 3 - 3-dose series) HEPATITIS B (1 of 3 - 3-dose series) [facility] Start: 1993 Hepatitis B Vaccine (1 of 3 - 3-dose series) Hepatitis B Vaccine (1 of 3 - 3-dose series) [facility] Bacteria identified in Urine by Culture URINE CULTURE Microbiology Routine with uncertain dates in first trimester 04/22/2024 10:27 AM EST [facility] Bacteria identified in Urine by Culture BACTERIAL CULTURE, URINE Microbiology Routine 9 weeks gestation of (HCC) 09/23/2024 1:45 PM EDT [facility] Chlamydia trachomatis+Neisseria gonorrhoeae DNA [Presence] in Unspecified specimen by ITZEL with probe detection GONORRHEA/CHLAMYDIA NAAT Lab Routine with uncertain dates in first trimester 04/22/2024 10:27 AM [facility] Chlamydia trachomatis+Neisseria gonorrhoeae DNA [Presence] in Unspecified specimen by ITZEL with probe detection GONORRHEA/CHLAMYDIA NAAT Lab Routine 9 weeks gestation of ([facility]) 09/23/2024 1:45 PM EDT [facility] End: 04-29-2025 Choriogonadotropin.beta subunit [Units/volume] in Serum or Plasma HCG QUANTITATIVE Lab Routine SAB (spontaneous ) 3x per week for 10 Occurrences starting 04/29/2024 until 04/29/2025 [facility] Work Phone: Comment on above: 3x per week for 10 O ccurrences starting 04/29/2024 until 04/29/2025 PAP TEST PAP TEST Lab Blanka velazquez Encounter for gynecological examination (general) (routine) without abnormal findings Screening for cervical cancer Encounter for screening for human papillomavirus (HPV) 07/01/2024 11:06 AM [facility] Work Phone: SURGICAL PATHOLOGY SURGICAL PATH OLOGY Lab Routine Incomplete spontaneous without complication 05/06/2024 3:34 PM EST [facility] TRICHOMONAS VAGINALI S NAAT TRICHOMONAS VAGINALIS NAAT Lab Routine 9 weeks gestation of ([facility]) 09/23/2024 1:45 PM EDT [facility] TYPE + SCREEN TYPE + SC REEN Blood Bank Routine 9 weeks gestation of ([facility]) 09/23/2024 2:09 PM EDT [facility] WHI (OFFICE IPAS) WHI (OFFICE IP ) Procedures Routine Incomplete spontaneous without complication Ordered: 05/06/2024 [facility] Work Phone: Comment on above: Ordered: 05/06/2024 [facility] Immunizations Immunization Date Immunization Notes Care Provider Grover reddy 04-07-2015 measles, mumps and rubella virus vaccine Mica Concepcion MD Work Phone: [facility] Payers Date Payer Category Payer Self-pay 2023 Private Health Insurance [employer] PPO [id number] 2023 Unknown [id number] 2016 Unknown Unknown [id number] Social History Date Type Detail Facility Start: 11-02-2017 End: 09-22-2024 Tobacco smoking status NHIS Ex-smoker [facility] Work Phone: Start: 08-16-2016 End: 09-19-2017 History of tobacco use Current smoker [facility] Work Phone: Start: 08-16-2016 End: 09-19-2017 History of tobacco use Cigarette Smoker [facility] Work Phone: Start: 11-02-2017 End: 09-22-2024 Tobacco use and exposure Smokeless tobacco non-user [facility] Work Phone: Start: 06-18-2021 End: 07-01-2024 Alcohol intake Current drinker of alcohol (finding) [facility] Start: 06-05-2020 History SDOH Social Connections Phone 5 [facility] Start: 06-05-2020 History SDOH Social Connections Gnosticist 1 [facility] Start: 06-05-2020 History SDOH Social Connections Membership 2 [facility] Start: 06-05-2020 History SDOH Social Connections Living 3 [facility] Start: 06-05-2020 History SDOH Physical Activity MPS 12 [facility] Start: 06-05-2020 Education 13 [facility] Start: 06-01-2019 Alcohol Comment socially [facility] Start: 1995 Sex Assigned At Not on file [facility] Start: 1995 Sex Assigned At Female [facility] Start: 06-05-2020 End: 06-29-2023 History of Social function [facility] Start: 06-05-2020 End: 06-29-2023 Social connection and isolation panel [facility] Do you belong to any clubs or organizations such as druze groups, unions, fraternal or athletic groups, or school groups? No [facility] Are you now , , , , never or living with a partner? [facility] Do you feel stress - tense, restless, nervous, or anxious, or unable to sleep at night because your mind is troubled all the time - these days [OSQ] To some extent [facility] Start: 04-18-2012 National Score (1-100), lower number is lower risk 64 [facility] Start: 06-23-2022 Gender identity Identifies as female gender (finding) [facility] Start: 06-23-2022 Sexual orientation Heterosexual (finding) [facility] Start: 04-22-2024 End: 12-09-2024 Alcoholic beverage intake Ex-drinker (finding) [facility] Start: 03-12-2024 [facility] Start: 08-16-2016 Tobacco smoking status ILIS Smokes tobacco daily [facility] Goals Date Patient Goal Desired Activity /State Personal health goal Personal health goal Functional Status Date Assessment Result Facility 04-07-2015 Are you deaf, or do you have serious difficulty hearing No 04/07/2015 2:19 PM Margaret CrowleyRn)(Hist), RN No [facility] 04-07-2015 Are you blind, or do you have serious difficulty seeing, even when wearing glasses No 04/07/2015 2:19 PM Margaret CrowleyRn)(Hist), RN [facility] 04-07-2015 Do you have serious difficulty walking or climbing stairs No 04/07/2015 2:19 PM Margaret CrowleyRn)(Hist), RN No [facility] 04-07-2015 Do you have difficul ty dressing or bathing No 04/07/2015 2:19 PM Margaret CrowleyRn)(Hist), RN No [facility] 04-07-2015 Because of a physica l, mental, or emotional condition, do you have difficulty doing errands alone such as visiting a physician's office or shopping No 04/07/2015 2:19 PM Margaret Crowley (Rn)(Hist), RN No [facility] Mental Status Date Assessment Result Facility 04-07-2015 Because of a physica l, mental, or emotional condition, do you have serious difficulty concentrating, remembering, or making decisions No 04/07/2015 2:19 PM Margaret Crowley (Rn)(Hist), RN No [facility] Clinical Notes 04-05-2015 to 01-06-2025 Quick [...] weeks gestation for a routine visit. Positive [id number], by Last Menstrual Period for a routine [...] SARAI with GCT screening Tianna Mota APRN.CNM [facility] 01-06-2025 Miscellaneous Notes Formattin g of this note might be different from the original. S: Dory Pradhan is a 29 year old female who presents at 24 weeks gestation for a routine visit. Positive [id number]/8/[id number], by Last Menstrual Period for a routine [...] Tianna Mota APRN.CNM documented in this encounter [facility] 01-06-2025 Instructions Poppy Man MA - 01/06/2025 10:03 AM EDT SEQUENTIAL SCREENINGS The [facility] offers sequential screenings for women who [...] It will require an appointment with our electrical maintenance technician. This is not an ultrasound performed [...] the above symptoms, contact our office at [phone] and ask to speak with a nurse. After hours, you can call doctors registry at [phone] OR call [facility] at [phone] and ask to have the doctor online merchandising specialist paged. If you consider this an emergency, dial or go to your nearest emergency department. NEED HELP? Are you dealing with a violent or abusive relationship? Are you a victim of rape or sexual assult? Call [facility] ([place]) 24 hour Crisis Hotline: 836.642.2734 or 481-762-2594. MANUAL Your Guide to a Healthy manual is now on-line. Visit [email or web address] to download your free copy documented in this encounter [facility] 12-19-2024 Telephone encount er Note Patient notified. Giana Alexandre RN [facility] 12-19-2024 Miscellaneous Notes Formattin g of this note might be different from the original. Patient notified. Giana Alexandre RN Thank you. Would recommend [facility] due to gestational age if needing [...] Giana Alexandre RN documented in this encounter [facility] 12-19-2024 Telephone encount er Note Thank you. Would recommend [facility] due to gestational age if needing to go in. Thank you, Radha Levine APRN.CNM [facility] Work Phone: 12-19-2024 Telephone encount er [...] Next OB visit 01/06/25. Giana Alexandre RN [facility] 12-12-2024 Telephone encount er Note Spoke with patient and counseled on low lying placenta. Recommended pelvic rest until follow up ultrasound at 28 weeks gestation. Questions answered.. Tianna Mota APRN.CNM [facility] 12-12-2024 Miscellaneous Notes Formattin g of [...] Attempted to call patient to notify and relocation counselor on low lying placenta. No answer and unable to leave message. Will have online merchandising specialist provider attempt tomorrow. Tianna Mota APRN.CNM documented in this encounter [facility] 12-12-2024 Telephone encount er Note Patient called back. Spoke with CP. She will call patient right back in a few minutes. iGana Alexandre RN [facility] 12-12-2024 Telephone encount er Note Attempted to call patient to notify and relocation counselor on low lying placenta. No answer and unable to leave message. Will have online merchandising specialist provider attempt tomorrow. Tianna Mota APRN.CNM [facility] 12-09-2024 Progress note Formatting of t [...] Supervision of high risk in second trimester ([facility]) - ICD9: V23.9, ICD10: O09.92 (primary diagnosis) - Continue PNV and LDA - Recent URI/sinusitis symptoms improving. Nausea controlled. Continue good hydration. 2. 20 weeks gestation of ([facility]) - ICD9: V22.2, ICD10: Z3A.20 - Anatomy today, report pending 3. Obesity affecting in second trimester, unspecified obesity type ([facility]) - ICD9: 649.13, ICD10: O99.212 -Pre BMI 33 4. Irritable bowel syndrome with both constipation and diarrhea - ICD9: 564.1, ICD10: K58.2 - Controlled PTL precautions reviewed. RTO in 4 weeks or sooner as needed. Kailee Rahman APRN.PAINTER SIGN MAINTENANCE [facility] 12-09-2024 Miscellaneous Notes Formattin g of [...] Supervision of high risk in second trimester ([facility]) - ICD9: V23.9, ICD10: O09.92 (primary diagnosis) - Continue PNV and LDA - Recent URI/sinusitis symptoms improving. Nausea controlled. Continue good hydration. 2. 20 weeks gestation of ([facility]) - ICD9: V22.2, ICD10: Z3A.20 - Anatomy today, report pending 3. Obesity affecting in second trimester, unspecified obesity type ([facility]) - ICD9: 649.13, ICD10: O99.212 -Pre BMI 33 4. Irritable bowel syndrome with both constipation and diarrhea - ICD9: 564.1, ICD10: K58.2 - Controlled PTL precautions reviewed. RTO in 4 weeks or sooner as needed. Kailee Rahman APRN.PAINTER SIGN MAINTENANCE documented in this encounter [facility] 12-09-2024 Instructions Dia Bejarano MA - 12/09/2024 3:28 PM EDT SEQUENTIAL SCREENINGS The [facility] offers sequential screenings for women who [...] It will require an appointment with our electrical maintenance technician. This is not an ultrasound performed [...] the above symptoms, contact our office at [phone] and ask to speak with a nurse. After hours, you can call doctors registry at [phone] OR call [facility] at [phone] and ask to have the doctor online merchandising specialist paged. If you consider this an emergency, dial 9-3-0 or go to your nearest emergency department. NEED HELP? Are you dealing with a violent or abusive relationship? Are you a victim of rape or sexual assult? Call [facility] ([place]) 24 hour Crisis Hotline: 292.424.8241 or 179-215-1123. MANUAL Your Guide to a Healthy manual is now on-line. Visit [email or web address] gnancyGuide to download your free copy documented in this encounter [facility] 12-05-2024 Telephone encount er Note Patient notified and voiced understanding. Rhina Connors RN [facility] 07-21-2025 Miscellaneous Notes Formattin g of [...] can have antiemetic prescribed and sent to [facility] in [place]. Encouraged to push fluids and include electrolytes. [...] Giana Alexandre, PRAVEEN documented in this encounter [facility] 12-05-2024 Telephone encount er Note Rx for Phenergan suppositories sent. Yes, agree with movement not being regular at this early gestational age. If concerned, can come in for FHT. Tianna Mota APRN.CNM [facility] 12-05-2024 Telephone encount er Note 20w0d Patient has been taking Amoxicillin 500 mg for upper respiratory infection and sinus infections for the last 3 days. Since starting the antibiotic she has been vomiting 3-5 times a day and having diarrhea. Asking if she can have antiemetic prescribed and sent to [facility] in [place]. Encouraged to push fluids and include electrolytes. [...] when we call back. Giana Alexandre RN [facility] 11-11-2024 Progress note Formatting of t his [...] for supervision of low-risk in [facility] 2. 16 weeks gestation of 3. Other obesity affecting in second trimester - Continue vitamin daily - Continue ASA at bedtime - RTO 4 weeks for anatomy US and SARAI - Gender is a surprise! Tianna Mota APRN.CNM [facility] 11-11-2024 Miscellaneous Notes Formattin g of this [...] Tianna Mota APRN.CNM documented in this encounter [facility] 11-11-2024 Instructions Rao Hernández MA - 11/11/2024 11:05 AM EDT SEQUENTIAL SCREENINGS The [facility] offers sequential screenings for women who [...] It will require an appointment with our electrical maintenance technician. This is not an ultrasound performed [...] the above symptoms, contact our office at [phone] and ask to speak with a nurse. After hours, you can call doctors registry at [phone] OR call [facility] at [phone] and ask to have the doctor online merchandising specialist paged. If you consider this an emergency, dial 7--9 or go to your nearest emergency department. NEED HELP? Are you dealing with a violent or abusive relationship? Are you a victim of rape or sexual assult? Call [facility] ([place]) 24 hour Crisis Hotline: 939.486.2402 or 184-633-3572. MANUAL Your Guide to a Healthy manual is now on-line. Visit [email or web address] gnancyGuide to download your free copy documented in this encounter [facility] 10-18-2024 Progress note Formatting of t his note might be different from the original. Anatomy ultrasound reviewed. No abnormalities identified. Follow up as clinically indicated. Schedule [address] copy in ob chart. Miac Concepcion MD [facility] 10-18-2024 Miscellaneous Notes Formattin g of this note might be different from the original. Anatomy ultrasound reviewed. No abnormalities identified. Follow up as clinically indicated. Schedule [address] copy in ob chart. Mica Concepcion MD documented in this encounter [facility] 10-17-2024 Progress note Formatting of t [...] for supervision of low-risk in second trimester ([facility]) - ICD9: V22.1, ICD10: Z34.92 (primary diagnosis) 2. Other obesity affecting in second trimester ([facility]) - ICD9: 649.13, 278.00, ICD10: O99.212, E66.89 Pre BMI 33 3. 13 weeks gestation of ([facility]) - ICD9: V22.2, ICD10: Z3A.13 NT completed today declined NIPT Giana Alcala MD [facility] Work Phone: 10-17-2024 Miscellaneous Notes Formattin [...] for supervision of low-risk in second trimester ([facility]) - ICD9: V22.1, ICD10: Z34.92 (primary diagnosis) 2. Other obesity affecting in second trimester ([facility]) - ICD9: 649.13, 278.00, ICD10: O99.212, E66.89 Pre BMI 33 3. 13 weeks gestation of ([facility]) - ICD9: V22.2, ICD10: Z3A.13 NT completed today declined NIPT Giana Alcala MD documented in this encounter [facility] 10-17-2024 Instructions Domenica Mata MA - 10/17/2024 3:20 PM EDT SEQUENTIAL SCREENINGS The [facility] offers sequential screenings for women who [...] It will require an appointment with our electrical maintenance technician. This is not an ultrasound performed [...] the above symptoms, contact our office at [phone] and ask to speak with a nurse. After hours, you can call doctors registry at [phone] OR call [facility] at [phone] and ask to have the doctor online merchandising specialist paged. If you consider this an emergency, dial or go to your nearest emergency department. NEED HELP? Are you dealing with a violent or abusive relationship? Are you a victim of rape or sexual assult? Call [facility] ([place]) 24 hour Crisis Hotline: 773.141.8691 or 182-158-2999. MANUAL Your Guide to a Healthy manual is now on-line. Visit [email or web address] gnancyGuide to download your free copy documented in this encounter [facility] 09-23-2024 Progress note Formatting of t his note might be different from the original. here for NOB. See progress note. Tianna Mota APRN.CNM [facility] 09-23-2024 Miscellaneous Notes Formattin g of this note might be different from the original. here for NOB. See progress note. Tianna Mota APRN.CNM documented in this encounter [facility] 09-23-2024 Note HNO ID: [id number] Author: DOMENICA MATA MA Service: ? Author Type: Frame Feeder Type: Progress Notes Filed: 09/23/2024 17:30 Note Text: OB point of care ultrasound was performed. See imaging tab for details. Domenica Mata MA [facility] 09-23-2024 History of Presen t illness Narrative [...] the following (please check all that apply)? 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 EPINEPHrine (EPIPEN) 0.3 [...] discussed with the Patient or Patient's Authorized Mushroom Laborer. As applicable, any other physician, advance practice provider, medical student, or other health professional student that will be observing or involved in the sensitive examination for educational or training purposes was discussed with the Patient or Authorized Mushroom Laborer. The Patient or Authorized Mushroom Laborer has agreed to proceed with the sensitive [...] Your guide to a health and the Project Administrative Assistant. Reviewed midwifery and rad tech services that are available. 2) Screening: Hemoglobin [...] Tianna Mota APRN.CNM documented in this encounter [facility] 09-22-2024 Note HNO ID: [id number] Author: TIANNA MOTA APRN.CNM Service: ? Author Type: Screwmaker Automatic Type: Progress Notes Filed: 09/23/2024 17:30 Note [...] the following (please check all that apply)? 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 EPINEPHrine (EPIPEN) 0.3 [...] Swelling, Pain, Stiffne (more content not included)... [facility] 09-22-2024 Instructions Domenica Mata MA - 09/22/2024 9:28 AM EDT Please select the following link to access the [facility] Your Guide to a Healthy . [email or web address] Please select the following link to access the [facility] Your Guide to a Healthy . [email or web address] [email or web address] documented in this encounter [facility] 07-01-2024 Note HNO ID: [id number] Author: TIANNA MOTA APRN.CNM Service: ? 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 As applicable, any other physician, advance practice provider, medical student, or other health professional student that will be observing or involved in the sensitive examination for educational or training purposes was discussed with the Patient or Authorized Mushroom Laborer. 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 As applicable, any other physician, advance practice provider, medical student, or other health professional student that will be observing or involved in the sensitive examination for educational or training purposes was discussed with the Patient or Authorized Mushroom Laborer. The Patient or Authorized Mushroom Laborer has agreed to proceed with the sensitive [...] external genitalia normal, normal Bartholin's glands, urethra, Elverta's glands, no vulvar lesions, no cervical lesions, [...] Tianna Mota APRN.CNM documented in this encounter [facility] 05-13-2024 Telephone encount er Note Patient [...] this time to discuss. Rhina Connors RN [facility] 05-13-2024 Telephone encount er Note ----- [...] office would be fine. Lab orders placed. [facility] 05-13-2024 Miscellaneous Notes Formattin g of [...] Lab orders placed. documented in this encounter [facility] 05-06-2024 Note HNO ID: [id number] Author: KATHLEEN PATEL MD Service: ? Author [...] call with pathology results Kathleen Ken MD [facility] 05-06-2024 History of Presen t illness Narrative [...] 18 Bleeding:Light Pain Ratin Franchesca Metzger RN Relay Shop Supervisor offered: Patient declines. 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 EPINEPHrine (EPIPEN) 0.3 [...] discussed with the Patient or Patient's Authorized Mushroom Laborer. As applicable, any other physician, advance practice provider, medical student, or other health professional student that will be observing or involved in the sensitive examination for educational or training purposes was discussed with the Patient or Authorized Mushroom Laborer. The Patient or Authorized Mushroom Laborer has agreed to proceed with the sensitive [...] external genitalia normal, normal Bartholin's glands, urethra, Elverta's glands, no vulvar lesions, no cervical lesions, [...] Kathleen Ken MD documented in this encounter [facility] 05-06-2024 Note HNO ID: [id number] Author: FRANCHESCA METZGER RN Service: ? Author [...] 18 Bleeding:Light Pain Ratin/10 Franchesca Metzger RN [facility] 05-06-2024 Instructions Gladis Platt RN - 05/06/2024 [...] and showers are OK. Important Phone Numbers: [facility] Appointments in Oracle Analyst ( Early Assessment Clinics) Martina Sinclair [facility] at [phone] [facility] at [phone] [facility] at [phone] After 4:30 PM or on weekends, you may reach the on-call Oracle Analyst by calling the clinic where you were [...] for diagnosis or termination for medical reasons. http://www.Shiftboard Online Scheduling/ [facility]: ending a for a abnormality http://www.healthtalkonline.or g/Pregnancy_children/Ending_a_ pregnancy_for_fetal_abnormalit y Ending a Wanted : support for patients and families ending a after or maternal medical diagnosis https://endingawantedpregnancy .blogfoster Patrick Trevizo: one person's story about loss and collected resources. http://www.Signix.blogfoster [employer]: headquarters in [place] but with online support group https://www.[employer].org/in wwgt-popf-ijliosa-groups.html LOCAL RESOURCES [facility] [employer], [facility] https://my.[facility].org /locations/[facility]/ guest-services/support HaydeeNegra(Families Experiencing Early Loss) [facility] https://consultqd.[facility].org/jmfrfymfj-jvxdqqknq-qg mcmzvryry-icgcdft-jwbxfbky-gri eving-families/ [facility] - counseling services [phone] or toll free at [phone] [facility] Support Groups (not specific to loss) https://my.[facility].org /patients/information/bereavem ent/support-groups [facility] Bereavement [employer] Counselors with experience with families facing the loss of a baby before . This service may be covered by your insurance. If not, [facility] will not turn anyone away because of inability to pay. or [phone] Jacob Fleming, local counselor, not associated with [facility] [phone] Some of our families have recommended Jacob [...] induction of labor) documented in this encounter [facility] 05-06-2024 Note HNO ID: [id number] Author: KATHLEEN PATEL MD Service: ? Author Type: Physician Type: Progress Notes Filed: 05/06/2024 16:25 Note Text: Relay Shop Supervisor offered: Patient declines. 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 EPINEPHrine (EPIPEN) 0.3 [...] discussed with the Patient or Patient's Authorized Mushroom Laborer. As applicable, any other physician, advance practice provider, medical student, or other health professional student that will be observing or involved in the sensitive examination for educational or training purposes was discussed with the Patient or Authorized Mushroom Laborer. The Patient or Authorized Mushroom Laborer has agreed to proceed with the sensitive [...] external genitalia normal, normal Bartholin's glands, urethra, Elverta's glands, no vulvar lesions, no cervical lesions, [...] Level: 3 - Low Kathleen Ken MD [facility] 04-29-2024 Telephone encount er Note Spoke with patient. She had questions about the Cytotec. All questions answered. Aware JG placed order to check HCG level. Patient to have drawn on Mon, Wed, Fri next week. Encouraged to call with questions or concerns. Aware of heavy bleeding precautions. Giana Alexandre RN [facility] 04-29-2024 Miscellaneous Notes Formattin g of [...] like JG to send in Cytotec to [facility] in [facility]. Giana Alexandre RN documented in this encounter [facility] 04-29-2024 Telephone encount er Note Thank you. Giana Alexandre RN [facility] 04-29-2024 Telephone encount er Note Yes. I reviewed that with her. I'll add the order [facility] 04-29-2024 Telephone encount er Note Thank you. Is patient to f/u in the office or have HCG levels? Giana Alexandre RN [facility] 04-29-2024 Telephone encount er Note Ok prescription sent [facility] 04-29-2024 Telephone encount er Note Patient called with her decision. She would like J to send in Cytotec to [facility] in [facility]. Giana Alexandre RN [facility] 04-29-2024 Note HNO ID: [id number] Author: GIANA ALCALA MD Service: ? 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 aspirin, enteric coated [...] passage. 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 aspirin, enteric coated [...] Giana Alcala MD documented in this encounter [facility] 04-29-2024 Note HNO ID: [id number] Author: MALIHA CHIN MD Service: ? Author Type: Physician Type: Progress Notes Filed: 04/29/2024 11:10 Note Text: Dory Pradhan is a 28 year old female who presented for brim and crown presser ultrasound today. Encounter Diagnosis ICD-10-CM 1. Vaginal bleeding affecting early O20.9 Please see report under imaging tab. Maliha Chin MD April 29, 2024 11:05 AM [facility] 04-29-2024 History of Presen t illness Narrative Dory Pradhan is a 28 year old female who presented for brim and crown presser ultrasound today. Encounter Diagnosis ICD-10-CM 1. Vaginal bleeding affecting early O20.9 Please see report under imaging tab. Maliha Chin MD April 29, 2024 11:05 AM documented in this encounter [facility] 04-27-2024 Miscellaneous Notes Formattin g of [...] Rhina Connors RN documented in this encounter [facility] 04-27-2024 Telephone encount er Note Patient called, notified of below and voiced understanding. Ultrasound scheduled for Thursday. Rhina Connors RN [facility] 04-27-2024 Note Addended by: KAILEE RAHMAN on: 04/27/2024 12:11 PM Modules accepted: Orders [facility] 04-27-2024 Telephone encount er Note Recommend pelvic rest at this time. Order signed. Kailee Rahman APRN.CNP [facility] 04-27-2024 Note Addended by: RHINA CONNORS on: 04/27/2024 12:04 PM Modules accepted: Orders [facility] 04-27-2024 Telephone encount er Note We have openings downstairs, tomorrow and Thursday. Please place order. Rhina Connors RN [facility] 04-27-2024 Telephone encount er Note Do we have any ultrasound availability this week to see if she has a subchorionic hematoma? Kailee Rahman APRN.CNP [facility] 04-27-2024 Telephone encount er Note Patient 8w4d, seen in office on 04/22 for New OB. Rhina Connors RN [facility] 04-22-2024 Instructions Dia Bejarano MA - 04/22/2024 9:15 AM EST Please select the following link to access the [facility] Your Guide to a Healthy . [email or web address] documented in this encounter [facility] 04-07-2024 Note HNO ID: [id number] Author: KAILEE RAHMAN APRN.PAINTER SIGN MAINTENANCE Service: ? Author Type: Nurse Practitioner Type: Progress Notes Filed: 04/22/2024 09:53 Note Text: Relay Shop Supervisor offered: Patient declines. 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 EPINEPHrine (EPIPEN) 0.3 mg/0.3 mL auto-injector NEEDED PRN For Allergies No current facility-administered medications for this visit. Allergies As of Date: 04/22/2024 Allergen Noted Reaction PEANUTS 06/01/2019 Anaphylaxis Fully Assess (more content not included)... [facility] 04-07-2024 History of Presen t illness Narrative Relay Shop Supervisor offered: Patient declines. 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 EPINEPHrine (EPIPEN) 0.3 [...] discussed with the Patient or Patient's Authorized Mushroom Laborer. As applicable, any other physician, advance practice provider, medical student, or other health professional student that will be observing or involved in the sensitive examination for educational or training purposes was discussed with the Patient or Authorized Mushroom Laborer. The Patient or Authorized Mushroom Laborer has agreed to proceed with the sensitive [...] Your guide to a health and the Project Administrative Assistant. Discussed hemoglobin electrophoresis. Patient: Declines Reviewed midwifery and rad tech services that are available. 2) Screening: Hemoglobin [...] (28-30 weeks): [] Consent [] Contraception [] Security Installation Sales Technician [] TeamBirth handout Third trimester (36-40 weeks): [] GBS [] Presentation - [] Scheduled [] yes - Hibiclens, pre-op instructions, CBC, T&S ordered [] no [] H&P [] Preferences worksheet [] Scanned in With Uncertain Dates in First Trimester - 04/22/2024 Comment: April 22, 2024 POCUS not consistent with LMP. Confirm dating with NT. Kailee Rahman, IP TECHNOLOGY TRANSACTIONS ATTORNEY.PAINTER SIGN MAINTENANCE Obesity Affecting in First Trimester - 04/22/2024 [...] scan between 12w0d and 13w6d gestation. 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 History LMP: 05/12/2020, Drug Induced Amenorrhea Age at Menarche: Age at First : Age at Menopause: 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 History Comments: Sexual Activity: Yes; Male; ring [...] external genitalia normal, normal Bartholin's glands, urethra, Elverta's glands, no vulvar lesions, no cervical lesions, [...] Tianna Mota APRN.CNM documented in this encounter [facility] 06-23-2022 History of Presen t illness Narrative Relay Shop Supervisor offered: Patient declinesPilar Connors is a 26 [...] L2 SAB0 IAB0 Ectopic0 Multiple0 Live Births2 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 History LMP: 05/12/2020, Drug Induced Amenorrhea Age at Menarche: Age at First : Age at Menopause: 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 History Comments: Sexual Activity: Yes; Male; ring [...] external genitalia normal, normal Bartholin's glands, urethra, Elverta's glands, no vulvar lesions, no cervical lesions, [...] Tianna Mota APRN.CNM documented in this encounter [facility] 06-09-2022 Miscellaneous Notes Formattin g of [...] Gladis Platt RN documented in this encounter [facility] 04-05-2015 History of Past i llness [...] of this encounter (statuses as of 06/09/2022) [facility] History of Past illness Narrative* Problem [...] of this encounter (statuses as of 06/23/2022) [facility] History of Past illness Narrative* Problem [...] of this encounter (statuses as of 06/29/2023) [facility] Diagnosis Encounter for gynecological examination (general) (routine) without abnormal findings- Primary [facility] Diagnosis Encounter for gynecological examination (general) (routine) without abnormal findings- Primary Encounter for surveillance of vaginal ring hormonal contraceptive device [facility] Diagnosis Encounter for supervision of high risk in first trimester, antepartum- Primary Less than 8 weeks gestation of state, incidental with uncertain dates in first trimester Obesity affecting in first trimester, unspecified obesity type Constipation during in first trimester Vaginal bleeding affecting early [facility] Diagnosis Vaginal bleeding affecting early - Primary [facility] Diagnosis Vaginal bleeding affecting early [facility] Diagnosis SAB (spontaneous )- Primary Unspecified spontaneous without mention of complication [facility] Diagnosis SAB (spontaneous )- Primary Unspecified spontaneous without mention of complication [facility] Diagnosis Incomplete spontaneous without complication- Primary Incomplete spontaneous without mention of complication [facility] Diagnosis Encounter for gynecological examination (general) (routine) without abnormal findings- Primary Screening for cervical cancer Screening for malignant neoplasm of the cervix Encounter for screening for human papillomavirus (HPV) Special screening examination for human papillomavirus (HPV) [facility] Diagnosis 9 weeks gestation of (HCC)- Primary state, incidental with uncertain dates in first trimester (HCC) Obesity affecting in first trimester, unspecified obesity type (HCC) Encounter for supervision of low-risk in first trimester (HCC) Irritable bowel syndrome with both constipation and diarrhea [facility] Diagnosis Encounter for screening for malformation using ultrasound (HCC)- Primary 13 weeks gestation of (HCC) state, incidental documented in this encounter [facility] note* Diagnosis Encounter for supervision of low-risk in second trimester (HCC)- Primary Other obesity affecting in second trimester (HCC) 13 weeks gestation of (HCC) state, incidental documented in this encounter [facility] note* Diagnosis Encounter for supervision of low-risk in second trimester (HCC)- Primary 16 weeks gestation of (HCC) state, incidental Other obesity affecting in second trimester (HCC) documented in this encounter [facility] note* Diagnosis Supervision of high risk in second trimester (HCC)- Primary Unspecified high-risk 20 weeks gestation of (HCC) state, incidental Obesity affecting in second trimester, unspecified obesity type (HCC) Irritable bowel syndrome with both constipation and diarrhea documented in this encounter [facility] note* Diagnosis Obesity affecting in second trimester, unspecified obesity type (HCC)- Primary 9 weeks gestation of (HCC) state, incidental Supervision of high risk in second trimester (HCC) Unspecified high-risk documented in this encounter [facility] note* Diagnosis Low-lying placenta (HCC)- Primary Hemorrhage from placenta previa, unspecified as to episode of care documented in this encounter [facility] note* Diagnosis Supervision of high risk in second trimester (HCC)- Primary Unspecified high-risk 24 weeks gestation of ([facility]) state, incidental Obesity affecting in second trimester, unspecified obesity type (HCC) Low-lying placenta (HCC) Hemorrhage from placenta previa, unspecified as to episode of care Screening for diabetes mellitus Heartburn during in second trimester ([facility]) documented in this encounter [facility] for referral (narrative)* Diagnostic Procedure Only (Routine) - Authorized Specialty Diagnoses / Procedures Referred By Brianna delgado Referred To Contact [facility] Diagnoses Encounter for supervision of high risk in first trimester, antepartum Less than 8 weeks gestation of with uncertain dates in first trimester Procedures NUCHAL TRANSLUCENCY WHI US NUCHAL TRANSLUCENCY 1ST GESTATION Kailee Rahman APRN.PAINTER SIGN MAINTENANCE [address] [place] [address] [address] Referral ID Status Reason Start Date Expiration Date Visits Requested Visits Authorized [id number] Authorized Auto-Generat ed Referral 04/22/2024 04/22/2025 1 1 * Diagnostic Procedure Only (Routine) - Authorized Specialty Diagnoses / Procedures Referred By Contac t Referred To Contact [facility] Diagnoses with uncertain dates in first trimester Procedures NUCHAL TRANSLUCENCY WHI US NUCHAL TRANSLUCENCY 1ST GESTATION Kailee Rahman APRN.CNP [address] [place] [address] [address] Referral ID Status Reason Start Date Expiration Date Visits Requested Visits Authorized [id number] Authorized Auto-Generat ed Referral 04/22/2024 04/22/2025 1 1 * Diagnostic Procedure Only (Routine) - Authorized Specialty Diagnoses / Procedures Referred By Contac t Referred To Contact [facility] Diagnoses with uncertain dates in first trimester Procedures OBSTETRIC ULTRASOUND WHI US PREG UTERUS AFTER 1ST TRIMEST GESTATION Kailee Rahman APRN.CNP [address] [place] [address] [address] Referral ID Status Reason Start Date Expiration Date Visits Requested Visits Authorized [id number] Authorized Auto-Generat ed Referral 04/22/2024 04/22/2025 1 1 [facility] for referral (narrative)* Diagnostic Procedure Only (Routine) - Authorized Specialty Diagnoses / Procedures Referred By Contac t Referred To Contact [facility] Diagnoses Vaginal bleeding affecting early Procedures OBSTETRIC ULTRASOUND WHI US PREG UTERUS AFTER 1ST TRIMEST GESTATION Kailee Rahman APRN.CNP [address] [place] [address] [id number] [place] [address] Referral ID Status Reason Start Date Expiration Date Visits Requested Visits Authorized [id number] Authorized Auto-Generat ed Referral 04/27/2025 1 1 [facility] for visit Narrative* Diagnostic Procedure Only (Routine) - Closed Specialty Diagnoses / Procedures Referred By Contchristiane t Referred To Contact [facility] Diagnoses Vaginal bleeding affecting early Procedures OBSTETRIC ULTRASOUND WHI US PREG UTERUS AFTER 1ST TRIMEST GESTATION Kailee Rahman APRN.CNP [address] [place] [address] [address] Referral ID Status Reason Start Date Expiration Date V isits Requested Visits Authorized [id number] Closed Auto-Generate d Referral 04/27/2024 04/27/2025 1 1 [facility] Summary Purpose Family History No Family History Records FoundNo Family History Records FoundNo Family History Records FoundNo Family History Records Found Advance Directives No Advanced Directives Records FoundNo Advanced Directives Records FoundNo Advanced Directives Records FoundNo Advanced Directives Records Found Additional Source Comments INFORMATION SOURCE (unrecogn ized section and content) DATE CREATED AUTHOR 11/04/2017 [facility] DATE CREATED AUTHOR AUTHOR'S ORGANIZ ATION 01/16/2022 [facility] DATE CREATED AUTHOR AUTHOR'S ORGANIZ ATION 03/19/2025 [facility] DATE CREATED AUTHOR AUTHOR'S ORGANIZ ATION 03/25/2025 [facility] Source Comments (unrecognize d section and content) In the event this informatio n is protected by the Federal Confidentiality of Alcohol and Drug Abuse Patient Records regulations: The Federal rules restrict any use of the information to criminally investigate or prosecute any alcohol or drug abuse patient.[facility] the event this information is protected by the Federal Confidentiality of Alcohol and Drug Abuse Patient Records regulations: The Federal rules restrict any use of the information to criminally investigate or prosecute any alcohol or drug abuse patient.[facility] the event this information is protected by the Federal Confidentiality of Alcohol and Drug Abuse Patient Records regulations: The Federal rules restrict any use of the information to criminally investigate or prosecute any alcohol or drug abuse patient.[facility] the event this information is protected by the Federal Confidentiality of Alcohol and Drug Abuse Patient Records regulations: The Federal rules restrict any use of the information to criminally investigate or prosecute any alcohol or drug abuse patient.[facility] the event this information is protected by the Federal Confidentiality of Alcohol and Drug Abuse Patient Records regulations: The Federal rules restrict any use of the information to criminally investigate or prosecute any alcohol or drug abuse patient.[facility] the event this information is protected by the Federal Confidentiality of Alcohol and Drug Abuse Patient Records regulations: The Federal rules restrict any use of the information to criminally investigate or prosecute any alcohol or drug abuse patient.[facility] the event this information is protected by the Federal Confidentiality of Alcohol and Drug Abuse Patient Records regulations: The Federal rules restrict any use of the information to criminally investigate or prosecute any alcohol or drug abuse patient.[facility] the event this information is protected by the Federal Confidentiality of Alcohol and Drug Abuse Patient Records regulations: The Federal rules restrict any use of the information to criminally investigate or prosecute any alcohol or drug abuse patient.[facility] the event this information is protected by the Federal Confidentiality of Alcohol and Drug Abuse Patient Records regulations: The Federal rules restrict any use of the information to criminally investigate or prosecute any alcohol or drug abuse patient.[facility] the event this information is protected by the Federal Confidentiality of Alcohol and Drug Abuse Patient Records regulations: The Federal rules restrict any use of the information to criminally investigate or prosecute any alcohol or drug abuse patient.[facility] Hospital[facility] the event this information is protected by the Federal Confidentiality of Alcohol and Drug Abuse Patient Records regulations: The Federal rules restrict any use of the information to criminally investigate or prosecute any alcohol or drug abuse patient.[facility] the event this information is protected by the Federal Confidentiality of Alcohol and Drug Abuse Patient Records regulations: The Federal rules restrict any use of the information to criminally investigate or prosecute any alcohol or drug abuse patient.[facility] Hospital[facility] the event this information is protected by the Federal Confidentiality of Alcohol and Drug Abuse Patient Records regulations: The Federal rules restrict any use of the information to criminally investigate or prosecute any alcohol or drug abuse patient.[facility] the event this information is protected by the Federal Confidentiality of Alcohol and Drug Abuse Patient Records regulations: The Federal rules restrict any use of the information to criminally investigate or prosecute any alcohol or drug abuse patient.[facility] Hospital[facility] the event this information is protected by the Federal Confidentiality of Alcohol and Drug Abuse Patient Records regulations: The Federal rules restrict any use of the information to criminally investigate or prosecute any alcohol or drug abuse patient.[facility] Hospital[facility] the event this information is protected by the Federal Confidentiality of Alcohol and Drug Abuse Patient Records regulations: The Federal rules restrict any use of the information to criminally investigate or prosecute any alcohol or drug abuse patient.[facility] Hospital[facility] the event this information is protected by the Federal Confidentiality of Alcohol and Drug Abuse Patient Records regulations: The Federal rules restrict any use of the information to criminally investigate or prosecute any alcohol or drug abuse patient.[facility] Hospital[facility] the event this information is protected by the Federal Confidentiality of Alcohol and Drug Abuse Patient Records regulations: The Federal rules restrict any use of the information to criminally investigate or prosecute any alcohol or drug abuse patient.[facility] Hospital[facility] the event this information is protected by the Federal Confidentiality of Alcohol and Drug Abuse Patient Records regulations: The Federal rules restrict any use of the information to criminally investigate or prosecute any alcohol or drug abuse patient.[facility] Hospital[facility] the event this information is protected by the Federal Confidentiality of Alcohol and Drug Abuse Patient Records regulations: The Federal rules restrict any use of the information to criminally investigate or prosecute any alcohol or drug abuse patient.[facility] Hospital[facility] the event this information is protected by the Federal Confidentiality of Alcohol and Drug Abuse Patient Records regulations: The Federal rules restrict any use of the information to criminally investigate or prosecute any alcohol or drug abuse patient.[facility] Hospital[facility] the event this information is protected by the Federal Confidentiality of Alcohol and Drug Abuse Patient Records regulations: The Federal rules restrict any use of the information to criminally investigate or prosecute any alcohol or drug abuse patient.[facility] Reason for Visit (unrecogniz ed section and content) Reason Onset Date Comments Refill Request 06/09/2022 Reason Comments Yearly Exam Reason Comments Initial OB Visit Reason Comments Patient Update Reason Comments Follow Up Reason Comments Results Reason Comments Initial OB Visit Reason Comments US Specialty Diagnoses / Procedures Referred By Contchristiane t Referred To Contact [facility] Diagnoses 9 weeks gestation of (HCC) Procedures OBSTETRIC ULTRASOUND WHI US PREG UTERUS AFTER 1ST TRIMEST GESTATION Tianna Mota APRN.SHUKRI [address] [address] Phone: tel: fax: [facility] [address] [place] [address] Referral ID Status Reason Start Date Expiration Date V isits Requested Visits Authorized [id number] Closed Auto-Generate d Referral 09/23/2024 09/23/2025 1 1 Reason Onset Date Comments Care 10/17/2024 Reason Onset Date Comments Care 11/11/2024 Reason Comments OB Vomiting Reason Onset Date Comments Care 12/09/2024 Referral ID Status Reason Start Date Expiration Date V isits Requested Visits Authorized [id number] Closed Auto-Generate d Referral 09/23/2024 09/23/2025 1 1 Reason Onset Date Comments Care 01/06/2025 Care Teams (unrecognized sec tion and content) Manager Occupational Relationship Specialty Start Date End Date Shazia Edwards PCP - General Family Medicine 07/22/12 Manager Occupational Relationship Specialty Start Date End Date Shazia Edwards MD PCP - General Family Medicine 07/22/12 Manager Occupational Relationship Specialty Start Date End Date Shazia Edwards MD PCP - General Family Medicine 07/22/12 Manager Occupational Relationship Specialty Start Date End Date Shazia Edwards MD PCP - General Family Medicine 07/22/12 Manager Occupational Relationship Specialty Start Date End Date Shazia Edwards MD PCP - General Family Medicine 07/22/12 Manager Occupational Relationship Specialty Start Date End Date Shazia Edwards MD PCP - General Family Medicine 07/22/12 Manager Occupational Relationship Specialty Start Date End Date Shazia Edwards MD PCP - General Family Medicine 07/22/12 Manager Occupational Relationship Specialty Start Date End Date Shazia Edwards MD PCP - General Family Medicine 07/22/12 Manager Occupational Relationship Specialty Start Date End Date Shazia Edwards MD PCP - General Family Medicine 07/22/12 Manager Occupational Relationship Specialty Start Date End Date Shazia Edwards MD PCP - General Family Medicine 07/22/12 Manager Occupational Relationship Specialty Start Date End Date Shazia Edwards MD PCP - General Family Medicine 07/22/12 Manager Occupational Relationship Specialty Start Date End Date Shazia Edwards MD PCP - General Family Medicine 07/22/12 Manager Occupational Relationship Specialty Start Date End Date Shazia Edwards MD PCP - General Family Medicine 07/22/12 Manager Occupational Relationship Specialty Start Date End Date Shazia Edwards MD PCP - General Family Medicine 07/22/12 Manager Occupational Relationship Specialty Start Date End Date Shazia Edwards MD PCP - General Family Medicine 07/22/12 Manager Occupational Relationship Specialty Start Date End Date Shazia Edwards MD PCP - General Family Medicine 07/22/12 Manager Occupational Relationship Specialty Start Date End Date Shazia Edwards MD PCP - General Family Medicine 07/22/12 Manager Occupational Relationship Specialty Start Date End Date Shazia [...] BE BASED ON THE PRIMARY CLINICAL RECORDS. [facility] [employer] [facility]. provides no warranty or guarantee of the accuracy or completeness of information in this document.
[2025-04-19] MEDS: Lactated Ringers 1,000 ML 50 ML IV (07:40)
--- NOTE | 2025-04-19 07:50 | HP.PCM.OB_ITS ---
HPI - General General Date of Admission: 04/19/25 HPI Narrative DORY MARTELL, is a 29 F who presents [ ] Maternal Data Information CHAU Calculator Estimated Delivery Date Method Current WG Current Estimate 04/24/25 [facility] History (Updated 04/19/25 @ 07:52 by Tianna Mota CNM) Family history of hearing loss at age younger than 7 years Home Medications ?Medication ?Instructions ?Recorded ?Last Taken ?Type vits 96-ferrous fumarate 1 ea PO DAILY PREGNA NCY 04/02/18 04/17/25 20:00 History 27 mg iron-folic acid 800 mcg 1 ea tablet epinephrine 0.3 mg/0.3 mL 0.3 mg IM PRN PRN Allergies 05/13/18 Unknown History injection, auto-injector (EpiPen) aspirin 81 mg tablet,delayed 81 mg PO DAILY 04/14/25 04/17/25 20:00 History release (Adult Low Dose Aspirin) 81 mg pantoprazole 20 mg tablet,delayed 20 mg PO DAILY reflu x 04/14/25 04/17/25 20:00 History release (Protonix) 20 mg Allergy/AdvReac Type Severity Reaction Status Date / Time peanut (peanuts) Allergy Anaphylaxis Verified 04/19/25 07:32 Surgical History (Updated 04/19/25 @ 07:40 by Therese Chandler) History of gynecologic surgery Social History Smoking Status: Former smoker History Elective abortions Hx Para 2 Spontaneous abortions Hx # Term Pregnancies Ectopic pregnancies Hx # Pregnancies Multiple births # of living children NST FHR Rate Baby A Baseline: 140 Variability:: Moderate Accelerations:: 15 x 15 Decelerations:: None NST Reactive:: Yes FHR Category:: Category I Uterine Activity:: TOCO reading every 2-3 minutes ROS Eyes Eyes: Denies blurry vision, change in vision or spots in vision ENT HEENT: Denies dizziness or headache(s) Cardiovascular Cardiovascular: Denies abdominal pain, chest pain or dyspnea Respiratory/Chest Respiratory/Chest: Denies cough, dyspnea, shortness of breath at rest or shortness of breath with exertion Gastrointestinal Gastrointestinal: Denies abdominal pain, diarrhea or vomiting Genitourinary Genitourinary: Denies change in urinary stream, difficulty urinating or dysuria Musculoskeletal Musculoskeletal: Reports none Integumentary Integumentary: Denies rash Neurologic Neurologic: Denies dizziness, headache(s), memory loss or weakness Psychiatric Psychiatric: Reports none Vital Signs Vital Signs Vital Signs: 04/19/25 07:27 04/19/25 07:27 04/19/25 07:27 Temperature Temperature Source Pulse Rate 71 78 Respiratory Rate Blood Pressure 125/90 H BP Systolic 125 BP Diastolic 90 Pulse Ox 04/19/25 07:27 04/19/25 07:27 04/19/25 07:27 Temperature Temperature Source Temporal Pulse Rate Respiratory Rate 16 Blood Pressure BP Systolic BP Diastolic Pulse Ox 98 04/19/25 07:27 Temperature 97.5 F L Temperature Source Pulse Rate Respiratory Rate Blood Pressure BP Systolic BP Diastolic Pulse Ox Weight Weight: 218 lb Body Mass Index (BMI) 38.6 PRE- weight 185 lb PRE- Body Mass Index 32.8 (BMI) Physical Exam Const alert, oriented x3 and no apparent distress General Appearance: cooperative Orientation / Consciousness: awake Exam Limitations: no limitations HEENT normocephalic Head and Scalp: normal to inspection Eyes General Eye: normal appearance of both eyes Neck full ROM and no lymphadenopathy Lymph Lymphatic: no lymphadenopathy noted Chest inspection of chest normal Resp normal respiratory effort, normal air movement and clear to auscultation bilaterally Effort and Inspection: able to speak in complete sentences and symmetric chest movement Cardio regular rate and regular rhythm GI normal to inspection, nondistended, normoactive bowel sounds Manual OB Exam: presentation cephalic Back/Spine normal ROM Extremity full ROM and no calf tenderness Skin no rashes or lesions noted General Skin Exam: no breakdown Neuro oriented x3 and CN's II-XII intact bilaterally Psych mental status grossly normal and thought process normal Labs Labs Labs: Blood Type B POSITIVE Antibody Screen NEGATIVE Hct, (37-47) 38.3 % Hgb, (12.0-15.0) 13.1 g/dl Rhogam given: No Assessment & Plan (1) 39 weeks gestation of : (2) Obesity affecting : (3) Encounter for elective induction of labor: (4) Multiparity: PLAN: Plan Admit to labor and delivery Routine labs GBS negative Dr. Concepcion notified of admission and is collaborating physician
[2025-04-19] MEDS: Oxytocin 15 Units/NS 250ml 15 UNITS/250 ML IV.SOLN 2 UNITS IV (07:59)
[2025-04-19 08:12] LABS: Hematocrit 36.5 % (37-47); Hemoglobin 12.0 g/dL (12.0-15.0); Immature Granulocytes Count 0.070 X10^3/uL (0.0-0.0); Mean Corp Hgb Conc 32.9 g/dL (32-36); Mean Corpuscular Volume 89.7 fL (81-99); Mean Platelet Vol. 10.7 fl (6.2-12.0); NRBC Flagged by Analyzer 0 % (0-5); Platelet Count 194 K/mm3 (150-450); RBC Distribution Width CV 13.1 % (11.6-14.6); RBC Distribution Width SD 42.7 fl (35.1-43.9); Red Blood Count 4.07 M/mm3 (4.2-5.4); White Blood Count 10.2 K/mm3 (4.4-11.0)
--- NOTE | 2025-04-19 08:58 | PCM.PN.CNM ---
Subjective Subjective Patient seen at bedside. Denies any pain. Objective Data Objective Data Vital Signs: Vital Signs Temp Pulse Resp BP Pulse Ox 97.9 F 73 16 129/90 H 98 04/19/25 08:52 04/19/25 08:52 04/19/25 08:52 04/19/25 08:52 04/19/25 07:27 Weight: 218 lb Body Mass Index (BMI) 38.6 Intake & Output: Intake and Output for Last 24 Hours 04/17/25 04/18/25 04/19/25 23:59 23:59 23:59 Intake Total 1.87 / 1.87 Balance 1.87 / 1.87 Lab / Micro Data 04/19/25 07:40 Labs: Laboratory Results - last 24 hr 04/19/25 07:40: WBC 10.2, RBC 4.07 L, Hgb 12.0, Hct 36.5 L, MCV 89.7, MCH 29.5, MCHC 32.9, RDW Std Deviation 42.7, RDW Coeff of Radha 13.1, Plt Count 194, MPV 10.7, Immature Gran % (Auto) 0.700, Neut % (Auto) 71.0 H, Lymph % (Auto) 22.0, [place] % (Auto) 5.6, Eos % (Auto) 0.4, Baso % (Auto) 0.3, Absolute Neuts (auto) 7.3, Absolute Lymphs (auto) 2.24, Nucleated RBC % 0, Blood Type B POSITIVE Assessment & Plan (1) Multiparity: (2) Encounter for elective induction of labor: (3) Obesity affecting : (4) 39 weeks gestation of : PLAN: Plan CE /-3 AROM for clear fluid Desires unmedicated labor and delivery
[2025-04-19 09:13] LABS: Syphilis Antibodies Nonreactive (Nonreactive)
--- NOTE | 2025-04-19 10:49 | EX.PCM.OBVAG ---
Assessment & Plan (1) (spontaneous vaginal delivery): (2) Care and examination of lactating mother: Maternal Data Information CHAU Calculator Estimated Delivery Date Method Current WG Current Estimate 04/24/25 Manual 39w 2d Vaginal Delivery Maternal Presentation Maternal Presentation: Elective Induction Type of Induction: Pitocin and Amniotomy Vaginal Delivery Information Procedure Performed: Spontaneous Vaginal Delivery Surgeon/Practitioner: Tianna Mota Date of Procedure: 04/19/25 Pre-Procedure Diagnosis: Term gestation, induction of labor Post-Procedure Diagnosis: , Live female infant Type of anesthesia: None Estimated Blood Loss: 200 Time of Delivery: 10:34 Findings Description of procedure: Patient quickly progressed to complete dilation. With good maternal effort, head delivered followed by anterior shoulder and remainder of infant body without any force, delay, or traction. Loose nuchal cord easily reduced. Vigorous female was delivered atraumatically and placed on maternal abdomen. Pitocin IV started for active management of the third stage of labor. 3 vessel cord clamped and cut by FOB after delay and infant placed immediately skin to skin with patient. Placenta delivered spontaneously and intact. After inspection, vagina and perineum are intact. Vaginal sweep performed. Fundus is firm 2 below U and bleeding is hemostatic. Sponge and sharps counts correct. Patient and infant bonding well at this time. Dr. Concepcion notified of delivery. Routine post orders placed. Presentation: Vertex Amniotic Membrane Rupture Type: Artificial Amniotic Fluid Description: Clear Placental Delivery Description: Spontaneous Placenta Disposition: [facility] Specimen collected: No Cord Vessel Description: 3 Vessels Cord Entanglement: Around neck x 1, loose Nuchal Cord Compression: Without compression A Gender: Female (1 minute): 8 (5 minute): 9 Delayed Cord Clamping: Yes Market Research Consultant staff research scientist: No Post Vaginal Deli Medications given after delivery: IV Pitocin Episiotomy Description: None Laceration: None Complication Complications: No
[2025-04-19] MEDS: Oxytocin 15 Units/NS 250ml 15 UNITS/250 ML IV.SOLN 83 UNITS IV (11:25)
[2025-04-20] VITALS (8 sets, daily range): BP systolic 111–139; BP diastolic 70–87; PULSE 65–73; RESP 16–17; TEMP 35.7–36.5; O2SAT 99
--- NOTE | 2025-04-20 06:37 | PCM.DC.SUM ---
Providers Date of Admission: 04/19/25 Primary Care Physician: Dr. Irvin Edwards MD Reason For Visit: VAG DELIVERY Diagnosis Discharge Diagnosis (1) (spontaneous vaginal delivery): Status: Acute Code(s): O80 - Encounter for full-term uncomplicated delivery (2) Care and examination of lactating mother: Status: Acute Code(s): Z39.1 - Encounter for care and examination of lactating mother Medications at Discharge Home Medications vits 96-ferrous fumarate 27 mg iron-folic acid 800 mcg tablet 1 ea PO DAILY 04/02/18 epinephrine 0.3 mg/0.3 mL injection, auto-injector (EpiPen) 0.3 mg IM PRN PRN Allergies 05/13/18 pantoprazole 20 mg tablet,delayed release (Protonix) 20 mg PO DAILY reflux 04/14/25 naproxen 500 mg tablet 500 mg PO Q8H PRN PRN Pain Score 1-10 #0 tabs 04/20/25 Hospital Course Operations None Procedures None Summary of Care Provided Minutes Spent on Discharge: 15 Hospital Course: Patient had vaginal delivery. Hospital course was uneventful. Physical Exam Narrative Patient seen at bedside. Denies pain. Ambulating and voiding without difficulty. Lochia decreased. Desires discharge home today. Const alert and oriented x3 General Appearance: Negative for in distress HEENT normocephalic Eyes General Eye: normal appearance of both eyes Neck General: normal visual inspection Chest Chest: symmetrical chest wall rise Resp normal respiratory effort and normal air movement Effort and Inspection: symmetric chest movement; Negative for tachypneic Auscultation: clear to auscultation bilaterally Cardio regular rate and regular rhythm Peripheral Pulses: pulses 2+ throughout GI normal to inspection, nondistended, normoactive bowel sounds Narrative: Ice to perineum OB / External & Speculum: vaginal bleeding and other Lochia decreasing Uterus Palpation: uterus fundus firm (Below U) Extremity normal to inspection, full ROM and normal capillary refill Skin no rashes or lesions noted Neuro oriented x3, CN's II-XII intact bilaterally and gait normal Psych mental status grossly normal, thought process normal and activity/motor behavior normal Weight / BMI Weight Weight: 218 lb Body Mass Index (BMI) 38.6 PRE- weight 185 lb PRE- Body Mass Index 32.8 (BMI) ABG / Lab / Microbiology Data 04/19/25 07:40 Laboratory: Laboratory Results - last 24 hr 04/19/25 07:40: WBC 10.2, RBC 4.07 L, Hgb 12.0, Hct 36.5 L, MCV 89.7, MCH 29.5, MCHC 32.9, RDW Std Deviation 42.7, RDW Coeff of Radha 13.1, Plt Count 194, MPV 10.7, Immature Gran % (Auto) 0.700, Neut % (Auto) 71.0 H, Lymph % (Auto) 22.0, [place] % (Auto) 5.6, Eos % (Auto) 0.4, Baso % (Auto) 0.3, Absolute Neuts (auto) 7.3, Absolute Lymphs (auto) 2.24, Nucleated RBC % 0, Syphilis Total Ab Nonreactive, Blood Type B POSITIVE, Antibody Screen NEGATIVE D/C Instructions Discharge Activity: Return to Normal Activity, No Restrictions, May Drive, May Shower and May Take a Tub Bath (Warm water only. No bath salts, soaps, bubbles) May resume sexual activity in: 6-8 weeks Weight Bearing Status: Weight bearing as tolerated Call your doctor if you observe: Fever of 101 or Higher, Inability to urinate, Using more than 1 pad per hour, Shortness of breath, Dizziness, Chest pain, Calf discomfort and Uncontrolled pain DC O2, CPAP, BIPAP Needs Home O2 Discharge instructions: No Please Follow Up With: [facility] Delfina ADRIAN When: 2 weeks in office or virtual Meaningful Use Info Meaningful Use Meaningful Use Diagnoses (Choose all that apply): None applicable Discharge Plan Admission Admit Date/Time: 04/19/25 07:16 Primary Reason for Your Visit: Labor and Delivery Attending Provider: Tianna Mota Primary Care Provider: Irvin Edwards Discharge Orders/Prescriptions Prescriptions: New naproxen 500 mg Tablet 500 mg PO Q8H PRN PRN (Reason: Pain Score 1-10) Qty: 0 0RF Continued vit 96-iron fum-folic 1 EACH tablet 1 ea PO DAILY epinephrine [EpiPen] 0.3 MG/0.3 ML auto-injector 0.3 mg IM PRN PRN (Reason: Allergies) pantoprazole [Protonix] 20 mg tablet,delayed release (DR/EC) 20 mg PO DAILY Discontinued aspirin [Adult Low Dose Aspirin] 81 mg tablet,delayed release (DR/EC) 81 mg PO DAILY Referrals / Follow Up: Tianna Mota CNM [Med Staff - [facility] Practice Prof, Obstetrics] Irvin Edwards MD [Primary Care Provider, Family Practice] Disposition Disposition (needs filled in before D/C Order can be placed): Home, Self Care
== END 2025-04-20 13:20 | disposition home or self-care (01) | DRG 807 ==
PROVIDERS: Admitting Provider Advanced Practice Midwife; PCP Family Medicine; Referring Provider Advanced Practice Midwife; Visit Provider Advanced Practice Midwife
DX: O99.214 Obesity complicating childbirth (principal); Z37.0 Single live birth; O69.81X0 Labor and delivery complicated by cord around neck, without compression, not applicable or unspecified; Z3A.39 39 weeks gestation of pregnancy; Z87.891 Personal history of nicotine dependence; Z64.1 Problems related to multiparity
CPT/HCPCS: 59025; 59050; 85025; 86780; 86850; 86900; 86901; 99221; G0378